=== PATIENT | male | born 2000 | race Caucasian/White ===

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

== ENCOUNTER 2022-05-09 07:33 | Emergency (ER) | payer MEDICAID, OTHER ==
[~2022-05-09] VITALS: Ht 167.6 cm; Wt 59.0 kg
[2022-05-09] MEDS ORDERED: LORazepam 2MG/ML-1ML VIAL IV ONE (07:45)
[2022-05-09 08:01] LABS: Basophils # (auto) 0.1 10 ^3/uL (0-0.2); Basophils % (auto) 0.7 % (0.0-2.0); Eosinophils # (auto) 0.1 10 ^3/uL (0-0.8); Eosinophils % (auto) 1.1 % (0.0-7.0); Hematocrit 44.4 % (41.0-53.0); Hemoglobin 15.4 g/dL (13.5-17.5); Lymphocytes # (auto) 1.6 10 ^3/uL (0.4-5.4); Lymphocytes % (auto) 14.3 % (10.0-50.0); Mean Corpuscular Hemoglobin 29.9 pg (28.0-32.0); Mean Corpuscular Hgb Conc. 34.8 g/dL (32.0-36.0); Mean Corpuscular Volume 86.1 fL (80.0-100.0); Monocytes # (auto) 0.6 10 ^3/uL (0-1.3); Monocytes % (auto) 5.3 % (0.0-12.0); Neutrophils # (auto) 8.6 10 ^3/uL (1.6-8.6); Neutrophils % (auto) 78.6 % (37.0-80.0); Nucleated Red Blood Cells % 0.2 %; Red Blood Cells 5.16 10^6/uL (4.5-5.90); Red Cell Distribution Width 13.1 % (11.8-14.3)
[2022-05-09 08:15] VITALS: BP 121/75
[2022-05-09 08:18] LABS: Albumin 4.3 g/dL (3.4-5.0); Calcium 9.5 mg/dL (8.5-10.1); Potassium 4.3 mmol/L (3.5-5.1)
[2022-05-09 08:21] LABS: BUN/Creatinine Ratio 8.3; Bilirubin, Total 0.8 mg/dL (0.2-1.0); Total Protein 7.7 g/dL (6.4-8.2)
[2022-05-09] MEDS ORDERED: KEP500T PO (08:51)
== END 2022-05-09 09:49 | disposition home or self-care (01) ==
LOC: EDBD 07:33 → ER 07:33
DX: G40.909 Epilepsy, unspecified, not intractable, without status epilepticus (principal); F17.210 Nicotine dependence, cigarettes, uncomplicated; Z79.899 Other long term (current) drug therapy
CPT/HCPCS: 36415; 70450; 80053; 85025; 96365; 96375; 99284; J1953; J2060; J7060

== ENCOUNTER 2023-08-06 13:28 | Inpatient (IN) | payer MEDICAID ==
[~2023-08-06] VITALS: Ht 175.3 cm; Wt 64.0 kg
[~2023-08-06 13:28] MED LIST: KEP500T PO
[2023-08-06 15:35] LABS: Basophils # (auto) 0.1 10 ^3/uL (0-0.2); Basophils % (auto) 0.6 % (0.0-2.0); Eosinophils # (auto) 0 10 ^3/uL (0-0.8); Eosinophils % (auto) 0.1 % (0.0-7.0); Hematocrit 45.9 % (41.0-53.0); Hemoglobin 15.6 g/dL (13.5-17.5); Lymphocytes # (auto) 0.6 10 ^3/uL (0.4-5.4); Lymphocytes % (auto) 4.7 % (10.0-50.0); Mean Corpuscular Hemoglobin 32.4 pg (28.0-32.0); Mean Corpuscular Volume 95.3 fL (80.0-100.0); Monocytes # (auto) 0.8 10 ^3/uL (0-1.3); Monocytes % (auto) 6.9 % (0.0-12.0); Neutrophils # (auto) 10.4 10 ^3/uL (1.6-8.6); Neutrophils % (auto) 87.7 % (37.0-80.0); Nucleated Red Blood Cells % 0.1 %; Red Blood Cells 4.82 10^6/uL (4.5-5.90); Red Cell Distribution Width 14.5 % (11.8-14.3); White Blood Cell 11.8 10^3/uL (4.4-10.8)
[2023-08-06 15:54] LABS: Alanine Aminotransferase 128 U/L (7-40); Albumin 4.8 g/dL (3.2-4.8); Alkaline Phosphatase 162 U/L (46-116); Anion Gap 7 (5-15); Aspartate Aminotransferase 166 U/L (13-40); BUN/Creatinine Ratio 8.2 (10.0-20.0); Blood Urea Nitrogen 8 mg/dL (9-23); Calcium 9.5 mg/dL (8.7-10.4); Carbon Dioxide 27 mmol/L (20-30); Chloride 101 mmol/L (98-107); Glucose 263 mg/dL (74-106); Lipase 63 U/L (12-53); Potassium 3.8 mmol/L (3.5-5.1); Sodium 135 mmol/L (136-145)
[2023-08-06 15:55] LABS: Bilirubin, Total 1.3 mg/dL (0.2-1.0); Total Protein 7.6 g/dL (5.7-8.2)
[2023-08-06 17:11] LABS: COVID19 ANTIGEN SOFIA FIA NEGATIVE (NEGATIVE); Rapid Influenza A Negative (Negative); Rapid Influenza B Negative (Negative)
[2023-08-06] MEDS ORDERED: LORazepam 2MG/ML-1ML VIAL IV ONE (17:15)
[2023-08-06] MEDS ORDERED: FOLIC ACID 1 MG, MAGNESIUM SULF SDV 50% 8 MEQ, MULTIPLE VITAMIN 10 ML, THIAMINE INJ 100... INJ SCH ×5 (18:00)
[2023-08-06] MEDS ORDERED: HYDROcodone-ACET 5/325MG TAB PO PRN (18:45)
[2023-08-06] MEDS ORDERED: HYDROmorphone HCL 2 MG/ML VL/or syr IV PRN (18:45)
[2023-08-06] MEDS ORDERED: ACETAMINOPHEN 325 MG TAB PO PRN (18:45)
[2023-08-06] MEDS ORDERED: ONDANSETRON HCL 4 MG/2 ML VIAL IV PRN (18:45)
[2023-08-06] MEDS ORDERED: DOCUSATE SOD 100 MG CAP PO PRN (18:45)
[2023-08-06] MEDS ORDERED: LORazepam 2MG/ML-1ML VIAL IV PRN (19:00)
[2023-08-06] MEDS ORDERED: LORazepam 0.5 MG TAB PO PRN (19:00)
[2023-08-06] MEDS: SODIUM CHLOR 0.9% PF (SALINE LOCK) 10ML VIAL/SYR IV SCH (22:05)
[2023-08-06 23:30] VITALS: BP 146/93; PULSE 78; RESP 18; TEMP 98.2; O2SAT 96
[2023-08-07 01:15] VITALS: BP 146/93; PULSE 78; RESP 17; RESP 18; O2SAT 96
[2023-08-07 05:00] VITALS: BP 126/64; PULSE 79; RESP 17; TEMP 98.1; O2SAT 97
[2023-08-07] MEDS: SODIUM CHLOR 0.9% PF (SALINE LOCK) 10ML VIAL/SYR IV SCH (06:04)
[2023-08-07 08:44] LABS: Hepatitis B Surface Antigen Negative (Negative)
[2023-08-07 08:50] VITALS: BP 120/66; PULSE 63; RESP 18; TEMP 98.1; O2SAT 98
[2023-08-07 09:04] LABS: Hepatitis A Ab IgM Negative
[2023-08-07 09:05] LABS: Hepatitis B Core IgM Negative
[2023-08-07 09:06] LABS: Hepatitis C Antibody Negative (Negative)
[2023-08-07] MEDS ORDERED: THIAMINE HCL 100 MG TAB PO SCH (10:00)
[2023-08-07] MEDS ORDERED: ENOXAPARIN SOD 40 MG/0.4 ML SYRINGE SC SCH (10:00)
[2023-08-07] MEDS ORDERED: MULTIPLE VITAMIN TAB PO SCH (10:00)
[2023-08-07] MEDS ORDERED: FOLIC ACID 1 MG TAB PO SCH (10:00)
[2023-08-07 11:21] LABS: Alanine Aminotransferase 98 U/L (7-40); Alkaline Phosphatase 142 U/L (46-116); Anion Gap 7 (5-15); BUN/Creatinine Ratio 5.9 (10.0-20.0); Blood Urea Nitrogen 5 mg/dL (9-23); Calcium 9.5 mg/dL (8.5-10.1); Carbon Dioxide 26 mmol/L (20-30); Chloride 107 mmol/L (98-107); Glucose 101 mg/dL (74-106); Potassium 3.9 mmol/L (3.5-5.1); Sodium 140 mmol/L (136-145)
[2023-08-07 11:22] LABS: Albumin 4.3 g/dL (3.2-4.8); Aspartate Aminotransferase 109 U/L (13-40); Bilirubin, Total 1.9 mg/dL (0.2-1.0); Total Protein 6.8 g/dL (5.7-8.2)
[2023-08-07 12:00] VITALS: BP 144/85; PULSE 66; RESP 18; TEMP 97.9; O2SAT 98
[2023-08-07 16:45] VITALS: BP 135/95; PULSE 66; RESP 20; TEMP 97.9; O2SAT 97
[2023-08-07 17:18] LABS: Amphetamine Screen, Urine Neg (NEGATIVE); Barbiturate Scree,Urine Neg (NEGATIVE); Benzodiazephine Screen, Urine Neg (NEGATIVE); Cannabinoid Screen, Urine Pos (NEGATIVE); Cocaine Screen, Urine Neg (NEGATIVE); Opiate Scree,Urine Neg (NEGATIVE); Phencyclidine Screen, Urine Neg (NEGATIVE)
[2023-08-07 17:55] LABS: Urine Bacteria NONE SEEN /hpf (None Seen); Urine Blood Negative /uL (Negative); Urine Clarity Clear (Clear); Urine Color Yellow (Yellow); Urine Protein, UAD 1+ (Negative); Urine WBC 1 /hpf (0 - 3)
== END 2023-08-07 18:08 | disposition home or self-care (01) | DRG 775 ==
LOC: ER 13:28 → OVERFLOW 18:37 → WEST WING 23:20
PROVIDERS: ADMIT Internal Medicine; ATTEND Nurse Practitioner Acute Care
DX: F10.139 Alcohol abuse with withdrawal, unspecified (principal); K74.60 Unspecified cirrhosis of liver; E11.65 Type 2 diabetes mellitus with hyperglycemia; R74.01 Elevation of levels of liver transaminase levels; F17.210 Nicotine dependence, cigarettes, uncomplicated; Z20.822 Contact with and (suspected) exposure to COVID-19; Y90.9 Presence of alcohol in blood, level not specified
CPT/HCPCS: 36415; 70450; 71045; 80053; 80074; 80307; 81001; 82962; 83690; 83735; 85025; 87426; 87804; G0378

== ENCOUNTER → 2023-08-12 | Outpatient (CLI) | payer MEDICAID ==
[2023-08-12 15:48] LABS: Basophils # (auto) 0.1 10 ^3/uL (0-0.2); Basophils % (auto) 1.1 % (0.0-2.0); Eosinophils # (auto) 0.1 10 ^3/uL (0-0.8); Eosinophils % (auto) 1.1 % (0.0-7.0); Hematocrit 47.6 % (41.0-53.0); Hemoglobin 16.1 g/dL (13.5-17.5); Lymphocytes # (auto) 1.1 10 ^3/uL (0.4-5.4); Lymphocytes % (auto) 18.6 % (10.0-50.0); Mean Corpuscular Hemoglobin 32.6 pg (28.0-32.0); Mean Corpuscular Hgb Conc. 33.8 g/dL (32.0-36.0); Mean Corpuscular Volume 96.4 fL (80.0-100.0); Monocytes # (auto) 0.8 10 ^3/uL (0-1.3); Monocytes % (auto) 13.1 % (0.0-12.0); Neutrophils # (auto) 3.9 10 ^3/uL (1.6-8.6); Neutrophils % (auto) 66.1 % (37.0-80.0); Nucleated Red Blood Cells % 0.2 %; Red Blood Cells 4.94 10^6/uL (4.5-5.90); Red Cell Distribution Width 14.5 % (11.8-14.3); White Blood Cell 5.8 10^3/uL (4.4-10.8)
[2023-08-12 16:53] LABS: Alanine Aminotransferase 195 U/L (7-40); Alkaline Phosphatase 170 U/L (46-116); Anion Gap 5 (5-15); BUN/Creatinine Ratio 5.9 (10.0-20.0); Blood Urea Nitrogen 6 mg/dL (9-23); Calcium 9.7 mg/dL (8.5-10.1); Carbon Dioxide 29 mmol/L (20-30); Chloride 105 mmol/L (98-107); Glucose 87 mg/dL (74-106); Potassium 4.3 mmol/L (3.5-5.1); Sodium 139 mmol/L (136-145)
[2023-08-12 16:54] LABS: Albumin 4.7 g/dL (3.2-4.8); Aspartate Aminotransferase 234 U/L (13-40); Bilirubin, Total 0.5 mg/dL (0.2-1.0); Total Protein 7.4 g/dL (5.7-8.2)
== END | disposition home or self-care (01) ==
LOC: LAB 15:33
PROVIDERS: ATTEND Nurse Practitioner Acute Care
DX: K74.60 Unspecified cirrhosis of liver (principal)
CPT/HCPCS: 36415; 80053; 85025

== ENCOUNTER 2024-03-15 14:05 | Emergency (ER) | payer MEDICAID ==
[~2024-03-15] VITALS: Ht 180.3 cm; Wt 81.8 kg
[2024-03-15 14:43] VITALS: BP 119/69; PULSE 93; RESP 17; O2SAT 97
[2024-03-15 16:36] LABS: Alanine Aminotransferase 116 U/L (7-40); Albumin 4.2 g/dL (3.2-4.8); Alkaline Phosphatase 130 U/L (46-116); Anion Gap 9 (5-15); Aspartate Aminotransferase 251 U/L (13-40); BUN/Creatinine Ratio 12.9 (10.0-20.0); Blood Urea Nitrogen 11 mg/dL (9-23); Calcium 8.8 mg/dL (8.7-10.4); Carbon Dioxide 24 mmol/L (20-30); Chloride 106 mmol/L (98-107); Glucose 126 mg/dL (74-106); Potassium 3.4 mmol/L (3.5-5.1); Sodium 139 mmol/L (136-145)
[2024-03-15 16:37] LABS: Bilirubin, Total 1.1 mg/dL (0.2-1.0); Total Protein 6.3 g/dL (5.7-8.2)
[2024-03-15 16:40] LABS: Basophils # (auto) 0 10 ^3/uL (0-0.2); Basophils % (auto) 0.6 % (0.0-2.0); Eosinophils # (auto) 0 10 ^3/uL (0-0.8); Eosinophils % (auto) 0.2 % (0.0-7.0); Hematocrit 42.1 % (41.0-53.0); Hemoglobin 14.8 g/dL (13.5-17.5); Lymphocytes # (auto) 0.8 10 ^3/uL (0.4-5.4); Lymphocytes % (auto) 10.9 % (10.0-50.0); Mean Corpuscular Hemoglobin 33.2 pg (28.0-32.0); Mean Corpuscular Hgb Conc. 35.2 g/dL (32.0-36.0); Mean Corpuscular Volume 94.3 fL (80.0-100.0); Monocytes # (auto) 0.4 10 ^3/uL (0-1.3); Monocytes % (auto) 5.1 % (0.0-12.0); Neutrophils # (auto) 6.2 10 ^3/uL (1.6-8.6); Neutrophils % (auto) 83.2 % (37.0-80.0); Platelet Count (auto) 142 10^3/uL (140-450); Red Blood Cells 4.46 10^6/uL (4.5-5.90); Red Cell Distribution Width 13.4 % (11.8-14.3); White Blood Cell 7.4 10^3/uL (4.4-10.8)
[2024-03-15] MEDS: POTASSIUM EFFERVESENT TAB 25 MEQ PO ONE (17:09)
[2024-03-15] MEDS: SODIUM CHLORIDE 0.9% 1,000 ML IV ONE (18:13)
== END 2024-03-15 18:13 | disposition home or self-care (01) ==
LOC: ER 14:05 → EDBD 14:05 → ER 18:13
DX: R74.01 Elevation of levels of liver transaminase levels (principal); F10.10 Alcohol abuse, uncomplicated; R53.1 Weakness; F17.210 Nicotine dependence, cigarettes, uncomplicated; F12.10 Cannabis abuse, uncomplicated
CPT/HCPCS: 36415; 71045; 80053; 84484; 85025; 93005

== ENCOUNTER 2024-04-20 23:19 | Emergency (ER) | payer MEDICAID ==
[~2024-04-20] VITALS: Ht 172.7 cm; Wt 58.6 kg
[2024-04-20 23:30] VITALS: BP 118/84; PULSE 91; RESP 20; O2SAT 98
[2024-04-21] MEDS: cefTRIAXone 1GM/50ML D5W 50 ML IV ONE (00:10)
[2024-04-21] MEDS: TETANUS-DIPTH-ACEL PERTUSSIS 0.5ML SYR Tdap IM ONE (00:10)
[2024-04-21] MEDS: CLINDAMYCIN 900MG IV 50 ML IV ONE (00:25)
== END 2024-04-21 01:47 | disposition left against medical advice (07) ==
LOC: ER 23:19
DX: S61.452A Open bite of left hand, initial encounter (principal); L04.2 Acute lymphadenitis of upper limb; F17.210 Nicotine dependence, cigarettes, uncomplicated; F12.90 Cannabis use, unspecified, uncomplicated; W55.01XA Bitten by cat, initial encounter; Y93.89 Activity, other specified; Y92.89 Other specified places as the place of occurrence of the external cause; Y99.8 Other external cause status
CPT/HCPCS: 90471; 90715; 96365; 96368; 99284; J0696; J3490

== ENCOUNTER 2024-05-16 20:57 | Inpatient (IN) | payer MEDICAID ==
[~2024-05-16] VITALS: Ht 172.7 cm; Wt 59.3 kg
[2024-05-16] MEDS: LORazepam 2MG/ML-1ML VIAL IV ONE ×2 (21:00→23:01)
[2024-05-16] MEDS ORDERED: LORazepam 2MG/ML-1ML VIAL ONE (21:02)
--- NOTE | 2024-05-16 21:16 | ED.PDOC ---
HPI (NEURO) HPI Comments 23y M who presents to the ED via EMS for chief complaint of seizure like activity. Per EMS, pt has history of seizure and pt had seizure 25 Mins prior and EMS was called to the scene. EMS arrived on scene and pt was post-ictal but was moving and swaying from side to side and pt was placed on 15 L via non- rebreather. EMS states pt was given versed and brought to the ED with pt have 2 seizures en route to the ED. EMS states pt has not taken his seizure meds for the past 2 days as pt family had taken away his Keppra for unknown reasons. Pt in the ED, noted to be in post-ictal and posturing in the ED. Pt unable to answer any questions at this time. Chief Complaint: Seizure Time Seen by MD: 21:12 Primary Care Provider: NONE Reviewed Notes: Geoscientist Notes, Allergies Information Source: Emergency Med Personnel Mode of Arrival: EMS Brought in by: EMS Severity: Moderate Dizziness/Weakness Severity: Unable to do activities Headache Severity: Moderate Timing: Minutes, Hours Duration: Since onset Prehospital treatment: Oxygen (15 L via NRB), Treatment (versed) Onset: At rest Circumstances: Spontaneous Symptoms: Weakness Before: Normal During: LOC After: Confusion History of: Seizure Disorder Modifying factors: Change in position Associated Signs and Symptoms: Weakness Past Medical History PAST MEDICAL HISTORY: Seizures Surgical History: Denies all surgeries Family History Family History: Unknown Social History Smoker: Cigarettes, Less Than 1 Pack/Day Alcohol: Occasionally Drugs: Marijuana Lives In: Home Constitutional: denies: chills, diaphoresis, fatigue, fever, malaise, sweats, weakness, others EENTM: denies: blurred vision, double vision, ear bleeding, ear discharge, ear drainage, ear pain, ear ringing, eye pain, eye redness, hearing loss, mouth pain, mouth swelling, nasal discharge, nose bleeding, nose congestion, nose pain, photophobia, tearing, throat pain, throat swelling, voice changes, others Respiratory: denies: cough, hemoptysis, orthopnea, SOB at rest, shortness of breath, SOB with excertion, stridor, wheezing, others Cardiovascular: denies: chest pain, dizzy spells, diaphoresis, Dyspnea on exertion, edema, irregular heart beat, left arm pain, lightheadedness, palpitations, PND, syncope, others Gastrointestinal: denies: abdomen distended, abdominal pain, blood streaked bowels, constipated, diarrhea, dysphagia, difficulty swallowing, hematemesis, melena, nausea, poor appetite, poor fluid intake, rectal bleeding, rectal pain, vomiting, others Genitourinary: denies: burning, dysuria, flank pain, frequency, hematuria, incontinence, penile discharge, penile sore, pain, testicle pain, testicle swelling, urgency, others Neurological: reports: seizure; denies: dizziness, fainting, headache, left sided numbness, left sided weakness, numbness, paresthesia, pre-existing deficit, right sided numbness, right sided weakness, speech problems, tingling, tremors, weakness, others Musculoskeletal: denies: back pain, gout, joint pain, joint swelling, muscle pain, muscle stiffness, neck pain, others Integumetry: denies: bruises, change in color, change in hair/nails, dryness, laceration, lesions, lumps, rash, wounds, others Allergic/Immunocompromised: denies: Difficulty Healing, Frequent Infections, Hives, Itching, others Hematologic/Lymphatic: denies: anemia, blood clots, easy bleeding, easy bruising, swollen glands, others Endocrine: denies: excessive hunger, excessive sweating, excessive thirst, excessive urination, flushing, intolerance to cold, intolerance to heat, unexplained weight gain, unexplained weight loss, others Psychiatric: denies: anxiety, bipolar disorder, depression, hopeless, panic disorder, schizophrenia, sleepless, suicidal, others All Other Systems: Reviewed and Negative Physical Exam General Appearance: Severe Distress HEENT: Pale Conjuntivae (L), Pale Conjuntivae (R), Pharynx Normal, TMs Normal Neck: Full Range of Motion, Non-Tender, Normal, Normal Inspection Respiratory: Chest Non-Tender, Lungs Clear, No Accessory Muscle Use, No Respiratory Distress, Normal Breath Sounds Cardiovascular: No Edema, No JVD, No Murmur, No Gallop, Normal Peripheral Pulses, Regular Rate/Rhythm Breast Exam: Deferred Gastrointestinal: No Organomegaly, Non Tender, No Pulsatile Mass, Normal Bowel Sounds, Soft Genitalia: Deferred Pelvic: Deferred Rectal: Deferred Extremities: No calf tenderness, Normal capillary refill, No pedal edema Musculoskeletal : Apperance: Normal Neurologic: assembler brazer II-XII nml as Tested, Motor Weakness, No Sensory Deficits, Other (The patient has an active seizure) Cerebellar Function: Normal Reflexes: Normal Skin: Dry, Normal Color, Warm Lymphatic: No Adenopathy EKG EKG : Pulse Rate (adult): 142 Wilmer: Normal Cardiac Rhythm: ST Hypertrophy: None ST: Normal Was a procedure done? Was a procedure done?: Yes Sedation Sedation?: Yes Informed consent obtained: No Sedation start time: 21:30 Sedation end time: 21:31 Sedation total time: 1 min Central Line Recorder of insertion practice: Lead Software Architect Occupation of principal technologist: Attending Physician Indication: CVP monitoring Room prepared for procedure: Yes Lead Software Architect performed hand hygien: Yes Maximal sterile barrier precau: Mask/Eye shield, Sterile gown, Sterlie gloves, Large sterlie drape Skin preparation completely dr: Yes Insertion site: Right, Infraclavicular Central line catheter type: Tunneled- not dialysis Antiseptic ointment applied to: Yes Post Assessment: Chest X-Ray Intubation Indication: Airway Protection Prep: No Preoxygenation Pretreated with: Sedation (etomidate 20 mg) Medicated with: Succinylcholine (80 mg) Intubation Approach: Orotracheal Differential Diagnosis (SZ) Seizure: Anticonvulsant Withdrawl, Closed Head Injury, CVA/TIA, Drug Ingestion, Hypocalcemia, Hypoglycemia, Hyponatremia, Hypoxemia, Idiopathic, Encephalopathy, Epilepsy-Break Through, Epilepsy-Status X-Ray, Labs, Meds, VS Vital Signs Date Time Temp Pulse Resp B/P (MAP) Pulse Ox O2 Delivery O2 Flow Rate FiO2 05/17/24 02:00 105/58 05/17/24 02:00 100.6 91 19 105/58 (74) 100 100.6 05/17/24 01:45 100.6 98 21 107/61 (76) 100 100.6 05/17/24 01:30 112/67 05/17/24 01:30 123/79 05/17/24 01:30 100.6 92 17 112/67 (82) 100 100.6 05/17/24 01:15 100.6 96 18 115/69 (84) 100 100.6 05/17/24 01:15 115/69 05/17/24 01:00 121/71 05/17/24 01:00 100.6 99 18 121/71 (88) 100 100.6 05/17/24 00:45 100.6 103 23 119/77 (91) 100 100.6 05/17/24 00:30 100.6 104 22 123/79 (94) 100 100.6 05/17/24 00:30 123/79 05/17/24 00:30 123/79 05/17/24 00:15 100.6 102 18 125/79 (94) 100 100.6 05/17/24 00:00 100.6 101 17 131/80 (97) 100 100.6 05/17/24 00:00 131/80 05/17/24 00:00 101 05/16/24 23:45 100.6 110 18 130/79 (96) 100 100.6 05/16/24 23:34 121 18 125/78 (94) 100 100 05/16/24 23:30 123 18 124/78 (93) 100 05/16/24 23:30 124/78 05/16/24 23:30 124/78 05/16/24 23:00 162/109 05/16/24 23:00 162/109 05/16/24 23:00 158 22 162/109 (126) 94 05/16/24 22:45 111 27 124/71 (88) 99 05/16/24 22:45 124/71 05/16/24 22:30 128 23 142/84 (103) 96 05/16/24 22:30 140/84 05/16/24 22:30 142/84 05/16/24 22:19 146 41 150/41 100 100 05/16/24 22:15 141/86 05/16/24 22:15 121 22 141/86 (104) 98 05/16/24 22:00 134 20 133/83 (100) 96 05/16/24 22:00 133/83 05/16/24 22:00 133/83 05/16/24 21:57 139 15 176/88 (117) 96 05/16/24 21:52 146 41 150/41 (77) 100 100 05/16/24 21:35 147 30 93 Nasal Cannula* 2 28 05/16/24 21:34 147 30 150/97 (114) 93 05/16/24 21:30 150/97 05/16/24 21:25 98.4 140 22 152/79 (103) 99 11/10/24 21:21 176/88 05/16/24 21:16 142 05/16/24 21:06 142 Lab Test 05/17/24 01:37 05/16/24 23:40 05/16/24 21:15 Range/Units Blood Gas Specimen Type Arterial Blood Gas Sample Site Left brachial Blood Gas Patient Temperature 37.0 Arterial Blood Date Drawn [id number] Arterial Blood pH 7.541 H 7.350-7.450 Arterial Blood Partial Pressure CO2 30.5 L 35.0-48.0 mmHg Arterial Blood Partial Pressure O2 256.0 H 83.0-108.0 mmHg Arterial Blood HCO3 25.6 21.0-28.0 mmol/L Arterial Blood Oxygen Saturation 99.5 H 94.0-98.0 % Arterial Blood Base Excess 3.7 H -2.0-3.0 mmol/L Arterial Blood Oxyhemoglobin 98.4 H 94.0-98.0 % Arterial Blood Carboxyhemoglobin 0.3 L 0.5-1.5 % Arterial Blood Methemoglobin 0.8 0.0-1.5 % [place] Test N/a Blood Gas Total Hemoglobin 13.80 13.5-17.5 g/dL Blood Gas Set Respiration Rate 18.0 Blood Gas Modality Vent - ac FiO2 % 100.0 Blood Gas Tidal Volume 500.0 Blood Gas PEEP or CPAP 5.0 Urine Color Light-orange Yellow Urine Clarity Turbid H Clear Urine pH 6.0 5.0-9.0 Urine Specific [place] 1.019 1.001-1.035 Urine Protein 2+ H Negative Urine Ketones Trace Negative Urine Blood 3+ H Negative /uL Urine Nitrite Negative Negative Urine Bilirubin Negative Negative Urine Urobilinogen Normal Negative mg/dL Urine Leukocyte Esterase Negative Negative /uL Urine RBC 94 0 - 3 /hpf Urine WBC 5 0 - 3 /hpf Urine Squamous Epithelial Cells Few <5 /hpf Urine Calcium Oxalate Crystals Mod None Seen Urine Amorphous Crystals Few None Seen /hpf Urine Bacteria Few H None Seen /hpf Urine Hyaline Casts Few 0 - 2 /lpf Urine Sperm Present None Seen /hpf Urine Glucose Normal Normal mg/dL Urine Opiates Screen Neg NEGATIVE Urine Fentanyl Screen Neg NEGATIVE Urine Barbiturates Screen Neg NEGATIVE Urine Phencyclidine Screen Neg NEGATIVE Urine Amphetamines Screen Neg NEGATIVE Urine Benzodiazepines Screen Pos NEGATIVE Urine Cocaine Screen Neg NEGATIVE Urine Cannabinoids Screen Pos NEGATIVE White Blood Count 8.9 4.4-10.8 10^3/uL Red Blood Count 4.29 L 4.5-5.90 10^6/uL Hemoglobin 14.6 13.5-17.5 g/dL Hematocrit 42.8 41.0-53.0 % Mean Corpuscular Volume 99.7 80.0-100.0 fL Mean Corpuscular Hemoglobin 34.0 H 28.0-32.0 pg Mean Corpuscular Hemoglobin Concent 34.1 32.0-36.0 g/dL Red Cell Distribution Width 13.8 11.8-14.3 % Platelet Count 146 140-450 10^3/uL Mean Platelet Volume 6.6 L 6.9-10.8 fL Neutrophils (%) (Auto) 83.3 H 37.0-80.0 % Lymphocytes (%) (Auto) 9.5 L 10.0-50.0 % Monocytes (%) (Auto) 6.2 0.0-12.0 % Eosinophils (%) (Auto) 0.2 0.0-7.0 % Basophils (%) (Auto) 0.8 0.0-2.0 % Neutrophils # (Auto) 7.4 1.6-8.6 10 ^3/uL Lymphocytes # (Auto) 0.9 0.4-5.4 10 ^3/uL Monocytes # (Auto) 0.6 0-1.3 10 ^3/uL Eosinophils # (Auto) 0 0-0.8 10 ^3/uL Basophils # (Auto) 0.1 0-0.2 10 ^3/uL Nucleated Red Blood Cells 0.1 % Sodium Level 141 136-145 mmol/L Potassium Level 4.0 3.5-5.1 mmol/L Chloride Level 103 98-107 mmol/L Carbon Dioxide Level 24 20-31 mmol/L Anion Gap 14 5-15 Blood Urea Nitrogen 7 L 9-23 mg/dL Creatinine 1.13 0.700-1.30 mg/dL Glomerular Filtration Rate Calc 93 >90 mL/min BUN/Creatinine Ratio 6.2 L 10.0-20.0 Serum Glucose 153 H 74-106 mg/dL Calcium Level 9.8 8.7-10.4 mg/dL Plasma/Serum Blood Alcohol < 3.0 <10 mg/dL Current Medications Medications (Trade) Dose Ordered Sig/Travon Route Start Time Stop Time Status Last Admin Levetiracetam 100 ml @ 400 mls/hr ONCE ONCE IV 05/16/24 21:15 05/16/24 21:29 DC 05/16/24 21:41 Etomidate 20 mg ONCE ONCE IV 05/16/24 21:30 05/16/24 21:31 DC 05/16/24 21:33 Succinylcholine Chloride (Quelicin) 80 mg ONCE ONCE IV 05/16/24 21:30 05/16/24 21:31 DC 05/16/24 21:33 Midazolam HCl 50 ml @ 1 mls/hr Q24H IV 05/16/24 21:45 05/17/24 10:00 Lorazepam (Ativan Inj) 2 mg ONCE ONCE IV 05/16/24 21:00 05/16/24 22:13 DC 05/16/24 21:00 Succinylcholine Chloride (Quelicin) 100 mg ONCE ONCE IV 05/16/24 22:15 05/16/24 22:16 DC 05/16/24 22:15 Propofol 100 ml @ 2.316 mls/ hr Q24H IV 05/16/24 22:15 05/16/24 21:21 Fentanyl Citrate 250 ml @ 2.5 mls/hr Q24H IV 05/16/24 22:30 05/17/24 08:36 Lorazepam (Ativan Inj) 4 mg ONCE ONCE IV 05/16/24 23:00 05/16/24 23:01 DC 05/16/24 23:01 Acetaminophen (Tylenol Solution Oral) 650 mg ONCE ONCE GT 05/17/24 02:00 05/17/24 02:01 DC 05/17/24 02:12 Dextrose/Sodium Chloride 1,000 ml @ 100 mls/hr Q10H IV 05/17/24 02:00 05/17/24 02:12 IV Hep-Lock was established. The patient continued to have a seizure upon arrival. The patient was given Ativan IV push The patient was then started on Keppra 1000 mg IV piggyback The patient continued to have a seizure so we decided to intubate at that point. The intubation had no complications. The patient was then started on midazolam as well as propofol for sedation. The patient did require one additional succinylcholine for the procedure of a central line A Reeves catheter was placed An NG-tube was also placed We continue to monitor the patient on the ventilator as well as an ABG to monitor the patient's vent settings. The patient's CBC is within normal limits The chemistry panel is within normal limits The urine tox was done and shows positive for marijuana as well as a benzodiazepines The patient will be admitted to the ICU. Images Reviewed?: Images reviewed and evaluated by me Time of 1ST Reevaluation: 21:45 Reevaluation 1ST: Unchanged Patient Education/Counseling: Other (pt in post-ictal state) Family Education/Counseling: No Family Present Departure 1 Departure Time of Disposition: 11:26 Impression: Primary Impression: Status epilepticus Additional Impression: Acute respiratory failure Qualified Codes: J96.00 - Acute respiratory failure, unspecified whether with hypoxia or hypercapnia Disposition: ADMITTED INPATIENT Admit to: ICU Condition: Critical Critical Care Note Critical Care Time?: Yes (1 hr-critical care time only) Stability Stability form required: Yes Unstable for transfer: ICU, CCU, PCU, ASTON (Intensive VS monitoring), May require CPR (possible rapid decline), ED Physician Assesment (Clinical assesment) Heart Score Heart Score: Heart Score Response (Comments) Value History N/A 0 EKG N/A 0 Age N/A 0 Risk Factors N/A 0 Troponin N/A 0 Total 0 I personally scribed for DELIA GARCIA MD (LUIS ENRIQUE) on 05/16/24 at 21:16. Electronically submitted by Jane Pruitt (HEATHER). I personally scribed for DELIA GARCIA MD (LUIS ENRIQUE) on 05/16/24 at 21:28. Electronically submitted by Jane Pruitt (F?rsat Bu F?rsatTRAM). I personally scribed for DELIA GARCIA MD (CONORSRINA) on 05/16/24 at 21:38. Electronically submitted by Jane Pruitt (F?rsat Bu F?rsatTRAM). I personally scribed for DELIA GARCIA MD (CONORSRINA) on 05/16/24 at 21:41. Electronically submitted by Jane WHITE). I personally scribed for DELIA GARCIA MD (CONORSRINA) on 05/16/24 at 22:32. Electronically submitted by Jane Pruitt (HEATHER). DELIA GARCIA MD May 16, 2024 21:16
[2024-05-16] MEDS: PROPOFOL 100 ML IV SCH (21:21)
[2024-05-16] MEDS: ETOMIDATE (2MG/ML) 20ML VIAL IV ONE ×2 (21:33→22:10)
[2024-05-16] MEDS: SUCCINYLCHOLINE CHLORIDE 20 MG/ML 10ML VIAL IV ONE ×3 (21:33→22:15)
[2024-05-16 21:35] VITALS: PULSE 147; RESP 30; O2SAT 93
[2024-05-16 21:36] LABS: Basophils # (auto) 0.1 10 ^3/uL (0-0.2); Basophils % (auto) 0.8 % (0.0-2.0); Eosinophils # (auto) 0 10 ^3/uL (0-0.8); Eosinophils % (auto) 0.2 % (0.0-7.0); Hematocrit 42.8 % (41.0-53.0); Hemoglobin 14.6 g/dL (13.5-17.5); Lymphocytes # (auto) 0.9 10 ^3/uL (0.4-5.4); Lymphocytes % (auto) 9.5 % (10.0-50.0); Mean Corpuscular Hgb Conc. 34.1 g/dL (32.0-36.0); Mean Corpuscular Volume 99.7 fL (80.0-100.0); Monocytes # (auto) 0.6 10 ^3/uL (0-1.3); Monocytes % (auto) 6.2 % (0.0-12.0); Neutrophils # (auto) 7.4 10 ^3/uL (1.6-8.6); Neutrophils % (auto) 83.3 % (37.0-80.0); Nucleated Red Blood Cells % 0.1 %; Platelet Count (auto) 146 10^3/uL (140-450); Red Blood Cells 4.29 10^6/uL (4.5-5.90); Red Cell Distribution Width 13.8 % (11.8-14.3); White Blood Cell 8.9 10^3/uL (4.4-10.8)
[2024-05-16] MEDS: levETIRAcetam 1000 mg/100ml 100 ML IV ONE (21:41)
[2024-05-16 21:46] LABS: Chloride 103 mmol/L (98-107); Sodium 141 mmol/L (136-145)
[2024-05-16 21:47] LABS: Anion Gap 14 (5-15); Carbon Dioxide 24 mmol/L (20-31)
[2024-05-16 21:48] LABS: Calcium 9.8 mg/dL (8.7-10.4)
[2024-05-16 21:52] VITALS: BP 150/41; PULSE 146; RESP 41; O2SAT 100
[2024-05-16 21:52] LABS: Glucose 153 mg/dL (74-106)
[2024-05-16 21:53] LABS: BUN/Creatinine Ratio 6.2 (10.0-20.0); Blood Urea Nitrogen 7 mg/dL (9-23)
[2024-05-16] MEDS: MIDAZOLAM DRIP 50 mg/50mL 50 ML IV SCH (22:00)
[2024-05-16] MEDS: MIDAZOLAM DRIP 50 mg/50mL 50 ML IV ONE ×2 (22:09)
[2024-05-16] MEDS: PROPOFOL 100 ML IV ONE (22:11)
[2024-05-16 22:19] VITALS: BP 150/41; PULSE 146; RESP 41; O2SAT 100
[2024-05-16] MEDS: fentaNYL Drip 2500mCg/250mlNS 250 ML IV ONE (22:26)
[2024-05-16] MEDS: fentaNYL Drip 2500mCg/250mlNS 250 ML IV SCH (22:30)
[2024-05-16 23:34] VITALS: BP 125/78; PULSE 121; RESP 18; O2SAT 100
[2024-05-17] VITALS (75 sets, daily range): BP systolic 81–123; BP diastolic 34–82; PULSE 56–94; RESP 15–18; TEMP 98.6–100.8; O2SAT 97–100
[2024-05-17 00:14] LABS: Amphetamine Screen, Urine Neg (NEGATIVE); Barbiturate Scree,Urine Neg (NEGATIVE); Benzodiazephine Screen, Urine Pos (NEGATIVE); Cocaine Screen, Urine Neg (NEGATIVE); Opiate Scree,Urine Neg (NEGATIVE)
[2024-05-17 00:15] LABS: Cannabinoid Screen, Urine Pos (NEGATIVE); Phencyclidine Screen, Urine Neg (NEGATIVE)
--- NOTE | 2024-05-17 00:42 | DVH ---
CT BRAIN WITHOUT CONTRAST HISTORY: seizure TECHNIQUE: Axial scans were obtained from the skull base through the vertex without contrast. Sagitta l and coronal reformats were generated. One or more of the following radiation dose reduction techniq ues were used for this examination: automated exposure control, adjustment of the mA and/or kV accord ing to patient size, use of iterative reconstruction technique. COMPARISON: CT HEAD WITHOUT CONTRAST on DOS: 10/03/23 FINDINGS: Streak artifact somewhat limits evaluation of the skull base and posterior fossa. No acute intracrani al hemorrhage or evidence of large vessel territorial infarction identified at this time. No midline shift. The basilar cisterns are patent. Sunshine-white differentiation appears relatively preserved. Right maxillary sinus mucosal polyp versus retention cyst. Patchy ethmoidal sinus and left sphenoidal sinus mucosal thickening. The mastoid air cells are clear. No grossly displaced calvarial fracture is identified. IMPRESSION: No acute intracranial findings as visualized If there is persistent clinical concern, follow-up MRI may be obtained to further evaluate.
--- NOTE | 2024-05-17 01:23 | DVH ---
EXAMINATION: AP portable chest radiograph CLINICAL HISTORY: NG-TUBE PLACEMENT COMPARISON: XY CHEST PORTABLE on DOS: 03/15/24 FINDINGS: Endotracheal tube terminates approximately 1.5 cm above the maría. Enteric tube courses below the level of the diaphragm, the side port is partially visualized projecti ng over the expected location of the upper stomach. The distal tip is beyond the lower edge of the fi lm. Right subclavian central line terminates in the right atrium. No dominant consolidation. No definite pleural effusions or pneumothorax. The cardiomediastinal silho uette appears within normal limits given technique. IMPRESSION: Tubes and lines as above.
[2024-05-17 01:42] LABS: Base Excess 3.7 mmol/L (-2.0-3.0)
[2024-05-17] MEDS ORDERED: NITROGLYCERIN 0.4 MG SL TAB SL PRN (02:00)
[2024-05-17] MEDS: ACETAMINOPHEN 650 mg PER 20.3 mL UD GT ONE (02:12)
[2024-05-17] MEDS: D5W/SOD CHL 0.45% 1,000 ML IV SCH (02:12)
[2024-05-17] MEDS ORDERED: DEXTROSE (50%) 50ML SYRG IV PRN (02:15)
--- NOTE | 2024-05-17 02:20 | DVHHP2 ---
JULIA HONG VETERINARY NURSE 05/17/24 0219: History of Present Illness Reason for Visit: Seizures History of Present Illness Information in this HPI is limited due to the patient be sedated and intubated On mechanical ventilation. 23 year-old male with history of seizures Presents after having A seizure prior to calling EMS and additional witnessed seizures in route to the hospital. Patient reported to be post ictal and hypoxic requiring 15 L nonrebreather in route. The ER provider reported that family had taken the patient's Keppra away And he had not taken his medication for two days. Reason for taking patient's medication away is unclear. Patient will be admitted for further evaluation and treatment. CHIEF SCIENTIFIC OFFICER: Seizure Review of Systems Review of Systems Unable to complete due to patient condition Allergies: Coded Allergies: No Known Drug Allergy (Verified Allergy, Unknown, 10/02/17) Medications Current Medications Medications Dose Ordered Sig/Travon Route Start Time Stop Time Status Last Admin Dose Admin Midazolam HCl 50 ml @ 1 mls/hr Q24H IV 05/16/24 21:45 05/16/24 22:00 1 MLS/HR Propofol 100 ml @ 2.316 mls/ hr Q24H IV 05/16/24 22:15 05/16/24 21:21 2.316 MLS/HR Fentanyl Citrate 250 ml @ 2.5 mls/hr Q24H IV 05/16/24 22:30 05/16/24 22:30 2.5 MLS/HR Acetaminophen 650 mg Q6HP PRN PO 05/17/24 02:00 Dextrose/Sodium Chloride 1,000 ml @ 100 mls/hr Q10H IV 05/17/24 02:00 Ondansetron HCl 4 mg Q4HP PRN IV 05/17/24 02:00 Enoxaparin Sodium 40 mg DAILY SC 05/17/24 10:00 Nitroglycerin 0.4 mg Q5MINP PRN SL 05/17/24 02:00 Morphine Sulfate 2 mg Q30M PRN IV 05/17/24 02:00 Levetiracetam 100 ml @ 400 mls/hr BID IV 05/17/24 10:00 Diagnostic Test (Pha) 1 strip Q6HR 05/17/24 06:00 Insulin Human Regular Q6HR SC 05/17/24 06:00 Dextrose 50 ml UD PRN IV 11/11/24 02:15 Exam Vital Signs Vital Signs Date Time Temp Pulse Resp B/P (MAP) Pulse Ox O2 Delivery O2 Flow Rate FiO2 05/17/24 00:00 101 05/16/24 23:34 18 125/78 (94) 100 100 05/16/24 21:25 98.4 General Appearance: Other (Sedated/intubated) HEENT: Atraumatic, PERRLA, EOMI Respiratory: Clear to auscultation, Normal air movement Cardiovascular: Normal S1, Normal S2, Other (Tachycardia) Abdominal: Soft Extremities: No clubbing, No edema Neuro: Other (Sedated, intubated on mechanical ventilator) Psych/Mental Status: Other (Unable to assess at this time) Labs/Xrays Labs Test 05/17/24 01:37 05/16/24 23:40 05/16/24 21:15 Range/Units Blood Gas Specimen Type Arterial Blood Gas Sample Site Left brachial Blood Gas Patient Temperature 37.0 Arterial Blood Date Drawn [id number] Arterial Blood pH 7.541 H 7.350-7.450 Arterial Blood Partial Pressure CO2 30.5 L 35.0-48.0 mmHg Arterial Blood Partial Pressure O2 256.0 H 83.0-108.0 mmHg Arterial Blood HCO3 25.6 21.0-28.0 mmol/L Arterial Blood Oxygen Saturation 99.5 H 94.0-98.0 % Arterial Blood Base Excess 3.7 H -2.0-3.0 mmol/L Arterial Blood Oxyhemoglobin 98.4 H 94.0-98.0 % Arterial Blood Carboxyhemoglobin 0.3 L 0.5-1.5 % Arterial Blood Methemoglobin 0.8 0.0-1.5 % [place] Test N/a Blood Gas Total Hemoglobin 13.80 13.5-17.5 g/dL Blood Gas Set Respiration Rate 18.0 Blood Gas Modality Vent - ac FiO2 % 100.0 Blood Gas Tidal Volume 500.0 Blood Gas PEEP or CPAP 5.0 Urine Opiates Screen Neg NEGATIVE Urine Fentanyl Screen Neg NEGATIVE Urine Barbiturates Screen Neg NEGATIVE Urine Phencyclidine Screen Neg NEGATIVE Urine Amphetamines Screen Neg NEGATIVE Urine Benzodiazepines Screen Pos NEGATIVE Urine Cocaine Screen Neg NEGATIVE Urine Cannabinoids Screen Pos NEGATIVE White Blood Count 8.9 4.4-10.8 10^3/uL Red Blood Count 4.29 L 4.5-5.90 10^6/uL Hemoglobin 14.6 13.5-17.5 g/dL Hematocrit 42.8 41.0-53.0 % Mean Corpuscular Volume 99.7 80.0-100.0 fL Mean Corpuscular Hemoglobin 34.0 H 28.0-32.0 pg Mean Corpuscular Hemoglobin Concent 34.1 32.0-36.0 g/dL Red Cell Distribution Width 13.8 11.8-14.3 % Platelet Count 146 140-450 10^3/uL Mean Platelet Volume 6.6 L 6.9-10.8 fL Neutrophils (%) (Auto) 83.3 H 37.0-80.0 % Lymphocytes (%) (Auto) 9.5 L 10.0-50.0 % Monocytes (%) (Auto) 6.2 0.0-12.0 % Eosinophils (%) (Auto) 0.2 0.0-7.0 % Basophils (%) (Auto) 0.8 0.0-2.0 % Neutrophils # (Auto) 7.4 1.6-8.6 10 ^3/uL Lymphocytes # (Auto) 0.9 0.4-5.4 10 ^3/uL Monocytes # (Auto) 0.6 0-1.3 10 ^3/uL Eosinophils # (Auto) 0 0-0.8 10 ^3/uL Basophils # (Auto) 0.1 0-0.2 10 ^3/uL Nucleated Red Blood Cells 0.1 % Sodium Level 141 136-145 mmol/L Potassium Level 4.0 3.5-5.1 mmol/L Chloride Level 103 98-107 mmol/L Carbon Dioxide Level 24 20-31 mmol/L Anion Gap 14 5-15 Blood Urea Nitrogen 7 L 9-23 mg/dL Creatinine 1.13 0.700-1.30 mg/dL Glomerular Filtration Rate Calc 93 >90 mL/min BUN/Creatinine Ratio 6.2 L 10.0-20.0 Serum Glucose 153 H 74-106 mg/dL Calcium Level 9.8 8.7-10.4 mg/dL Plasma/Serum Blood Alcohol < 3.0 <10 mg/dL Assessment/Plan Assessment/Plan Status epilepticus Acute respiratory failure S/p intubation on mechanical ventilator Hx Seizure disorders Plan Admit ICU Neurology consult. MRI brain. Versed drip. Seizure precautions. IV Keppra BID. Pulmonology consult. Bronchodilators. As Needed supplemental O2 to maintain oxygen saturation greater than 93%. Ventilator / sedation management per pulmonology. IVF. Blood glucose checks every six hours to prevent hypoglycemia. GI ppx pepcid / DVT ppx lovenox Condition critical. Prognosis guarded Plan discussed with: Other (promotional marketing agent) My Orders Orders - JULIA HONG NP Procedure Category Date Status Time Admit ADMIT 05/17/24 Transmitted 01:50 Code Status CODE 05/17/24 Transmitted 01:50 Vital Signs [facility] 05/17/24 In Process 01:50 Review Orders With [facility] 05/17/24 In Process Adm. 01:50 Encourage Activity As [facility] 05/17/24 In Process Tolerate 01:50 Npo (Nothing By DIET 05/17/24 Transmitted Mouth) Diet Breakfast Oxygen By Face Mask RT 05/17/24 Transmitted 01:50 Acetaminophen Tablet [facility] 05/17/24 In Process (Tylenol Tablet) 02:00 Notify Of Changes [facility] 05/17/24 In Process From Base 01:50 Advance Directive [facility] 05/17/24 In Process 01:50 Basic Metabolic Panel LAB 05/17/24 Logged 05:00 Basic Metabolic Panel LAB 05/18/24 Verified 05:00 Basic Metabolic Panel LAB 05/19/24 Verified 05:00 Basic Metabolic Panel LAB 05/20/24 Verified 05:00 Basic Metabolic Panel LAB 05/21/24 Verified 05:00 Complete Blood Count LAB 05/17/24 Logged 05:00 Complete Blood Count LAB 05/18/24 Verified 05:00 Complete Blood Count LAB 05/19/24 Verified 05:00 Complete Blood Count LAB 05/20/24 Verified 05:00 Complete Blood Count LAB 05/21/24 Verified 05:00 D5w/Sod Chl 0.45% PHA 05/17/24 In Process (D5w 1/2ns) 02:00 Patient Condition ORDERS 05/17/24 Transmitted 01:50 Allergies [facility] 05/17/24 In Process 01:50 Ondansetron Hcl PHA 05/17/24 In Process (Zofran) 02:00 Enoxaparin Sodium PHA 05/17/24 In Process (Lovenox) 10:00 Sequential [facility] 05/17/24 In Process Compression Device Nitroglycerin PHA 05/17/24 In Process Sublingual (Ntrostat 02:00 Morphine Sulfate PHA 05/17/24 In Process Injection 02:00 Stat Ekg For Chest [facility] 05/17/24 In Process Pain 01:50 Notify Md Of Changes [facility] 05/17/24 In Process From Base 01:50 Gluing Crew Leader For [facility] 05/17/24 In Process 24 Hours 01:50 Emergency Dysrhythmia [facility] 05/17/24 In Process Protocol 01:50 Rhythm Strips Once [facility] 05/17/24 In Process Every Shift 01:50 Oxygen By Nasal RT 05/17/24 Transmitted Cannula 01:50 * Neurology Consult CONS 05/17/24 Transmitted 01:50 Seizure Precautions ED NURSING 05/17/24 Transmitted Levetiracetam 500 PHA 05/17/24 In Process Mg/100ml (Levetiraceta 10:00 *Consult CONS 05/17/24 Transmitted / 01:50 Communication Order ORDERS 05/17/24 Transmitted 01:50 Glucose Blood PHA 05/17/24 In Process (Accu-Chek Comfort 06:00 Insulin R (Human) PHA 05/17/24 In Process (Insulin R) 06:00 Dextrose 50% Syringe PHA 05/17/24 In Process 02:15 Date of Service: May 17, 2024 Billing Provider: MIRIAN ROBBINS MD Common Visit Codes: NOT BILLABLE MIRIAN ROBBINS MD 05/18/24 1906: Review of Systems Allergies: Coded Allergies: No Known Drug Allergy (Verified Allergy, Unknown, 10/02/17) Additional Comments Additional Comments Additional Comments Patient was seen and evaluated by me I agree with the assessment and plan as outlined by my nurse practitioner. JULIA HONG NP May 17, 2024 02:19 MIRIAN ROBBINS MD May 18, 2024 19:06
[2024-05-17 02:42] LABS: Urine Amorphous Crystal FEW /hpf (None Seen); Urine Bacteria FEW /hpf (None Seen); Urine Blood 3+ /uL (Negative); Urine Clarity Turbid (Clear); Urine Color Light-Orange (Yellow); Urine Hyaline Cast FEW /lpf (0 - 2); Urine Protein, UAD 2+ (Negative); Urine Specific Gravity 1.019 (1.001-1.035); Urine Sperm PRESENT /hpf (None Seen); Urine Urobilinogen Normal (Negative); Urine WBC 5 /hpf (0 - 3)
[2024-05-17 04:56] LABS: Chloride 107 mmol/L (98-107); Sodium 141 mmol/L (136-145)
[2024-05-17 04:57] LABS: Anion Gap 5 (5-15); Calcium 9.6 mg/dL (8.7-10.4); Carbon Dioxide 29 mmol/L (20-31)
[2024-05-17 05:02] LABS: BUN/Creatinine Ratio 7.8 (10.0-20.0); Blood Urea Nitrogen 7 mg/dL (9-23); Glucose 79 mg/dL (74-106)
[2024-05-17] MEDS: InsuLIN REG 1unit/0.01ml Soln (100units/ml) SC SCH (06:00)
[2024-05-17] MEDS: ACCU-CHEK COMFORT CURVE STRIP VI SCH (06:19)
[2024-05-17 06:33] LABS: Basophils # (auto) 0 10 ^3/uL (0-0.2); Eosinophils # (auto) 0 10 ^3/uL (0-0.8); Eosinophils % (auto) 0.2 % (0.0-7.0); Lymphocytes # (auto) 1.5 10 ^3/uL (0.4-5.4); Monocytes # (auto) 0.6 10 ^3/uL (0-1.3); Red Cell Distribution Width 13.3 % (11.8-14.3)
[2024-05-17 06:37] LABS: Basophils % (auto) 0.4 % (0.0-2.0); Hematocrit 36.7 % (41.0-53.0); Hemoglobin 12.7 g/dL (13.5-17.5); Lymphocytes % (auto) 18.6 % (10.0-50.0); Mean Corpuscular Hgb Conc. 34.7 g/dL (32.0-36.0); Monocytes % (auto) 7.6 % (0.0-12.0); Neutrophils # (auto) 5.8 10 ^3/uL (1.6-8.6); Neutrophils % (auto) 73.2 % (37.0-80.0); Nucleated Red Blood Cells % 0.2 %; Platelet Count (auto) 72 10^3/uL (140-450); Red Blood Cells 3.74 10^6/uL (4.5-5.90); White Blood Cell 7.9 10^3/uL (4.4-10.8)
[2024-05-17 07:52] LABS: Large Platelets D
[2024-05-17 07:53] LABS: Platelet Estimate Adequate
--- NOTE | 2024-05-17 08:16 | ECG ---
[facility] Test Date: 2024-05-16 Test Time: 21:06:44 Pat Name: MIRLANDE TAN Department: ED Room: 0240T Gender: M [employer]er: : 2000 Requested By: DELIA GARCIA Order Number: [id number] Reading MD: Cristopher Mathew Measurements Intervals [place] Rate: 142 P: 79 TN: 117 QRS: 89 QRSD: 86 T: -9 QT: 297 QTc: 457 Interpretive Statements Sinus tachycardia RSR' in V1 or V2, probably normal variant Borderline T wave abnormalities Artifact in lead(s) I,III,aVL,V2 Electronically Signed On 05-27-2024 12:45:45 PST by Cristopher Mathew Please click the below link to view image of tracing.
[2024-05-17] MEDS: POTASSIUM CHL 20MEQ/100ML 100 ML IV SCH (09:09)
[2024-05-17] MEDS: levETIRAcetam 500 mg/100ml 100 ML IV SCH (09:38)
[2024-05-17] MEDS: ENOXAPARIN SOD 40 MG/0.4 ML SYRINGE SC SCH (10:00)
--- NOTE | 2024-05-17 15:31 | DVH ---
PROCEDURE: MRI BRAIN HEAD WO CONTRAST INDICATION: 23 years old, Male; status epilepticus. EXAM DATE: 05/17/2024 02:50 PM COMPARISON: CT HEAD WITHOUT CONTRAST on DOS: 05/16/24, MRI BRAIN HEAD WO CONTRAST on DOS: 10/04/23, CT HEAD WITHOUT CONTRAST on DOS: 10/03/23 TECHNIQUE: MRI of the brain without intravenous contrast. FINDINGS: Diffusion weighted images of the brain demonstrate no evidence of acute infarction. There is no evidence of acute intracranial hemorrhage, extra-axial collection, mass effect, midline s hift, herniation or hydrocephalus. The ventricles, sulci and cisterns appear age appropriate. The signal intensities of the brain parenchyma are within normal limits. There are no signal abnormalities on the susceptibility weighted sequences. The major vascular flow voids are present. Right maxillary sinus mucous retention cyst. Mild opacification of the bilateral mastoid air cells. The surrounding soft tissues and osseous structures are unremarkable. IMPRESSION: 1. No evidence of acute infarction, intracranial hemorrhage, mass effect or hydrocephalus. HS:Y
[2024-05-17] MEDS: NOREPINEPHRINE 8 MG/250ML KIT 250 ML IV SCH (16:43)
--- NOTE | 2024-05-17 18:51 | DVHINCON2 ---
Date of service: May 17, [address] Lerma Reason for Consultation Acute hypoxic respiratory failure, mechanical ventilator management History of Present Illness 23-year-old man history of status epilepticus, presented with seizure-like activity. Patient has a history of seizures. He had a seizure 25 minutes prior to EMS arrival on scene. On EMS arrival patient was postictal but was moving and swing from [id number]. He required a 15 liters/minute non-rebreather. He received Versed. Patient had two seizures on route to the emergency department. Patient was nonadherence with seizure medications for the last two days. Family had taken away his Keppra for unknown reasons. In the emergency department patient was noted to be postictal and posturing. He was emergently intubated and placed on mechanical ventilator. Pulmonary consultation is called due to acute respiratory failure on mechanical ventilator management. Review of systems: Unable to be obtained due to patient's critical condition. Past medical history: Seizure disorder Past surgical history: None mentioned in prior surgeries. Medications: Reviewed Allergies: No known drug allergies. Family history: No family history of premature CAD. No family history of lung disease. Social history: Smoker. Less than one pack per day. Social alcohol use. Marijuana use. Lives at home. Family History: Hypertension G8 FATHER Allergies: Coded Allergies: No Known Drug Allergy (Verified Allergy, Unknown, 10/02/17) Home Meds Active Scripts Levetiracetam (KEPPRA TABLET) 500 Mg Tb, 1000 MG PO BID for 30 Days, #120 TAB 6 Refills Prov:FIONA EDWARDS DO 10/06/23 Current Medications Current Medications Medications (Trade) Dose Ordered Sig/Travon Route PRN Reason Start Time Stop Time Status Last Admin Midazolam HCl 50 ml @ 1 mls/hr Q24H IV 05/16/24 21:45 05/17/24 14:22 Propofol 100 ml @ 2.316 mls/ hr Q24H IV 05/16/24 22:15 05/16/24 21:21 Fentanyl Citrate 250 ml @ 2.5 mls/hr Q24H IV 05/16/24 22:30 05/17/24 18:23 Acetaminophen (Tylenol Tablet) 650 mg Q6HP PRN PO PAIN SCALE 1-3 OR TEMP>100.4 05/17/24 02:00 Dextrose/Sodium Chloride 1,000 ml @ 100 mls/hr Q10H IV 05/17/24 02:00 05/17/24 11:33 Ondansetron HCl (Zofran) 4 mg Q4HP PRN IV NAUSEA / VOMITING 05/17/24 02:00 Enoxaparin Sodium (Lovenox) 40 mg DAILY SC 05/17/24 10:00 Hold Nitroglycerin (Ntrostat Sublingual) 0.4 mg Q5MINP PRN SL FOR CHEST PAIN 05/17/24 02:00 Morphine Sulfate 2 mg Q30M PRN IV FOR CHEST PAIN 05/17/24 02:00 Levetiracetam 100 ml @ 400 mls/hr BID IV 05/17/24 10:00 05/17/24 09:38 Diagnostic Test (Pha) (Accu-Chek Comfort Curve T) 1 strip Q6HR 05/17/24 06:00 05/17/24 18:25 Insulin Human Regular (InsuLIN R) Q6HR SC 05/17/24 06:00 Dextrose 50 ml UD PRN IV Blood Sugar LESS THAN 60 05/17/24 02:15 Potassium Chloride 100 ml @ 50 mls/hr Q2H IV 05/17/24 08:00 05/17/24 14:21 DC 05/17/24 16:11 Norepinephrine Bitartrate 250 ml @ 3.75 mls/hr Q24H IV 05/17/24 16:15 05/17/24 16:43 Vital Signs Vital Signs Date Time Temp Pulse Resp B/P (MAP) Pulse Ox O2 Delivery O2 Flow Rate FiO2 05/17/24 18:23 90/45 05/17/24 18:00 60 05/17/24 18:00 30 05/17/24 18:00 18 100 Mechanical Ventilator+ 05/17/24 14:30 99.0 99.0 05/16/24 21:35 2 Physical Exam Gen.: Patient lying in bed in medical ICU. Sedated, intubated on mechanical ventilator. Head: Normocephalic, atraumatic. Eyes: PERRLA. Ears: Normal external anatomy. Throat: Endotracheal tube and orogastric tube in place. Neck: Supple, trachea midline. Chest: Transmitted breath sounds bilaterally. Decreased air entry bilaterally. No wheezing. Bibasilar crackles. Cardio vascular: Positive S1, positive S2. Regular rate and rhythm. Abdomen: Positive bowel sounds in all 4 quadrants. Soft, nontender, nondistended. : Reeves in place. Normal external genitalia. Rectal: Deferred Skin: Warm, dry. Intact. Extremities: 2+ radial pulses bilaterally. No lower extremity edema. Neuro: Sedated. Labs/Diagnostic Data Labs Test 05/17/24 18:28 05/17/24 06:00 05/17/24 04:25 05/17/24 01:37 Range/Units POC Glucose 91 70-106 mg/dl White Blood Count 7.9 4.4-10.8 10^3/uL Red Blood Count 3.74 L 4.5-5.90 10^6/uL Hemoglobin 12.7 L 13.5-17.5 g/dL Hematocrit 36.7 #L 41.0-53.0 % Mean Corpuscular Volume 98.0 80.0-100.0 fL Mean Corpuscular Hemoglobin 34.0 H 28.0-32.0 pg Mean Corpuscular Hemoglobin Concent 34.7 32.0-36.0 g/dL Red Cell Distribution Width 13.3 11.8-14.3 % Platelet Count 72 #L 140-450 10^3/uL Mean Platelet Volume 6.8 L 6.9-10.8 fL Neutrophils (%) (Auto) 73.2 37.0-80.0 % Lymphocytes (%) (Auto) 18.6 10.0-50.0 % Monocytes (%) (Auto) 7.6 0.0-12.0 % Eosinophils (%) (Auto) 0.2 0.0-7.0 % Basophils (%) (Auto) 0.4 0.0-2.0 % Neutrophils # (Auto) 5.8 1.6-8.6 10 ^3/uL Lymphocytes # (Auto) 1.5 0.4-5.4 10 ^3/uL Monocytes # (Auto) 0.6 0-1.3 10 ^3/uL Eosinophils # (Auto) 0 0-0.8 10 ^3/uL Basophils # (Auto) 0 0-0.2 10 ^3/uL Nucleated Red Blood Cells 0.2 % Platelet Estimate Adequate Large Platelets D Sodium Level 141 136-145 mmol/L Potassium Level 3.0 L 3.5-5.1 mmol/L Chloride Level 107 98-107 mmol/L Carbon Dioxide Level 29 20-31 mmol/L Anion Gap 5 5-15 Blood Urea Nitrogen 7 L 9-23 mg/dL Creatinine 0.90 0.700-1.30 mg/dL Glomerular Filtration Rate Calc 122 >90 mL/min BUN/Creatinine Ratio 7.8 L 10.0-20.0 Serum Glucose 79 74-106 mg/dL Calcium Level 9.6 8.7-10.4 mg/dL Blood Gas Specimen Type Arterial Blood Gas Sample Site Left brachial Blood Gas Patient Temperature 37.0 Arterial Blood Date Drawn [id number] Arterial Blood pH 7.541 H 7.350-7.450 Arterial Blood Partial Pressure CO2 30.5 L 35.0-48.0 mmHg Arterial Blood Partial Pressure O2 256.0 H 83.0-108.0 mmHg Arterial Blood HCO3 25.6 21.0-28.0 mmol/L Arterial Blood Oxygen Saturation 99.5 H 94.0-98.0 % Arterial Blood Base Excess 3.7 H -2.0-3.0 mmol/L Arterial Blood Oxyhemoglobin 98.4 H 94.0-98.0 % Arterial Blood Carboxyhemoglobin 0.3 L 0.5-1.5 % Arterial Blood Methemoglobin 0.8 0.0-1.5 % [place] Test N/a Blood Gas Total Hemoglobin 13.80 13.5-17.5 g/dL Blood Gas Set Respiration Rate 18.0 Blood Gas Modality Vent - ac FiO2 % 100.0 Blood Gas Tidal Volume 500.0 Blood Gas PEEP or CPAP 5.0 Test 05/16/24 23:40 05/16/24 21:15 Range/Units Urine Color Light-orange Yellow Urine Clarity Turbid H Clear Urine pH 6.0 5.0-9.0 Urine Specific [place] 1.019 1.001-1.035 Urine Protein 2+ H Negative Urine Ketones Trace Negative Urine Blood 3+ H Negative /uL Urine Nitrite Negative Negative Urine Bilirubin Negative Negative Urine Urobilinogen Normal Negative mg/dL Urine Leukocyte Esterase Negative Negative /uL Urine RBC 94 0 - 3 /hpf Urine WBC 5 0 - 3 /hpf Urine Squamous Epithelial Cells Few <5 /hpf Urine Calcium Oxalate Crystals Mod None Seen Urine Amorphous Crystals Few None Seen /hpf Urine Bacteria Few H None Seen /hpf Urine Hyaline Casts Few 0 - 2 /lpf Urine Sperm Present None Seen /hpf Urine Glucose Normal Normal mg/dL Urine Opiates Screen Neg NEGATIVE Urine Fentanyl Screen Neg NEGATIVE Urine Barbiturates Screen Neg NEGATIVE Urine Phencyclidine Screen Neg NEGATIVE Urine Amphetamines Screen Neg NEGATIVE Urine Benzodiazepines Screen Pos NEGATIVE Urine Cocaine Screen Neg NEGATIVE Urine Cannabinoids Screen Pos NEGATIVE Plasma/Serum Blood Alcohol < 3.0 <10 mg/dL Assessment Impression: Acute respiratory failure On mechanical ventilator Status epilepticus Marijuana use Nicotine dependence Hypokalemia Plan: s/p intubation on mechanical ventilator CXR image and report reviewed. Devices in place. Right subclavian central line in the right atrium. ABG reviewed. Alkalemia due to respiratory alkalosis Brain MRI demonstrates no acute infarction, intracranial hemorrhage. On assist control with respiratory rate of 18, tidal volume 500, peep of five, FiO2 at 30%. Titrate FIO2 to keep O2 saturation above 92%. VAP bundle Daily ABG and CXR while intubated. Sedate for ventilatory synchrony Start pressors if necessary for hemodynamic support. Titrate to keep MAP above 65 mmHg/SBP above 90 mmHg. Continue antibiotics. F/u cultures. Monitor renal function due to Acute kidney injury. Monitor electrolytes. Supplement as necessary. Nutritional support. Accucheks, ISS. Follow up Neurology recommendations. GI/DVT prophylaxis. Condition: Critical Prognosis: Poor given multiple comorbidities. Rest of plan per hospitalist and other consultants. A total of 36 minutes of critical care time was spent reviewing the patient record, examining the patient, making a diagnostic and therapeutic plan, discussing this plan with the medical personnel, following up on diagnostic studies and following the patient for clinical stability excluding any and all procedures. At least 50% of this time was spent in direct, [id number] contact. Thank you Dr. Lerma for allowing me to participate in this patient's care. Further recommendations will depend on patient's clinical course. Please do not hesitate to contact me if you have any questions or concerns. This medical document was created using an electronic medical record system with Muzy dictation system. Although this document has been carefully reviewed, there may still be some phonetic and typographical errors. These areas are purely typographical due to imperfections of the software programs, and do not reflect any compromise in the patient's medical care. Plan discussed with: Other (NAYANA La, RT, ) NENITA MURPHY MD May 17, 2024 18:51
[2024-05-17 20:08] LABS: Base Excess -1.5 mmol/L (-2.0-3.0)
[2024-05-18] VITALS (105 sets, daily range): BP systolic 97–137; BP diastolic 48–92; PULSE 61–97; RESP 11–18; TEMP 98.1–99.9; O2SAT 97–100
--- NOTE | 2024-05-18 03:56 | DVH ---
CHEST RADIOGRAPH Indication:intubated Technique: Single frontal view of the chest was obtained Comparison: XY CHEST XRAY 1 VIEW on DOS: 05/16/24, XY CHEST PORTABLE on DOS: 03/15/24, XY CHEST PORTABL E on DOS: 10/03/23, XY CHEST XRAY 1 VIEW on DOS: 08/06/23, XY CHEST XRAY 1 VIEW on DOS: 05/16/24 FINDINGS: Endotracheal tube terminates approximately 1.5 cm above the maría. Enteric tube courses below the level of the diaphragm, the side port is partially visualized projecti ng over the expected location of the upper stomach. The distal tip is beyond the lower edge of the fi lm. Right subclavian central line terminates in the right atrium. IMPRESSION: Tubes and lines as above.
[2024-05-18 03:58] LABS: Basophils # (auto) 0 10 ^3/uL (0-0.2); Basophils % (auto) 0.5 % (0.0-2.0); Eosinophils # (auto) 0.2 10 ^3/uL (0-0.8); Eosinophils % (auto) 1.7 % (0.0-7.0); Hematocrit 38.2 % (41.0-53.0); Hemoglobin 13.1 g/dL (13.5-17.5); Lymphocytes # (auto) 1.9 10 ^3/uL (0.4-5.4); Lymphocytes % (auto) 20.7 % (10.0-50.0); Mean Corpuscular Hemoglobin 34.3 pg (28.0-32.0); Mean Corpuscular Hgb Conc. 34.2 g/dL (32.0-36.0); Mean Corpuscular Volume 100.3 fL (80.0-100.0); Monocytes # (auto) 0.7 10 ^3/uL (0-1.3); Monocytes % (auto) 7.3 % (0.0-12.0); Neutrophils # (auto) 6.4 10 ^3/uL (1.6-8.6); Neutrophils % (auto) 69.8 % (37.0-80.0); Platelet Count (auto) 98 10^3/uL (140-450); Red Blood Cells 3.81 10^6/uL (4.5-5.90); Red Cell Distribution Width 13.8 % (11.8-14.3); White Blood Cell 9.1 10^3/uL (4.4-10.8)
[2024-05-18 04:13] LABS: Anion Gap 5 (5-15); Calcium 9.1 mg/dL (8.7-10.4); Carbon Dioxide 26 mmol/L (20-31); Chloride 113 mmol/L (98-107); Potassium 3.3 mmol/L (3.5-5.1); Sodium 144 mmol/L (136-145)
[2024-05-18 04:19] LABS: Glucose 132 mg/dL (74-106)
[2024-05-18 04:28] LABS: BUN/Creatinine Ratio 6.7 (10.0-20.0); Blood Urea Nitrogen < 5 mg/dL (9-23)
[2024-05-18 07:50] LABS: Base Excess -4.2 mmol/L (-2.0-3.0)
[2024-05-18] MEDS: POTASSIUM CHL 20MEQ/100ML 100 ML IV SCH (08:16)
[2024-05-18] MEDS: MAGNESIUM SULFATE 1GM/100ML 100 ML IV SCH (12:00)
[2024-05-18] MEDS: MAGNESIUM SULFATE 1GM/100ML 200 ML IV ONE (16:43)
[2024-05-18] MEDS: MAGNESIUM SULFATE 1GM/100ML 100 ML IV ONE (17:58)
--- NOTE | 2024-05-18 19:08 | DVHPN2 ---
Subjective She has been is intubated and sedated currently on Versed drip propofol drip. Patient was family was updated at bedside. Reviewed: Care Plan Changes from previous H/P or p: No Changes Objective Vitals Vital Signs Date Time Temp Pulse Resp B/P (MAP) Pulse Ox O2 Delivery O2 Flow Rate FiO2 05/18/24 18:30 99.0 69 16 103/60 (74) 100 210.2 05/18/24 18:10 30 05/18/24 18:10 Mechanical Ventilator 05/16/24 21:35 2 Intake/Output Intake and Output 05/18/24 07:00 Intake Total 3617.614 ml Output Total 2300 ml Balance 1317.614 ml Intake Oral 30 ml IV Total 3587.614 ml Output Urine Total 2300 ml Exam HEENT pupils are reactive Neck is supple CV is S1-S2 regular rate and rhythm Respiratory diminished breath sound bases GI posterior portion Extremity no pedal 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 Medications Current Medications Medications Dose Ordered Sig/Travon Route Start Time Stop Time Status Last Admin Dose Admin Midazolam HCl 50 ml @ 1 mls/hr Q24H IV 05/16/24 21:45 05/18/24 11:57 5 MLS/HR Propofol 100 ml @ 2.316 mls/ hr Q24H IV 05/16/24 22:15 05/18/24 11:08 9.264 MLS/HR Fentanyl Citrate 250 ml @ 2.5 mls/hr Q24H IV 05/16/24 22:30 05/18/24 06:23 20 MLS/HR Acetaminophen 650 mg Q6HP PRN PO 05/17/24 02:00 Dextrose/Sodium Chloride 1,000 ml @ 100 mls/hr Q10H IV 05/17/24 02:00 05/18/24 18:03 100 MLS/HR Ondansetron HCl 4 mg Q4HP PRN IV 05/17/24 02:00 Enoxaparin Sodium 40 mg DAILY SC 05/17/24 10:00 Hold Nitroglycerin 0.4 mg Q5MINP PRN SL 05/17/24 02:00 Morphine Sulfate 2 mg Q30M PRN IV 05/17/24 02:00 Levetiracetam 100 ml @ 400 mls/hr BID IV 05/17/24 10:00 05/18/24 11:52 400 MLS/HR Diagnostic Test (Pha) 1 strip Q6HR 05/17/24 06:00 05/18/24 18:03 1 STRIP Insulin Human Regular Q6HR SC 05/17/24 06:00 Dextrose 50 ml UD PRN IV 05/17/24 02:15 Norepinephrine Bitartrate 250 ml @ 3.75 mls/hr Q24H IV 05/17/24 16:15 05/18/24 16:50 3.75 MLS/HR Laboratory Results Laboratory Tests 05/18/24 03:39 Chemistry Test 05/18/24 03:39 05/18/24 08:10 Calcium Level 9.1 mg/dL (8.7-10.4) Magnesium Level 1.3 mg/dL (1.6-2.6) L Phosphorus Level 3.4 mg/dL (2.4-5.1) Urinalysis Test 05/16/24 23:40 Urine Color Light-orange (Yellow) Urine Clarity Turbid (Clear) H Urine pH 6.0 (5.0-9.0) Urine Specific [place] 1.019 (1.001-1.035) Urine Protein 2+ (Negative) H Urine Ketones Trace (Negative) Urine Blood 3+ /uL (Negative) H Urine Nitrite Negative (Negative) Urine Bilirubin Negative (Negative) Urine Urobilinogen Normal mg/dL (Negative) Urine Leukocyte Esterase Negative /uL (Negative) Urine RBC 94 /hpf (0 - 3) Urine WBC 5 /hpf (0 - 3) Urine Squamous Epithelial Cells Few /hpf (<5) Urine Calcium Oxalate Crystals Mod (None Seen) Urine Amorphous Crystals Few /hpf (None Seen) Urine Bacteria Few /hpf (None Seen) H Urine Hyaline Casts Few /lpf (0 - 2) Urine Sperm Present /hpf (None Seen) Urine Glucose Normal mg/dL (Normal) Blood Gas Results Test 05/17/24 20:02 05/18/24 07:01 Arterial Blood pH 7.418 (7.350-7.450) 7.327 (7.350-7.450) FiO2 % 30.0 30.0 Microbiology Microbiology Date/Time Source Procedure Growth Status 05/18/24 03:15 Nose MRSA Screen - Final Complete 05/17/24 02:55 Blood Blood Culture - Preliminary NO GROWTH AFTER 24 HOURS OF INCUBATION. Resulted 05/16/24 21:50 Sputum Expectorated Sputum Gram Stain - Final Resulted 05/16/24 21:50 Sputum Expectorated Sputum Respiratory Culture - Preliminary Resulted Assessment/Plan Assessment/Plan 23-year-old young male with a known history of chronic marijuana use, chronic tobacco use disorder, seizure disorder currently on Keppra 1000 mg p.o. twice a day initially planned to the hospital with seizures found to have 1. Status epilepticus 2. Acute hypoxic respiratory failure requiring intubation because of status epilepticus 3. Seizure disorder 4. Chronic tobacco use disorder 5. Chronic marijuana use -continue Versed drip continue vent support daily ABG chest x-ray, talked to the family member at bedside -neurology consultation has been as Pulmonary recommendations Plan discussed with: Other My Orders Orders - MIRIAN ROBBINS MD Procedure Category Date Status Time * Neurology Consult CONS 05/18/24 Transmitted 10:06 Date of Service: May 18, 2024 Billing Provider: MIRIAN ROBBINS MD Common Visit Codes: NOT BILLABLE MIRIAN ROBBINS MD May 18, 2024 19:08
--- NOTE | 2024-05-18 19:20 | DVHPN2 ---
Progress Note - Dictate Date Seen: May 18, 2024 Medical Necessity Reason Pt with a Central, PICC or Fol: Yes The following are medically ne: Healy Catheter Reason for healy catheter: Strict I&O Subjective Patient seen and examined at bedside. Sedated, intubated on mechanical ventilator. Overnight events reviewed. vital signs Vital Sign Date Time Temp Pulse Resp B/P (MAP) Pulse Ox O2 Delivery O2 Flow Rate FiO2 05/18/24 18:30 99.0 69 16 103/60 (74) 100 210.2 05/18/24 18:10 30 05/18/24 18:10 Mechanical Ventilator 05/16/24 21:35 2 Total Intake and Output 05/17/24 05/17/24 05/18/24 15:00 23:00 07:00 Intake Total 1366.6 ml 1237.902 ml 1013.112 ml Output Total 750 ml 600 ml 950 ml Balance 616.6 ml 637.902 ml 63.112 ml medications Current Medications Medications Dose Ordered Sig/Travon Route Start Time Stop Time Status Last Admin Dose Admin Midazolam HCl 50 ml @ 1 mls/hr Q24H IV 05/16/24 21:45 05/18/24 11:57 5 MLS/HR Propofol 100 ml @ 2.316 mls/ hr Q24H IV 05/16/24 22:15 05/18/24 11:08 9.264 MLS/HR Fentanyl Citrate 250 ml @ 2.5 mls/hr Q24H IV 05/16/24 22:30 05/18/24 06:23 20 MLS/HR Acetaminophen 650 mg Q6HP PRN PO 05/17/24 02:00 Dextrose/Sodium Chloride 1,000 ml @ 100 mls/hr Q10H IV 05/17/24 02:00 05/18/24 18:03 100 MLS/HR Ondansetron HCl 4 mg Q4HP PRN IV 05/17/24 02:00 Enoxaparin Sodium 40 mg DAILY SC 05/17/24 10:00 Hold Nitroglycerin 0.4 mg Q5MINP PRN SL 05/17/24 02:00 Morphine Sulfate 2 mg Q30M PRN IV 05/17/24 02:00 Levetiracetam 100 ml @ 400 mls/hr BID IV 05/17/24 10:00 05/18/24 11:52 400 MLS/HR Diagnostic Test (Pha) 1 strip Q6HR 05/17/24 06:00 05/18/24 18:03 1 STRIP Insulin Human Regular Q6HR SC 05/17/24 06:00 Dextrose 50 ml UD PRN IV 05/17/24 02:15 Norepinephrine Bitartrate 250 ml @ 3.75 mls/hr Q24H IV 05/17/24 16:15 05/18/24 16:50 3.75 MLS/HR objective Gen.: Patient lying in bed in medical ICU. Sedated, intubated on mechanical ventilator. Head: Normocephalic, atraumatic. Eyes: PERRLA. Ears: Normal external anatomy. Throat: Endotracheal tube and orogastric tube in place. Neck: Supple, trachea midline. Chest: Transmitted breath sounds bilaterally. Decreased air entry bilaterally. No wheezing. Bibasilar crackles. Cardiovascular: Positive S1, positive S2. Regular rate and rhythm. Abdomen: Positive bowel sounds in all 4 quadrants. Soft, nontender, nondistended. : Healy in place. Normal external genitalia. Rectal: Deferred. Skin: Warm, dry. Intact. Extremities: 2+ radial pulses bilaterally. No lower extremity edema. Neuro: Sedated. laboratory and microbiology Laboratory Tests 05/18/24 03:39 Test 05/18/24 03:39 Range/Units Serum Glucose 132 H 74-106 mg/dL Assessment/Plan Impression: Acute respiratory failure On mechanical ventilator Status epilepticus Marijuana use Nicotine dependence Hypokalemia Events: Remains on vent support On assist control with respiratory rate of 16, tidal volume 450, PEEP of 5, FiO2 at 30%. Sedated on Versed, Propofol and Fentanyl. On pressors for hemodynamic support Levophed 2 mcg/min Titrate to keep mean arterial pressure greater than 65 mmHg Monitor renal function Monitor electrolytes. Supplement as necessary. Supplement potassium, magnesium Check phos Monitor for withdrawals. Labs and imaging reviewed. Rest of plan as noted below. Plan: s/p intubation on mechanical ventilator CXR image and report reviewed. Devices in place. Right subclavian central line in the right atrium. ABG reviewed. Alkalemia due to respiratory alkalosis Brain MRI demonstrates no acute infarction, intracranial hemorrhage. On assist control with respiratory rate of 16, tidal volume 450, PEEP of 5, FiO2 at 30%. Titrate FIO2 to keep O2 saturation above 92%. VAP bundle Daily ABG and CXR while intubated. Sedate for ventilatory synchrony Start pressors if necessary for hemodynamic support. Titrate to keep MAP above 65 mmHg/SBP above 90 mmHg. Continue antibiotics. F/u cultures. Monitor renal function due to Acute kidney injury. Monitor electrolytes. Supplement as necessary. Nutritional support. Accu-Cheks, ISS. Follow up neurology recommendations. GI/DVT prophylaxis. Condition: Critical Prognosis: Poor given multiple comorbidities. Rest of plan per hospitalist and other consultants. A total of 35 minutes of critical care time was spent reviewing the patient record, examining the patient, making a diagnostic and therapeutic plan, discussing this plan with the medical personnel, following up on diagnostic studies and following the patient for clinical stability excluding any and all procedures. At least 50% of this time was spent in direct, calf-is-serr contact. Thank you Dr. Lerma for allowing me to participate in this patient's care. Further recommendations will depend on patient's clinical course. Please do not hesitate to contact me if you have any questions or concerns. This medical document was created using an electronic medical record system with [employer] dictation system. Although this document has been carefully reviewed, there may still be some phonetic and typographical errors. These areas are purely typographical due to imperfections of the software programs, and do not reflect any compromise in the patient's medical care. Plan discussed with: Other (NAYANA La) Critical Care Time(min): 35 NENITA MURPHY MD May 18, 2024 19:20
--- NOTE | 2024-05-18 20:36 | DVHINCON2 ---
Date of service: May 18, [address] Lerma Reason for Consultation Status epileptics History of Present Illness Mr. Baltazar is a 23 years old right-handed gentleman with a history of alcohol abuse, he came to the hospital on 05/16/24 with a chief complaint of seizure activity. At this time, he is sedated, intubated, the history is obtained from his girlfriend, I have also reviewed chart and talked to his nurse I saw him on 10/04/2023 for seizure On 05/16/2024, the patient had two seizure at home, for in the hospital, according to his girlfriend, all were generalized tonic-clonic seizures, she only witnessed one of them, in that the patient was shaking all over body, age rolling back, the patient was woke up right away after the shaking was over, was able to talk however very confused. The last seizure before this time was in 10/2023 The patient was has had seizure disorder for 2.5 years, his girlfriend mentioned the seizures were alcohol related. She has been with him for more than one year, and during this period of time, he drinks one pint of vodka every day, and he drinks 3-4 days weekly. He had drunk more previously He was on Keppra 1000 mg b.i.d., prescribed by his family doctor. He did not feel good on 05/14/24, and he stopped taking his Keppra since 05/15/2024 According to his girlfriend, the patient has significant mood swing He has gone through many tests, including MRI/CT brain, and EEG, nothing wrong was found. [phone] UDS, 05/16/2024: Benzo, cannabinoids Plasma alcohol, 05/09/2024: Three Urinalysis, 05/16/2024: WBC: 5, urine leukocyte esterase: Negative WBC/HB/PLT/MCV, 05/18/2024: 9.1/13.1/98/100.3 K, 05/18/2024: 3.3 TBI/AST/ALT/P, 10/03/2023: 1.1/42/23/154, 10/04/2023: 1.7/39/19/136 MRI head, 10/04/2023: No acute intracranial pathology. No change from prior CT exam MR head, 05/17/2024: No evidence of acute infarction, intracranial hemorrhage, mass effect or hydrocephalus Past Medical History Anxiety Past Surgical History No surgeries Family History: Hypertension G8 FATHER Family History Hypertension. No anxiety, no alcohol or drug problem Social History He smokes tobacco and marijuana, he drinks alcohol heavily, no drug abuse Allergies: Coded Allergies: No Known Drug Allergy (Verified Allergy, Unknown, 10/02/17) Home Meds Active Scripts Levetiracetam (KEPPRA TABLET) 500 Mg Tb, 1000 MG PO BID for 30 Days, #120 TAB 6 Refills Prov:FIONA EDWARDS DO 10/06/23 Current Medications Current Medications Medications (Trade) Dose Ordered Sig/Travon Route PRN Reason Start Time Stop Time Status Last Admin Potassium Chloride 100 ml @ 50 mls/hr Q2H IV 05/18/24 08:00 05/18/24 11:59 DC 05/18/24 13:43 Magnesium Sulfate/ Dextrose 100 ml @ 100 mls/hr Q1HR IV 05/18/24 11:00 05/18/24 12:59 DC Review of Systems As above, the other systems are negative Vital Signs Vital Signs Date Time Temp Pulse Resp B/P (MAP) Pulse Ox O2 Delivery O2 Flow Rate FiO2 05/18/24 20:15 67 16 115/70 (85) 100 30 05/18/24 18:30 99.0 210.2 05/18/24 18:10 Mechanical Ventilator 05/16/24 21:35 2 Physical Exam The patient is well-nourished and well-developed with no distress. The patient is intubated HEENT: Normocephalic, neck supple, no carotid bruits Lungs: Clear to auscultation Cardiovascular: Regular rate and region, S1, S2, no murmurs Abdomen: Soft, nontender, normal bowel sounds MENTAL STATUS: Reactive to touch stimuli CRANIAL NERVES: Pupils are equal, round and reactive.There are corneal reflexes and doll's eyes phenomenon. No signs of facial weakness. There are gagging or coughing reflexes SENSATION: responses to pain and touch stimuli. MOTOR: Normal tone in the upper and lower extremity. Normal muscle bulk. No fasciculations. No spontaneous movement. REFLEXES: Deep tendon reflexes are symmetrical. No pathological reflexes. CEREBELLAR/COORDINATION: Deferred GAIT/STATION: deferred. Labs/Diagnostic Data Labs Test 05/18/24 17:45 05/18/24 08:10 05/18/24 07:01 05/18/24 03:39 Range/Units POC Glucose 92 70-106 mg/dl Phosphorus Level 3.4 2.4-5.1 mg/dL Magnesium Level 1.3 L 1.6-2.6 mg/dL Blood Gas Specimen Type Arterial Blood Gas Sample Site Left radial Blood Gas Patient Temperature 37.0 Arterial Blood Date Drawn Arterial Blood pH 7.327 L 7.350-7.450 Arterial Blood Partial Pressure CO2 42.3 35.0-48.0 mmHg Arterial Blood Partial Pressure O2 92.7 83.0-108.0 mmHg Arterial Blood HCO3 21.7 21.0-28.0 mmol/L Arterial Blood Oxygen Saturation 96.6 94.0-98.0 % Arterial Blood Base Excess -4.2 L -2.0-3.0 mmol/L Arterial Blood Oxyhemoglobin 95.5 94.0-98.0 % Arterial Blood Carboxyhemoglobin 0.8 0.5-1.5 % Arterial Blood Methemoglobin 0.3 0.0-1.5 % [place] Test Modified Blood Gas Total Hemoglobin 13.60 13.5-17.5 g/dL Blood Gas Set Respiration Rate 16.0 Blood Gas Modality Vent - ac FiO2 % 30.0 Blood Gas Tidal Volume 450.0 Blood Gas PEEP or CPAP 5.0 White Blood Count 9.1 4.4-10.8 10^3/uL Red Blood Count 3.81 L 4.5-5.90 10^6/uL Hemoglobin 13.1 L 13.5-17.5 g/dL Hematocrit 38.2 L 41.0-53.0 % Mean Corpuscular Volume 100.3 H 80.0-100.0 fL Mean Corpuscular Hemoglobin 34.3 H 28.0-32.0 pg Mean Corpuscular Hemoglobin Concent 34.2 32.0-36.0 g/dL Red Cell Distribution Width 13.8 11.8-14.3 % Platelet Count 98 L 140-450 10^3/uL Mean Platelet Volume 7.4 6.9-10.8 fL Neutrophils (%) (Auto) 69.8 37.0-80.0 % Lymphocytes (%) (Auto) 20.7 10.0-50.0 % Monocytes (%) (Auto) 7.3 0.0-12.0 % Eosinophils (%) (Auto) 1.7 0.0-7.0 % Basophils (%) (Auto) 0.5 0.0-2.0 % Neutrophils # (Auto) 6.4 1.6-8.6 10 ^3/uL Lymphocytes # (Auto) 1.9 0.4-5.4 10 ^3/uL Monocytes # (Auto) 0.7 0-1.3 10 ^3/uL Eosinophils # (Auto) 0.2 0-0.8 10 ^3/uL Basophils # (Auto) 0 0-0.2 10 ^3/uL Nucleated Red Blood Cells 0.0 % Sodium Level 144 136-145 mmol/L Potassium Level 3.3 L 3.5-5.1 mmol/L Chloride Level 113 H 98-107 mmol/L Carbon Dioxide Level 26 20-31 mmol/L Anion Gap 5 5-15 Blood Urea Nitrogen < 5 L 9-23 mg/dL Creatinine 0.75 0.700-1.30 mg/dL Glomerular Filtration Rate Calc 129 >90 mL/min BUN/Creatinine Ratio 6.7 L 10.0-20.0 Serum Glucose 132 H 74-106 mg/dL Calcium Level 9.1 8.7-10.4 mg/dL Test 05/17/24 06:00 05/16/24 23:40 05/16/24 21:15 Range/Units Platelet Estimate Adequate Large Platelets D Urine Color Light-orange Yellow Urine Clarity Turbid H Clear Urine pH 6.0 5.0-9.0 Urine Specific [place] 1.019 1.001-1.035 Urine Protein 2+ H Negative Urine Ketones Trace Negative Urine Blood 3+ H Negative /uL Urine Nitrite Negative Negative Urine Bilirubin Negative Negative Urine Urobilinogen Normal Negative mg/dL Urine Leukocyte Esterase Negative Negative /uL Urine RBC 94 0 - 3 /hpf Urine WBC 5 0 - 3 /hpf Urine Squamous Epithelial Cells Few <5 /hpf Urine Calcium Oxalate Crystals Mod None Seen Urine Amorphous Crystals Few None Seen /hpf Urine Bacteria Few H None Seen /hpf Urine Hyaline Casts Few 0 - 2 /lpf Urine Sperm Present None Seen /hpf Urine Glucose Normal Normal mg/dL Urine Opiates Screen Neg NEGATIVE Urine Fentanyl Screen Neg NEGATIVE Urine Barbiturates Screen Neg NEGATIVE Urine Phencyclidine Screen Neg NEGATIVE Urine Amphetamines Screen Neg NEGATIVE Urine Benzodiazepines Screen Pos NEGATIVE Urine Cocaine Screen Neg NEGATIVE Urine Cannabinoids Screen Pos NEGATIVE Plasma/Serum Blood Alcohol < 3.0 <10 mg/dL Microbiology Date/Time Source Procedure Growth Status 05/18/24 03:15 Nose MRSA Screen - Final Complete 05/17/24 02:55 Blood Blood Culture - Preliminary NO GROWTH AFTER 24 HOURS OF INCUBATION. Resulted 05/16/24 21:50 Sputum Expectorated Sputum Gram Stain - Final Resulted 05/16/24 21:50 Sputum Expectorated Sputum Respiratory Culture - Preliminary Resulted Assessment Grand mal seizure Likely alcohol withdrawal ? 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 dictation system. Although this document has been carefully reviewed, there may still be some phonetic and typographical errors. These areas are purely typographical due to imperfections of the software programs, and do not reflect any compromise in the patient's medical care. Plan discussed with: Spouse, Other KVNG MCKEON MD May 18, 2024 20:36
[2024-05-18] MEDS: levETIRAcetam 500 MG/5ML ORAL SOLN UD GT SCH (22:00)
[2024-05-18] MEDS: FOLIC ACID 1 MG in D5W 5% 50 ML INJ SCH (22:00)
[2024-05-18] MEDS: THIAMINE 100mg/ml INJ (200mg/2ml VIAL) IV ONE (22:49)
[2024-05-19] VITALS (109 sets, daily range): BP systolic 102–136; BP diastolic 51–87; PULSE 61–104; RESP 12–25; TEMP 96.1–100.8; O2SAT 95–100
[2024-05-19] MEDS: ACETAMINOPHEN 325 MG TAB PO PRN (01:49)
[2024-05-19 03:44] LABS: Basophils # (auto) 0 10 ^3/uL (0-0.2); Eosinophils # (auto) 0.1 10 ^3/uL (0-0.8); Lymphocytes # (auto) 0.7 10 ^3/uL (0.4-5.4); Monocytes # (auto) 0.5 10 ^3/uL (0-1.3)
[2024-05-19 03:47] LABS: Basophils % (auto) 0.6 % (0.0-2.0); Eosinophils % (auto) 1.6 % (0.0-7.0); Hematocrit 37.7 % (41.0-53.0); Lymphocytes % (auto) 13.1 % (10.0-50.0); Mean Corpuscular Hemoglobin 34.7 pg (28.0-32.0); Mean Corpuscular Hgb Conc. 34.6 g/dL (32.0-36.0); Mean Corpuscular Volume 100.3 fL (80.0-100.0); Neutrophils # (auto) 3.7 10 ^3/uL (1.6-8.6); Neutrophils % (auto) 73.7 % (37.0-80.0); Nucleated Red Blood Cells % 0.1 %; Platelet Count (auto) 71 10^3/uL (140-450); Red Blood Cells 3.76 10^6/uL (4.5-5.90); Red Cell Distribution Width 13.4 % (11.8-14.3)
[2024-05-19 03:50] LABS: Anion Gap 7 (5-15); Carbon Dioxide 22 mmol/L (20-31); Chloride 109 mmol/L (98-107); Potassium 4.1 mmol/L (3.5-5.1); Sodium 138 mmol/L (136-145)
[2024-05-19 03:51] LABS: Calcium 8.9 mg/dL (8.7-10.4)
[2024-05-19 03:56] LABS: Glucose 87 mg/dL (74-106); Magnesium 1.8 mg/dL (1.6-2.6)
[2024-05-19 04:04] LABS: BUN/Creatinine Ratio 8.2 (10.0-20.0); Blood Urea Nitrogen < 5 mg/dL (9-23)
--- NOTE | 2024-05-19 04:45 | DVH ---
EXAM: XY CHEST PORTABLE Indication:VENTILATED Technique: Single frontal view of the chest was obtained Comparison: XY CHEST PORTABLE on DOS: 05/18/24, XY CHEST XRAY 1 VIEW on DOS: 05/16/24, XY CHEST JADIEL BLE on DOS: 03/15/24, XY CHEST PORTABLE on DOS: 10/03/23, XY CHEST XRAY 1 VIEW on DOS: 08/06/23, XY CHEST PORTABLE on DOS: 05/18/24 FINDINGS: Endotracheal tube terminates approximately 4 cm above the maría. Enteric tube tip projects over the expected region of the stomach. Right subclavian central line terminates in the right atrium. No focal consolidation or pleural effusion. No pneumothorax. Otherwise no significant change. IMPRESSION: No significant change compared prior exam. Stable lines and tubes.
[2024-05-19 07:02] LABS: Base Excess -2.5 mmol/L (-2.0-3.0)
--- NOTE | 2024-05-19 10:17 | DVHPN2 ---
Progress Note - Dictate Date Seen: May 19, 2024 Medical Necessity Reason Pt with a Central, PICC or Fol: Yes The following are medically ne: Healy Catheter Reason for healy catheter: Strict I&O Subjective Mr. Baltazar is a 23 years old right-handed gentleman with a history of alcohol abuse, he came to the hospital on 05/16/24 with a chief complaint of seizure activity. I saw him on 10/04/2023 for seizure I have seen and examined the patient, I have talked to his nurse, girlfriend in the room with him, the patient was intubated, sedated, unresponsive to stroke painful stimuli No seizure I have discussed with his girlfriend again about the likely alcohol withdrawal seizure and the reason to hold off preventive seizure treatment UDS, 05/16/2024: Benzo, cannabinoids Plasma alcohol, 05/09/2024: Three Urinalysis, 05/16/2024: WBC: 5, urine leukocyte esterase: Negative WBC/HB/PLT/MCV, 05/18/2024: 9.1/13.1/98/100.3 K, 05/18/2024: 3.3 TBI/AST/ALT/P, 10/03/2023: 1.1/42/23/154, 10/04/2023: 1.7/39/19/136 MRI head, 10/04/2023: No acute intracranial pathology. No change from prior CT exam MR head, 05/17/2024: No evidence of acute infarction, intracranial hemorrhage, mass effect or hydrocephalus vital signs Vital Sign Date Time Temp Pulse Resp B/P (MAP) Pulse Ox O2 Delivery O2 Flow Rate FiO2 05/19/24 09:45 109/65 05/19/24 08:41 66 16 100 30 05/19/24 08:00 Mechanical Ventilator+ 05/19/24 06:45 98.1 208.6 Total Intake and Output 05/18/24 05/18/24 05/19/24 15:00 23:00 07:00 Intake Total 1033.214 ml 1354.656 ml 1039.272 ml Output Total 900 ml 1400 ml Balance 1033.214 ml 454.656 ml -360.728 ml medications Current Medications Medications Dose Ordered Sig/Travon Route Start Time Stop Time Status Last Admin Dose Admin Midazolam HCl 50 ml @ 1 mls/hr Q24H IV 05/16/24 21:45 05/19/24 09:45 7 MLS/HR Propofol 100 ml @ 2.316 mls/ hr Q24H IV 05/16/24 22:15 05/19/24 07:51 13.868 MLS/HR Fentanyl Citrate 250 ml @ 2.5 mls/hr Q24H IV 05/16/24 22:30 05/19/24 07:49 20 MLS/HR Acetaminophen 650 mg Q6HP PRN PO 05/17/24 02:00 05/19/24 01:49 650 MG Dextrose/Sodium Chloride 1,000 ml @ 100 mls/hr Q10H IV 05/17/24 02:00 05/19/24 03:27 100 MLS/HR Ondansetron HCl 4 mg Q4HP PRN IV 05/17/24 02:00 Enoxaparin Sodium 40 mg DAILY SC 05/17/24 10:00 Hold Nitroglycerin 0.4 mg Q5MINP PRN SL 05/17/24 02:00 Morphine Sulfate 2 mg Q30M PRN IV 05/17/24 02:00 Diagnostic Test (Pha) 1 strip Q6HR 05/17/24 06:00 05/19/24 05:47 1 STRIP Insulin Human Regular Q6HR SC 05/17/24 06:00 Dextrose 50 ml UD PRN IV 05/17/24 02:15 Norepinephrine Bitartrate 250 ml @ 3.75 mls/hr Q24H IV 05/17/24 16:15 05/18/24 16:50 3.75 MLS/HR Lorazepam 1 mg Q5MINP PRN IV 05/18/24 21:30 Levetiracetam 250 mg BID GT 05/18/24 22:00 05/19/24 10:09 250 MG Folic Acid 1 mg/ Dextrose 50.2 ml @ 200.8 mls/ hr DAILY INJ 05/18/24 22:00 05/19/24 10:10 200.8 MLS/HR objective The patient is well-nourished and well-developed with no distress. The patient is intubated MENTAL STATUS: Subjective CRANIAL NERVES: Pupils are equal, round and reactive.There are corneal reflexes and doll's eyes phenomenon. No signs of facial weakness. There are gagging or coughing reflexes SENSATION: responses to pain stimuli. MOTOR: Normal tone in the upper and lower extremity. Normal muscle bulk. No fasciculations. No spontaneous movement. REFLEXES: Deep tendon reflexes are symmetrical. No pathological reflexes. CEREBELLAR/COORDINATION: Deferred GAIT/STATION: deferred. laboratory and microbiology Laboratory Tests 05/19/24 03:15 Test 05/19/24 03:15 Range/Units Serum Glucose 87 74-106 mg/dL Problem List Grand mal seizure Likely alcohol withdrawal ? 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 Although this document has been carefully reviewed, there may still be some phonetic and typographical errors. These areas are purely typographical due to imperfections of the software programs, and do not reflect any compr Prognosis Guarded Plan discussed with: Spouse, Other Critical Care Time(min): 35 KVNG MCKEON MD May 19, 2024 10:17
--- NOTE | 2024-05-19 13:34 | DVHPN2 ---
Subjective Patient was remains intubated and sedated currently on Versed drip propofol as well as pattern drip. Dhiraj at bedside was updated regarding current plan of care. Reviewed: Care Plan Changes from previous H/P or p: No Changes Objective Vitals Vital Signs Date Time Temp Pulse Resp B/P (MAP) Pulse Ox O2 Delivery O2 Flow Rate FiO2 05/19/24 13:09 77 16 119/72 (88) 100 30 05/19/24 12:00 Mechanical Ventilator+ 05/19/24 06:45 98.1 208.6 Intake/Output Intake and Output 05/19/24 07:00 Intake Total 3568.038 ml Output Total 2300 ml Balance 1268.038 ml Intake Oral 30 ml IV Total 3538.038 ml Output Urine Total 2300 ml Exam HEENT pupils are reactive Neck is supple CV is S1-S2 regular rate and rhythm Respiratory diminished breath sound bases GI posterior portion Extremity no pedal edema [employer] intubated and sedated Medications Current Medications Medications Dose Ordered Sig/Travon Route Start Time Stop Time Status Last Admin Dose Admin Midazolam HCl 50 ml @ 1 mls/hr Q24H IV 05/16/24 21:45 05/19/24 09:45 7 MLS/HR Propofol 100 ml @ 2.316 mls/ hr Q24H IV 05/16/24 22:15 05/19/24 07:51 13.868 MLS/HR Fentanyl Citrate 250 ml @ 2.5 mls/hr Q24H IV 05/16/24 22:30 05/19/24 07:49 20 MLS/HR Acetaminophen 650 mg Q6HP PRN PO 05/17/24 02:00 05/19/24 01:49 650 MG Dextrose/Sodium Chloride 1,000 ml @ 100 mls/hr Q10H IV 05/17/24 02:00 05/19/24 03:27 100 MLS/HR Ondansetron HCl 4 mg Q4HP PRN IV 05/17/24 02:00 Enoxaparin Sodium 40 mg DAILY SC 05/17/24 10:00 Hold Nitroglycerin 0.4 mg Q5MINP PRN SL 05/17/24 02:00 Morphine Sulfate 2 mg Q30M PRN IV 05/17/24 02:00 Diagnostic Test (Pha) 1 strip Q6HR 05/17/24 06:00 05/19/24 05:47 1 STRIP Insulin Human Regular Q6HR SC 05/17/24 06:00 Dextrose 50 ml UD PRN IV 05/17/24 02:15 Norepinephrine Bitartrate 250 ml @ 3.75 mls/hr Q24H IV 05/17/24 16:15 05/18/24 16:50 3.75 MLS/HR Lorazepam 1 mg Q5MINP PRN IV 05/18/24 21:30 Levetiracetam 250 mg BID GT 05/18/24 22:00 05/19/24 10:09 250 MG Folic Acid 1 mg/ Dextrose 50.2 ml @ 200.8 mls/ hr DAILY INJ 05/18/24 22:00 05/19/24 10:10 200.8 MLS/HR Laboratory Results Laboratory Tests 05/19/24 03:15 Chemistry Test 05/19/24 03:15 Calcium Level 8.9 mg/dL (8.7-10.4) Magnesium Level 1.8 mg/dL (1.6-2.6) Urinalysis Test 05/16/24 23:40 Urine Color Light-orange (Yellow) Urine Clarity Turbid (Clear) H Urine pH 6.0 (5.0-9.0) Urine Specific [place] 1.019 (1.001-1.035) Urine Protein 2+ (Negative) H Urine Ketones Trace (Negative) Urine Blood 3+ /uL (Negative) H Urine Nitrite Negative (Negative) Urine Bilirubin Negative (Negative) Urine Urobilinogen Normal mg/dL (Negative) Urine Leukocyte Esterase Negative /uL (Negative) Urine RBC 94 /hpf (0 - 3) Urine WBC 5 /hpf (0 - 3) Urine Squamous Epithelial Cells Few /hpf (<5) Urine Calcium Oxalate Crystals Mod (None Seen) Urine Amorphous Crystals Few /hpf (None Seen) Urine Bacteria Few /hpf (None Seen) H Urine Hyaline Casts Few /lpf (0 - 2) Urine Sperm Present /hpf (None Seen) Urine Glucose Normal mg/dL (Normal) Blood Gas Results Test 05/19/24 06:50 Arterial Blood pH 7.377 (7.350-7.450) FiO2 % 30.0 Microbiology Microbiology Date/Time Source Procedure Growth Status 05/18/24 03:15 Nose MRSA Screen - Final Complete 05/17/24 02:55 Blood Blood Culture - Preliminary NO GROWTH AFTER 48 HOURS OF INCUBATION. Resulted 05/16/24 21:50 Sputum Expectorated Sputum Gram Stain - Final Resulted 05/16/24 21:50 Sputum Expectorated Sputum Respiratory Culture - Preliminary Resulted Assessment/Plan Assessment/Plan 23-year-old young male with a known history of chronic marijuana use, chronic tobacco use disorder, seizure disorder currently on Keppra 1000 mg p.o. twice a day initially planned to the hospital with seizures found to have 1. Status epilepticus 2. Acute hypoxic respiratory failure requiring intubation because of status epilepticus , currently on ventilator support with mechanical ventilation 3. Seizure disorder 4. Chronic tobacco use disorder 5. Chronic marijuana use 6. Previous history of cocaine use 7. Suicidal attempt with overdose of Keppra with a seven tablets -continue Versed drip continue vent support daily ABG chest x-ray, talked to patient's Vangie chinchilla at bedside -neurology consultation appreciated, Pulmonary recommendations. Plan discussed with: Other (Patient was patency Vangie) My Orders Orders - MIRIAN ROBBINS MD Procedure Category Date Status Time *Tele Psych Consult CONS 05/19/24 Transmitted 12:57 Date of Service: May 19, 2024 Billing Provider: MIRIAN ROBBNIS MD Common Visit Codes: NOT BILLABLE MIRIAN ROBBINS MD May 19, 2024 13:34
--- NOTE | 2024-05-19 19:55 | DVHPN2 ---
Progress Note - Dictate Date Seen: May 19, 2024 Medical Necessity Reason Pt with a Central, PICC or Fol: Yes The following are medically ne: Healy Catheter Reason for healy catheter: Strict I&O Subjective Patient seen and examined at bedside. Sedated, intubated on mechanical ventilator. Overnight events reviewed. vital signs Vital Sign Date Time Temp Pulse Resp B/P (MAP) Pulse Ox O2 Delivery O2 Flow Rate FiO2 05/19/24 18:45 97.9 74 16 105/53 (70) 100 208.2 05/19/24 18:36 30 05/19/24 18:00 Mechanical Ventilator+ Total Intake and Output 05/18/24 05/18/24 05/19/24 15:00 23:00 07:00 Intake Total 1033.214 ml 1354.656 ml 1180.168 ml Output Total 900 ml 1400 ml Balance 1033.214 ml 454.656 ml -219.832 ml medications Current Medications Medications Dose Ordered Sig/Travon Route Start Time Stop Time Status Last Admin Dose Admin Midazolam HCl 50 ml @ 1 mls/hr Q24H IV 05/16/24 21:45 05/19/24 14:23 7 MLS/HR Propofol 100 ml @ 2.316 mls/ hr Q24H IV 05/16/24 22:15 05/19/24 14:52 13.896 MLS/HR Fentanyl Citrate 250 ml @ 2.5 mls/hr Q24H IV 05/16/24 22:30 05/19/24 17:55 22.5 MLS/HR Acetaminophen 650 mg Q6HP PRN PO 05/17/24 02:00 05/19/24 01:49 650 MG Dextrose/Sodium Chloride 1,000 ml @ 100 mls/hr Q10H IV 05/17/24 02:00 05/19/24 13:39 100 MLS/HR Ondansetron HCl 4 mg Q4HP PRN IV 05/17/24 02:00 Enoxaparin Sodium 40 mg DAILY SC 05/17/24 10:00 Hold Nitroglycerin 0.4 mg Q5MINP PRN SL 05/17/24 02:00 Morphine Sulfate 2 mg Q30M PRN IV 05/17/24 02:00 Diagnostic Test (Pha) 1 strip Q6HR 05/17/24 06:00 05/19/24 17:51 1 STRIP Insulin Human Regular Q6HR SC 05/17/24 06:00 Dextrose 50 ml UD PRN IV 05/17/24 02:15 Norepinephrine Bitartrate 250 ml @ 3.75 mls/hr Q24H IV 05/17/24 16:15 05/18/24 16:50 3.75 MLS/HR Lorazepam 1 mg Q5MINP PRN IV 05/18/24 21:30 Levetiracetam 250 mg BID GT 05/18/24 22:00 05/19/24 10:09 250 MG Folic Acid 1 mg/ Dextrose 50.2 ml @ 200.8 mls/ hr DAILY INJ 05/18/24 22:00 05/19/24 10:10 200.8 MLS/HR objective Gen.: Patient lying in bed in medical ICU. Sedated, intubated on mechanical ventilator. Head: Normocephalic, atraumatic. Eyes: PERRLA. Ears: Normal external anatomy. Throat: Endotracheal tube and orogastric tube in place. Neck: Supple, trachea midline. Chest: Transmitted breath sounds bilaterally. Decreased air entry bilaterally. No wheezing. Bibasilar crackles. Cardiovascular: Positive S1, positive S2. Regular rate and rhythm. Abdomen: Positive bowel sounds in all 4 quadrants. Soft, nontender, nondistended. : Healy in place. Normal external genitalia. Rectal: Deferred. Skin: Warm, dry. Intact. Extremities: 2+ radial pulses bilaterally. No lower extremity edema. Neuro: Sedated. laboratory and microbiology Laboratory Tests 05/19/24 03:15 Test 05/19/24 03:15 Range/Units Serum Glucose 87 74-106 mg/dL Assessment/Plan Impression: Acute respiratory failure On mechanical ventilator Status epilepticus Marijuana use Nicotine dependence Hypokalemia Events: Remains on vent support On assist control with respiratory rate of 16, tidal volume 450, PEEP of 5, FiO2 at 30%. Patient having EEG this AM. Neurology recommendations appreciated. Sedated on Versed, Propofol and Fentanyl. Off pressors, hemodynamically stable. D5-half NS at 100 ml/hr. Monitor renal function Monitor electrolytes. Supplement as necessary. Monitor for withdrawals. Labs and imaging reviewed. Rest of plan as noted below. Plan: s/p intubation on mechanical ventilator CXR image and report reviewed. Devices in place. Right subclavian central line in the right atrium. ABG reviewed. Alkalemia due to respiratory alkalosis Brain MRI demonstrates no acute infarction, intracranial hemorrhage. On assist control with respiratory rate of 16, tidal volume 450, PEEP of 5, FiO2 at 30%. Titrate FIO2 to keep O2 saturation above 92%. VAP bundle Daily ABG and CXR while intubated. Sedate for ventilatory synchrony Start pressors if necessary for hemodynamic support. Titrate to keep MAP above 65 mmHg/SBP above 90 mmHg. Continue antibiotics. F/u cultures. Monitor renal function due to Acute kidney injury. Monitor electrolytes. Supplement as necessary. Nutritional support. Accu-Cheks, ISS. Follow up neurology recommendations. GI/DVT prophylaxis. Condition: Critical Prognosis: Poor given multiple comorbidities. Rest of plan per hospitalist and other consultants. A total of 35 minutes of critical care time was spent reviewing the patient record, examining the patient, making a diagnostic and therapeutic plan, discussing this plan with the medical personnel, following up on diagnostic studies and following the patient for clinical stability excluding any and all procedures. At least 50% of this time was spent in direct, [id number] contact. Thank you Dr. Lerma for allowing me to participate in this patient's care. Further recommendations will depend on patient's clinical course. Please do not hesitate to contact me if you have any questions or concerns. This medical document was created using an electronic medical record system with [employer] dictation system. Although this document has been carefully reviewed, there may still be some phonetic and typographical errors. These areas are purely typographical due to imperfections of the software programs, and do not reflect any compromise in the patient's medical care. Plan discussed with: Other (NAYANA De Luna) Critical Care Time(min): 35 NENITA MURPHY MD May 19, 2024 19:55
--- NOTE | 2024-05-19 23:49 | DVHEEG2 ---
Neurology EEG Procedural Note Procedural Note EXAM DATE: 05/19/2024 REFERRING DOCTOR: Dr. Mckeon TECHNIQUE: Eighteen channels of EEG, 2 channels of EOG, and 1 channel of EKG were recorded using the International 10/20 system. CLINICAL DATA: The patient was referred for an EEG evaluation for the evidence of seizure disorder. MEDICATIONS: See the chart BACKGROUND ACTIVITY: There was significant amount of electrode artifacts. This EEG showed diffuse low amplitude rhythmic alpha activity, that was reactive to external stimuli ACTIVATION: Hyperventilation: Not done Photic Stimulation: Not done Sleep: Nonresponsiveness IMPRESSION: This is a remarkably abnormal EEG, this EEG seen in severe cerebral dysfunction due to metabolic/hypoxic encephalopathy or medication effects The EKG channel showed a regular heart rate of 66 per minute[place] [address] KVNG MCKEON MD May 19, 2024 23:49
[2024-05-20] VITALS (95 sets, daily range): BP systolic 86–153; BP diastolic 42–91; PULSE 72–151; RESP 9–28; TEMP 96.8–102.2; O2SAT 83–100
[2024-05-20 03:53] LABS: Chloride 107 mmol/L (98-107); Potassium 3.3 mmol/L (3.5-5.1); Sodium 140 mmol/L (136-145)
[2024-05-20 03:54] LABS: Anion Gap 10 (5-15); Calcium 8.7 mg/dL (8.7-10.4); Carbon Dioxide 23 mmol/L (20-31)
[2024-05-20 03:59] LABS: Glucose 104 mg/dL (74-106)
[2024-05-20 04:12] LABS: Basophils # (auto) 0 10 ^3/uL (0-0.2); Basophils % (auto) 0.5 % (0.0-2.0); Eosinophils # (auto) 0.1 10 ^3/uL (0-0.8); Lymphocytes # (auto) 0.2 10 ^3/uL (0.4-5.4); Lymphocytes % (auto) 4.7 % (10.0-50.0); Mean Corpuscular Hgb Conc. 34.2 g/dL (32.0-36.0); Mean Corpuscular Volume 99.7 fL (80.0-100.0); Monocytes # (auto) 0.5 10 ^3/uL (0-1.3); Monocytes % (auto) 9.7 % (0.0-12.0); Neutrophils # (auto) 4.5 10 ^3/uL (1.6-8.6); Neutrophils % (auto) 84.1 % (37.0-80.0); Platelet Count (auto) 88 10^3/uL (140-450); Red Blood Cells 3.82 10^6/uL (4.5-5.90); Red Cell Distribution Width 13.4 % (11.8-14.3); White Blood Cell 5.4 10^3/uL (4.4-10.8)
[2024-05-20 04:21] LABS: BUN/Creatinine Ratio 6.5 (10.0-20.0); Blood Urea Nitrogen < 5 mg/dL (9-23)
--- NOTE | 2024-05-20 05:43 | DVH ---
CHEST RADIOGRAPH Indication:intubated Technique: Single frontal view of the chest was obtained COMPARISON: XY CHEST PORTABLE on DOS: 05/19/24, XY CHEST PORTABLE on DOS: 05/18/24, XY CHEST XRAY 1 V IEW on DOS: 05/16/24 FINDINGS: Lines and Tubes: Endotracheal tube, enteric catheter and right PICC in satisfactory position. Lungs: Clear Pleura: No effusion. No pneumothorax. Cardiomediastinal contours: Unremarkable Bones: Unremarkable IMPRESSION: Lines and tubes in satisfactory position. No significant interval change.
[2024-05-20 07:25] LABS: Base Excess -1.2 mmol/L (-2.0-3.0)
--- NOTE | 2024-05-20 10:57 | DVHPN2 ---
Progress Note - Dictate Date Seen: May 20, 2024 Medical Necessity Reason Pt with a Central, PICC or Fol: Yes The following are medically ne: Healy Catheter Reason for healy catheter: Strict I&O Subjective Mr. Baltazar is a 23 years old right-handed gentleman with a history of alcohol abuse, he came to the hospital on 05/16/24 with a chief complaint of seizure activity. I saw him on 10/04/2023 for seizure I have seen and examined the patient, I have talked to his nurse, girlfriend in the room with him, the patient was intubated, sedated, but responsive to light painful stimuli No seizure Fentanyl 125 mcg/hour, Versed 3 milligram/hour, propofol 20 mcg per minute UDS, 05/16/2024: Benzo, cannabinoids Plasma alcohol, 05/09/2024: Three Urinalysis, 05/16/2024: WBC: 5, urine leukocyte esterase: Negative WBC/HB/PLT/MCV, 05/18/2024: 9.1/13.1/98/100.3 K, 05/18/2024: 3.3 TBI/AST/ALT/P, 10/03/2023: 1.1/42/23/154, 10/04/2023: 1.7/39/19/136 EEG, 05/19/2024: Remarkably abnormal MRI head, 10/04/2023: No acute intracranial pathology. No change from prior CT exam MR head, 05/17/2024: No evidence of acute infarction, intracranial hemorrhage, mass effect or hydrocephalus vital signs Vital Sign Date Time Temp Pulse Resp B/P (MAP) Pulse Ox O2 Delivery O2 Flow Rate FiO2 05/20/24 10:00 106/58 05/20/24 09:58 16 98 Mechanical Ventilator+ 30 30 05/20/24 09:58 92 05/20/24 09:15 97.2 207.0 Total Intake and Output 05/19/24 05/19/24 05/20/24 15:00 23:00 07:00 Intake Total 1232.368 ml 1185.168 ml 1127.272 ml Output Total 2200 ml 1200 ml Balance 1232.368 ml -1014.832 ml -72.728 ml medications Current Medications Medications Dose Ordered Sig/Travon Route Start Time Stop Time Status Last Admin Dose Admin Midazolam HCl 50 ml @ 1 mls/hr Q24H IV 05/16/24 21:45 05/20/24 08:29 3 MLS/HR Propofol 100 ml @ 2.316 mls/ hr Q24H IV 05/16/24 22:15 05/20/24 03:19 18.528 MLS/HR Fentanyl Citrate 250 ml @ 2.5 mls/hr Q24H IV 05/16/24 22:30 05/20/24 03:20 25 MLS/HR Acetaminophen 650 mg Q6HP PRN PO 05/17/24 02:00 05/20/24 01:46 650 MG Dextrose/Sodium Chloride 1,000 ml @ 100 mls/hr Q10H IV 05/17/24 02:00 05/20/24 08:17 100 MLS/HR Ondansetron HCl 4 mg Q4HP PRN IV 05/17/24 02:00 Enoxaparin Sodium 40 mg DAILY SC 05/17/24 10:00 Hold Nitroglycerin 0.4 mg Q5MINP PRN SL 05/17/24 02:00 Morphine Sulfate 2 mg Q30M PRN IV 05/17/24 02:00 Diagnostic Test (Pha) 1 strip Q6HR 05/17/24 06:00 05/19/24 23:48 1 STRIP Insulin Human Regular Q6HR SC 05/17/24 06:00 Dextrose 50 ml UD PRN IV 05/17/24 02:15 Norepinephrine Bitartrate 250 ml @ 3.75 mls/hr Q24H IV 05/17/24 16:15 05/18/24 16:50 3.75 MLS/HR Lorazepam 1 mg Q5MINP PRN IV 05/18/24 21:30 Levetiracetam 250 mg BID GT 05/18/24 22:00 05/20/24 09:34 250 MG Folic Acid 1 mg/ Dextrose 50.2 ml @ 200.8 mls/ hr DAILY INJ 05/18/24 22:00 05/20/24 09:34 200.8 MLS/HR objective The patient is well-nourished and well-developed with no distress. The patient is intubated MENTAL STATUS: Subjective CRANIAL NERVES: Pupils are equal, round and reactive.There are corneal reflexes and doll's eyes phenomenon. No signs of facial weakness. There are gagging or coughing reflexes SENSATION: responses to pain stimuli. MOTOR: Normal tone in the upper and lower extremity. Normal muscle bulk. No fasciculations. No spontaneous movement. REFLEXES: Deep tendon reflexes are symmetrical. No pathological reflexes. CEREBELLAR/COORDINATION: Deferred GAIT/STATION: deferred. laboratory and microbiology Laboratory Tests 05/20/24 03:18 Test 05/20/24 03:18 Range/Units Serum Glucose 104 74-106 mg/dL Problem List Grand mal seizure Likely alcohol withdrawal ? 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 Although this document has been carefully reviewed, there may still be some phonetic and typographical errors. These areas are purely typographical due to imperfections of the software programs, and do not reflect any compr Prognosis guarded Plan discussed with: Spouse, Other Critical Care Time(min): 30 KVNG MCKEON MD May 20, 2024 10:57
[2024-05-20 11:38] LABS: Base Excess 0.1 mmol/L (-2.0-3.0)
[2024-05-20] MEDS: BUDESONIDE (INHALATION) 0.5 MG/2 ML NEB ONE (12:00)
[2024-05-20] MEDS: BUDESONIDE (INHALATION) 0.5 MG/2 ML NEB NEB SCH (12:38)
[2024-05-20] MEDS: ALBUTEROL SULF 2.5 MG/0.5ML(0.5%) NEB SOLN NEB SCH (12:41)
[2024-05-20] MEDS: THIAMINE 100mg/ml INJ (200mg/2ml VIAL) IV SCH (13:18)
[2024-05-20] MEDS: ONDANSETRON HCL 4 MG/2 ML VIAL IV PRN (13:36)
--- NOTE | 2024-05-20 14:32 | DVHPN2 ---
Subjective Patient is extubated currently had an episodes of vomiting. Reviewed: Care Plan Changes from previous H/P or p: No Changes Objective Vitals Vital Signs Date Time Temp Pulse Resp B/P (MAP) Pulse Ox O2 Delivery O2 Flow Rate FiO2 05/20/24 14:00 20 95 Nasal Cannula* 3 32 05/20/24 14:00 109 05/20/24 11:08 124/64 (84) 05/20/24 09:15 97.2 207.0 Intake/Output Intake and Output 05/20/24 07:00 Intake Total 3544.808 ml Output Total 3400 ml Balance 144.808 ml Intake Oral 60 ml IV Total 3484.808 ml Output Urine Total 3400 ml Exam HEENT pupils are reactive Neck is supple CV is S1-S2 regular rate and rhythm Respiratory diminished breath sound bases GI posterior portion Extremity no pedal edema INTELLECTUAL PROPERTY PARALEGAL following commands minimally Medications Current Medications Medications Dose Ordered Sig/Travon Route Start Time Stop Time Status Last Admin Dose Admin Midazolam HCl 50 ml @ 1 mls/hr Q24H IV 05/16/24 21:45 05/20/24 08:29 3 MLS/HR Propofol 100 ml @ 2.316 mls/ hr Q24H IV 05/16/24 22:15 05/20/24 03:19 18.528 MLS/HR Fentanyl Citrate 250 ml @ 2.5 mls/hr Q24H IV 05/16/24 22:30 05/20/24 03:20 25 MLS/HR Acetaminophen 650 mg Q6HP PRN PO 05/17/24 02:00 05/20/24 01:46 650 MG Dextrose/Sodium Chloride 1,000 ml @ 100 mls/hr Q10H IV 05/17/24 02:00 05/20/24 08:17 100 MLS/HR Ondansetron HCl 4 mg Q4HP PRN IV 05/17/24 02:00 05/20/24 13:36 4 MG Enoxaparin Sodium 40 mg DAILY SC 05/17/24 10:00 Hold Nitroglycerin 0.4 mg Q5MINP PRN SL 05/17/24 02:00 Morphine Sulfate 2 mg Q30M PRN IV 05/17/24 02:00 Diagnostic Test (Pha) 1 strip Q6HR 05/17/24 06:00 05/20/24 13:23 1 STRIP Insulin Human Regular Q6HR SC 05/17/24 06:00 Dextrose 50 ml UD PRN IV 05/17/24 02:15 Norepinephrine Bitartrate 250 ml @ 3.75 mls/hr Q24H IV 05/17/24 16:15 05/18/24 16:50 3.75 MLS/HR Lorazepam 1 mg Q5MINP PRN IV 05/18/24 21:30 Levetiracetam 250 mg BID GT 05/18/24 22:00 05/21/24 10:54 05/20/24 09:34 250 MG Folic Acid 1 mg/ Dextrose 50.2 ml @ 200.8 mls/ hr DAILY INJ 05/18/24 22:00 05/20/24 09:34 200.8 MLS/HR Dexmedetomidine HCl 400 mcg/ Dextrose 100 ml @ 2.6 mls/hr Q24H IV 05/20/24 11:00 05/20/24 11:04 2.6 MLS/HR Thiamine HCl 100 mg DAILY IV 05/20/24 11:00 05/20/24 13:18 100 MG Albuterol 2.5 mg Q4HR NEB 05/20/24 14:00 05/20/24 12:41 2.5 MG Budesonide 0.5 mg BID NEB 05/20/24 12:38 Laboratory Results Laboratory Tests 05/20/24 03:18 Chemistry Test 05/20/24 03:18 Calcium Level 8.7 mg/dL (8.7-10.4) Urinalysis Test 05/16/24 23:40 Urine Color Light-orange (Yellow) Urine Clarity Turbid (Clear) H Urine pH 6.0 (5.0-9.0) Urine Specific [place] 1.019 (1.001-1.035) Urine Protein 2+ (Negative) H Urine Ketones Trace (Negative) Urine Blood 3+ /uL (Negative) H Urine Nitrite Negative (Negative) Urine Bilirubin Negative (Negative) Urine Urobilinogen Normal mg/dL (Negative) Urine Leukocyte Esterase Negative /uL (Negative) Urine RBC 94 /hpf (0 - 3) Urine WBC 5 /hpf (0 - 3) Urine Squamous Epithelial Cells Few /hpf (<5) Urine Calcium Oxalate Crystals Mod (None Seen) Urine Amorphous Crystals Few /hpf (None Seen) Urine Bacteria Few /hpf (None Seen) H Urine Hyaline Casts Few /lpf (0 - 2) Urine Sperm Present /hpf (None Seen) Urine Glucose Normal mg/dL (Normal) Blood Gas Results Test 05/20/24 06:55 05/20/24 11:30 Arterial Blood pH 7.356 (7.350-7.450) 7.349 (7.350-7.450) FiO2 % 30.0 30.0 Microbiology Microbiology Date/Time Source Procedure Growth Status 05/18/24 03:15 Nose MRSA Screen - Final Complete 05/17/24 02:55 Blood Blood Culture - Preliminary NO GROWTH AFTER 72 HOURS OF INCUBATION. Resulted 05/16/24 21:50 Sputum Expectorated Sputum Gram Stain - Final Resulted 05/16/24 21:50 Sputum Expectorated Sputum Respiratory Culture - Preliminary Resulted Assessment/Plan Assessment/Plan 23-year-old young male with a known history of chronic marijuana use, chronic tobacco use disorder, seizure disorder currently on Keppra 1000 mg p.o. twice a day initially planned to the hospital with seizures found to have 1. Status epilepticus 2. Acute hypoxic respiratory failure requiring intubation because of status epilepticus , currently extubated on nasal cannula at 4 L 3. Seizure disorder 4. Chronic tobacco use disorder 5. Chronic marijuana use 6. Previous history of cocaine use 7. Suicidal attempt with overdose of Keppra with a seven tablets -continue Keppra, incentive spirometry talked to patient's Vangie chinchilla at bedside -neurology consultation appreciated, we will obtain psychiatry consultation as patient had a suicide attempt with overdose of seven doses of Keppra as per renée. Plan discussed with: Patient, Other My Orders Orders - MIRIAN ROBBINS MD Procedure Category Date Status Time Chest Xray 1 View XY 05/20/24 Resulted 04:15 Date of Service: May 20, 2024 Billing Provider: MIRIAN ROBBINS MD Common Visit Codes: NOT BILLABLE MIRIAN ROBBINS MD May 20, 2024 14:32
[2024-05-20] MEDS: POTASSIUM CHL 20MEQ/100ML 100 ML IV SCH (16:34)
[2024-05-20] MEDS: ACETAMINOPHEN 650 MG RECT SUPP PR PRN (17:00)
--- NOTE | 2024-05-20 18:47 | DVHPN2 ---
Progress Note - Dictate Date Seen: May 20, 2024 Medical Necessity Reason Pt with a Central, PICC or Fol: Yes The following are medically ne: Healy Catheter Reason for healy catheter: Strict I&O Subjective Patient seen and examined at bedside. S/p extubation, on supplemental oxygen. Overnight events reviewed. vital signs Vital Sign Date Time Temp Pulse Resp B/P (MAP) Pulse Ox O2 Delivery O2 Flow Rate FiO2 05/20/24 17:41 111 05/20/24 17:39 13 95 Nasal Cannula* 3 32 05/20/24 17:00 98.2 142/85 (104) 98.2 Total Intake and Output 05/19/24 05/19/24 05/20/24 14:59 22:59 06:59 Intake Total 1228.868 ml 1185.168 ml 1141.088 ml Output Total 2200 ml 1200 ml Balance 1228.868 ml -1014.832 ml -58.912 ml medications Current Medications Medications Dose Ordered Sig/Travon Route Start Time Stop Time Status Last Admin Dose Admin Midazolam HCl 50 ml @ 1 mls/hr Q24H IV 05/16/24 21:45 05/20/24 08:29 3 MLS/HR Propofol 100 ml @ 2.316 mls/ hr Q24H IV 05/16/24 22:15 05/20/24 03:19 18.528 MLS/HR Fentanyl Citrate 250 ml @ 2.5 mls/hr Q24H IV 05/16/24 22:30 05/20/24 03:20 25 MLS/HR Acetaminophen 650 mg Q6HP PRN PO 05/17/24 02:00 05/20/24 01:46 650 MG Dextrose/Sodium Chloride 1,000 ml @ 100 mls/hr Q10H IV 05/17/24 02:00 05/20/24 17:37 100 MLS/HR Ondansetron HCl 4 mg Q4HP PRN IV 05/17/24 02:00 05/20/24 17:07 4 MG Enoxaparin Sodium 40 mg DAILY SC 05/17/24 10:00 Hold Nitroglycerin 0.4 mg Q5MINP PRN SL 05/17/24 02:00 Morphine Sulfate 2 mg Q30M PRN IV 05/17/24 02:00 Diagnostic Test (Pha) 1 strip Q6HR 05/17/24 06:00 05/20/24 18:01 1 STRIP Insulin Human Regular Q6HR SC 05/17/24 06:00 Dextrose 50 ml UD PRN IV 05/17/24 02:15 Norepinephrine Bitartrate 250 ml @ 3.75 mls/hr Q24H IV 05/17/24 16:15 05/18/24 16:50 3.75 MLS/HR Lorazepam 1 mg Q5MINP PRN IV 05/18/24 21:30 Levetiracetam 250 mg BID GT 05/18/24 22:00 05/21/24 10:54 05/20/24 09:34 250 MG Folic Acid 1 mg/ Dextrose 50.2 ml @ 200.8 mls/ hr DAILY INJ 05/18/24 22:00 05/20/24 09:34 200.8 MLS/HR Dexmedetomidine HCl 400 mcg/ Dextrose 100 ml @ 2.6 mls/hr Q24H IV 05/20/24 11:00 05/20/24 11:04 2.6 MLS/HR Thiamine HCl 100 mg DAILY IV 05/20/24 11:00 05/20/24 13:18 100 MG Albuterol 2.5 mg Q4HR NEB 05/20/24 14:00 05/20/24 12:41 2.5 MG Budesonide 0.5 mg BID NEB 05/20/24 12:38 Acetaminophen 650 mg Q6HP PRN MS 05/20/24 16:15 05/20/24 17:00 650 MG Potassium Chloride 100 ml @ 50 mls/hr Q2H IV 05/20/24 16:15 05/20/24 20:14 05/20/24 18:34 50 MLS/HR objective Gen.: Patient lying in bed in no apparent distress. On supplemental oxygen. Head: Normocephalic, atraumatic. Eyes: EOMI/PERRLA. Ears: Normal hearing. Normal anatomy. Neck/trachea: Trachea midline, supple. Nose: Normal external anatomy. Mouth: Moist mucous membranes. Chest: Decreased air entry bilaterally. No wheezing or rhonchi. Cardiovascular: Positive S1, positive S2. Regular rate and rhythm. Abdomen: Positive bowel sounds in all 4 quadrants. Soft, non-tender, non- distended. : Deferred. Rectal: Deferred. Skin: Warm, dry. Intact. Extremities: 2+ radial pulses bilaterally. No lower extremity edema. Neuro: Awake, alert, oriented x3. No gross motor or sensory deficits. Cranial nerves II through XII intact. Gait not assessed laboratory and microbiology Laboratory Tests 05/20/24 03:18 Test 05/20/24 03:18 Range/Units Serum Glucose 104 74-106 mg/dL Assessment/Plan Impression: Acute respiratory failure On mechanical ventilator Status epilepticus Marijuana use Nicotine dependence Hypokalemia Events: Patient tolerated CPAP ABG and weaning parameters reviewed. Acceptable parameters. Patient was extubated uneventfully and placed on cool aerosol. Continue antiepileptics Monitor for alcohol withdrawal. Neurology recommendations appreciated. Off sedation Off pressors, hemodynamically stable. D5-half NS at 100 ml/hr. Monitor renal function Monitor electrolytes. Supplement as necessary. Labs and imaging reviewed. Rest of plan as noted below. Plan: s/p extubation, on supplemental oxygen. Titrate to keep sats above 90% CXR image and report reviewed. Devices in place. Right subclavian central line in the right atrium. ABG reviewed. Alkalemia due to respiratory alkalosis Brain MRI demonstrates no acute infarction, intracranial hemorrhage. Off sedation Start pressors if necessary for hemodynamic support - currently off Titrate to keep MAP above 65 mmHg/SBP above 90 mmHg. Continue antibiotics. F/u cultures. Monitor renal function due to Acute kidney injury. Monitor electrolytes. Supplement as necessary. Nutritional support. Accu-Cheks, ISS. Follow up neurology recommendations. GI/DVT prophylaxis. Condition: Critical Prognosis: Poor given multiple comorbidities. Rest of plan per hospitalist and other consultants. A total of 35 minutes of critical care time was spent reviewing the patient record, examining the patient, making a diagnostic and therapeutic plan, discussing this plan with the medical personnel, following up on diagnostic studies and following the patient for clinical stability excluding any and all procedures. At least 50% of this time was spent in direct, [id number] contact. Thank you Dr. Lerma for allowing me to participate in this patient's care. Further recommendations will depend on patient's clinical course. Please do not hesitate to contact me if you have any questions or concerns. This medical document was created using an electronic medical record system with [employer] system. Although this document has been carefully reviewed, there may still be some phonetic and typographical errors. These areas are purely typographical due to imperfections of the software programs, and do not reflect any compromise in the patient's medical care. Plan discussed with: Other (NAYANA Hua) Critical Care Time(min): 35 NENITA MURPHY MD May 20, 2024 18:46
[2024-05-20] MEDS ORDERED: HALOPERIDOL LACTATE 5 MG/ML INJ VIAL IM PRN (21:30)
[2024-05-20] MEDS ORDERED: levETIRAcetam 500 mg/100ml 100 ML IV SCH (21:30)
[2024-05-20] MEDS: levETIRAcetam 500 mg/100ml 100 ML IV ONE (22:58)
[2024-05-21] VITALS (33 sets, daily range): BP systolic 121–148; BP diastolic 66–103; PULSE 16–133; RESP 11–26; TEMP 98.2–98.7; O2SAT 91–100
[2024-05-21 03:41] LABS: Basophils # (auto) 0 10 ^3/uL (0-0.2); White Blood Cell 7.6 10^3/uL (4.4-10.8)
[2024-05-21 03:43] LABS: Basophils % (auto) 0.3 % (0.0-2.0); Eosinophils # (auto) 0 10 ^3/uL (0-0.8); Eosinophils % (auto) 0.1 % (0.0-7.0); Hematocrit 35.2 % (41.0-53.0); Hemoglobin 12.6 g/dL (13.5-17.5); Lymphocytes # (auto) 0.6 10 ^3/uL (0.4-5.4); Lymphocytes % (auto) 7.6 % (10.0-50.0); Mean Corpuscular Hemoglobin 34.5 pg (28.0-32.0); Mean Corpuscular Hgb Conc. 35.7 g/dL (32.0-36.0); Mean Corpuscular Volume 96.8 fL (80.0-100.0); Monocytes # (auto) 1.1 10 ^3/uL (0-1.3); Monocytes % (auto) 14.8 % (0.0-12.0); Neutrophils # (auto) 5.9 10 ^3/uL (1.6-8.6); Neutrophils % (auto) 77.2 % (37.0-80.0); Nucleated Red Blood Cells % 0.1 %; Platelet Count (auto) 120 10^3/uL (140-450); Red Blood Cells 3.64 10^6/uL (4.5-5.90); Red Cell Distribution Width 12.9 % (11.8-14.3)
[2024-05-21 03:46] LABS: Chloride 106 mmol/L (98-107); Potassium 2.8 mmol/L (3.5-5.1); Sodium 140 mmol/L (136-145)
[2024-05-21 03:47] LABS: Anion Gap 10 (5-15); Calcium 9.3 mg/dL (8.7-10.4); Carbon Dioxide 24 mmol/L (20-31)
[2024-05-21 03:52] LABS: Glucose 125 mg/dL (74-106)
[2024-05-21 03:59] LABS: BUN/Creatinine Ratio 7.2 (10.0-20.0); Blood Urea Nitrogen < 5 mg/dL (9-23)
[2024-05-21] MEDS: POTASSIUM CHL 20MEQ/100ML 100 ML IV SCH (05:11)
[2024-05-21] MEDS: MORPHINE SULFATE INJ 2 MG/ml SYRG IV PRN (05:12)
--- NOTE | 2024-05-21 13:13 | DVHPN2 ---
Progress Note - Dictate Date Seen: May 21, 2024 Medical Necessity Reason Pt with a Central, PICC or Fol: Yes The following are medically ne: Healy Catheter Reason for healy catheter: Strict I&O Subjective Patient's chart is reviewed and took over his care from today. Patient is seen and evaluated in the ICU discussed with the nurse as well as family/patient at bedside. No further seizures since overnight. Denies any suicidal or homicidal ideation. Feels generally weak. Having loose stools. vital signs Vital Sign Date Time Temp Pulse Resp B/P (MAP) Pulse Ox O2 Delivery O2 Flow Rate FiO2 05/21/24 12:00 98.5 110 24 131/87 (102) 98 98.5 05/21/24 12:00 Room Air* 0 21 Total Intake and Output 05/20/24 05/20/24 05/21/24 15:00 23:00 07:00 Intake Total 909.460 ml 850 ml 860 ml Output Total 1250 ml 900 ml Balance 909.460 ml -400 ml -40 ml medications Current Medications Medications Dose Ordered Sig/Travon Route Start Time Stop Time Status Last Admin Dose Admin Acetaminophen 650 mg Q6HP PRN PO 05/17/24 02:00 05/20/24 01:46 650 MG Dextrose/Sodium Chloride 1,000 ml @ 100 mls/hr Q10H IV 05/17/24 02:00 05/21/24 03:59 100 MLS/HR Ondansetron HCl 4 mg Q4HP PRN IV 05/17/24 02:00 05/21/24 12:49 4 MG Enoxaparin Sodium 40 mg DAILY SC 05/17/24 10:00 Hold Nitroglycerin 0.4 mg Q5MINP PRN SL 05/17/24 02:00 Morphine Sulfate 2 mg Q30M PRN IV 05/17/24 02:00 05/21/24 09:04 2 MG Diagnostic Test (Pha) 1 strip Q6HR 05/17/24 06:00 05/21/24 12:52 1 STRIP Insulin Human Regular Q6HR SC 05/17/24 06:00 05/20/24 22:58 2 UNITS Dextrose 50 ml UD PRN IV 05/17/24 02:15 Lorazepam 1 mg Q5MINP PRN IV 05/18/24 21:30 Thiamine HCl 100 mg DAILY IV 05/20/24:00 05/21/24 10:07 100 MG Budesonide 0.5 mg BID NEB 05/20/24 12:38 05/21/24 06:43 0.5 MG Acetaminophen 650 mg Q6HP PRN AK 05/20/24 16:15 05/21/24 01:16 650 MG Haloperidol Lactate 2.5 mg Q6HP PRN IM 05/20/24 21:30 Morphine Sulfate 2 mg Q4HPRN PRN IV 05/21/24 05:00 Chlordiazepoxide HCl 5 mg QID PO 05/21/24 18:00 objective Alert awake oriented to place and person. Heart regular rate and rhythm S1 plus S2. Lungs fair air movement poor inspiratory effort no wheezing. Abdomen soft nontender positive bowel sounds. Extremities no edema positive pulses laboratory and microbiology Laboratory Tests 05/21/24 03:16 Test 05/21/24 03:16 Range/Units Serum Glucose 125 H 74-106 mg/dL Assessment/Plan He is extubated. Clinically stable. Given his alcohol abuse/withdrawal I will start him on scheduled low-dose Librium. Patient apparently gets nightmares with the Keppra therefore this will be discontinued per Neurology recommendations. However patient did receive one dose this morning. Meantime he is pending tele psychiatric evaluation. He is encouraged out of bed to chair and ambulate as tolerated. We will get physical therapy evaluation. Consider removing Healy catheter in the morning once he ambulates. Otherwise patient can be safely downgraded to telemetry floor with a safety at an at bedside or after he is evaluated by tele psychiatry. Discussed with the patient's nurse and family regarding care plan. Problems(with codes): (1) Alcohol abuse (2) Weakness (3) Alcohol withdrawal (4) Seizure disorder (5) Acute respiratory failure Plan discussed with: Other JASON JACOBO MD May 21, 2024 13:13
--- NOTE | 2024-05-21 14:22 | DVHPN2 ---
Progress Note - Dictate Date Seen: May 21, 2024 Medical Necessity Reason Pt with a Central, PICC or Fol: Yes The following are medically ne: Healy Catheter Reason for healy catheter: Strict I&O Subjective Mr. Baltazar is a 23 years old right-handed gentleman with a history of alcohol abuse, he came to the hospital on 05/16/24 with a chief complaint of seizure activity. I saw him on 10/04/2023 for seizure I have seen and examined the patient, I have talked to his nurse, girlfriend in the room with him, he was extubated, he talks, oriented x3, he confirmed that t he last Friday would be his last alcohol. UDS, 05/16/2024: Benzo, cannabinoids Plasma alcohol, 05/09/2024: Three Urinalysis, 05/16/2024: WBC: 5, urine leukocyte esterase: Negative WBC/HB/PLT/MCV, 05/18/2024: 9.1/13.1/98/100.3 K, 05/18/2024: 3.3 TBI/AST/ALT/P, 10/03/2023: 1.1/42/23/154, 10/04/2023: 1.7/39/19/136 EEG, 05/19/2024: Remarkably abnormal MRI head, 10/04/2023: No acute intracranial pathology. No change from prior CT exam MR head, 05/17/2024: No evidence of acute infarction, intracranial hemorrhage, mass effect or hydrocephalus vital signs Vital Sign Date Time Temp Pulse Resp B/P (MAP) Pulse Ox O2 Delivery O2 Flow Rate FiO2 05/21/24 14:00 26 96 Room Air* 0 21 05/21/24 14:00 100 138/93 (108) 05/21/24 12:00 98.5 98.5 Total Intake and Output 05/20/24 05/20/24 05/21/24 15:00 23:00 07:00 Intake Total 909.460 ml 850 ml 960 ml Output Total 1250 ml 900 ml Balance 909.460 ml -400 ml 60 ml medications Current Medications Medications Dose Ordered Sig/Travon Route Start Time Stop Time Status Last Admin Dose Admin Acetaminophen 650 mg Q6HP PRN PO 05/17/24 02:00 05/20/24 01:46 650 MG Dextrose/Sodium Chloride 1,000 ml @ 100 mls/hr Q10H IV 05/17/24 02:00 05/21/24 03:59 100 MLS/HR Ondansetron HCl 4 mg Q4HP PRN IV 05/17/24 02:00 05/21/24 12:49 4 MG Enoxaparin Sodium 40 mg DAILY SC 05/17/24 10:00 Hold Nitroglycerin 0.4 mg Q5MINP PRN SL 05/17/24 02:00 Morphine Sulfate 2 mg Q30M PRN IV 05/17/24 02:00 05/21/24 13:53 2 MG Diagnostic Test (Pha) 1 strip Q6HR 05/17/24 06:00 05/21/24 12:52 1 STRIP Insulin Human Regular Q6HR SC 05/17/24 06:00 05/20/24 22:58 2 UNITS Dextrose 50 ml UD PRN IV 05/17/24 02:15 Lorazepam 1 mg Q5MINP PRN IV 05/18/24 21:30 Thiamine HCl 100 mg DAILY IV 05/20/24 11:00 05/21/24 10:07 100 MG Budesonide 0.5 mg BID NEB 05/20/24 12:38 05/21/24 06:43 0.5 MG Acetaminophen 650 mg Q6HP PRN MS 05/20/24 16:15 05/21/24 01:16 650 MG Haloperidol Lactate 2.5 mg Q6HP PRN IM 05/20/24 21:30 Morphine Sulfate 2 mg Q4HPRN PRN IV 05/21/24 05:00 Chlordiazepoxide HCl 5 mg QID PO 05/21/24 18:00 objective The patient is well-nourished and well-developed with no distress. The patient is intubated MENTAL STATUS: Subjective CRANIAL NERVES: Pupils are equal round and reactive to light briskly, normal external eye movement, normal sensation and motor examination in the lateral trigeminal nerve distribution, no facial weakness. SENSATION: Normal to Pinprick and light touch MOTOR: Normal tone in the upper and lower extremity. Normal muscle bulk. No fasciculations. Muscle power is close to 5/5, no tremor REFLEXES: Deep tendon reflexes are symmetrical. No pathological reflexes. CEREBELLAR/COORDINATION: Deferred GAIT/STATION: deferred. laboratory and microbiology Laboratory Tests 05/21/24 03:16 Test 05/21/24 03:16 Range/Units Serum Glucose 125 H 74-106 mg/dL Problem List Grand mal seizure Likely alcohol withdrawal ? 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 Although this document has been carefully reviewed, there may still be some phonetic and typographical errors. These areas are purely typographical due to imperfections of the software programs, and do not reflect any compr Prognosis poor Plan discussed with: Patient, Spouse, Other Critical Care Time(min): 35 KVNG MCKEON MD May 21, 2024 14:22
[2024-05-21] MEDS: VANCOMYCIN HCL 250 MG CAP PO SCH (17:02)
[2024-05-21] MEDS: chlordiazePOXIDE HCL 5 MG CAP PO SCH (17:02)
--- NOTE | 2024-05-21 18:49 | DVHPN2 ---
Progress Note - Dictate Date Seen: May 21, 2024 Medical Necessity Reason Pt with a Central, PICC or Fol: Yes The following are medically ne: Healy Catheter Reason for healy catheter: Strict I&O Subjective Patient seen and examined at bedside. Currently breathing on room air. Overnight events reviewed. vital signs Vital Sign Date Time Temp Pulse Resp B/P (MAP) Pulse Ox O2 Delivery O2 Flow Rate FiO2 05/21/24 16:37 98.7 86 18 142/82 (102) 94 98.7 05/21/24 14:00 Room Air* 0 21 Total Intake and Output 05/20/24 05/20/24 05/21/24 15:00 23:00 07:00 Intake Total 909.460 ml 850 ml 960 ml Output Total 1250 ml 900 ml Balance 909.460 ml -400 ml 60 ml medications Current Medications Medications Dose Ordered Sig/Travon Route Start Time Stop Time Status Last Admin Dose Admin Acetaminophen 650 mg Q6HP PRN PO 05/17/24 02:00 05/21/24 17:02 650 MG Dextrose/Sodium Chloride 1,000 ml @ 100 mls/hr Q10H IV 05/17/24 02:00 05/21/24 03:59 100 MLS/HR Ondansetron HCl 4 mg Q4HP PRN IV 05/17/24 02:00 05/21/24 17:03 4 MG Enoxaparin Sodium 40 mg DAILY SC 05/17/24 10:00 Hold Nitroglycerin 0.4 mg Q5MINP PRN SL 05/17/24 02:00 Morphine Sulfate 2 mg Q30M PRN IV 05/17/24 02:00 05/21/24 13:53 2 MG Diagnostic Test (Pha) 1 strip Q6HR 05/17/24 06:00 05/21/24 17:27 1 STRIP Insulin Human Regular Q6HR SC 05/17/24 06:00 05/20/24 22:58 2 UNITS Dextrose 50 ml UD PRN IV 05/17/24 02:15 Lorazepam 1 mg Q5MINP PRN IV 05/18/24 21:30 Thiamine HCl 100 mg DAILY IV 05/20/24 11:00 05/21/24 10:07 100 MG Acetaminophen 650 mg Q6HP PRN GA 05/20/24 16:15 05/21/24 01:16 650 MG Haloperidol Lactate 2.5 mg Q6HP PRN IM 05/20/24 21:30 Morphine Sulfate 2 mg Q4HPRN PRN IV 05/21/24 05:00 Chlordiazepoxide HCl 5 mg QID PO 05/21/24 18:00 05/21/24 17:02 5 MG Vancomycin HCl 250 mg QID PO 05/21/24 18:00 05/21/24 17:02 250 MG objective Gen.: Patient lying in bed in no apparent distress. Breathing on room air. Head: Normocephalic, atraumatic. Eyes: EOMI/PERRLA. Ears: Normal hearing. Normal anatomy. Neck/trachea: Trachea midline, supple. Nose: Normal external anatomy. Mouth: Moist mucous membranes. Chest: Decreased air entry bilaterally. No wheezing or rhonchi. Cardiovascular: Positive S1, positive S2. Regular rate and rhythm. Abdomen: Positive bowel sounds in all 4 quadrants. Soft, non-tender, non- distended. : Deferred. Rectal: Deferred. Skin: Warm, dry. Intact. Extremities: 2+ radial pulses bilaterally. No lower extremity edema. Neuro: Awake, alert, oriented x3. No gross motor or sensory deficits. Cranial nerves II through XII intact. Gait not assessed laboratory and microbiology Laboratory Tests 05/21/24 03:16 Test 05/21/24 03:16 Range/Units Serum Glucose 125 H 74-106 mg/dL Assessment/Plan Impression: Acute respiratory failure Status epilepticus Marijuana use Nicotine dependence Hypokalemia Events: Breathing on room air No respiratory distress. Improved O2 requirements. Off sedation Off pressors, hemodynamically stable. Continue antiepileptics Monitor for alcohol withdrawal. Follow up Neurology recommendations. Continue antibiotics - vancomycin Continue bronchodilators/Pulmicort IV fluid hydration; D5-half NS at 100 ml/hr. Monitor renal function Monitor electrolytes. Supplement as necessary. Potassium supplementation Diarrhea - C. diff sample sent. Patient is stable for downgrade from the pulmonary standpoint. Labs and imaging reviewed. Rest of plan as noted below. Plan: s/p extubation on 05/20 On room air. CXR image and report reviewed. Devices in place. Right subclavian central line in the right atrium. ABG reviewed. Alkalemia due to respiratory alkalosis Brain MRI demonstrates no acute infarction, intracranial hemorrhage. Off sedation Start pressors if necessary for hemodynamic support - currently off Titrate to keep MAP above 65 mmHg/SBP above 90 mmHg. Continue antibiotics. F/u cultures. Monitor renal function due to Acute kidney injury. Monitor electrolytes. Supplement as necessary. Nutritional support. Accu-Cheks, ISS. Follow up neurology recommendations. GI/DVT prophylaxis. Condition: Critical Prognosis: Poor given multiple comorbidities. Rest of plan per hospitalist and other consultants. A total of 35 minutes of critical care time was spent reviewing the patient record, examining the patient, making a diagnostic and therapeutic plan, discussing this plan with the medical personnel, following up on diagnostic studies and following the patient for clinical stability excluding any and all procedures. At least 50% of this time was spent in direct, [id number] contact. Thank you Dr. Lerma for allowing me to participate in this patient's care. Further recommendations will depend on patient's clinical course. Please do not hesitate to contact me if you have any questions or concerns. This medical document was created using an electronic medical record system with [employer] dictation system. Although this document has been carefully reviewed, there may still be some phonetic and typographical errors. These areas are purely typographical due to imperfections of the software programs, and do not reflect any compromise in the patient's medical care. Plan discussed with: Patient, Other (NAYANA Osborne) Critical Care Time(min): 35 NENITA MURPHY MD May 21, 2024 18:49
--- NOTE | 2024-05-21 20:49 | DVH ---
CHEST RADIOGRAPH Indication:Central line placement verification Technique: Single frontal view of the chest was obtained Comparison: XY CHEST XRAY 1 VIEW on DOS: 05/20/24, XY CHEST PORTABLE on DOS: 05/19/24, XY CHEST JADIEL BLE on DOS: 05/18/24 FINDINGS: Lines and Tubes: Right subclavian approach CVC with catheter terminating in the right atrium. Lungs: Opacification in the bilateral lower lung zones, right side greater than left. Pleura: No effusion. No pneumothorax. Cardiomediastinal contours: Unremarkable Bones: No acute osseous abnormality. IMPRESSION: Subtle opacification in the bilateral lower lobes, right side greater than left, which may be due to atelectasis with superimposed infection not excluded.
[2024-05-21] MEDS: LORazepam 2MG/ML-1ML VIAL IV PRN (21:27)
[2024-05-22] VITALS (8 sets, daily range): BP systolic 113–133; BP diastolic 74–92; PULSE 81–105; RESP 18–20; TEMP 98.3–100.2; O2SAT 93–97
[2024-05-22] MEDS: MORPHINE SULFATE INJ 2 MG/ml SYRG IV PRN (04:03)
[2024-05-22 06:25] LABS: Alanine Aminotransferase 101 U/L (7-40); Albumin 3.6 g/dL (3.2-4.8); Alkaline Phosphatase 144 U/L (46-116); Anion Gap 9 (5-15); Aspartate Aminotransferase 91 U/L (13-40); Bilirubin, Total 1.4 mg/dL (0.2-1.0); Calcium 9.4 mg/dL (8.7-10.4); Carbon Dioxide 25 mmol/L (20-31); Chloride 107 mmol/L (98-107); Glucose 97 mg/dL (74-106); Potassium 3.8 mmol/L (3.5-5.1); Sodium 141 mmol/L (136-145)
[2024-05-22 06:33] LABS: BUN/Creatinine Ratio 6.1 (10.0-20.0); Blood Urea Nitrogen < 5 mg/dL (9-23)
[2024-05-22] MEDS: THROAT LOZENGES(CEPASTAT) MT PRN (11:58)
--- NOTE | 2024-05-22 16:42 | DVHPN2 ---
Progress Note - Dictate Date Seen: May 22, 2024 Medical Necessity Reason Pt with a Central, PICC or Fol: No The following are medically ne: Healy Catheter Reason for healy catheter: Strict I&O Subjective Feeling better. Out of bed ambulating in the room. Diarrhea has improved. Waiting for tele psych evaluation. vital signs Vital Sign Date Time Temp Pulse Resp B/P (MAP) Pulse Ox O2 Delivery O2 Flow Rate FiO2 05/22/24 12:37 100.2 83 18 121/92 (102) 96 100.2 05/21/24 20:00 Nasal Cannula* 2 28 Total Intake and Output 05/21/24 05/21/24 05/22/24 15:00 23:00 07:00 Intake Total 700 ml 500 ml 200 ml Output Total 350 ml Balance 700 ml 150 ml 200 ml medications Current Medications Medications Dose Ordered Sig/Travon Route Start Time Stop Time Status Last Admin Dose Admin Acetaminophen 650 mg Q6HP PRN PO 05/17/24 02:00 05/21/24 17:02 650 MG Ondansetron HCl 4 mg Q4HP PRN IV 05/17/24 02:00 05/22/24 11:32 4 MG Nitroglycerin 0.4 mg Q5MINP PRN SL 05/17/24 02:00 Morphine Sulfate 2 mg Q30M PRN IV 05/17/24 02:00 05/21/24 13:53 2 MG Diagnostic Test (Pha) 1 strip Q6HR 05/17/24 06:00 05/22/24 11:25 1 STRIP Dextrose 50 ml UD PRN IV 05/17/24 02:15 Lorazepam 1 mg Q5MINP PRN IV 05/18/24 21:30 05/21/24 21:27 1 MG Acetaminophen 650 mg Q6HP PRN [place] 05/20/24 16:15 05/21/24 01:16 650 MG Haloperidol Lactate 2.5 mg Q6HP PRN IM 05/20/24 21:30 Morphine Sulfate 2 mg Q4HPRN PRN IV 05/21/24 05:00 05/22/24 04:03 2 MG Chlordiazepoxide HCl 5 mg QID PO 05/21/24 18:00 05/22/24 11:24 5 MG Vancomycin HCl 250 mg QID PO 05/21/24 18:00 11/16/24 11:24 250 MG Throat Lozenges 2 jerson Q4HP PRN MT 05/22/24 11:45 05/22/24 11:58 2 JERSON Dextrose/Sodium Chloride 1,000 ml @ 70 mls/hr [id number] IV 05/22/24 14:00 Enoxaparin Sodium 40 mg DAILY SC 05/23/24 10:00 Famotidine 20 mg Q12HR PO 05/22/24 22:00 objective Alert awake oriented to place and person. Follow his at bedside. Heart sinus rhythm S1 plus S2. Abdomen soft nontender positive bowel sounds. Extremities no edema. laboratory and microbiology Laboratory Tests 05/22/24 05:13 05/21/24 03:16 Test 05/22/24 05:13 Range/Units Serum Glucose 97 74-106 mg/dL Assessment/Plan Continue activity and oral vancomycin for C diff as he is on. Discharge plan pending tele psych evaluation. Further clinical management per clinical course. Advance diet as he tolerates. Problems(with codes): (1) Alcohol abuse (2) Seizure disorder (3) Weakness (4) Alcohol withdrawal Plan discussed with: Other JASON JACOBO MD May 22, 2024 16:42
--- NOTE | 2024-05-22 17:21 | DVHINCON2 ---
Date of service: May 22, [address] Issa Garcia Reason for Consultation Medication management and disposition. History of Present Illness Chief complaint: "I took a bunch of pills". History of present illness: This is a 23 year male who was seen for evaluation via telepsychiatry. Patient reported that he was hospitalized after he overdosed on his seizure medication in an attempt to end his life. Patient reported that he has been feeling more depressed for last few months. Patient reported having trouble sleeping, loss of interest, has low energy level, appetite decreased and he feels hopeless. He denied any current suicidal or homicidal ideation. He reported having visual hallucinations stating I have been seeing stuff". He denied any auditory hallucination. He denied any paranoia. Past psychiatric history: Patient denied any previous inpatient psychiatric hospitalization. Patient has never been treated for depression or any other psychiatric illness. Patient denied any suicide attempts in the past. Past Medical History As per history and physical. Past Surgical History As per history and physical. Family History: Hypertension G8 FATHER Family History He denied any family history of any psychiatric illness. Social History Patient is single and has two children. Patient currently unemployed. Reported that he is living with his dad. Substance use: Patient reported using alcohol. Allergies: Coded Allergies: No Known Drug Allergy (Verified Allergy, Unknown, 10/02/17) Home Meds Active Scripts Levetiracetam (KEPPRA TABLET) 500 Mg Tb, 1000 MG PO BID for 30 Days, #120 TAB 6 Refills Prov:FIONA EDWARDS DO 10/06/23 Current Medications Current Medications Medications (Trade) Dose Ordered Sig/Travon Route PRN Reason Start Time Stop Time Status Last Admin Chlordiazepoxide HCl (Librium Capsule) 5 mg QID PO 05/21/24 18:00 05/22/24 11:24 Vancomycin HCl (Vancomycin Hydrochloride) 250 mg QID PO 05/21/24 18:00 05/22/24 11:24 Throat Lozenges (Cepastat Lozenges) 2 pieter Q4HP PRN MT FOR SORE THROAT 05/22/24 11:45 05/22/24 11:58 Dextrose/Sodium Chloride 1,000 ml @ 70 mls/hr [id number] IV 05/22/24 14:00 Enoxaparin Sodium (Lovenox) 40 mg DAILY SC 05/23/24 10:00 Famotidine (Pepcid Tablet) 20 mg Q12HR PO 05/22/24 22:00 Review of Systems Review of systems is negative except HPI. Vital Signs Vital Signs Date Time Temp Pulse Resp B/P (MAP) Pulse Ox O2 Delivery O2 Flow Rate FiO2 05/22/24 16:54 99.1 82 18 113/74 (87) 95 99.1 05/21/24 20:00 Nasal Cannula* 2 28 Physical Exam Mental status examination: This is a 23-year-old male who appears to be of his stated age. His grooming is marginal. His eye contact is limited. His speech is soft and attempts hard to understand. He describes mood as "a lot better" and his affect is restricted. He denied any current suicidal or homicidal ideation. He denied any auditory hallucination. He reported having visual hallucination. His thought process is slightly disorganized and thought blocking. He is oriented to place, person, year and month. His attention and concentration impaired. His memory and language Zaida impaired. His judgment and insight is limited. His impulse control is limited. His fund of knowledge is intact. Labs/Diagnostic Data Labs Test 05/22/24 11:35 05/22/24 05:13 05/21/24 03:16 05/20/24 11:30 Range/Units POC Glucose 122 H 70-106 mg/dl Sodium Level 141 136-145 mmol/L Potassium Level 3.8 3.5-5.1 mmol/L Chloride Level 107 98-107 mmol/L Carbon Dioxide Level 25 20-31 mmol/L Anion Gap 9 5-15 Blood Urea Nitrogen < 5 L 9-23 mg/dL Creatinine 0.82 0.700-1.30 mg/dL Glomerular Filtration Rate Calc 126 >90 mL/min BUN/Creatinine Ratio 6.1 L 10.0-20.0 Serum Glucose 97 74-106 mg/dL Calcium Level 9.4 8.7-10.4 mg/dL Total Bilirubin 1.4 H 0.2-1.0 mg/dL Aspartate Amino Transferase (AST) 91 H 13-40 U/L Alanine Aminotransferase (ALT) 101 H 7-40 U/L Alkaline Phosphatase 144 H 46-116 U/L Ammonia 15 11-32 umol/L Total Protein 6.0 5.7-8.2 g/dL Albumin 3.6 3.2-4.8 g/dL White Blood Count 7.6 # 4.4-10.8 10^3/uL Red Blood Count 3.64 L 4.5-5.90 10^6/uL Hemoglobin 12.6 L 13.5-17.5 g/dL Hematocrit 35.2 L 41.0-53.0 % Mean Corpuscular Volume 96.8 80.0-100.0 fL Mean Corpuscular Hemoglobin 34.5 H 28.0-32.0 pg Mean Corpuscular Hemoglobin Concent 35.7 32.0-36.0 g/dL Red Cell Distribution Width 12.9 11.8-14.3 % Platelet Count 120 L 140-450 10^3/uL Mean Platelet Volume 7.5 6.9-10.8 fL Neutrophils (%) (Auto) 77.2 37.0-80.0 % Lymphocytes (%) (Auto) 7.6 L 10.0-50.0 % Monocytes (%) (Auto) 14.8 H 0.0-12.0 % Eosinophils (%) (Auto) 0.1 0.0-7.0 % Basophils (%) (Auto) 0.3 0.0-2.0 % Neutrophils # (Auto) 5.9 1.6-8.6 10 ^3/uL Lymphocytes # (Auto) 0.6 0.4-5.4 10 ^3/uL Monocytes # (Auto) 1.1 0-1.3 10 ^3/uL Eosinophils # (Auto) 0 0-0.8 10 ^3/uL Basophils # (Auto) 0 0-0.2 10 ^3/uL Nucleated Red Blood Cells 0.1 % Blood Gas Specimen Type Arterial Blood Gas Sample Site Right brachial Blood Gas Patient Temperature 37.0 Arterial Blood Date Drawn [id number] Arterial Blood pH 7.349 L 7.350-7.450 Arterial Blood Partial Pressure CO2 48.8 H 35.0-48.0 mmHg Arterial Blood Partial Pressure O2 68.0 L 83.0-108.0 mmHg Arterial Blood HCO3 26.3 21.0-28.0 mmol/L Arterial Blood Oxygen Saturation 93.2 L 94.0-98.0 % Arterial Blood Base Excess 0.1 -2.0-3.0 mmol/L Arterial Blood Oxyhemoglobin 92.6 L 94.0-98.0 % Arterial Blood Carboxyhemoglobin 0.5 0.5-1.5 % Arterial Blood Methemoglobin 0.1 0.0-1.5 % [place] Test N/a Blood Gas Total Hemoglobin 13.80 13.5-17.5 g/dL Blood Gas Modality Vent - cpap Blood Gas Spontaneous Rate 24 FiO2 % 30.0 Blood Gas Spontaneous Tidal Volume 654 Blood Gas Inspiratory Pressure 15.0 Blood Gas Pressure Support 8 Blood Gas PEEP or CPAP 5.0 Bl Gas Inspiratory/Expiratory Ratio 1:2.2 Specimen Drawn By peg rt Test 05/20/24 06:55 05/19/24 03:15 05/18/24 08:10 05/17/24 06:00 Range/Units Blood Gas Set Respiration Rate 16.0 Blood Gas Tidal Volume 450.0 Magnesium Level 1.8 1.6-2.6 mg/dL Phosphorus Level 3.4 2.4-5.1 mg/dL Platelet Estimate Adequate Large Platelets D Test 05/16/24 23:40 05/16/24 21:15 Range/Units Urine Color Light-orange Yellow Urine Clarity Turbid H Clear Urine pH 6.0 5.0-9.0 Urine Specific [place] 1.019 1.001-1.035 Urine Protein 2+ H Negative Urine Ketones Trace Negative Urine Blood 3+ H Negative /uL Urine Nitrite Negative Negative Urine Bilirubin Negative Negative Urine Urobilinogen Normal Negative mg/dL Urine Leukocyte Esterase Negative Negative /uL Urine RBC 94 0 - 3 /hpf Urine WBC 5 0 - 3 /hpf Urine Squamous Epithelial Cells Few <5 /hpf Urine Calcium Oxalate Crystals Mod None Seen Urine Amorphous Crystals Few None Seen /hpf Urine Bacteria Few H None Seen /hpf Urine Hyaline Casts Few 0 - 2 /lpf Urine Sperm Present None Seen /hpf Urine Glucose Normal Normal mg/dL Urine Opiates Screen Neg NEGATIVE Urine Fentanyl Screen Neg NEGATIVE Urine Barbiturates Screen Neg NEGATIVE Urine Phencyclidine Screen Neg NEGATIVE Urine Amphetamines Screen Neg NEGATIVE Urine Benzodiazepines Screen Pos NEGATIVE Urine Cocaine Screen Neg NEGATIVE Urine Cannabinoids Screen Pos NEGATIVE Plasma/Serum Blood Alcohol < 3.0 <10 mg/dL Microbiology Date/Time Source Procedure Growth Status 05/21/24 08:34 Stool Clostridium difficile Toxin Assay - Final Complete 05/18/24 03:15 Nose MRSA Screen - Final Complete 05/17/24 02:55 Blood Blood Culture - Final NO GROWTH AFTER 5 DAYS OF INCUBATION. Complete 05/16/24 21:50 Sputum Expectorated Sputum Gram Stain - Final Complete 05/16/24 21:50 Respiratory Culture - Final Pseudo fluorescence/putida Complete Assessment Patient with a diagnosis of Major depressive disorder single episode and psychotic disorder not otherwise specified. Patient reported that he intentionally overdosed on his seizure medication in an attempt to end his life. Plan/Recommendation I will recommend 5150 hold for danger to self and transferred to inpatient psychiatric level of care. I will start him on Zoloft 25 mg p.o. daily and Seroquel 50 mg p.o. q.h.s.. Care was coordinated with the patient and his RN. Plan discussed with: Patient SCARLETT CHACON MD May 22, 2024 17:21
[2024-05-22] MEDS: D5W/SOD CHL 0.45% 1,000 ML IV SCH (18:04)
[2024-05-22] MEDS: QUEtiapine FUMARATE 25 MG TAB PO SCH (21:06)
[2024-05-22] MEDS: FAMOTIDINE 20 MG TAB PO SCH (21:07)
--- NOTE | 2024-05-22 21:57 | DVHPN2 ---
Progress Note - Dictate Date Seen: May 22, 2024 Medical Necessity Reason Pt with a Central, PICC or Fol: Yes The following are medically ne: Healy Catheter Reason for healy catheter: Strict I&O Subjective Patient seen and examined at bedside. Breathing on room air. Overnight events reviewed. vital signs Vital Sign Date Time Temp Pulse Resp B/P (MAP) Pulse Ox O2 Delivery O2 Flow Rate FiO2 05/22/24 20:00 Room Air* 0 21 05/22/24 16:54 99.1 82 18 113/74 (87) 95 99.1 Total Intake and Output 05/21/24 05/21/24 05/22/24 15:00 23:00 07:00 Intake Total 700 ml 500 ml 200 ml Output Total 350 ml Balance 700 ml 150 ml 200 ml medications Current Medications Medications Dose Ordered Sig/Travon Route Start Time Stop Time Status Last Admin Dose Admin Acetaminophen 650 mg Q6HP PRN PO 05/17/24 02:00 05/21/24 17:02 650 MG Ondansetron HCl 4 mg Q4HP PRN IV 05/17/24 02:00 05/22/24 11:32 4 MG Nitroglycerin 0.4 mg Q5MINP PRN SL 05/17/24 02:00 Morphine Sulfate 2 mg Q30M PRN IV 05/17/24 02:00 05/21/24 13:53 2 MG Diagnostic Test (Pha) 1 strip Q6HR 05/17/24 06:00 05/22/24 18:09 1 STRIP Dextrose 50 ml UD PRN IV 05/17/24 02:15 Lorazepam 1 mg Q5MINP PRN IV 05/18/24 21:30 05/21/24 21:27 1 MG Acetaminophen 650 mg Q6HP PRN VA 05/20/24 16:15 05/21/24 01:16 650 MG Haloperidol Lactate 2.5 mg Q6HP PRN IM 05/20/24 21:30 Morphine Sulfate 2 mg Q4HPRN PRN IV 05/21/24 05:00 05/22/24 04:03 2 MG Chlordiazepoxide HCl 5 mg QID PO 05/21/24 18:00 05/22/24 21:05 5 MG Vancomycin HCl 250 mg QID PO 05/21/24 18:00 05/22/24 21:05 250 MG Throat Lozenges 2 jerson Q4HP PRN MT 05/22/24 11:45 05/22/24 21:14 2 JERSON Dextrose/Sodium Chloride 1,000 ml @ 70 mls/hr [id number] IV 05/22/24 14:00 05/22/24 18:04 70 MLS/HR Enoxaparin Sodium 40 mg DAILY SC 05/23/24 10:00 Famotidine 20 mg Q12HR PO 05/22/24 22:00 05/22/24 21:07 20 MG Sertraline HCl 25 mg DAILY PO 05/23/24 10:00 Quetiapine Fumarate 50 mg HS PO 05/22/24 22:00 05/22/24 21:06 50 MG objective Gen.: Patient lying in bed in no apparent distress. Breathing on room air. Head: Normocephalic, atraumatic. Eyes: EOMI/PERRLA. Ears: Normal hearing. Normal anatomy. Neck/trachea: Trachea midline, supple. Nose: Normal external anatomy. Mouth: Moist mucous membranes. Chest: Decreased air entry bilaterally. No wheezing or rhonchi. Cardiovascular: Positive S1, positive S2. Regular rate and rhythm. Abdomen: Positive bowel sounds in all 4 quadrants. Soft, non-tender, non- distended. : Deferred. Rectal: Deferred. Skin: Warm, dry. Intact. Extremities: 2+ radial pulses bilaterally. No lower extremity edema. Neuro: Awake, alert, oriented x3. No gross motor or sensory deficits. Cranial nerves II through XII intact. Gait not assessed laboratory and microbiology Laboratory Tests 05/22/24 05:13 05/21/24 03:16 Test 05/22/24 05:13 Range/Units Serum Glucose 97 74-106 mg/dL Assessment/Plan Impression: Acute respiratory failure Status epilepticus Marijuana use Nicotine dependence Hypokalemia Events: Breathing on room air No respiratory distress. Off sedation Off pressors, hemodynamically stable. Continue antiepileptics Monitor for alcohol withdrawal. Neurology recommendations appreciated. Continue antibiotics - vancomycin Stool for C. diff positive. IS. IV fluid hydration; D5-half NS at 100 ml/hr. Monitor renal function Monitor electrolytes. Supplement as necessary. Labs and imaging reviewed. Rest of plan as noted below. Plan: s/p extubation on 05/20 On room air. CXR image and report reviewed. Devices in place. Right subclavian central line in the right atrium. ABG reviewed. Alkalemia due to respiratory alkalosis Brain MRI demonstrates no acute infarction, intracranial hemorrhage. Off sedation Start pressors if necessary for hemodynamic support - currently off Titrate to keep MAP above 65 mmHg/SBP above 90 mmHg. Continue antibiotics. F/u cultures. Monitor renal function due to Acute kidney injury. Monitor electrolytes. Supplement as necessary. Nutritional support. Accu-Cheks, ISS. Follow up neurology recommendations. GI/DVT prophylaxis. Prognosis: Poor given multiple comorbidities. Rest of plan per hospitalist and other consultants. Thank you Dr. Lerma for allowing me to participate in this patient's care. Further recommendations will depend on patient's clinical course. Please do not hesitate to contact me if you have any questions or concerns. This medical document was created using an electronic medical record system with EXPO dictation system. Although this document has been carefully reviewed, there may still be some phonetic and typographical errors. These areas are purely typographical due to imperfections of the software programs, and do not reflect any compromise in the patient's medical care. Plan discussed with: Patient, Other (NAYANA Ramírez) NENITA MURPHY MD May 22, 2024 21:57
[2024-05-23] VITALS (7 sets, daily range): BP systolic 125–139; BP diastolic 85–93; PULSE 79–107; RESP 17–20; TEMP 98.3–99.7; O2SAT 95–98
[2024-05-23] MEDS: SERTRALINE HCL 50 MG TAB PO SCH (09:37)
[2024-05-23] MEDS: ENOXAPARIN SOD 40 MG/0.4 ML SYRINGE SC SCH (09:37)
--- NOTE | 2024-05-23 12:46 | DVHPN2 ---
Progress Note - Dictate Date Seen: May 23, 2024 Medical Necessity Reason Pt with a Central, PICC or Fol: No The following are medically ne: Healy Catheter Reason for healy catheter: Strict I&O Subjective Feeling better. Took shower. Evaluated by psychiatrist recommending 5150 hold given patient had suicidal ideation on admission. vital signs Vital Sign Date Time Temp Pulse Resp B/P (MAP) Pulse Ox O2 Delivery O2 Flow Rate FiO2 05/23/24 09:00 99.6 79 19 139/93 (108) 96 99.6 05/23/24 08:05 Room Air* 0 21 Total Intake and Output 05/22/24 05/22/24 05/23/24 15:00 23:00 07:00 Intake Total 750 ml 1920 ml 100 ml Balance 750 ml 1920 ml 100 ml medications Current Medications Medications Dose Ordered Sig/Travon Route Start Time Stop Time Status Last Admin Dose Admin Acetaminophen 650 mg Q6HP PRN PO 05/17/24 02:00 05/21/24 17:02 650 MG Ondansetron HCl 4 mg Q4HP PRN IV 05/17/24 02:00 05/22/24 11:32 4 MG Nitroglycerin 0.4 mg Q5MINP PRN SL 05/17/24 02:00 Morphine Sulfate 2 mg Q30M PRN IV 05/17/24 02:00 05/21/24 13:53 2 MG Diagnostic Test (Pha) 1 strip Q6HR 05/17/24 06:00 05/23/24 12:02 1 STRIP Dextrose 50 ml UD PRN IV 05/17/24 02:15 Lorazepam 1 mg Q5MINP PRN IV 05/18/24 21:30 05/21/24 21:27 1 MG Acetaminophen 650 mg Q6HP PRN AK 05/20/24 16:15 05/21/24 01:16 650 MG Haloperidol Lactate 2.5 mg Q6HP PRN IM 05/20/24 21:30 Morphine Sulfate 2 mg Q4HPRN PRN IV 05/21/24 05:00 05/22/24 04:03 2 MG Vancomycin HCl 250 mg QID PO 05/21/24 18:00 05/23/24 11:59 250 MG Throat Lozenges 2 jerson Q4HP PRN MT 05/22/24 11:45 05/23/24 09:38 2 JERSON Enoxaparin Sodium 40 mg DAILY SC 05/23/24 10:00 05/23/24 09:37 40 MG Famotidine 20 mg Q12HR PO 05/22/24 22:00 05/23/24 09:36 20 MG Sertraline HCl 25 mg DAILY PO 05/23/24 10:00 05/23/24 09:37 25 MG Quetiapine Fumarate 50 mg HS PO 05/22/24 22:00 05/22/24 21:06 50 MG objective Alert awake oriented to place and person. Follow his at bedside. Heart sinus rhythm S1 plus S2. Abdomen soft nontender positive bowel sounds. Extremities no edema. laboratory and microbiology Laboratory Tests 05/22/24 05:13 05/21/24 03:16 Test 05/22/24 05:13 Range/Units Serum Glucose 97 74-106 mg/dL Assessment/Plan Suicidal ideation no evaluated by psychiatrist 5150 hold. Continue psych medications as recommended. Continue activity and oral vancomycin for C diff as he is on. We will have social work msw look into psychiatric facility given patient is clinically stable. Plan discussed with: Other (Nurse) JASON JACOBO MD May 23, 2024 12:46
[2024-05-23] MEDS ORDERED: SORE THROAT SPRAY 6OZ BOTTLE MT PRN (21:00)
--- NOTE | 2024-05-23 21:20 | DVHPN2 ---
Progress Note - Dictate Date Seen: May 23, 2024 Medical Necessity Reason Pt with a Central, PICC or Fol: No The following are medically ne: Healy Catheter Reason for healy catheter: Strict I&O Subjective Patient seen and examined at bedside. Breathing on room air. Overnight events reviewed. vital signs Vital Sign Date Time Temp Pulse Resp B/P (MAP) Pulse Ox O2 Delivery O2 Flow Rate FiO2 05/23/24 20:52 99.2 102 18 137/93 (108) 98 99.2 05/23/24 08:05 Room Air* 0 21 Total Intake and Output 05/22/24 05/22/24 05/23/24 15:00 23:00 07:00 Intake Total 750 ml 1920 ml 100 ml Balance 750 ml 1920 ml 100 ml medications Current Medications Medications Dose Ordered Sig/Travon Route Start Time Stop Time Status Last Admin Dose Admin Acetaminophen 650 mg Q6HP PRN PO 05/17/24 02:00 05/21/24 17:02 650 MG Ondansetron HCl 4 mg Q4HP PRN IV 05/17/24 02:00 05/22/24 11:32 4 MG Nitroglycerin 0.4 mg Q5MINP PRN SL 05/17/24 02:00 Morphine Sulfate 2 mg Q30M PRN IV 05/17/24 02:00 05/21/24 13:53 2 MG Diagnostic Test (Pha) 1 strip Q6HR 05/17/24 06:00 05/23/24 18:39 1 STRIP Dextrose 50 ml UD PRN IV 05/17/24 02:15 Lorazepam 1 mg Q5MINP PRN IV 05/18/24 21:30 05/21/24 21:27 1 MG Acetaminophen 650 mg Q6HP PRN MD 05/20/24 16:15 05/21/24 01:16 650 MG Haloperidol Lactate 2.5 mg Q6HP PRN IM 05/20/24 21:30 Morphine Sulfate 2 mg Q4HPRN PRN IV 05/21/24 05:00 05/22/24 04:03 2 MG Vancomycin HCl 250 mg QID PO 05/21/24 18:00 05/23/24 18:38 250 MG Throat Lozenges 2 jerson Q4HP PRN MT 05/22/24 11:45 05/23/24 09:38 2 JERSON Enoxaparin Sodium 40 mg DAILY SC 05/23/24 10:00 05/23/24 09:37 40 MG Famotidine 20 mg Q12HR PO 05/22/24 22:00 05/23/24 09:36 20 MG Sertraline HCl 25 mg DAILY PO 05/23/24 10:00 05/23/24 09:37 25 MG Quetiapine Fumarate 50 mg HS PO 05/22/24 22:00 05/22/24 21:06 50 MG Phenol/Menthol 1 spr Q2HP PRN MT 05/23/24 21:00 objective Gen.: Patient lying in bed in no apparent distress. Breathing on room air. Head: Normocephalic, atraumatic. Eyes: EOMI/PERRLA. Ears: Normal hearing. Normal anatomy. Neck/trachea: Trachea midline, supple. Nose: Normal external anatomy. Mouth: Moist mucous membranes. Chest: Decreased air entry bilaterally. No wheezing or rhonchi. Cardiovascular: Positive S1, positive S2. Regular rate and rhythm. Abdomen: Positive bowel sounds in all 4 quadrants. Soft, non-tender, non- distended. : Deferred. Rectal: Deferred. Skin: Warm, dry. Intact. Extremities: 2+ radial pulses bilaterally. No lower extremity edema. Neuro: Awake, alert, oriented x3. No gross motor or sensory deficits. Cranial nerves II through XII intact. Gait not assessed laboratory and microbiology Laboratory Tests 05/22/24 05:13 05/21/24 03:16 Test 05/22/24 05:13 Range/Units Serum Glucose 97 74-106 mg/dL Assessment/Plan Impression: Acute respiratory failure Status epilepticus Marijuana use Nicotine dependence Hypokalemia Events: Breathing on room air No respiratory distress. Off sedation Off pressors, hemodynamically stable. Continue antiepileptics Monitor for alcohol withdrawal. Neurology recommendations appreciated. Chloraseptic for throat pain - Cepacol not improving discomfort. Continue antibiotics - vancomycin Stool for C. diff positive. IS. IV fluid hydration; D5-half NS at 100 ml/hr. Monitor renal function Monitor electrolytes. Supplement as necessary. Labs and imaging reviewed. Rest of plan as noted below. Plan: s/p extubation on 05/20 On room air. CXR image and report reviewed. Devices in place. Right subclavian central line in the right atrium. ABG reviewed. Alkalemia due to respiratory alkalosis Brain MRI demonstrates no acute infarction, intracranial hemorrhage. Off sedation Start pressors if necessary for hemodynamic support - currently off Titrate to keep MAP above 65 mmHg/SBP above 90 mmHg. Continue antibiotics. F/u cultures. Monitor renal function due to Acute kidney injury. Monitor electrolytes. Supplement as necessary. Nutritional support. Accu-Cheks, ISS. Follow up neurology recommendations. GI/DVT prophylaxis. Prognosis: Poor given multiple comorbidities. Rest of plan per hospitalist and other consultants. Thank you Dr. Lerma for allowing me to participate in this patient's care. Further recommendations will depend on patient's clinical course. Please do not hesitate to contact me if you have any questions or concerns. This medical document was created using an electronic medical record system with [employer] dictation system. Although this document has been carefully reviewed, there may still be some phonetic and typographical errors. These areas are purely typographical due to imperfections of the software programs, and do not reflect any compromise in the patient's medical care. Plan discussed with: Patient, Other (NYAANA Ramírez) NENITA MURPHY MD May 23, 2024 21:20
[2024-05-24] VITALS (7 sets, daily range): BP systolic 116–136; BP diastolic 74–93; PULSE 83–113; RESP 18–20; TEMP 98.4–99.5; O2SAT 90–97
--- NOTE | 2024-05-24 18:36 | DVHPN2 ---
Progress Note - Dictate Date Seen: May 24, 2024 Medical Necessity Reason Pt with a Central, PICC or Fol: No The following are medically ne: Healy Catheter Reason for healy catheter: Strict I&O Subjective Feeling better. Diarrhea has improved. One bowel movement today. vital signs Vital Sign Date Time Temp Pulse Resp B/P (MAP) Pulse Ox O2 Delivery O2 Flow Rate FiO2 05/24/24 17:00 98.4 113 18 135/83 (100) 93 98.4 05/24/24 08:05 Room Air* 0 21 Total Intake and Output 05/23/24 05/23/24 05/24/24 15:00 23:00 07:00 Intake Total 1000 ml 500 ml 700 ml Balance 1000 ml 500 ml 700 ml medications Current Medications Medications Dose Ordered Sig/Travon Route Start Time Stop Time Status Last Admin Dose Admin Acetaminophen 650 mg Q6HP PRN PO 05/17/24 02:00 05/21/24 17:02 650 MG Haloperidol Lactate 2.5 mg Q6HP PRN IM 05/20/24 21:30 Vancomycin HCl 250 mg QID PO 05/21/24 18:00 05/24/24 11:59 250 MG Throat Lozenges 2 jerson Q4HP PRN MT 05/22/24 11:45 05/23/24 09:38 2 JERSON Famotidine 20 mg Q12HR PO 05/22/24 22:00 05/24/24 10:01 20 MG Sertraline HCl 25 mg DAILY PO 05/23/24 10:00 05/24/24 10:01 25 MG Quetiapine Fumarate 50 mg HS PO 05/22/24 22:00 05/23/24 21:20 50 MG objective Alert awake oriented to place and person. Follow his at bedside. Heart sinus rhythm S1 plus S2. Abdomen soft nontender positive bowel sounds. Extremities no edema. laboratory and microbiology Laboratory Tests 05/22/24 05:13 05/21/24 03:16 Test 05/22/24 05:13 Range/Units Serum Glucose 97 74-106 mg/dL Assessment/Plan Suicidal ideation no evaluated by psychiatrist 5150 hold. Continue psych medications as recommended. Continue activity and oral vancomycin for C diff as he is on. We will have public health social worker look into psychiatric facility given patient is clinically stable. Apparently sunburn in a psychiatric facility we where he had a bed available does not have isolation room. Therefore they are unable to accommodate him. Meantime continue present management and consider repeat tarry safety eval tomorrow to see if still needs to be 5150 hold. Proceed with the patient and nurse as well as his girlfriend at bedside Dietary Evaluation Review Comments: Continue curren tplan of care Expected Outcomes/Goals: F/U in 3-5 days Plan discussed with: Other JASON JACOBO MD May 24, 2024 18:36
--- NOTE | 2024-05-24 23:19 | DVHPN2 ---
Progress Note - Dictate Date Seen: May 24, 2024 Medical Necessity Reason Pt with a Central, PICC or Fol: No The following are medically ne: Healy Catheter Reason for healy catheter: Strict I&O Subjective Patient seen and examined at bedside. Breathing on room air. Overnight events reviewed. vital signs Vital Sign Date Time Temp Pulse Resp B/P (MAP) Pulse Ox O2 Delivery O2 Flow Rate FiO2 05/24/24 21:00 99.5 94 20 136/93 (107) 90 99.5 05/24/24 08:05 Room Air* 0 21 Total Intake and Output 05/23/24 05/23/24 05/24/24 15:00 23:00 07:00 Intake Total 1000 ml 500 ml 700 ml Balance 1000 ml 500 ml 700 ml medications Current Medications Medications Dose Ordered Sig/Travon Route Start Time Stop Time Status Last Admin Dose Admin Acetaminophen 650 mg Q6HP PRN PO 05/17/24 02:00 05/21/24 17:02 650 MG Haloperidol Lactate 2.5 mg Q6HP PRN IM 05/20/24 21:30 Vancomycin HCl 250 mg QID PO 05/21/24 18:00 05/24/24 21:55 250 MG Throat Lozenges 2 jerson Q4HP PRN MT 05/22/24 11:45 05/23/24 09:38 2 JERSON Famotidine 20 mg Q12HR PO 05/22/24 22:00 05/24/24 21:55 20 MG Sertraline HCl 25 mg DAILY PO 05/23/24 10:00 05/24/24 10:01 25 MG Quetiapine Fumarate 50 mg HS PO 05/22/24 22:00 05/24/24 21:55 50 MG objective Gen.: Patient lying in bed in no apparent distress. Breathing on room air. Head: Normocephalic, atraumatic. Eyes: EOMI/PERRLA. Ears: Normal hearing. Normal anatomy. Neck/trachea: Trachea midline, supple. Nose: Normal external anatomy. Mouth: Moist mucous membranes. Chest: Decreased air entry bilaterally. No wheezing or rhonchi. Cardiovascular: Positive S1, positive S2. Regular rate and rhythm. Abdomen: Positive bowel sounds in all 4 quadrants. Soft, non-tender, non- distended. : Deferred. Rectal: Deferred. Skin: Warm, dry. Intact. Extremities: 2+ radial pulses bilaterally. No lower extremity edema. Neuro: Awake, alert, oriented x3. No gross motor or sensory deficits. Cranial nerves II through XII intact. Gait not assessed laboratory and microbiology Laboratory Tests 05/22/24 05:13 05/21/24 03:16 Test 05/22/24 05:13 Range/Units Serum Glucose 97 74-106 mg/dL Assessment/Plan Impression: Acute respiratory failure Status epilepticus Marijuana use Nicotine dependence Hypokalemia Events: Breathing on room air No respiratory distress. Off sedation Off pressors, hemodynamically stable. Continue antiepileptics Monitor for alcohol withdrawal. Neurology recommendations appreciated. Chloraseptic for throat pain - Cepacol not improving discomfort. Continue antibiotics - vancomycin Stool for C. diff positive. IS. IV fluid hydration; D5-half NS at 100 ml/hr. Monitor renal function Monitor electrolytes. Supplement as necessary. Labs and imaging reviewed. Rest of plan as noted below. Plan: s/p extubation on 05/20 On room air. CXR image and report reviewed. Devices in place. Right subclavian central line in the right atrium. ABG reviewed. Alkalemia due to respiratory alkalosis Brain MRI demonstrates no acute infarction, intracranial hemorrhage. Off sedation Start pressors if necessary for hemodynamic support - currently off Titrate to keep MAP above 65 mmHg/SBP above 90 mmHg. Continue antibiotics. F/u cultures. Monitor renal function due to Acute kidney injury. Monitor electrolytes. Supplement as necessary. Nutritional support. Accu-Cheks, ISS. Follow up neurology recommendations. GI/DVT prophylaxis. Prognosis: Poor given multiple comorbidities. Rest of plan per hospitalist and other consultants. Thank you Dr. Lerma for allowing me to participate in this patient's care. Further recommendations will depend on patient's clinical course. Please do not hesitate to contact me if you have any questions or concerns. This medical document was created using an electronic medical record system with [facility] dictation system. Although this document has been carefully reviewed, there may still be some phonetic and typographical errors. These areas are purely typographical due to imperfections of the software programs, and do not reflect any compromise in the patient's medical care. Dietary Evaluation Review Comments: Continue curren tplan of care Expected Outcomes/Goals: F/U in 3-5 days Plan discussed with: Patient, Other (RN) NENITA MURPHY MD May 24, 2024 23:19
[2024-05-25 05:00] VITALS: BP_SYST 114; BP_SYST 155; BP_DIAS 64; BP_DIAS 77; PULSE 61; PULSE 75; RESP 19; RESP 20; TEMP 97.7; TEMP 98.9; O2SAT 85; O2SAT 98
[2024-05-25 08:00] VITALS: PULSE 84; RESP 18; O2SAT 97
[2024-05-25 09:00] VITALS: BP 129/90; PULSE 68; RESP 18; TEMP 98.5; O2SAT 97
[2024-05-25 13:00] VITALS: BP 128/91; PULSE 66; RESP 18; TEMP 99.8; O2SAT 93
--- NOTE | 2024-05-25 15:55 | TELE.CONS ---
05/25/24 1540 The patient was seen and evaluated at [facility] via telepsychiatry platform. 23 yr old male was admitted on 05/16 after an overdose on his medication. He was intubated for about four days and then seen by psychiatrist Dr Steel on 05/22 and recommended for inpatient hospitalization. He was also started on zoloft 25mg and seroquel 50mg qhs. He reported he has been taking those without adverse effects. He noted that he feels much better now and denied having suicidal ideation, plan or intent. He reported that he is optimistic that the zoloft will help his mood and he stated he will reach out to friends in the future or come to the ED if he has return of any suicidal thoughts. He denied having HI/AVH. MSE: Alert, oriented male sitting in bed cooperative and forthcoming speech-regular rate, rhythm, slightly raspy due to recent intubation. Mood-"good, upbeat" Affect-,euthymic congruent Tht process-linear and goal directed Tht Content- Denied having suicidal or homicidal ideation, plan or intent. denied AVH Insight-fair Judgment-good Impulse control-intact Diagnosis: Major depressive disorder, moderate Assessment: This 23 yr old male appears to suffer from depression and is no longer suicidal. He would benefit from continuing on zoloft and seroquel and following up with outpatient mental health. He does not warrant further psychiatric hospitalization. Plan: 1. The patient is psychologically cleared for discharge. 2. Legal-discontinue 5150 hold. discontinue 1:1 sitter. 3. Medications- recommend discharge with a thirty day supply and two refills of the following medications: Zoloft 50mg qhs (increased from 25mg) Seroquel 50mg qhs 4. Case discussed with NAYANA Milian. 5. Please contact psychiatry if further follow up or reevaluation is desired. Yes CLARIBEL ROMAN MD May 25, 2024 15:47
--- NOTE | 2024-05-25 16:46 | DVHDS2 ---
Discharge Summary Date of Admission May 17, 2024 at 02:00 Date of Discharge: May 25, 2024 Labs/Diagnostic Data: Laboratory Results Test 05/24/24 05:41 05/22/24 05:13 05/21/24 03:16 05/20/24 11:30 POC Glucose 89 mg/dl (70-106) Sodium Level 141 mmol/L (136-145) Potassium Level 3.8 mmol/L (3.5-5.1) Chloride Level 107 mmol/L (98-107) Carbon Dioxide Level 25 mmol/L (20-31) Anion Gap 9 (5-15) Blood Urea Nitrogen < 5 mg/dL (9-23) Creatinine 0.82 mg/dL (0.700-1.30) Glomerular Filtration Rate Calc 126 mL/min (>90) BUN/Creatinine Ratio 6.1 (10.0-20.0) Serum Glucose 97 mg/dL (74-106) Calcium Level 9.4 mg/dL (8.7-10.4) Total Bilirubin 1.4 mg/dL (0.2-1.0) Aspartate Amino Transferase (AST) 91 U/L (13-40) Alanine Aminotransferase (ALT) 101 U/L (7-40) Alkaline Phosphatase 144 U/L (46-116) Ammonia 15 umol/L (11-32) Total Protein 6.0 g/dL (5.7-8.2) Albumin 3.6 g/dL (3.2-4.8) White Blood Count 7.6 10^3/uL (4.4-10.8) Red Blood Count 3.64 10^6/uL (4.5-5.90) Hemoglobin 12.6 g/dL (13.5-17.5) Hematocrit 35.2 % (41.0-53.0) Mean Corpuscular Volume 96.8 fL (80.0-100.0) Mean Corpuscular Hemoglobin 34.5 pg (28.0-32.0) Mean Corpuscular Hemoglobin Concent 35.7 g/dL (32.0-36.0) Red Cell Distribution Width 12.9 % (11.8-14.3) Platelet Count 120 10^3/uL (140-450) Mean Platelet Volume 7.5 fL (6.9-10.8) Neutrophils (%) (Auto) 77.2 % (37.0-80.0) Lymphocytes (%) (Auto) 7.6 % (10.0-50.0) Monocytes (%) (Auto) 14.8 % (0.0-12.0) Eosinophils (%) (Auto) 0.1 % (0.0-7.0) Basophils (%) (Auto) 0.3 % (0.0-2.0) Neutrophils # (Auto) 5.9 10 ^3/uL (1.6-8.6) Lymphocytes # (Auto) 0.6 10 ^3/uL (0.4-5.4) Monocytes # (Auto) 1.1 10 ^3/uL (0-1.3) Eosinophils # (Auto) 0 10 ^3/uL (0-0.8) Basophils # (Auto) 0 10 ^3/uL (0-0.2) Nucleated Red Blood Cells 0.1 % Blood Gas Specimen Type Arterial Blood Gas Sample Site Right brachial Blood Gas Patient Temperature 37.0 Arterial Blood Date Drawn [id number] Arterial Blood pH 7.349 (7.350-7.450) Arterial Blood Partial Pressure CO2 48.8 mmHg (35.0-48.0) Arterial Blood Partial Pressure O2 68.0 mmHg (83.0-108.0) Arterial Blood HCO3 26.3 mmol/L (21.0-28.0) Arterial Blood Oxygen Saturation 93.2 % (94.0-98.0) Arterial Blood Base Excess 0.1 mmol/L (-2.0-3.0) Arterial Blood Oxyhemoglobin 92.6 % (94.0-98.0) Arterial Blood Carboxyhemoglobin 0.5 % (0.5-1.5) Arterial Blood Methemoglobin 0.1 % (0.0-1.5) [place] Test N/a Blood Gas Total Hemoglobin 13.80 g/dL (13.5-17.5) Blood Gas Modality Vent - cpap Blood Gas Spontaneous Rate 24 FiO2 % 30.0 Blood Gas Spontaneous Tidal Volume 654 Blood Gas Inspiratory Pressure 15.0 Blood Gas Pressure Support 8 Blood Gas PEEP or CPAP 5.0 Bl Gas Inspiratory/Expiratory Ratio 1:2.2 Specimen Drawn By peg rt Test 05/20/24 06:55 05/19/24 03:15 05/18/24 08:10 05/17/24 06:00 Blood Gas Set Respiration Rate 16.0 Blood Gas Tidal Volume 450.0 Magnesium Level 1.8 mg/dL (1.6-2.6) Phosphorus Level 3.4 mg/dL (2.4-5.1) Platelet Estimate Adequate Large Platelets D Test 05/16/24 23:40 05/16/24 21:15 Urine Color Light-orange (Yellow) Urine Clarity Turbid (Clear) Urine pH 6.0 (5.0-9.0) Urine Specific [place] 1.019 (1.001-1.035) Urine Protein 2+ (Negative) Urine Ketones Trace (Negative) Urine Blood 3+ /uL (Negative) Urine Nitrite Negative (Negative) Urine Bilirubin Negative (Negative) Urine Urobilinogen Normal mg/dL (Negative) Urine Leukocyte Esterase Negative /uL (Negative) Urine RBC 94 /hpf (0 - 3) Urine WBC 5 /hpf (0 - 3) Urine Squamous Epithelial Cells Few /hpf (<5) Urine Calcium Oxalate Crystals Mod (None Seen) Urine Amorphous Crystals Few /hpf (None Seen) Urine Bacteria Few /hpf (None Seen) Urine Hyaline Casts Few /lpf (0 - 2) Urine Sperm Present /hpf (None Seen) Urine Glucose Normal mg/dL (Normal) Urine Opiates Screen Neg (NEGATIVE) Urine Fentanyl Screen Neg (NEGATIVE) Urine Barbiturates Screen Neg (NEGATIVE) Urine Phencyclidine Screen Neg (NEGATIVE) Urine Amphetamines Screen Neg (NEGATIVE) Urine Benzodiazepines Screen Pos (NEGATIVE) Urine Cocaine Screen Neg (NEGATIVE) Urine Cannabinoids Screen Pos (NEGATIVE) Plasma/Serum Blood Alcohol < 3.0 mg/dL (<10) Other Laboratory Tests 05/22/24 05:13 05/21/24 03:16 Brief Hx & Hospital Course: Information in this HPI is limited due to the patient be sedated and intubated On mechanical ventilation. 23 year-old male with history of seizures Presents after having A seizure prior to calling EMS and additional witnessed seizures in route to the hospital. Patient reported to be post ictal and hypoxic requiring 15 L nonrebreather in route. The ER provider reported that family had taken the patient's Keppra away And he had not taken his medication for two days. Reason for taking patient's medication away is unclear. Patient will be admitted for further evaluation and treatment. Due to seizures with a postictal state he is intubated in the ER for airway protection. Subsequently he is admitted to the ICU and evaluated by toe lining closer. Patient is also evaluated by neurologist and psychiatrist. Patient received loading dose of Keppra and continued on IV Keppra. Patient subsequently successfully extubated. He has moved to the floor where he underwent psychiatric evaluation and started him on anti psychiatric medications. Patient continued on his Keppra. Patient continued on antidepressant medications. He is no longer suicidal. He is re-evaluated by tele psych felt he could be safely discharged home. While in the hospital patient also had diarrhea and his C diff came back positive therefore he is started on oral vancomycin. Diarrhea is resolved and repeat C diff is negative. I have talked with the patient and his dad/fiance on multiple occasions during this hospitalization regarding his hospital diagnosis, treatment he received, discharge medications, discharge instructions and strictly advised patient to have outpatient follow up with neurologist and psychiatrist. They have verbalized understanding of this and agree with the his discharge care plan. Consults/Reason for consult 05/25/24 4884 The patient was seen and evaluated at [facility] via telepsychiatry platform. 23 yr old male was admitted on 05/16 after an overdose on his medication. He was intubated for about four days and then seen by psychiatrist Dr Steel on 05/22 and recommended for inpatient hospitalization. He was also started on zoloft 25mg and seroquel 50mg qhs. He reported he has been taking those without adverse effects. He noted that he feels much better now and denied having suicidal ideation, plan or intent. He reported that he is optimistic that the zoloft will help his mood and he stated he will reach out to friends in the future or come to the ED if he has return of any suicidal thoughts. He denied having HI/AVH. MSE: Alert, oriented male sitting in bed cooperative and forthcoming speech-regular rate, rhythm, slightly raspy due to recent intubation. Mood-"good, upbeat" Affect-,euthymic congruent Tht process-linear and goal directed Tht Content- Denied having suicidal or homicidal ideation, plan or intent. denied AVH Insight-fair Judgment-good Impulse control-intact Diagnosis: Major depressive disorder, moderate Assessment: This 23 yr old male appears to suffer from depression and is no longer suicidal. He would benefit from continuing on zoloft and seroquel and following up with outpatient mental health. He does not warrant further psychiatric hospitalization. Plan: 1. The patient is psychologically cleared for discharge. 2. Legal-discontinue 5150 hold. discontinue 1:1 sitter. 3. Medications- recommend discharge with a thirty day supply and two refills of the following medications: Zoloft 50mg qhs (increased from 25mg) Seroquel 50mg qhs 4. Case discussed with NAYANA Milian. 5. Please contact psychiatry if further follow up or reevaluation is desired. Yes CLARIBEL ROMAN MD May 25, 2024 15:47 Condition at Discharge: Stable Final Diagnosis/Problems List Seizure disorder, Major depression, suicidal ideation Secondary Diagnosis: C difficile colitis Discharge Disposition: Home Discharge Instruct/Medications Diet: Regular Activity: No Restrictions, As Tolerated Continued Medications: Levetiracetam (Keppra Tablet) 500 Mg Tb 1000 MG PO BID for 30 Days, #120 TAB 6 Refills Discharge Statement: "Patient was advised to return to the ER or call 911 if any headaches, dizziness, shortness of breath, chest pain, abdominal pain, bleeding, fevers, or worsening of medical condition. Patient was counseled about treatment plan, medications, possible side effects, patientverbalized understanding. All questions were answered to the best of my ability. This discharge took greater then 30 minutes in planning, reviewing documentation, counseling the patient, and discussing with other team members." ASSESSMENT ASSESSMENT Assessment Major depression, suicidal ideation JASON JACOBO MD May 25, 2024 16:46
--- NOTE | 2024-05-25 20:49 | DVHPN2 ---
Progress Note - Dictate Date Seen: May 25, 2024 Medical Necessity Reason Pt with a Central, PICC or Fol: No The following are medically ne: Healy Catheter Reason for healy catheter: Strict I&O Subjective Patient seen and examined at bedside. Breathing on room air. Overnight events reviewed. vital signs Vital Sign Date Time Temp Pulse Resp B/P (MAP) Pulse Ox O2 Delivery O2 Flow Rate FiO2 05/25/24 13:00 99.8 66 18 128/91 (103) 93 99.8 05/25/24 08:00 Room Air* 0 21 Total Intake and Output 05/24/24 05/24/24 05/25/24 15:00 23:00 07:00 Intake Total 850 ml 460 ml Output Total 3 ml Balance 847 ml 460 ml objective Gen.: Patient lying in bed in no apparent distress. Breathing on room air. Head: Normocephalic, atraumatic. Eyes: EOMI/PERRLA. Ears: Normal hearing. Normal anatomy. Neck/trachea: Trachea midline, supple. Nose: Normal external anatomy. Mouth: Moist mucous membranes. Chest: Decreased air entry bilaterally. No wheezing or rhonchi. Cardiovascular: Positive S1, positive S2. Regular rate and rhythm. Abdomen: Positive bowel sounds in all 4 quadrants. Soft, non-tender, non- distended. : Deferred. Rectal: Deferred. Skin: Warm, dry. Intact. Extremities: 2+ radial pulses bilaterally. No lower extremity edema. Neuro: Awake, alert, oriented x3. No gross motor or sensory deficits. Cranial nerves II through XII intact. Gait not assessed laboratory and microbiology Laboratory Tests 05/22/24 05:13 05/21/24 03:16 Test 05/22/24 05:13 Range/Units Serum Glucose 97 74-106 mg/dL Assessment/Plan Impression: Acute respiratory failure Status epilepticus Marijuana use Nicotine dependence Hypokalemia Events: Breathing on room air No respiratory distress. Continue antiepileptics Awaiting Psych eval. Continue antibiotics - vancomycin C. diff negative. Incentive spirometry Labs and imaging reviewed. Rest of plan as noted below. Plan: s/p extubation on 05/20 On room air. CXR image and report reviewed. Devices in place. Right subclavian central line in the right atrium. ABG reviewed. Alkalemia due to respiratory alkalosis Brain MRI demonstrates no acute infarction, intracranial hemorrhage. Off sedation Start pressors if necessary for hemodynamic support - currently off Titrate to keep MAP above 65 mmHg/SBP above 90 mmHg. Continue antibiotics. F/u cultures. Monitor renal function due to Acute kidney injury. Monitor electrolytes. Supplement as necessary. Nutritional support. Accu-Cheks, ISS. Follow up neurology recommendations. GI/DVT prophylaxis. Prognosis: Poor given multiple comorbidities. Rest of plan per hospitalist and other consultants. Thank you Dr. Lerma for allowing me to participate in this patient's care. Further recommendations will depend on patient's clinical course. Please do not hesitate to contact me if you have any questions or concerns. This medical document was created using an electronic medical record system with [employer] dictation system. Although this document has been carefully reviewed, there may still be some phonetic and typographical errors. These areas are purely typographical due to imperfections of the software programs, and do not reflect any compromise in the patient's medical care. Dietary Evaluation Review Comments: Continue curren tplan of care Expected Outcomes/Goals: F/U in 3-5 days Plan discussed with: Patient, Other (RN Sera) NENITA MURPHY MD May 25, 2024 20:49
== END 2024-05-25 18:00 | DRG 53 ==
LOC: EDBD 20:57 → ER 20:57 → TELE 05-17 02:00 → ICU WEST 05-17 19:50 → TELE-EAST 05-21 15:10
PROVIDERS: ADMIT Nurse Practitioner Family; ATTEND Hospitalist
PROC: 5A1945Z Respiratory Ventilation, 24-96 Consecutive Hours (ICD-10-PCS; principal; 2024-05-17)
PROC: 0BH17EZ Insertion of Endotracheal Airway into Trachea, Via Natural or Artificial Opening (ICD-10-PCS; 2024-05-17)
PROC: 05HY33Z Insertion of Infusion Device into Upper Vein, Percutaneous Approach (ICD-10-PCS; 2024-05-17)
DX: G40.401 Other generalized epilepsy and epileptic syndromes, not intractable, with status epilepticus (principal); J96.00 Acute respiratory failure, unspecified whether with hypoxia or hypercapnia; A04.72 Enterocolitis due to Clostridium difficile, not specified as recurrent; F29 Unspecified psychosis not due to a substance or known physiological condition; E87.6 Hypokalemia; F17.210 Nicotine dependence, cigarettes, uncomplicated; F12.90 Cannabis use, unspecified, uncomplicated; F41.9 Anxiety disorder, unspecified; F14.90 Cocaine use, unspecified, uncomplicated; F32.1 Major depressive disorder, single episode, moderate; Z56.0 Unemployment, unspecified; Z82.49 Family history of ischemic heart disease and other diseases of the circulatory system; Z68.1 Body mass index [BMI] 19.9 or less, adult
CPT/HCPCS: 31500; 36415; 36556; 36600; 70450; 70551; 71045; 80048; 80053; 80307; 80320; 81001; 82140; 82805; 82962; 83735; 84100; 85025; 87040; 87070; 87077; 87081; 87186; 87205; 87493; 93005; 94002; 94003; 94640; 94762; 95819; 96365; 96375; 97163; 99291; G0378; J0330; J2405; J2704; J3480; J7060

== ENCOUNTER 2024-07-24 23:44 | Emergency (ER) | payer MEDICAID ==
[~2024-07-24] VITALS: Ht 172.7 cm; Wt 65.3 kg
[2024-07-25] MEDS: DexAMETHasone SOD PHOS 10MG/1ML VIAL INJ IM ONE (00:42)
[2024-07-25 00:54] VITALS: BP 126/86; PULSE 88; RESP 17; TEMP 98.5; O2SAT 97
[2024-07-25] MEDS ORDERED: METH4PAK PO (01:02)
[2024-07-25] MEDS ORDERED: AZIT500T66 PO (01:02)
--- NOTE | 2024-07-25 01:02 | ED.PDOC ---
Eye-HPI HPI Comments PRESENTS TO ED FOR SORE THROAT SINCE HE GOT INTUBATED 2 MONTHS AGO. PATIENT REPORTS NO ATTEMPTS MADE TO SOOTHE THE SORE THROAT. Chief Complaint: Sore Throat Time Seen by MD: 23:52 Primary Care Provider: NONE Reviewed Notes: Nurses Notes, Medications, Allergies Allergies: Coded Allergies: No Known Drug Allergy (Verified Allergy, Unknown, 10/02/17) Home Meds Active Scripts Levetiracetam (KEPPRA TABLET) 500 Mg Tb, 1000 MG PO BID for 30 Days, #120 TAB 6 Refills Prov:FIONA EDWARDS DO 10/06/23 Information Source: Patient Mode of Arrival: Ambulatory Past Medical History PAST MEDICAL HISTORY: Seizures Surgical History: Denies all surgeries Family History Family History: Unknown Social History Smoker: Cigarettes, Less Than 1 Pack/Day Alcohol: Occasionally Drugs: Marijuana Lives In: Home EENTM: reports: throat pain, throat swelling; denies: blurred vision, double vision, ear bleeding, ear discharge, ear drainage, ear pain, ear ringing, eye pain, eye redness, hearing loss, mouth pain, mouth swelling, nasal discharge, nose bleeding, nose congestion, nose pain, photophobia, tearing, voice changes, others Respiratory: denies: cough, hemoptysis, orthopnea, SOB at rest, shortness of breath, SOB with excertion, stridor, wheezing, others Cardiovascular: denies: chest pain, dizzy spells, diaphoresis, Dyspnea on exertion, edema, irregular heart beat, left arm pain, lightheadedness, palpitations, PND, syncope, others Gastrointestinal: denies: abdomen distended, abdominal pain, blood streaked bowels, constipated, diarrhea, dysphagia, difficulty swallowing, hematemesis, melena, nausea, poor appetite, poor fluid intake, rectal bleeding, rectal pain, vomiting, others Genitourinary: denies: burning, dysuria, flank pain, frequency, hematuria, incontinence, penile discharge, penile sore, pain, testicle pain, testicle swelling, urgency, others Neurological: denies: dizziness, fainting, headache, left sided numbness, left sided weakness, numbness, paresthesia, pre-existing deficit, right sided numbness, right sided weakness, seizure, speech problems, tingling, tremors, weakness, others Musculoskeletal: denies: back pain, gout, joint pain, joint swelling, muscle pain, muscle stiffness, neck pain, others Integumetry: denies: bruises, change in color, change in hair/nails, dryness, laceration, lesions, lumps, rash, wounds, others Allergic/Immunocompromised: denies: Difficulty Healing, Frequent Infections, Hives, Itching, others Hematologic/Lymphatic: denies: anemia, blood clots, easy bleeding, easy bruising, swollen glands, others Endocrine: denies: excessive hunger, excessive sweating, excessive thirst, excessive urination, flushing, intolerance to cold, intolerance to heat, unexplained weight gain, unexplained weight loss, others Psychiatric: denies: anxiety, bipolar disorder, depression, hopeless, panic disorder, schizophrenia, sleepless, suicidal, others Physical Exam General Appearance: No Apparent Distress, Normal HEENT: Pharyngeal Erythema, TMs Normal Neck: Full Range of Motion, Non-Tender, Normal, Normal Inspection Respiratory: Lungs Clear, No Respiratory Distress, Normal Breath Sounds Cardiovascular: No Edema, No JVD, No Murmur, No Gallop, Normal Peripheral Pulses, Regular Rate/Rhythm Breast Exam: Deferred Gastrointestinal: No Organomegaly, Non Tender, No Pulsatile Mass, Normal Bowel Sounds, Soft Genitalia: Deferred Pelvic: Deferred Rectal: Deferred Extremities: No calf tenderness, Normal capillary refill, Normal inspection, Normal range of motion, Non-tender, No pedal edema Musculoskeletal : Apperance: Normal Neurologic: Alert, peanut farmer II-XII nml as Tested, No Motor Deficits, Normal Affect, Normal Mood, No Sensory Deficits Cerebellar Function: Normal Reflexes: Normal Skin: Dry, Normal Color, Warm Lymphatic: No Adenopathy Was a procedure done? Was a procedure done?: No EENT DIFF Eye: N/A Sore Throat: Epiglottitis, Peritonsillar Abscess, Peritonsillar Cellulitis, Pharyngitis, Streptococcal, Viral Pharyngitis, URI X-Ray, Labs, Meds, VS Vital Signs Date Time Temp Pulse Resp B/P (MAP) Pulse Ox O2 Delivery O2 Flow Rate FiO2 07/25/24 00:54 98.5 88 17 126/86 (99) 97 98.5 07/25/24 00:54 88 17 97 Room Air 07/24/24 23:56 98.5 101 16 134/88 (103) 96 Current Medications Medications (Trade) Dose Ordered Sig/Travon Route Start Time Stop Time Status Last Admin Dexamethasone Sodium Phosphate (Decadron Injection) 10 mg ONCE ONCE IM 07/25/24 00:30 07/25/24 00:31 DC 07/25/24 00:42 X-Ray, Labs, Meds, VS Comment PATIENT GIVEN DECADRON 10 MG IM REPORTS IMPROVEMENT IN SYMPTOMS. SECONDARY TO BEING INTUBATED 2 MONTHS AGO, HOWEVER WE WILL TRIAL ANTIBIOTICS CONSIDER POSSIBLE BACTERIAL INFECTION. REST INCREASE P.O. FLUIDS WITH ELECTROLYTES FOLLOW UP WITH THE PCP IF NO IMPROVEMENT ER RETURN PRECAUTIONS GIVEN PATIENT AGREES WITH DISCHARGE PLAN OF CARE. Time of 1ST Reevaluation: 01:00 Reevaluation 1ST: Improved Patient Education/Counseling: Diagnosis, Treatment, Prognosis, Need For Follow Up Family Education/Counseling: No Family Present Departure 1 Departure Time of Disposition: 01:00 Impression: Primary Impression: Pharyngitis Qualified Codes: J02.9 - Acute pharyngitis, unspecified Disposition: 01 HOME / SELF CARE / HOMELESS Condition: Stable e-Prescriptions Methylprednisolone (Medrol Dosepak) 4 Mg Mau 4 MG PO UD for 6 Days, #21 TAB UAD Prov: ADELITA GABRIEL 07/25/24 Azithromycin (Azithromycin) 500 Mg Tab 1 TAB PO DAILY for 5 Days, #5 TAB Prov: ADELITA GABRIEL 07/25/24 Discharged With: Self Critical Care Note Critical Care Time?: No Stability Stability form required: ADELITA Buck Jul 25, 2024 01:02
== END 2024-07-25 01:16 | disposition home or self-care (01) ==
LOC: ER 23:44
DX: J02.9 Acute pharyngitis, unspecified (principal); F17.210 Nicotine dependence, cigarettes, uncomplicated; F15.90 Other stimulant use, unspecified, uncomplicated; Z79.899 Other long term (current) drug therapy
CPT/HCPCS: 96372; 99283; J1100

== ENCOUNTER 2024-08-03 03:37 | Emergency (ER) | payer MEDICAID ==
[~2024-08-03] VITALS: Ht 172.7 cm; Wt 59.1 kg
--- NOTE | 2024-08-03 04:40 | ED.PDOC ---
History of Present Illness HPI Comments 24 y/o M is BIBA for c/o seizure, today. Patient is a poor historian and endorses on having a sudden "seizure" episode, while resting at home, after consuming some alcohol, earlier. He admits to history of seizures with Keppra use in the past along with polysubstance abuse, which includes alcohol, marijuana, and tobacco cigarettes. Patient also complains on being nauseated, currently, and denies having any vision or speech changes, weakness, trauma, incontinence, vomiting, abdominal pain, or other associated symptoms. Per triage note, patient is reported to endorse, instead of right-sided abdominal pain that radiates to his right-flank after having a bowel movement, this morning, in a ddition to noticing on having black stools then. 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 Chief Complaint: Flank Pain Time Seen by MD: 04:00 Primary Care Provider: NONE Reviewed Notes: Nurses Notes, Cook Soup Notes, Medications, Allergies Allergies: Coded Allergies: No Known Drug Allergy (Verified Allergy, Unknown, 10/02/17) Home Meds Active Scripts Levetiracetam (KEPPRA TABLET) 500 Mg Tb, 1000 MG PO BID for 30 Days, #120 TAB 6 Refills Prov:FIONA EDWARDS DO 10/06/23 Discontinued Scripts Methylprednisolone (Medrol Dosepak) 4 Mg Mau, 4 MG PO UD for 6 Days, #21 TAB UAD Prov:ADELITA GABRIEL [facility] 07/25/24 Azithromycin (Azithromycin) 500 Mg Tab, 1 TAB PO DAILY for 5 Days, #5 TAB Prov:ADELITA GABRIEL [facility] 07/25/24 Information Source: Patient, Emergency Med Personnel Mode of Arrival: EMS Severity: Moderate Timing: Hours Duration: Since onset Prehospital treatment: 12 Lead EKG, Manager Web Past Medical History PAST MEDICAL HISTORY: Depression, Seizures Past Medical History (Other): suicidal ideations, C. difficule colitis Surgical History (Other): intubation and extubation Family History Family History: Unknown Social History Smoker: Cigarettes, Less Than 1 Pack/Day Alcohol: Heavy Drugs: Marijuana Lives In: Home Gastrointestinal: reports: nausea Neurological: reports: seizure All Other Systems: Reviewed and Negative (negative unless otherwise stated above or in HPI) Physical Exam General Appearance: No Apparent Distress, Thin HEENT: Normal ENT Inspection, Pharynx Normal, TMs Normal Neck: Full Range of Motion, Non-Tender, Normal, Normal Inspection Respiratory: Chest Non-Tender, Lungs Clear, No Accessory Muscle Use, No Respiratory Distress, Normal Breath Sounds Cardiovascular: No Edema, No JVD, No Murmur, No Gallop, Normal Peripheral Pulses, Regular Rate/Rhythm Breast Exam: Deferred Gastrointestinal: No Organomegaly, Non Tender, No Pulsatile Mass, Normal Bowel Sounds, Soft Genitalia: Deferred Pelvic: Deferred Rectal: Deferred Extremities: No calf tenderness, Normal capillary refill, Normal inspection, Normal range of motion, Non-tender, No pedal edema Musculoskeletal : Apperance: Normal Neurologic: Alert, supervisor records change II-XII nml as Tested, No Motor Deficits, Normal Affect, Normal Mood, No Sensory Deficits Cerebellar Function: Normal Reflexes: Normal Skin: Dry, Normal Color, Warm Lymphatic: No Adenopathy Was a procedure done? Was a procedure done?: No Differential Dx Considerations may include: seizure, pseudoseizures, gastritis, gastroenteritis, cholecystitis, cholelithiasis, nephrolithiasis, pyelonephritis, diverticulitis, appendicitis, viral syndrome, spoiled food, substance abuse X-Ray, Labs, Meds, VS Vital Signs Date Time Temp Pulse Resp B/P (MAP) Pulse Ox O2 Delivery O2 Flow Rate FiO2 08/03/24 03:45 98.7 74 22 150/100 (117) 100 Lab Test 08/03/24 04:51 08/03/24 03:57 Range/Units White Blood Count 11.8 H 4.4-10.8 10^3/uL Red Blood Count 4.77 4.5-5.90 10^6/uL Hemoglobin 15.0 13.5-17.5 g/dL Hematocrit 44.2 41.0-53.0 % Mean Corpuscular Volume 92.8 80.0-100.0 fL Mean Corpuscular Hemoglobin 31.6 28.0-32.0 pg Mean Corpuscular Hemoglobin Concent 34.0 32.0-36.0 g/dL Red Cell Distribution Width 13.5 11.8-14.3 % Platelet Count 366 140-450 10^3/uL Mean Platelet Volume 6.4 L 6.9-10.8 fL Neutrophils (%) (Auto) 71.3 37.0-80.0 % Lymphocytes (%) (Auto) 19.9 10.0-50.0 % Monocytes (%) (Auto) 7.5 0.0-12.0 % Eosinophils (%) (Auto) 0.5 0.0-7.0 % Basophils (%) (Auto) 0.8 0.0-2.0 % Neutrophils # (Auto) 8.4 1.6-8.6 10 ^3/uL Lymphocytes # (Auto) 2.3 0.4-5.4 10 ^3/uL Monocytes # (Auto) 0.9 0-1.3 10 ^3/uL Eosinophils # (Auto) 0.1 0-0.8 10 ^3/uL Basophils # (Auto) 0.1 0-0.2 10 ^3/uL Nucleated Red Blood Cells 0.1 % Sodium Level 137 136-145 mmol/L Potassium Level 3.8 3.5-5.1 mmol/L Chloride Level 100 98-107 mmol/L Carbon Dioxide Level 27 20-31 mmol/L Anion Gap 10 5-15 Blood Urea Nitrogen 12 9-23 mg/dL Creatinine 0.86 0.700-1.30 mg/dL Glomerular Filtration Rate Calc 123 >90 mL/min BUN/Creatinine Ratio 14.0 10.0-20.0 Serum Glucose 98 74-106 mg/dL Calcium Level 10.7 H 8.7-10.4 mg/dL Urine Color Colorless Yellow Urine Clarity Clear Clear Urine pH 8.0 5.0-9.0 Urine Specific [place] 1.009 1.001-1.035 Urine Protein Negative Negative Urine Ketones Negative Negative Urine Blood Negative Negative /uL Urine Nitrite Negative Negative Urine Bilirubin Negative Negative Urine Urobilinogen Normal Negative mg/dL Urine Leukocyte Esterase Negative Negative /uL Urine RBC <1 0 - 3 /hpf Urine Microscopic WBC < 1 0-3 /HPF Urine Squamous Epithelial Cells None seen <5 /hpf Urine Bacteria None seen None Seen /hpf Urine Glucose Normal Normal mg/dL Time of 1ST Reevaluation: 04:30 Reevaluation 1ST: Unchanged Patient Education/Counseling: Diagnosis, Treatment Family Education/Counseling: No Family Present Additional Information I reviewed the following notes from patient's past medical encounters: ED physician notes on 07/24/24 and 05/17/24; Hospital admission discharge summary report on 05/25/24 The following tests were ordered, and results were reviewed by me: UA, CBC, BMP Additional Information was gathered from interviewing the following independent historians: EMT I discussed treatment and results with medical personnel Departure 1 Departure Time of Disposition: 05:30 (Patient's workup is benign. We will discharge patient home with outpatient follow up) Impression: Primary Impression: Seizure disorder Additional Impression: Flank pain Disposition: HOME / SELF CARE / HOMELESS Condition: Stable Additional Instructions: Your workup today was benign. You can take Tylenol or Motrin as needed for pain. You should follow up with your regular doctor within 1 week. You should stay well rested and well hydrated. If your symptoms worsen or you have any other concerns please return to the emergency room. Discharged With: Self Critical Care Note Critical Care Time?: No Stability Stability form required: No Heart Score Heart Score: Heart Score Response (Comments) Value History N/A 0 EKG N/A 0 Age N/A 0 Risk Factors N/A 0 Troponin N/A 0 Total 0 I personally scribed for KRISTINA PINEDA MD ([email or web address]) on 08/03/24 at 04:40. Electronically submitted by Chava Garcia ([email or web address]). KRISTINA PINEDA MD Aug 03, 2024 04:40
[2024-08-03 05:07] LABS: Urine Bacteria None Seen /hpf (None Seen)
[2024-08-03 05:10] LABS: Urine Blood Negative /uL (Negative); Urine Clarity Clear (Clear); Urine Color Colorless (Yellow); Urine Protein, UAD Negative (Negative); Urine Specific Gravity 1.009 (1.001-1.035); Urine Squamous Epithelial Cell None Seen /hpf (<5); Urine Urobilinogen Normal (Negative)
[2024-08-03 05:10] LABS: Basophils # (auto) 0.1 10 ^3/uL (0-0.2); Basophils % (auto) 0.8 % (0.0-2.0); Eosinophils # (auto) 0.1 10 ^3/uL (0-0.8); Eosinophils % (auto) 0.5 % (0.0-7.0); Hematocrit 44.2 % (41.0-53.0); Lymphocytes # (auto) 2.3 10 ^3/uL (0.4-5.4); Lymphocytes % (auto) 19.9 % (10.0-50.0); Mean Corpuscular Hemoglobin 31.6 pg (28.0-32.0); Mean Corpuscular Volume 92.8 fL (80.0-100.0); Monocytes # (auto) 0.9 10 ^3/uL (0-1.3); Monocytes % (auto) 7.5 % (0.0-12.0); Neutrophils # (auto) 8.4 10 ^3/uL (1.6-8.6); Neutrophils % (auto) 71.3 % (37.0-80.0); Nucleated Red Blood Cells % 0.1 %; Platelet Count (auto) 366 10^3/uL (140-450); Red Blood Cells 4.77 10^6/uL (4.5-5.90); Red Cell Distribution Width 13.5 % (11.8-14.3); White Blood Cell 11.8 10^3/uL (4.4-10.8)
[2024-08-03 05:11] LABS: Urine WBC < 1 /HPF (0-3)
[2024-08-03 05:19] LABS: Chloride 100 mmol/L (98-107); Potassium 3.8 mmol/L (3.5-5.1); Sodium 137 mmol/L (136-145)
[2024-08-03 05:21] LABS: Anion Gap 10 (5-15); Carbon Dioxide 27 mmol/L (20-31)
[2024-08-03 05:26] LABS: Blood Urea Nitrogen 12 mg/dL (9-23); Glucose 98 mg/dL (74-106)
[2024-08-03 05:29] LABS: Calcium 10.7 mg/dL (8.7-10.4)
[2024-08-03] MEDS: levETIRAcetam 500 MG TAB PO ONE (05:51)
[2024-08-03 05:52] VITALS: BP 140/72; PULSE 76; RESP 18; TEMP 98.4; O2SAT 97
== END 2024-08-03 06:00 | disposition home or self-care (01) ==
LOC: ER 03:37 → EDBD 03:37 → ER 06:00
DX: G40.909 Epilepsy, unspecified, not intractable, without status epilepticus (principal); R10.9 Unspecified abdominal pain; F32.9 Major depressive disorder, single episode, unspecified; F17.210 Nicotine dependence, cigarettes, uncomplicated
CPT/HCPCS: 36415; 80048; 81001; 85025

== ENCOUNTER 2024-08-12 12:46 | Inpatient (IN) | payer MEDICAID ==
[~2024-08-12] VITALS: Ht 167.6 cm; Wt 68.2 kg
--- NOTE | 2024-08-12 12:56 | ED.PDOC ---
HPI (NEURO) HPI Comments 24 y/o M, JOY with PMHX of seizures presents to the ED for CC of s/p seizure. Per EMS, patient is coming from home where he had a witnessed 1min long seizure by girlfriend. Patient endorses on, drinking alcohol x2days ago and believes to not have had a seizure today or in correlation to consuming ETOH. Patient takes Keppra daily for which he is complainant with. Patient denies dizziness, lightheadedness, headache, fatigue, or weakness. No other symptoms or modifying factors at this time. Time Seen by MD: 12:50 Primary Care Provider: NONE Reviewed Notes: Nurses Notes, Drywall Boardhanger Notes, Medications, Allergies Information Source: Patient, Emergency Med Personnel Mode of Arrival: EMS Severity: Mild Headache Severity: None Timing: Minutes Duration: Since onset Prehospital treatment: None Onset: At rest Circumstances: Spontaneous Symptoms: Syncope During: Awake History of: Seizure Disorder Modifying factors: Nothing Associated Signs and Symptoms: None Past Medical History PAST MEDICAL HISTORY: Depression, Seizures Family History Family History: Unknown Social History Smoker: Cigarettes, Less Than 1 Pack/Day Alcohol: Heavy Drugs: Marijuana Lives In: Home Constitutional: denies: chills, diaphoresis, fatigue, fever, malaise, sweats, weakness, others EENTM: denies: blurred vision, double vision, ear bleeding, ear discharge, ear drainage, ear pain, ear ringing, eye pain, eye redness, hearing loss, mouth pain, mouth swelling, nasal discharge, nose bleeding, nose congestion, nose pain, photophobia, tearing, throat pain, throat swelling, voice changes, others Respiratory: denies: cough, hemoptysis, orthopnea, SOB at rest, shortness of breath, SOB with excertion, stridor, wheezing, others Cardiovascular: denies: chest pain, dizzy spells, diaphoresis, Dyspnea on exertion, edema, irregular heart beat, left arm pain, lightheadedness, palpitations, PND, syncope, others Gastrointestinal: denies: abdomen distended, abdominal pain, blood streaked bowels, constipated, diarrhea, dysphagia, difficulty swallowing, hematemesis, melena, nausea, poor appetite, poor fluid intake, rectal bleeding, rectal pain, vomiting, others Genitourinary: denies: burning, dysuria, flank pain, frequency, hematuria, incontinence, penile discharge, penile sore, pain, testicle pain, testicle swelling, urgency, others Neurological: denies: dizziness, fainting, headache, left sided numbness, left sided weakness, numbness, paresthesia, pre-existing deficit, right sided nu mbness, right sided weakness, seizure, speech problems, tingling, tremors, weakness, others Musculoskeletal: denies: back pain, gout, joint pain, joint swelling, muscle pain, muscle stiffness, neck pain, others Integumetry: denies: bruises, change in color, change in hair/nails, dryness, laceration, lesions, lumps, rash, wounds, others Allergic/Immunocompromised: denies: Difficulty Healing, Frequent Infections, Hives, Itching, others Hematologic/Lymphatic: denies: anemia, blood clots, easy bleeding, easy bruising, swollen glands, others Endocrine: denies: excessive hunger, excessive sweating, excessive thirst, excessive urination, flushing, intolerance to cold, intolerance to heat, unexplained weight gain, unexplained weight loss, others Psychiatric: denies: anxiety, bipolar disorder, depression, hopeless, panic disorder, schizophrenia, sleepless, suicidal, others All Other Systems: Reviewed and Negative Physical Exam General Appearance: Moderate Distress HEENT: Normal ENT Inspection, Pharynx Normal, TMs Normal Neck: Full Range of Motion, Non-Tender, Normal, Normal Inspection Respiratory: Chest Non-Tender, Lungs Clear, No Accessory Muscle Use, No Respiratory Distress, Normal Breath Sounds Cardiovascular: No Edema, No JVD, No Murmur, No Gallop, Normal Peripheral Pulses, Regular Rate/Rhythm Breast Exam: Deferred Gastrointestinal: No Organomegaly, Non Tender, No Pulsatile Mass, Normal Bowel Sounds, Soft Genitalia: Deferred Pelvic: Deferred Rectal: Deferred Extremities: No calf tenderness, Normal capillary refill, Normal inspection, Normal range of motion, Non-tender, No pedal edema Musculoskeletal : Apperance: Normal Neurologic: Disoriented Cerebellar Function: NOT DONE Reflexes: NOT DONE Skin: Dry, Normal Color, Warm Peripheral Pulses: 3+ Radial (R), 3+ Radial (L) Lymphatic: No Adenopathy Was a procedure done? Was a procedure done?: No Differential Diagnosis (SZ) Seizure: Psychogenic Seizure, Alcohol Withdrawl, Syncope X-Ray, Labs, Meds, VS Lab Test 08/12/24 13:05 Range/Units White Blood Count Pending Red Blood Count Pending Hemoglobin Pending Hematocrit Pending Mean Corpuscular Volume Pending Mean Corpuscular Hemoglobin Pending Mean Corpuscular Hemoglobin Concent Pending Red Cell Distribution Width Pending Platelet Count Pending Mean Platelet Volume Pending Neutrophils (%) (Auto) Pending Lymphocytes (%) (Auto) Pending Monocytes (%) (Auto) Pending Basophils (%) (Auto) Pending Neutrophils # (Auto) Pending Lymphocytes # (Auto) Pending Monocytes # (Auto) Pending Sodium Level Pending Potassium Level Pending Chloride Level Pending Carbon Dioxide Level Pending Anion Gap Pending Blood Urea Nitrogen Pending Creatinine Pending Glomerular Filtration Rate Calc Pending BUN/Creatinine Ratio Pending Serum Glucose Pending Calcium Level Pending Plasma/Serum Blood Alcohol Pending [place] [id number] Ph: [phone] DIAGNOSTIC IMAGING Diagnostic Imaging Report : [id number] Signed PATIENT: MIRLANDE TAN ACCT: [id number] UNIT: [id number] : 2000 LOC: ER ROOM / BED: / AGE / SEX: 24 / M ADM STATUS: REG ER SERVICE 1248 ORDERING PHYSICIAN: TREVOR MCCONNELL MD PROCEDURE(s): HWOCT - HEAD WITHOUT CONTRAST REASON: altered ORDER NUMBER(s): [id number], ACCESSION NUMBER(s): [id number] EXAM: CT HEAD WITHOUT CONTRAST HISTORY: altered COMPARISON: CT HEAD WITHOUT CONTRAST on DOS: 05/16/24, CT HEAD WITHOUT CONTRAST on DOS: 10/03/23 TECHNIQUE: Axial images of the head were obtained and reformatted in coronal and sagittal planes. All CT scans at this medical facility are performed using dose modulation techniques as appropriate to a performed exam including the following: Automated exposure control was utilized; adjustment of the MA and/or KV according to patient size; and use of iterative reconstruction technique. CT Dose: CTDI volume is 54.26 mGy. Dose-length product is 960.84 mGy*cm FINDINGS: There is no evidence of acute intracranial hemorrhage, mass, mass effect midline shift. There is no hydrocephalus or extra-axial fluid collection. Sunshine-white matter differentiation is maintained. There is a small retention cyst in the right maxillary sinus. The remaining visualized paranasal sinuses and mastoid air cells are clear. The calvarium is intact. IMPRESSION: 1. No acute intracranial process. HS:Y ATED BY: ABILIO BELL MD DICTATED DATE/TIME: 08/12/24 1305 SIGNED BY: ABILIO BELL MD SIGNED DATE/TIME: 08/12/24 1305 CC: Patient slightly disoriented. Not sure why he is here. Vitals stable. Moving all extremities. No sign of any injury. History of alcohol abuse. Establish intravenous access. Was given fluids. Was given thiamine. CT of the head. Counseled patient on effects of drinking for 15 minutes. Explained to the patient. Continue cardiac monitoring. Time of 1ST Reevaluation: 13:10 Reevaluation 1ST: Unchanged Patient Education/Counseling: Diagnosis, Treatment Family Education/Counseling: No Family Present Additional Information I reviewed the following notes from patient's past medical encounters: 08/03/24 DX: SEIZURE DISORDER The following tests were ordered, and results were reviewed by me: CBC, BMP, BLOOD ALCOHOL, HEAD CT I reviewed and agreed with the following test results read by other providers: HEAD CT Additional Information was gathered from interviewing the following independent historians: EMS I discussed treatment and results with medical personnel and: PATIENT Departure 1 Departure Time of Disposition: 12:59 Impression: Primary Impression: Metabolic encephalopathy Additional Impressions: Seizure disorder Alcohol abuse Disposition: ADMITTED INPATIENT Admit to: Med Surg Condition: Guarded Critical Care Note Critical Care Time?: No Stability Stability form required: No Heart Score Heart Score: Heart Score Response (Comments) Value History N/A 0 EKG N/A 0 Age N/A 0 Risk Factors N/A 0 Troponin N/A 0 Total 0 I personally scribed for TREVOR MCCONNELL MD ([email or web address]) on 08/12/24 at 12:56. Electronically submitted by Shanti West ([email or web address]). I personally scribed for TREVOR MCCONNELL MD ([email or web address]) on 08/12/24 at 13:29. Electronically submitted by Shanti West ([email or web address]). I personally scribed for TREVOR MCCONNELL MD ([email or web address]) on 08/12/24 at 13:30. Electronically submitted by Shanti West ([email or web address]). TREVOR MCCONNELL MD Aug 12, 2024 12:56
[2024-08-12] MEDS: SODIUM CHLORIDE 0.9% 1,000 ML IV ONE (13:00)
--- NOTE | 2024-08-12 13:08 | DVH ---
EXAM: CT HEAD WITHOUT CONTRAST HISTORY: altered COMPARISON: CT HEAD WITHOUT CONTRAST on DOS: 05/16/24, CT HEAD WITHOUT CONTRAST on DOS: 10/03/23 TECHNIQUE: Axial images of the head were obtained and reformatted in coronal and sagittal planes. All CT scans at this medical facility are performed using dose modulation techniques as appropriate t o a performed exam including the following: Automated exposure control was utilized; adjustment of th e MA and/or KV according to patient size; and use of iterative reconstruction technique. CT Dose: CTDI volume is 54.26 mGy. Dose-length product is 960.84 mGy*cm FINDINGS: There is no evidence of acute intracranial hemorrhage, mass, mass effect midline shift. There is no h ydrocephalus or extra-axial fluid collection. Sunshine-white matter differentiation is maintained. There is a small retention cyst in the right maxillary sinus. The remaining visualized paranasal sinu ses and mastoid air cells are clear. The calvarium is intact. IMPRESSION: 1. No acute intracranial process. HS:Y
[2024-08-12 13:30] LABS: Basophils # (auto) 0 10 ^3/uL (0-0.2); Basophils % (auto) 0.6 % (0.0-2.0); Eosinophils # (auto) 0.1 10 ^3/uL (0-0.8); Eosinophils % (auto) 1.2 % (0.0-7.0); Hematocrit 40.9 % (41.0-53.0); Hemoglobin 13.8 g/dL (13.5-17.5); Lymphocytes # (auto) 1.5 10 ^3/uL (0.4-5.4); Lymphocytes % (auto) 23.6 % (10.0-50.0); Mean Corpuscular Hemoglobin 30.7 pg (28.0-32.0); Mean Corpuscular Hgb Conc. 33.6 g/dL (32.0-36.0); Mean Corpuscular Volume 91.4 fL (80.0-100.0); Monocytes # (auto) 0.4 10 ^3/uL (0-1.3); Monocytes % (auto) 5.6 % (0.0-12.0); Neutrophils # (auto) 4.5 10 ^3/uL (1.6-8.6); Nucleated Red Blood Cells % 0.1 %; Platelet Count (auto) 175 10^3/uL (140-450); Red Blood Cells 4.48 10^6/uL (4.5-5.90); Red Cell Distribution Width 13.4 % (11.8-14.3); White Blood Cell 6.6 10^3/uL (4.4-10.8)
[2024-08-12 13:41] LABS: Chloride 102 mmol/L (98-107); Potassium 3.8 mmol/L (3.5-5.1); Sodium 139 mmol/L (136-145)
[2024-08-12 13:42] LABS: Anion Gap 14 (5-15); Calcium 9.7 mg/dL (8.7-10.4); Carbon Dioxide 23 mmol/L (20-31)
[2024-08-12 13:47] LABS: BUN/Creatinine Ratio 7.3 (10.0-20.0)
[2024-08-12 14:00] LABS: Blood Alcohol < 3.0 mg/dL (<10); Blood Urea Nitrogen 8 mg/dL (9-23); Glucose 111 mg/dL (74-106)
[2024-08-12] MEDS: THIAMINE 100mg/ml INJ (200mg/2ml VIAL) IV ONE (17:37)
--- NOTE | 2024-08-12 19:06 | ECG ---
[facility] Test Date: 2024-08-12 Test Time: 13:10:47 Pat Name: MIRLANDE TAN Department: ED Room: [address] [place] [address] Gender: M Log Preparer: LINDA : 2000 Requested By: TREVOR MCCONNELL Order Number: [id number] Reading MD: Cristopher Mathew Measurements Intervals [place] Rate: 89 P: 80 FL: 140 QRS: 80 QRSD: 85 T: 59 QT: 392 QTc: 477 Interpretive Statements Sinus arrhythmia Borderline prolonged QT interval Electronically Signed On 08-13-2024 12:10:28 PST by Cristopher Mathew Please click the below link to view image of tracing.
[2024-08-12] MEDS: levETIRAcetam 1000 mg/100ml 100 ML IV ONE (22:07)
[2024-08-12] MEDS ORDERED: NITROGLYCERIN 0.4 MG SL TAB SL PRN (23:00)
[2024-08-12] MEDS ORDERED: ONDANSETRON HCL 4 MG/2 ML VIAL IV PRN (23:00)
[2024-08-12] MEDS ORDERED: ACETAMINOPHEN 325 MG TAB PO PRN (23:00)
[2024-08-12] MEDS ORDERED: LORazepam 2MG/ML-1ML VIAL IV PRN (23:00)
[2024-08-12] MEDS ORDERED: DOCUSATE SOD 100 MG CAP PO PRN (23:00)
[2024-08-12] MEDS ORDERED: MORPHINE SULFATE INJ 2 MG/ml SYRG IV PRN (23:00)
--- NOTE | 2024-08-13 02:36 | DVHHP2 ---
JULIA HONG MANAGER ASSURANCE 08/13/24 0236: History of Present Illness Reason for Visit: Breakthrough seizures History of Present Illness 24-year-old male with past medical history of seizures presents With complaints of a breakthrough seizure prior to arrival. Information in this HPI is limited due to the patient being post ictal. It was reported to the emergency department provider that patient is compliant with medication's. It was also reported patient had recently been consuming EtOH. While the patient was sitting in the emergency department lobby he did have a tonic clonic seizure Witnessed by medical staff. At this time patient is admitted for further evaluation and treatment. AQUATICS INSTRUCTOR: Seizure ALCOHOL: occassional Lives: with Family Past Social History Unable to obtain additional information regarding social history Review of Systems Review of Systems unable to complete due to patient condition Allergies: Coded Allergies: No Known Drug Allergy (Verified Allergy, Unknown, 10/02/17) Medications Current Medications Medications Dose Ordered Sig/Travon Route Start Time Stop Time Status Last Admin Dose Admin Sodium Chloride 1,000 ml @ 100 mls/hr Q10H IV 08/12/24 23:00 Docusate Sodium 100 mg BIDPRN PRN PO 08/12/24 23:00 Acetaminophen 650 mg Q6HP PRN PO 08/12/24 23:00 Ondansetron HCl 4 mg Q4HP PRN IV 08/12/24 23:00 Enoxaparin Sodium 40 mg DAILY SC 08/13/24 10:00 Nitroglycerin 0.4 mg Q5MINP PRN SL 08/12/24 23:00 Morphine Sulfate 2 mg Q30M PRN IV 08/12/24 23:00 Levetiracetam 100 ml @ 400 mls/hr BID IV 08/13/24 10:00 Lorazepam 0.5 mg Q2HPRN PRN IV 08/12/24 23:00 Exam Vital Signs Vital Signs Date Time Temp Pulse Resp B/P (MAP) Pulse Ox O2 Delivery O2 Flow Rate FiO2 08/12/24 15:22 98.6 74 16 131/80 (97) 98 98.6 General Appearance: Alert (Self), Cooperative, Other (post ictal. ) HEENT: PERRLA, EOMI Respiratory: Clear to auscultation, Normal air movement Cardiovascular: Regular rate, Normal S1, Normal S2 Abdominal: Normal bowel sounds, Soft, No tenderness Extremities: No cyanosis, No edema Skin: No rashes, No breakdown Neuro: Other (post ictal) Labs/Xrays Labs Test 08/12/24 13:05 Range/Units White Blood Count 6.6 4.4-10.8 10^3/uL Red Blood Count 4.48 L 4.5-5.90 10^6/uL Hemoglobin 13.8 13.5-17.5 g/dL Hematocrit 40.9 L 41.0-53.0 % Mean Corpuscular Volume 91.4 80.0-100.0 fL Mean Corpuscular Hemoglobin 30.7 28.0-32.0 pg Mean Corpuscular Hemoglobin Concent 33.6 32.0-36.0 g/dL Red Cell Distribution Width 13.4 11.8-14.3 % Platelet Count 175 140-450 10^3/uL Mean Platelet Volume 6.7 L 6.9-10.8 fL Neutrophils (%) (Auto) 69.0 37.0-80.0 % Lymphocytes (%) (Auto) 23.6 10.0-50.0 % Monocytes (%) (Auto) 5.6 0.0-12.0 % Eosinophils (%) (Auto) 1.2 0.0-7.0 % Basophils (%) (Auto) 0.6 0.0-2.0 % Neutrophils # (Auto) 4.5 1.6-8.6 10 ^3/uL Lymphocytes # (Auto) 1.5 0.4-5.4 10 ^3/uL Monocytes # (Auto) 0.4 0-1.3 10 ^3/uL Eosinophils # (Auto) 0.1 0-0.8 10 ^3/uL Basophils # (Auto) 0 0-0.2 10 ^3/uL Nucleated Red Blood Cells 0.1 % Sodium Level 139 136-145 mmol/L Potassium Level 3.8 3.5-5.1 mmol/L Chloride Level 102 98-107 mmol/L Carbon Dioxide Level 23 20-31 mmol/L Anion Gap 14 5-15 Blood Urea Nitrogen 8 L 9-23 mg/dL Creatinine 1.10 0.700-1.30 mg/dL Glomerular Filtration Rate Calc 96 >90 mL/min BUN/Creatinine Ratio 7.3 L 10.0-20.0 Serum Glucose 111 H 74-106 mg/dL Calcium Level 9.7 8.7-10.4 mg/dL Plasma/Serum Blood Alcohol < 3.0 <10 mg/dL Assessment/Plan Assessment/Plan Breakthrough seizure Acute encephalopathy Plan Admit telemetry neurology consult. IV keppra, seizure precautions. As needed IV Ativan for seizures. IVF NPO diet, until patient awake and alert. GI PPX Pepcid / DVT ppx SCD Plan discussed with: Patient My Orders Orders - JULIA HONG NP Procedure Category Date Status Time Admit ADMIT 08/12/24 Transmitted 22:56 Code Status CODE 08/12/24 Transmitted 22:56 Vital Signs KRYSTINA 08/12/24 In Process 22:56 Review Orders With KRYSTINA 08/12/24 In Process Adm. 22:56 Encourage Activity As KRYSTINA 08/12/24 In Process Tolerate 22:56 Npo (Nothing By DIET 08/13/24 Transmitted Mouth) Diet Breakfast Sodium Chloride 0.9% PHA 08/12/24 In Process 23:00 Oxygen By Face Mask RT 08/12/24 Transmitted 22:56 Docusate Sodium PHA 08/12/24 In Process Capsule (Colace 23:00 Acetaminophen Tablet PHA 08/12/24 In Process (Tylenol Tablet) 23:00 Notify Md Of Changes KRYSTINA 08/12/24 In Process From Base 22:56 Advance Directive KRYSTINA 08/12/24 In Process 22:56 Basic Metabolic Panel LAB 08/13/24 Logged 05:00 Basic Metabolic Panel LAB 08/14/24 Verified 05:00 Basic Metabolic Panel LAB 08/15/24 Verified 05:00 Basic Metabolic Panel LAB 08/16/24 Verified 05:00 Complete Blood Count LAB 08/13/24 Logged 05:00 Complete Blood Count LAB 08/14/24 Verified 05:00 Complete Blood Count LAB 08/15/24 Verified 05:00 Complete Blood Count LAB 08/16/24 Verified 05:00 Complete Blood Count LAB 08/17/24 Verified 05:00 Patient Condition ORDERS 08/12/24 Transmitted 22:56 Allergies KRYSTINA 08/12/24 In Process 22:56 Ondansetron Hcl PHA 08/12/24 In Process (Zofran) 23:00 Drug Screen LAB 08/12/24 Logged 22:56 Enoxaparin Sodium PHA 08/13/24 In Process (Lovenox) 10:00 Sequential KRYSTINA 08/12/24 In Process Compression Device Nitroglycerin PHA 08/12/24 In Process Sublingual (Ntrostat 23:00 Morphine Sulfate PHA 08/12/24 In Process Injection 23:00 Stat Ekg For Chest KRYSTINA 08/12/24 In Process Pain 22:56 Notify Of Changes KRYSTINA 08/12/24 In Process From Base 22:56 Mud Jack Operator For KRYSTINA 08/12/24 In Process 24 Hours 22:56 Emergency Dysrhythmia KRYSTINA 08/12/24 In Process Protocol 22:56 Rhythm Strips Once KRYSTINA 08/12/24 In Process Every Shift 22:56 Oxygen By Nasal RT 08/12/24 Transmitted Cannula 22:56 Levetiracetam 500 PHA 08/13/24 In Process Mg/100ml (Levetiraceta 10:00 Lorazepam 2mg/Ml Inj PHA 08/12/24 In Process (Ativan Inj) 23:00 * Neurology Consult CONS 08/12/24 Transmitted 22:56 Seizure Precautions ED NURSING 08/12/24 Transmitted Date of Service: Aug 13, 2024 Billing Provider: JASON JACOBO MD Common Visit Codes: NOT BILLABLE JASON JACOBO MD 08/13/24 1052: Review of Systems Allergies: Coded Allergies: No Known Drug Allergy (Verified Allergy, Unknown, 10/02/17) Assessment/Plan Assessment/Plan Patient seen evaluated and admitted by nurse practitioner. Patient's chart is reviewed. I agree with his evaluation, documentation, assessment and care plan as outlined. Plan discussed with: Patient HONG,JULIA ADDISON Aug 13, 2024 02:36 JASON JACOBO MD Aug 13, 2024 10:52
[2024-08-13 03:30] VITALS: PULSE 98; RESP 15; O2SAT 95
[2024-08-13] MEDS: SODIUM CHLORIDE 0.9% 1,000 ML IV SCH (04:53)
[2024-08-13 07:15] LABS: Basophils # (auto) 0 10 ^3/uL (0-0.2); Basophils % (auto) 0.2 % (0.0-2.0); Eosinophils # (auto) 0 10 ^3/uL (0-0.8); Hematocrit 37.6 % (41.0-53.0); Hemoglobin 13.2 g/dL (13.5-17.5); Lymphocytes # (auto) 1.5 10 ^3/uL (0.4-5.4); Lymphocytes % (auto) 10.8 % (10.0-50.0); Mean Corpuscular Hemoglobin 31.5 pg (28.0-32.0); Mean Corpuscular Volume 90.1 fL (80.0-100.0); Monocytes # (auto) 1.1 10 ^3/uL (0-1.3); Monocytes % (auto) 8.2 % (0.0-12.0); Neutrophils % (auto) 80.8 % (37.0-80.0); Nucleated Red Blood Cells % 0.1 %; Platelet Count (auto) 158 10^3/uL (140-450); Red Blood Cells 4.18 10^6/uL (4.5-5.90); Red Cell Distribution Width 13.1 % (11.8-14.3); White Blood Cell 13.6 10^3/uL (4.4-10.8)
[2024-08-13 07:17] LABS: Anion Gap 12 (5-15); Calcium 9.7 mg/dL (8.7-10.4); Carbon Dioxide 24 mmol/L (20-31); Chloride 101 mmol/L (98-107); Sodium 137 mmol/L (136-145)
[2024-08-13 07:21] LABS: Potassium 3.4 mmol/L (3.5-5.1)
[2024-08-13 07:23] LABS: BUN/Creatinine Ratio 5.3 (10.0-20.0); Blood Urea Nitrogen < 5 mg/dL (9-23); Glucose 88 mg/dL (74-106)
[2024-08-13 08:00] VITALS: PULSE 101; RESP 17; TEMP 98.3; O2SAT 96
[2024-08-13] MEDS: levETIRAcetam 500 mg/100ml 100 ML IV SCH (09:53)
[2024-08-13] MEDS: FAMOTIDINE (10MG/ML) 2ML VL IV SCH (09:58)
[2024-08-13] MEDS ORDERED: ENOXAPARIN SOD 40 MG/0.4 ML SYRINGE SC SCH (10:00)
[2024-08-13 11:31] LABS: Amphetamine Screen, Urine Neg (NEGATIVE); Barbiturate Scree,Urine Neg (NEGATIVE); Benzodiazephine Screen, Urine Neg (NEGATIVE); Cannabinoid Screen, Urine Pos (NEGATIVE); Cocaine Screen, Urine Neg (NEGATIVE); Opiate Scree,Urine Neg (NEGATIVE); Phencyclidine Screen, Urine Neg (NEGATIVE)
--- NOTE | 2024-08-13 13:56 | DVHDS2 ---
Discharge Summary Date of Admission Aug 12, 2024 at 22:56 Date of Discharge: Aug 13, 2024 Labs/Diagnostic Data: Laboratory Results Test 08/13/24 11:00 08/13/24 06:30 08/12/24 13:05 Urine Opiates Screen Neg (NEGATIVE) Urine Fentanyl Screen Neg (NEGATIVE) Urine Barbiturates Screen Neg (NEGATIVE) Urine Phencyclidine Screen Neg (NEGATIVE) Urine Amphetamines Screen Neg (NEGATIVE) Urine Benzodiazepines Screen Neg (NEGATIVE) Urine Cocaine Screen Neg (NEGATIVE) Urine Cannabinoids Screen Pos (NEGATIVE) White Blood Count 13.6 10^3/uL (4.4-10.8) Red Blood Count 4.18 10^6/uL (4.5-5.90) Hemoglobin 13.2 g/dL (13.5-17.5) Hematocrit 37.6 % (41.0-53.0) Mean Corpuscular Volume 90.1 fL (80.0-100.0) Mean Corpuscular Hemoglobin 31.5 pg (28.0-32.0) Mean Corpuscular Hemoglobin Concent 35.0 g/dL (32.0-36.0) Red Cell Distribution Width 13.1 % (11.8-14.3) Platelet Count 158 10^3/uL (140-450) Mean Platelet Volume 7.3 fL (6.9-10.8) Neutrophils (%) (Auto) 80.8 % (37.0-80.0) Lymphocytes (%) (Auto) 10.8 % (10.0-50.0) Monocytes (%) (Auto) 8.2 % (0.0-12.0) Eosinophils (%) (Auto) 0.0 % (0.0-7.0) Basophils (%) (Auto) 0.2 % (0.0-2.0) Neutrophils # (Auto) 11.0 10 ^3/uL (1.6-8.6) Lymphocytes # (Auto) 1.5 10 ^3/uL (0.4-5.4) Monocytes # (Auto) 1.1 10 ^3/uL (0-1.3) Eosinophils # (Auto) 0 10 ^3/uL (0-0.8) Basophils # (Auto) 0 10 ^3/uL (0-0.2) Nucleated Red Blood Cells 0.1 % Sodium Level 137 mmol/L (136-145) Potassium Level 3.4 mmol/L (3.5-5.1) Chloride Level 101 mmol/L (98-107) Carbon Dioxide Level 24 mmol/L (20-31) Anion Gap 12 (5-15) Blood Urea Nitrogen < 5 mg/dL (9-23) Creatinine 0.94 mg/dL (0.700-1.30) Glomerular Filtration Rate Calc 115 mL/min (>90) BUN/Creatinine Ratio 5.3 (10.0-20.0) Serum Glucose 88 mg/dL (74-106) Calcium Level 9.7 mg/dL (8.7-10.4) Plasma/Serum Blood Alcohol < 3.0 mg/dL (<10) Other Laboratory Tests 08/13/24 06:30 Brief Hx & Hospital Course: 24-year-old male with past medical history of seizures presents With complaints of a breakthrough seizure prior to arrival. Information in this HPI is limited due to the patient being post ictal. It was reported to the emergency department provider that patient is compliant with medication's. It was also reported patient had recently been consuming EtOH. While the patient was sitting in the emergency department lobby he did have a tonic clonic seizure Witnessed by medical staff. At this time patient is admitted for further evaluation and treatment. He is admitted and received IV Keppra. Patient counseled regarding alcohol cessation and risk of further seizures due to lowering of seizure threshold with alcohol use. Patient verbalized understanding of this and agree to avoid alcohol as much as possible. While in the hospital patient clinically remained stable without any further seizures. Therefore it is felt he could be safely discharged home. He is advised to continue Keppra 2000 mg twice a day as he is taking at home. He is advised to follow up with the neurologist in two weeks. I have talked with the patient and his significant other at bedside regarding his hospital diagnosis, treatment he received, discharge medications, discharge instructions. They have verbalized understanding of these and agree with the discharge care plan as mentioned. Consults/Reason for consult EXAM: CT HEAD WITHOUT CONTRAST HISTORY: altered COMPARISON: CT HEAD WITHOUT CONTRAST on DOS: 05/16/24, CT HEAD WITHOUT CONTRAST on DOS: 10/03/23 TECHNIQUE: Axial images of the head were obtained and reformatted in coronal and sagittal planes. All CT scans at this medical facility are performed using dose modulation techniques as appropriate to a performed exam including the following: Automated exposure control was utilized; adjustment of the MA and/or KV according to patient size; and use of iterative reconstruction technique. CT Dose: CTDI volume is 54.26 mGy. Dose-length product is 960.84 mGy*cm FINDINGS: There is no evidence of acute intracranial hemorrhage, mass, mass effect midline shift. There is no hydrocephalus or extra-axial fluid collection. Sunshine-white matter differentiation is maintained. There is a small retention cyst in the right maxillary sinus. The remaining visualized paranasal sinuses and mastoid air cells are clear. The calvarium is intact. IMPRESSION: 1. No acute intracranial process. HS:Y Condition at Discharge: Stable Final Diagnosis/Problems List Breakthrough seizures, seizure disorder Discharge Disposition: Home Discharge Instruct/Medications Diet: Consistent carbohydrate, Cardiac 2g Na,low cholest Activity: See Comment Activity comment: No driving Follow Up/Referral: Neurologist Dr. Kimberly Harrison after two weeks for seizure management Medications: To continue your Keppra as you were taking at home. Continued Medications: Levetiracetam (Keppra Tablet) 500 Mg Tb 1000 MG PO BID for 30 Days, #120 TAB 6 Refills Discharge Statement: "Patient was advised to return to the ER or call 911 if any headaches, dizziness, shortness of breath, chest pain, abdominal pain, bleeding, fevers, or worsening of medical condition. Patient was counseled about treatment plan, medications, possible side effects, patientverbalized understanding. All questions were answered to the best of my ability. This discharge took greater then 30 minutes in planning, reviewing documentation, counseling the patient, and discussing with other team members." ASSESSMENT ASSESSMENT Assessment Breakthrough seizures, seizure disorder JASON JACOBO MD Aug 13, 2024 13:56
[2024-08-13 17:00] VITALS: BP 123/74; PULSE 79; RESP 16; O2SAT 96
[2024-08-13] MEDS: levETIRAcetam 1000 mg/100ml 100 ML IV ONE (17:08)
[2024-08-13] MEDS ORDERED: ROCURONIUM 10MG/ML 10ML VIAL IV ONE (18:53)
[2024-08-13] MEDS ORDERED: LIDOCAINE 1% INJ PF 5ML AMP ONE (18:53)
[2024-08-13] MEDS ORDERED: PROPOFOL 10 MG/ML 20 ML IV ONE (18:53)
[2024-08-13] MEDS ORDERED: HYDROmorphone HCL 2 MG/ML VL/or syr ONE (18:59)
== END 2024-08-13 18:15 | disposition home or self-care (01) | DRG 53 ==
LOC: ER 12:46 → EDBD 12:46 → EDUNIT# 12:46 → TELE 22:56
PROVIDERS: ADMIT Nurse Practitioner Family; ATTEND Nurse Practitioner Family
DX: G40.802 Other epilepsy, not intractable, without status epilepticus (principal); F10.10 Alcohol abuse, uncomplicated; F32.A Depression, unspecified; F17.210 Nicotine dependence, cigarettes, uncomplicated
CPT/HCPCS: 36415; 70450; 80048; 80307; 80320; 85025; 93005; 96361; 96374; G0378; J2704; J3490

== ENCOUNTER 2024-11-10 15:27 | Emergency (ER) | payer MEDICAID ==
[~2024-11-10] VITALS: Ht 175.3 cm; Wt 63.5 kg
[2024-11-10] MEDS ORDERED: methylPREDNISolone SOD SUCC 125 MG/2 ML VL IM ONE (15:45)
[2024-11-10] MEDS: IPRATROPIUM BROM 0.5 MG/2.5ML INH SOL NEB ONE (15:52)
--- NOTE | 2024-11-10 15:54 | ED.PDOC ---
SOB-HPI HPI Comments 24 year old male JOY presents to the ED with chief complaint of flu-like illness. Patient reports that he has been experiencing a cough with associated chest pain, nausea, and vomiting for the past 4 days along with wheezing since today. EMS relays that the patient was given a DuoNeb breathing treatment and 4mg of Zofran on route to the ED with relief in symptoms notes. Patient denies any fever, chills, nasal congestion, ear pain, sore throat, dizziness, or headache. Chief Complaint: Flu like Time Seen by MD: 15:44 Primary Care Provider: UNKNOWN Reviewed notes: Nurses Notes, Pool Servicer Notes, Medications, Allergies Information Source: Patient, Emergency Med Personnel Mode of Arrival: EMS Severity: Moderate Timing: Days Duration: Since onset Context: At Rest PE Risk Factors: None History of: None Prehospital treatment: Breathing Tx, Other (ofran) Associated Signs and Symptoms: Cough, Chest Pain Quality: Pressure Radiation: No Radiation Location: Substernal If cough with SOB: Non-Productive Past Medical History PAST MEDICAL HISTORY: Depression, Seizures Surgical History: Denies all surgeries Family History Family History: Reviewed,noncontributory to illness, Unknown Social History Smoker: Cigarettes, Less Than 1 Pack/Day Alcohol: Heavy Drugs: Marijuana Lives In: Home Constitutional: denies: chills, diaphoresis, fatigue, fever, malaise, sweats, weakness, others EENTM: denies: blurred vision, double vision, ear bleeding, ear discharge, ear drainage, ear pain, ear ringing, eye pain, eye redness, hearing loss, mouth pain, mouth swelling, nasal discharge, nose bleeding, nose congestion, nose pain, photophobia, tearing, throat pain, throat swelling, voice changes, others Respiratory: reports: cough, wheezing; denies: hemoptysis, orthopnea, SOB at rest, shortness of breath, SOB with excertion, stridor, others Cardiovascular: reports: chest pain; denies: dizzy spells, diaphoresis, Dyspnea on exertion, edema, irregular heart beat, left arm pain, lightheadedness, palpitations, PND, syncope, others Gastrointestinal: reports: nausea, vomiting; denies: abdomen distended, abdominal pain, blood streaked bowels, constipated, diarrhea, dysphagia, difficulty swallowing, hematemesis, melena, poor appetite, poor fluid intake, rectal bleeding, rectal pain, others Genitourinary: denies: burning, dysuria, flank pain, frequency, hematuria, incontinence, penile discharge, penile sore, pain, testicle pain, testicle swelling, urgency, others Neurological: denies: dizziness, fainting, headache, left sided numbness, left sided weakness, numbness, paresthesia, pre-existing deficit, right sided numbness, right sided weakness, seizure, speech problems, tingling, tremors, weakness, others Musculoskeletal: denies: back pain, gout, joint pain, joint swelling, muscle pain, muscle stiffness, neck pain, others Integumetry: denies: bruises, change in color, change in hair/nails, dryness, laceration, lesions, lumps, rash, wounds, others Allergic/Immunocompromised: denies: Difficulty Healing, Frequent Infections, Hives, Itching, others Hematologic/Lymphatic: denies: anemia, blood clots, easy bleeding, easy bruising, swollen glands, others Endocrine: denies: excessive hunger, excessive sweating, excessive thirst, excessive urination, flushing, intolerance to cold, intolerance to heat, unexplained weight gain, unexplained weight loss, others Psychiatric: denies: anxiety, bipolar disorder, depression, hopeless, panic disorder, schizophrenia, sleepless, suicidal, others All Other Systems: Reviewed and Negative Physical Exam General Appearance: No Apparent Distress, Normal HEENT: Normal ENT Inspection, PERRL/EOMI Neck: Full Range of Motion, Non-Tender, Normal, Normal Inspection Respiratory: Chest Non-Tender, Lungs Clear, No Accessory Muscle Use, No Respiratory Distress, Normal Breath Sounds, Wheezing (Noted on right side), Other (Tachypneic) Cardiovascular: No Edema, No JVD, No Murmur, No Gallop, Normal Peripheral Pu lses, Regular Rate/Rhythm Breast Exam: Deferred Gastrointestinal: No Organomegaly, Non Tender, No Pulsatile Mass, Normal Bowel Sounds, Soft Genitalia: Deferred Pelvic: Deferred Rectal: Deferred Extremities: No calf tenderness, Normal capillary refill, Normal inspection, Normal range of motion, Non-tender, No pedal edema Musculoskeletal : Apperance: Normal Neurologic: Alert, heel cover softener II-XII nml as Tested, No Motor Deficits, Normal Affect, Normal Mood, No Sensory Deficits Cerebellar Function: Normal Reflexes: Normal Skin: Dry, Normal Color, Warm Lymphatic: No Adenopathy Was a procedure done? Was a procedure done?: No Differential Dx Differential Diagnosis: Sinusitis, Allergic Rhinitis, Otitis Media, Pharyngitis Comments URI, influenza, COVID, strep throat, pharyngitis, pneumonia X-Ray, Labs, Meds, VS Vital Signs Date Time Temp Pulse Resp B/P (MAP) Pulse Ox O2 Delivery O2 Flow Rate FiO2 11/10/24 17:19 72 10 143/89 11/10/24 16:30 70 10 96 Room Air* 0 21 11/10/24 16:30 98.4 72 10 150/104 (119) 96 98.4 11/10/24 16:21 70 10 150/104 11/10/24 15:53 20 98 Room Air* 0 21 11/10/24 15:31 97.7 94 24 145/107 (120) 99 97.7 Lab Test 11/10/24 16:33 11/10/24 15:41 Range/Units White Blood Count 5.4 4.4-10.8 10^3/uL Red Blood Count 4.41 L 4.5-5.90 10^6/uL Hemoglobin 14.4 13.5-17.5 g/dL Hematocrit 40.8 L 41.0-53.0 % Mean Corpuscular Volume 92.6 80.0-100.0 fL Mean Corpuscular Hemoglobin 32.6 H 28.0-32.0 pg Mean Corpuscular Hemoglobin Concent 35.2 32.0-36.0 g/dL Red Cell Distribution Width 12.9 11.8-14.3 % Platelet Count 114 L 140-450 10^3/uL Mean Platelet Volume 7.4 6.9-10.8 fL Neutrophils (%) (Auto) 73.3 37.0-80.0 % Lymphocytes (%) (Auto) 17.8 10.0-50.0 % Monocytes (%) (Auto) 7.5 0.0-12.0 % Eosinophils (%) (Auto) 0.9 0.0-7.0 % Basophils (%) (Auto) 0.5 0.0-2.0 % Neutrophils # (Auto) 3.9 1.6-8.6 10 ^3/uL Lymphocytes # (Auto) 1.0 0.4-5.4 10 ^3/uL Monocytes # (Auto) 0.4 0-1.3 10 ^3/uL Eosinophils # (Auto) 0 0-0.8 10 ^3/uL Basophils # (Auto) 0 0-0.2 10 ^3/uL Nucleated Red Blood Cells 0.8 % Platelet Estimate Decreased Red Blood Cell Morphology Normal Sodium Level 141 136-145 mmol/L Potassium Level 3.4 L 3.5-5.1 mmol/L Chloride Level 104 98-107 mmol/L Carbon Dioxide Level 23 20-31 mmol/L Anion Gap 14 5-15 Blood Urea Nitrogen 5 L 9-23 mg/dL Creatinine 0.74 0.700-1.30 mg/dL Glomerular Filtration Rate Calc 129 >90 mL/min BUN/Creatinine Ratio 6.8 L 10.0-20.0 Serum Glucose 93 74-106 mg/dL Calcium Level 9.0 8.7-10.4 mg/dL Total Bilirubin 0.9 0.2-1.0 mg/dL Aspartate Amino Transferase (AST) 225 H 13-40 U/L Alanine Aminotransferase (ALT) 134 H 7-40 U/L Alkaline Phosphatase 116 46-116 U/L Total Protein 6.8 5.7-8.2 g/dL Albumin 4.4 3.2-4.8 g/dL Lipase 46 12-53 U/L Influenza Type A Antigen Negative Negative Influenza Type B Antigen Negative Negative SARS-CoV-2 Antigen (Rapid) Negative NEGATIVE Current Medications Medications (Trade) Dose Ordered Sig/Travon Route Start Time Stop Time Status Last Admin Ipratropium [place] (Atrovent Medneb) 0.5 mg ONCE ONCE NEB 11/10/24 15:45 11/10/24 15:46 DC 11/10/24 15:52 Morphine Sulfate 4 mg ONCE ONCE IV 11/10/24 15:45 11/10/24 15:46 DC 11/10/24 16:21 Ondansetron HCl (Zofran) 4 mg ONCE ONCE IV 11/10/24 15:45 11/10/24 15:46 DC 11/10/24 16:21 Methylprednisolone Sodium Succinate (Solu Medrol) 125 mg ONCE ONCE IV 11/10/24 16:00 11/10/24 16:01 DC 11/10/24 16:20 Sodium Chloride 1,000 ml @ 1,000 mls/hr Q1H ONCE IV 11/10/24 17:45 11/10/24 18:44 DC 11/10/24 18:09 X-Ray, Labs, Meds, VS Comment Imaging: X-rays and CT scans were reviewed and interpreted by this provider, imaging shows no fractures and no pathological disease. Pending radiology review. Laboratory: Labs reviewed and interpreted by this provider. Patient was elevated liver enzymes bone talking with the patient does have a history of alcohol abuse. Does report a history of liver cirrhosis. Patient has prior medical visits reviewed. Med reconciliation performed Vital signs reviewed Time of 1ST Reevaluation: 16:44 Reevaluation 1ST: Unchanged Patient Education/Counseling: Diagnosis, Treatment, Need For Follow Up (Follow up with the PCP in the next 2-4 days. Return to the emergency department if symptoms worsen over the next 48 hours.) Family Education/Counseling: No Family Present Departure 1 Departure Time of Disposition: 18:52 Impression: Primary Impression: Upper respiratory infection Qualified Codes: J06.9 - Acute upper respiratory infection, unspecified Disposition: HOME / SELF CARE / HOMELESS Condition: Fair e-Prescriptions Promethazine-Dm (Promethazine Dm 6.25-15 mg/5Ml) 1 Catrachita Catrachita 5 ML PO TID PRN, #200 ML Prov: CODIE LLOYD 11/10/24 Prednisone (Prednisone) 20 Mg Tab 20 MG PO DAILY for 5 Days, #5 MG Prov: CODIE LLOYDP 11/10/24 Albuterol Sulfate (Albuterol Sulfate Hfa) 108 Mcg/Act Aer 108 MCG IN TID PRN, #1 AER Prov: CODIE LLOYD 11/10/24 Discharged With: Self Critical Care Note Critical Care Time?: No Stability Stability form required: No Heart Score Heart Score: Heart Score Response (Comments) Value History N/A 0 EKG N/A 0 Age N/A 0 Risk Factors N/A 0 Troponin N/A 0 Total 0 I personally scribed for CODIE LLOYD ([email or web address]) on 11/10/24 at 15:54. Electronically submitted by Pedro Hobson ([email or web address]). CODIE LLOYD November 10, 2024 15:54
[2024-11-10] MEDS: methylPREDNISolone SOD SUCC 125 MG/2 ML VL IV ONE (16:20)
[2024-11-10] MEDS: ONDANSETRON HCL 4 MG/2 ML VIAL IV ONE (16:21)
[2024-11-10] MEDS: MORPHINE SULFATE 4 MG/ML SYR/VIAL IV ONE (16:21)
[2024-11-10 16:25] LABS: COVID19 ANTIGEN SOFIA FIA NEGATIVE (NEGATIVE); Rapid Influenza A Negative (Negative); Rapid Influenza B Negative (Negative)
[2024-11-10 16:30] VITALS: PULSE 70; RESP 10; O2SAT 96
--- NOTE | 2024-11-10 16:34 | DVH ---
CHEST RADIOGRAPH Indication: SOB Technique: Single frontal view of the chest was obtained Comparison: XY CHEST XRAY 1 VIEW on DOS: 05/21/24, XY CHEST XRAY 1 VIEW on DOS: 05/20/24, XY CHEST PO RTABLE on DOS: 05/19/24, XY CHEST PORTABLE on DOS: 05/18/24, XY CHEST XRAY 1 VIEW on DOS: 05/16/24 FINDINGS: Lines and Tubes: Right subclavian catheter with tip at cavoatrial junction. Lungs: No focal consolidation. Pleura: No effusion. No pneumothorax. Cardiomediastinal contours: Unremarkable Bones: No acute osseous abnormality. IMPRESSION: 1. No acute cardiopulmonary disease.
[2024-11-10 16:48] LABS: Basophils # (auto) 0 10 ^3/uL (0-0.2); Basophils % (auto) 0.5 % (0.0-2.0); Eosinophils # (auto) 0 10 ^3/uL (0-0.8); Eosinophils % (auto) 0.9 % (0.0-7.0); Hematocrit 40.8 % (41.0-53.0); Hemoglobin 14.4 g/dL (13.5-17.5); Lymphocytes % (auto) 17.8 % (10.0-50.0); Mean Corpuscular Hemoglobin 32.6 pg (28.0-32.0); Mean Corpuscular Hgb Conc. 35.2 g/dL (32.0-36.0); Mean Corpuscular Volume 92.6 fL (80.0-100.0); Monocytes # (auto) 0.4 10 ^3/uL (0-1.3); Monocytes % (auto) 7.5 % (0.0-12.0); Neutrophils # (auto) 3.9 10 ^3/uL (1.6-8.6); Neutrophils % (auto) 73.3 % (37.0-80.0); Nucleated Red Blood Cells % 0.8 %; Platelet Count (auto) 114 10^3/uL (140-450); Red Blood Cells 4.41 10^6/uL (4.5-5.90); Red Cell Distribution Width 12.9 % (11.8-14.3); White Blood Cell 5.4 10^3/uL (4.4-10.8)
[2024-11-10 17:01] LABS: Albumin 4.4 g/dL (3.2-4.8); Anion Gap 14 (5-15); BUN/Creatinine Ratio 6.8 (10.0-20.0); Bilirubin, Total 0.9 mg/dL (0.2-1.0); Carbon Dioxide 23 mmol/L (20-31); Chloride 104 mmol/L (98-107); Glucose 93 mg/dL (74-106); Lipase 46 U/L (12-53); Sodium 141 mmol/L (136-145); Total Protein 6.8 g/dL (5.7-8.2)
[2024-11-10 17:06] LABS: Alanine Aminotransferase 134 U/L (7-40); Alkaline Phosphatase 116 U/L (46-116); Aspartate Aminotransferase 225 U/L (13-40); Blood Urea Nitrogen 5 mg/dL (9-23); Potassium 3.4 mmol/L (3.5-5.1)
[2024-11-10 17:07] LABS: Platelet Estimate Decreased; RBC Morphology Normal
[2024-11-10] MEDS: SODIUM CHLORIDE 0.9% 1,000 ML IV ONE (18:09)
--- NOTE | 2024-11-10 18:28 | DVH ---
Exam: CT CT AB PEL WO CON-NO ORAL OR IV History: abd pain Comparison Study: CT ABD PELVIS WO CONTRAST on DOS: 12/08/18 Technique: Multidetector spiral CT of the abdomen was performed from lung bases to pubic symphysis. Imaging was performed without IV contrast. Axial, coronal and sagittal multiplanar reformats were ob tained from the axial data set by the technologist. Radiation Dose : 1. Abdomen/Pelvis: CTDIvol 5.21 mGy, DLP 331.89 mGy*cm. Findings: Evaluation of solid organs is limited due to lack of intravenous contrast use. Lung Bases: No acute or significant lung base finding. Normal heart size. No pleural or pericardial effusion. Liver: The liver is normal in size. No focal lesions. Diffuse steatosis. Gallbladder and Biliary Tree: Unremarkable Spleen: Unremarkable Pancreas: The pancreas is grossly normal in appearance. Adrenal Glands: Unremarkable Kidneys: Kidneys are grossly normal without calculi or hydronephrosis. Bladder: Grossly unremarkable for degree of distention. Bowel: The stomach is grossly normal in appearance. Small bowel and colon are normal in caliber and d istribution. Normal appendix is visualized in the right lower quadrant without findings of appendici tis. Ascites: Absent Lymphadenopathy: No mesenteric, retroperitoneal or periportal lymphadenopathy. Abdominal Wall and Mesentery: Unremarkable. Vasculature: The visualized abdominal aorta is normal in size and caliber. Evaluation of abdominal a nd pelvic vessels is limited due to lack of intravenous contrast. Pelvic Organs: Unremarkable Musculoskeletal: No aggressive focal bony lesions, acute fractures or dislocation. IMPRESSION: 1. No acute abdominal or pelvic findings. Normal appendix. 2. Hepatic steatosis. Radiation optimization: All CT scans at this facility use at least one of these dose optimization sd hniques: automated exposure control mA and/or kV adjustment per patient size (includes targeted exam s where dose is matched to clinical indication) or iterative reconstruction.
[2024-11-10] MEDS ORDERED: PRED20TA2 PO (18:58)
[2024-11-10] MEDS ORDERED: PROM1SOL4 PO (18:58)
[2024-11-10] MEDS ORDERED: ALBU108A5 IN (18:58)
[2024-11-10 19:08] VITALS: BP 130/74; PULSE 74; RESP 13; TEMP 98.4; O2SAT 95
== END 2024-11-10 19:39 | disposition home or self-care (01) ==
LOC: EDBD 15:27 → ER 15:36
DX: J06.9 Acute upper respiratory infection, unspecified (principal); F32.A Depression, unspecified; F17.210 Nicotine dependence, cigarettes, uncomplicated; F12.90 Cannabis use, unspecified, uncomplicated; Z20.822 Contact with and (suspected) exposure to COVID-19
CPT/HCPCS: 36415; 71045; 74176; 80053; 83690; 85025; 87426; 87804; 94640; 96361; 96374; 96375; 99285; J2270; J2405; J2919; J7030

== ENCOUNTER 2024-11-26 14:40 | Inpatient (IN) | payer MEDICAID ==
[~2024-11-26] VITALS: Ht 172.7 cm; Wt 68.0 kg
[~2024-11-26 14:40] MED LIST changes: +ALBU108A5 IN; +PRED20TA2 PO; +PROM1SOL4 PO
--- NOTE | 2024-11-26 14:56 | ED.PDOC ---
HPI (NEURO) HPI Comments HPI: Poor Historian. 24-year-old male brought in by ambulance from home status post witnessed seizure activity lasted no more than 30 seconds while at home. Patient was seated on a couch. There was no fall or trauma or injury. Patient states compliance with his Keppra medication most recently this morning. Patient drinks alcohol heavily every two days. Most recent alcohol intake was two days ago. Patient does not know the Keppra dose he takes. Most recent seizure was in July of this year. Pre-hospital course vital signs were stable. Patient was ambulatory at the scene when EMS arrived. No reported postictal state. No incontinence. No other trauma reported. Blood sugar in the field was 105. Vital signs were otherwise unremarkable. Past Medical History: Seizure disorder on Keppra, alcohol abuse Past Surgical History: Denies any Social history smokes marijuana and tobacco REVIEW OF SYSTEMS: CONSTITUTIONAL: Denies acute: fever, diaphoresis, chills, HEAD: Denies acute: headache, photophobia Eyes: Denies acute: Double vision, vision loss, eye pain, eye discharge. EARS: Denies acute: tinnitus, hearing loss, ear discharge, ear pain, THROAT: Denies acute: sore throat, swelling, difficulty swallowing , pain with swallowing, change in voice. NECK: Denies acute: neck pain, neck swelling, stiff neck. HEART: Denies acute : chest pain, palpitations, LUNGS: Denies acute: SOB, wheezing, cough, hemoptysis ABDOMEN: Denies acute: abdominal pain, Nausea, Vomiting, diarrhea, melena , hematemesis, hematochezia SKIN: Denies acute: rash, redness, lesions, itchiness. EXTREMITIES: Denies acute: calf pain, numbness, tingling, weakness, denies pain in extremity. Denies acute: Low back pain. Neuro: Denies acute: focal neurological deficit, motor or sensory focal neurological deficit, tremors, confusion, dizziness, change in mental status, loss of bowel or bladder function, cauda equina like symptoms. : Denies acute: dysuria, hematuria, flank pain, increase in urinary frequency. PSYCH: Denies acute: hallucination, suicidal ideation, homicidal ideation. PHYSICAL EXAM: General: ---mild-----acute distress, awake and alert. Head: normocephalic, atraumatic. Neck: supple, trachea is midline, no swelling. Throat: Normal phonation. No oral trauma Eyes:, no erythema, no purulent discharge, no proptosis, no icterus. Heart: regular rate, regular rhythm, no significant murmur appreciated. Lungs: no apparent respiratory distress, Able to speak in full sentences. No wheezing, no rhonchi, no crackles. No stridors Clear to auscultation bilaterally. Abdomen: non tender to palpation, non distended, soft, no guarding, no rebound, + bowel sounds. Neuro: Awake, Alert, oriented to name, self, situation, follows commands GCS=15. Speech is normal. Skin: no petechia, no purpura, no cyanosis, non-pale, not jaundice. Lower extremities: --no - Pitting edema no deformity, no focal swelling, no calf TTP. Makes eye contact. moves all four extremities. Face: no apparent facial droop. PERRLA, EOM-I No nystagmus. No nuchal rigidity, Kernig's sign, Brudzinski's sign, no meningeal signs. ED COURSE: Chief Complaint: Seizure Time Seen by MD: 14:43 Primary Care Provider: UNKNOWN Reviewed Notes: Nurses Notes, Allergies Information Source: Patient, Emergency Med Personnel Mode of Arrival: EMS Past Medical History PAST MEDICAL HISTORY: Depression, Seizures Surgical History: Denies all surgeries Family History Family History: Reviewed,noncontributory to illness, Unknown Social History Smoker: Cigarettes, Less Than 1 Pack/Day Alcohol: Heavy Drugs: Marijuana Lives In: Home Was a procedure done? Was a procedure done?: No Differential Diagnosis (SZ) Seizure: Other (SEIZUREDDX include not limited to CVA, cerebellar ischemia/infarct, carotid stenosis, vertebral/carotid artery dissection,, vertebrobasillary insufficiency, Intracranial mass/infection/bleed, encephalopathy, elctrolyte abnormality, thyroid disease, multiple sclerosis, hypoglycemia, drug toxicity, cardiac arrhythmia, sub-theraputic anti-convulsion medications, known seizure disorder, pseudo-seizure.) X-Ray, Labs, Meds, VS Vital Signs Date Time Temp Pulse Resp B/P (MAP) Pulse Ox O2 Delivery O2 Flow Rate FiO2 11/26/24 18:00 98.0 75 17 138/72 (94) 97 98.0 11/26/24 16:00 98.0 80 17 140/74 (96) 99 98.0 11/26/24 15:22 84 11/26/24 14:50 Room Air* 0 21 11/26/24 14:50 98.0 75 10 147/76 (99) 98 98.0 11/26/24 14:47 98.3 75 20 133/80 (97) 97 98.3 Lab Test 11/26/24 17:42 11/26/24 15:54 11/26/24 14:55 11/26/24 00:00 Range/Units Troponin I High Sensitivity 3 L 3 L 3 L </=54 ng/L White Blood Count 6.9 4.4-10.8 10^3/uL Red Blood Count 4.58 4.5-5.90 10^6/uL Hemoglobin 14.5 13.5-17.5 g/dL Hematocrit 41.9 41.0-53.0 % Mean Corpuscular Volume 91.5 80.0-100.0 fL Mean Corpuscular Hemoglobin 31.7 28.0-32.0 pg Mean Corpuscular Hemoglobin Concent 34.7 32.0-36.0 g/dL Red Cell Distribution Width 13.3 11.8-14.3 % Platelet Count 181 140-450 10^3/uL Mean Platelet Volume 6.8 L 6.9-10.8 fL Neutrophils (%) (Auto) 72.8 37.0-80.0 % Lymphocytes (%) (Auto) 19.8 10.0-50.0 % Monocytes (%) (Auto) 5.7 0.0-12.0 % Eosinophils (%) (Auto) 0.8 0.0-7.0 % Basophils (%) (Auto) 0.9 0.0-2.0 % Neutrophils # (Auto) 5.0 1.6-8.6 10 ^3/uL Lymphocytes # (Auto) 1.4 0.4-5.4 10 ^3/uL Monocytes # (Auto) 0.4 0-1.3 10 ^3/uL Eosinophils # (Auto) 0.1 0-0.8 10 ^3/uL Basophils # (Auto) 0.1 0-0.2 10 ^3/uL Nucleated Red Blood Cells 0.2 % Sodium Level 139 136-145 mmol/L Potassium Level 3.9 3.5-5.1 mmol/L Chloride Level 102 98-107 mmol/L Carbon Dioxide Level 25 20-31 mmol/L Anion Gap 12 5-15 Blood Urea Nitrogen 6 L 9-23 mg/dL Creatinine 0.81 0.700-1.30 mg/dL Glomerular Filtration Rate Calc 125 >90 mL/min BUN/Creatinine Ratio 7.4 L 10.0-20.0 Serum Glucose 94 74-106 mg/dL Lactic Acid Level 1.5 0.4-2.0 mmol/L Calcium Level 9.9 8.7-10.4 mg/dL Magnesium Level 1.6 1.6-2.6 mg/dL Total Bilirubin 1.7 H 0.2-1.0 mg/dL Aspartate Amino Transferase (AST) 108 H 13-40 U/L Alanine Aminotransferase (ALT) 96 H 7-40 U/L Alkaline Phosphatase 114 46-116 U/L Total Protein 6.7 5.7-8.2 g/dL Albumin 4.5 3.2-4.8 g/dL Levetiracetam Level Pending Plasma/Serum Blood Alcohol < 3.0 <10 mg/dL Urine Color Yellow Yellow Urine Clarity Turbid H Clear Urine pH 7.0 5.0-9.0 Urine Specific [place] 1.023 1.001-1.035 Urine Protein Trace H Negative Urine Ketones 1+ H Negative Urine Blood Negative Negative /uL Urine Nitrite Negative Negative Urine Bilirubin Negative Negative Urine Urobilinogen 6 Negative mg/dL Urine Leukocyte Esterase Negative Negative /uL Urine RBC 2 0 - 3 /hpf Urine Microscopic WBC 4 H 0-3 /HPF Urine Squamous Epithelial Cells None seen <5 /hpf Urine Amorphous Crystals Few None Seen /hpf Urine Bacteria None seen None Seen /hpf Urine Glucose Normal Normal mg/dL Current Medications Medications (Trade) Dose Ordered Sig/Travon Route Start Time Stop Time Status Last Admin Sodium Chloride 1,000 ml @ 1,000 mls/hr Q1H ONCE IV 11/26/24 14:45 11/26/24 15:44 DC 11/26/24 15:03 Levetiracetam 100 ml @ 400 mls/hr ONCE ONCE IV 11/26/24 14:45 11/26/24 14:59 DC 11/26/24 15:03 Lorazepam (Ativan Inj) 1 mg ONCE ONCE IV 11/26/24 16:45 11/26/24 16:46 DC 11/26/24 16:52 Acetaminophen/ Hydrocodone Bitart ([place] 5/325MG Tab) 1 tab ONCE ONCE PO 11/26/24 17:15 11/26/24 17:28 DC 11/26/24 17:43 Thiamine HCl 100 mg ONCE ONCE PO 11/26/24 17:15 11/26/24 17:16 DC 11/26/24 17:12 [place] [id number] Ph: [phone] DIAGNOSTIC IMAGING Diagnostic Imaging Report : [id number] Signed PATIENT: MIRLANDE TAN ACCT: [id number] UNIT: [id number] : 2000 LOC: ER ROOM / BED: / AGE / SEX: 24 / M ADM STATUS: REG ER SERVICE 1443 ORDERING PHYSICIAN: NICK LACEY DO PROCEDURE(s): CXRP - CHEST PORTABLE REASON: seizure ORDER NUMBER(s): [id number], ACCESSION NUMBER(s): [id number] INDICATION: seizure TECHNIQUE: Frontal view of the chest. COMPARISON: XY CHEST XRAY 1 VIEW on DOS: 11/10/24, XY CHEST XRAY 1 VIEW on DOS: 05/21/24, XY CHEST XRAY 1 VIEW on DOS: 05/20/24, XY CHEST PORTABLE on DOS: 05/19/24, XY CHEST PORTABLE on DOS: 05/18/24 FINDINGS: Findings:. The heart and mediastinal contours are grossly unremarkable. There is no evidence of pleural disease. The lungs are clear. The bony structures of the chest are intact without fracture. IMPRESSION: 1. No evidence of acute disease. ATED BY: SLY ENCARNACION MD DICTATED DATE/TIME: 11/26/24 150 SIGNED BY: SLY ENCARNACION MD SIGNED DATE/TIME: 11/26/24 150 CC: Time of 1ST Reevaluation: 18:41 (Patient feels like he might be withdrawing from alcohol. Given the setting of seizures and medication compliance and histo ry of alcohol abuse I will admit the patient for further evaluation.) Reevaluation 1ST: Improved Patient Education/Counseling: Diagnosis, Treatment Family Education/Counseling: Other Comments Patient presented with the above HPI.---seizure--workup was initiated. patient was found with the above mentioned diagnosis. the following medications were ordered: please refer to order lists of meds and tests obtained by myself Dr. Lacey. Patient ED course and VS have been stabilized. Patient has been reassessed in the ED and remained in a stable condition. Pertinent incidental findings were discussed with the patient and/or family. Patient/family voices understanding and is agreeable with plan. Patient has been observed in the ED adequate length of time to insure improvement/stability. Escalation of care considered: Consideration of escalation to observation or admission Patient was suspected to also have alcohol withdrawal. Patient was given Ativan. Patient was ADMITTED to the medicine team for further evaluation and treatment of their presentation. All the reports of any imaging studies that were ordered by myself were reviewed by myself. Departure 1 Departure Time of Disposition: 23:56 Impression: Primary Impression: Seizure disorder Additional Impression: Alcohol withdrawal Disposition: ADMITTED INPATIENT Admit to: Tele Condition: Stable Discharged With: Self Critical Care Note Critical Care Time?: No I personally scribed for NICK LACEY DO ([email or web address]) on 11/26/24 at 15:14. Electronically submitted by Dereck Hsieh ([email or web address]). NICK LACEY DO November 26, 2024 14:56
[2024-11-26] MEDS: levETIRAcetam 1000 mg/100ml 100 ML IV ONE (15:03)
[2024-11-26] MEDS: SODIUM CHLORIDE 0.9% 1,000 ML IV ONE (15:03)
--- NOTE | 2024-11-26 15:11 | DVH ---
INDICATION: seizure TECHNIQUE: Frontal view of the chest. COMPARISON: XY CHEST XRAY 1 VIEW on DOS: 11/10/24, XY CHEST XRAY 1 VIEW on DOS: 05/21/24, XY CHEST XRAY 1 VIEW on DOS: 05/20/24, XY CHEST PORTABLE on DOS: 05/19/24, XY CHEST PORTABLE on DOS: 05/18/24 FINDINGS: Findings:. The heart and mediastinal contours are grossly unremarkable. There is no evidence of pleu ral disease. The lungs are clear. The bony structures of the chest are intact without fracture. IMPRESSION: 1. No evidence of acute disease.
[2024-11-26 15:24] LABS: Basophils # (auto) 0.1 10 ^3/uL (0-0.2); Basophils % (auto) 0.9 % (0.0-2.0); Eosinophils # (auto) 0.1 10 ^3/uL (0-0.8); Eosinophils % (auto) 0.8 % (0.0-7.0); Hematocrit 41.9 % (41.0-53.0); Hemoglobin 14.5 g/dL (13.5-17.5); Lymphocytes # (auto) 1.4 10 ^3/uL (0.4-5.4); Lymphocytes % (auto) 19.8 % (10.0-50.0); Mean Corpuscular Hemoglobin 31.7 pg (28.0-32.0); Mean Corpuscular Hgb Conc. 34.7 g/dL (32.0-36.0); Mean Corpuscular Volume 91.5 fL (80.0-100.0); Monocytes # (auto) 0.4 10 ^3/uL (0-1.3); Monocytes % (auto) 5.7 % (0.0-12.0); Neutrophils % (auto) 72.8 % (37.0-80.0); Nucleated Red Blood Cells % 0.2 %; Platelet Count (auto) 181 10^3/uL (140-450); Red Blood Cells 4.58 10^6/uL (4.5-5.90); Red Cell Distribution Width 13.3 % (11.8-14.3); White Blood Cell 6.9 10^3/uL (4.4-10.8)
[2024-11-26 15:39] LABS: Albumin 4.5 g/dL (3.2-4.8); Alkaline Phosphatase 114 U/L (46-116); Anion Gap 12 (5-15); BUN/Creatinine Ratio 7.4 (10.0-20.0); Calcium 9.9 mg/dL (8.7-10.4); Carbon Dioxide 25 mmol/L (20-31); Chloride 102 mmol/L (98-107); Glucose 94 mg/dL (74-106); Potassium 3.9 mmol/L (3.5-5.1); Sodium 139 mmol/L (136-145); Total Protein 6.7 g/dL (5.7-8.2)
[2024-11-26 15:44] LABS: Alanine Aminotransferase 96 U/L (7-40); Aspartate Aminotransferase 108 U/L (13-40); Bilirubin, Total 1.7 mg/dL (0.2-1.0); Blood Alcohol < 3.0 mg/dL (<10); Blood Urea Nitrogen 6 mg/dL (9-23); Magnesium 1.6 mg/dL (1.6-2.6)
[2024-11-26] MEDS: LORazepam 2MG/ML-1ML VIAL IV ONE ×2 (16:52→20:01)
[2024-11-26] MEDS: THIAMINE HCL 100 MG TAB PO ONE ×2 (17:12→19:52)
[2024-11-26] MEDS: HYDROcodone-ACET 5/325MG TAB PO ONE (17:43)
--- NOTE | 2024-11-26 19:04 | ECG ---
[facility] Test Date: 2024-11-26 Test Time: 15:22:41 Pat Name: MIRLANDE TAN Department: ED Room: 0275 Gender: M White Sourer: JAY : 2000 Requested By: NICK LACEY Order Number: [id number] Reading MD: Cristopher Mathew Measurements Intervals [place] Rate: 84 P: 89 NC: 141 QRS: 74 QRSD: 85 T: 57 QT: 392 QTc: 464 Interpretive Statements Unknown rhythm, irregular rate Electronically Signed On 11-29-2024 12:02:49 PDT by Cristopher Mathew Please click the below link to view image of tracing.
[2024-11-26 19:05] LABS: Urine Bacteria None Seen /hpf (None Seen)
[2024-11-26 19:14] LABS: Urine Amorphous Crystal FEW /hpf (None Seen); Urine Blood Negative /uL (Negative); Urine Clarity Turbid (Clear); Urine Color Yellow (Yellow); Urine Protein, UAD TRACE (Negative); Urine Specific Gravity 1.023 (1.001-1.035); Urine Squamous Epithelial Cell None Seen /hpf (<5); Urine Urobilinogen 6 mg/dL (Negative); Urine WBC 4 /HPF (0-3)
[2024-11-26] MEDS ORDERED: LORazepam 2MG/ML-1ML VIAL IV PRN ×2 (19:15→19:30)
[2024-11-26] MEDS ORDERED: ONDANSETRON HCL 4 MG/2 ML VIAL IV PRN (19:30)
[2024-11-26] MEDS ORDERED: ACETAMINOPHEN 325 MG TAB PO PRN (19:30)
[2024-11-26] MEDS ORDERED: DOCUSATE SOD 100 MG CAP PO PRN (19:30)
[2024-11-26] MEDS ORDERED: HYDROmorphone HCL 2 MG/ML VL/or syr IV PRN (19:30)
--- NOTE | 2024-11-26 19:32 | DVHHP2 ---
Admitting Diagnosis: Seizure History of Present Illness 24-year-old male brought in by ambulance from home status post witnessed seizure activity lasted no more than 30 seconds while at home. Patient was seated on a couch. There was no fall or trauma or injury. Patient states compliance with his Keppra medication most recently this morning. Patient drinks alcohol heavily every two days. Most recent alcohol intake was two days ago. Patient does not know the Keppra dose he takes. Most recent seizure was in July of this year. Pre-hospital course vital signs were stable. Patient was ambulatory at the scene when EMS arrived. No reported postictal state. No incontinence. No other trauma reported. Blood sugar in the field was 105. Vital signs were otherwise unremarkable. Past Medical History: Seizure disorder on Keppra, alcohol abuse Past Surgical History: Denies any Social history smokes marijuana and tobacco REVIEW OF SYSTEMS: CONSTITUTIONAL: Denies acute: fever, diaphoresis, chills, HEAD: Denies acute: headache, photophobia Eyes: Denies acute: Double vision, vision loss, eye pain, eye discharge. EARS: Denies acute: tinnitus, hearing loss, ear discharge, ear pain, THROAT: Denies acute: sore throat, swelling, difficulty swallowing , pain with swallowing, change in voice. NECK: Denies acute: neck pain, neck swelling, stiff neck. HEART: Denies acute : chest pain, palpitations, LUNGS: Denies acute: SOB, wheezing, cough, hemoptysis ABDOMEN: Denies acute: abdominal pain, Nausea, Vomiting, diarrhea, melena , hematemesis, hematochezia SKIN: Denies acute: rash, redness, lesions, itchiness. EXTREMITIES: Denies acute: calf pain, numbness, tingling, weakness, denies pain in extremity. Denies acute: Low back pain. Neuro: Denies acute: focal neurological deficit, motor or sensory focal neurological deficit, tremors, confusion, dizziness, change in mental status, loss of bowel or bladder function, cauda equina like symptoms. : Denies acute: dysuria, hematuria, flank pain, increase in urinary frequency. PSYCH: Denies acute: hallucination, suicidal ideation, homicidal ideation. PAST MEDICAL HISTORY: Depression, Seizures Surgical History: Denies all surgeries Family History Family History: Reviewed,noncontributory to illness, Unknown Social History Smoker: Cigarettes, Less Than 1 Pack/Day Alcohol: Heavy Drugs: Marijuana Lives In: Home Patient Family History: Hypertension G8 FATHER Allergies: Coded Allergies: No Known Drug Allergy (Verified Allergy, Unknown, 10/02/17) Home Meds Active Scripts Promethazine-Dm (Promethazine Dm 6.25-15 mg/5Ml) 1 Catrachita Catrachita, 5 ML PO TID PRN, #200 ML Prov:CODIE LLOYD SURVEILLANCE DUAL RATE OFFICER 11/10/24 Prednisone (Prednisone) 20 Mg Tab, 20 MG PO DAILY for 5 Days, #5 MG Prov:CODIE LLOYD E SURVEILLANCE DUAL RATE OFFICER 11/10/24 Albuterol Sulfate (Albuterol Sulfate Hfa) 108 Mcg/Act Aer, 108 MCG IN TID PRN, #1 AER Prov:CODIE LLOYD SURVEILLANCE DUAL RATE OFFICER 11/10/24 Levetiracetam (KEPPRA TABLET) 500 Mg Tb, 1000 MG PO BID for 30 Days, #120 TAB 6 Refills Prov:FIONA EDWARDS DO 10/06/23 Current Medications Current Medications Medications (Trade) Dose Ordered Sig/Travon Route PRN Reason Start Time Stop Time Status Last Admin Lorazepam (Ativan Inj) 2 mg PRN PRN IV SEIZURES 11/26/24 19:15 UNV Vital Signs Vital Signs Date Time Temp Pulse Resp B/P (MAP) Pulse Ox O2 Delivery O2 Flow Rate FiO2 11/26/24 18:00 98.0 75 17 138/72 (94) 97 98.0 11/26/24 14:50 Room Air* 0 21 Physical Exam Generally-24 years old male, well nourished well developed. No apparent distress HEENT-atraumatic normocephalic Heart-regular rate and rhythm Lungs clear to auscultate bilaterally Abdomen soft nontender nondistended Musculoskeletal-no edema cyanosis Neuro-awake and alert and oriented x3, somnolent, follow commands, answers questions, strength and sensory intact Results Labs Test 11/26/24 17:42 11/26/24 14:55 11/26/24 00:00 Range/Units Troponin I High Sensitivity 3 L </=54 ng/L White Blood Count 6.9 4.4-10.8 10^3/uL Red Blood Count 4.58 4.5-5.90 10^6/uL Hemoglobin 14.5 13.5-17.5 g/dL Hematocrit 41.9 41.0-53.0 % Mean Corpuscular Volume 91.5 80.0-100.0 fL Mean Corpuscular Hemoglobin 31.7 28.0-32.0 pg Mean Corpuscular Hemoglobin Concent 34.7 32.0-36.0 g/dL Red Cell Distribution Width 13.3 11.8-14.3 % Platelet Count 181 140-450 10^3/uL Mean Platelet Volume 6.8 L 6.9-10.8 fL Neutrophils (%) (Auto) 72.8 37.0-80.0 % Lymphocytes (%) (Auto) 19.8 10.0-50.0 % Monocytes (%) (Auto) 5.7 0.0-12.0 % Eosinophils (%) (Auto) 0.8 0.0-7.0 % Basophils (%) (Auto) 0.9 0.0-2.0 % Neutrophils # (Auto) 5.0 1.6-8.6 10 ^3/uL Lymphocytes # (Auto) 1.4 0.4-5.4 10 ^3/uL Monocytes # (Auto) 0.4 0-1.3 10 ^3/uL Eosinophils # (Auto) 0.1 0-0.8 10 ^3/uL Basophils # (Auto) 0.1 0-0.2 10 ^3/uL Nucleated Red Blood Cells 0.2 % Sodium Level 139 136-145 mmol/L Potassium Level 3.9 3.5-5.1 mmol/L Chloride Level 102 98-107 mmol/L Carbon Dioxide Level 25 20-31 mmol/L Anion Gap 12 5-15 Blood Urea Nitrogen 6 L 9-23 mg/dL Creatinine 0.81 0.700-1.30 mg/dL Glomerular Filtration Rate Calc 125 >90 mL/min BUN/Creatinine Ratio 7.4 L 10.0-20.0 Serum Glucose 94 74-106 mg/dL Lactic Acid Level 1.5 0.4-2.0 mmol/L Calcium Level 9.9 8.7-10.4 mg/dL Magnesium Level 1.6 1.6-2.6 mg/dL Total Bilirubin 1.7 H 0.2-1.0 mg/dL Aspartate Amino Transferase (AST) 108 H 13-40 U/L Alanine Aminotransferase (ALT) 96 H 7-40 U/L Alkaline Phosphatase 114 46-116 U/L Total Protein 6.7 5.7-8.2 g/dL Albumin 4.5 3.2-4.8 g/dL Plasma/Serum Blood Alcohol < 3.0 <10 mg/dL Urine Color Yellow Yellow Urine Clarity Turbid H Clear Urine pH 7.0 5.0-9.0 Urine Specific [place] 1.023 1.001-1.035 Urine Protein Trace H Negative Urine Ketones 1+ H Negative Urine Blood Negative Negative /uL Urine Nitrite Negative Negative Urine Bilirubin Negative Negative Urine Urobilinogen 6 Negative mg/dL Urine Leukocyte Esterase Negative Negative /uL Urine RBC 2 0 - 3 /hpf Urine Microscopic WBC 4 H 0-3 /HPF Urine Squamous Epithelial Cells None seen <5 /hpf Urine Amorphous Crystals Few None Seen /hpf Urine Bacteria None seen None Seen /hpf Urine Glucose Normal Normal mg/dL Primary Diagnosis Alcohol withdrawal seizure Chronic alcohol use Alcohol withdrawal Elevated lft possible cirrhosis Plan Patient does not recall what those Keppra patient was on. Order Keppra 1000 mg b.i.d. for now. Follow up with the regarding patient's home dose Alcohol withdrawal protocol Thiamine and folate for supplement Daily CIWA score Neuro check per floor protocol IV fluids US liver to assess for elevated lft Full code Regular diet Lovenox for DVT prophylaxis PPI for GI prophylaxis Plan discussed with: Patient Problems List: (1) Seizure disorder Status: Acute (2) Alcohol withdrawal Status: Acute (3) Transaminitis Status: Acute Date of Service: November 26, 2024 Billing Provider: JEREMIAH MARIE MD Common Visit Codes: [id number] INP/OBS CARE (HIGH) JEREMIAH MARIE MD November 26, 2024 19:32
[2024-11-26] MEDS: LORazepam 2MG/ML-1ML VIAL ONE (19:50)
[2024-11-26] MEDS: MULTIPLE VITAMIN TAB PO ONE (19:52)
[2024-11-26] MEDS: FOLIC ACID 1 MG TAB PO ONE (19:52)
--- NOTE | 2024-11-26 20:43 | DVH ---
INDICATION: elevated LFT TECHNIQUE: Ultrasound abdomen limited. Multiple real-time sonographic images of the abdomen were obta ined. COMPARISON: None FINDINGS: Hepatic parenchymal changes consistent with steatosis.. The liver measures 14.42 cm. No in trahepatic biliary ductal dilatation is noted. The gallbladder wall measures 0.22cm and is unremarkable. No gallstones or sludge is seen. The com mon duct measures 0.28 cm and is unremarkable. No pericholecystic fluid is noted. Negative sonograph ic Gerber's sign The right kidney measures 9.06 cm. No hydronephrosis. The pancreas is not well visualized due to obscuration from bowel gas. The visualized portions of the IVC and aorta are grossly unremarkable. IMPRESSION: 1. 14.42 cm liver with parenchymal changes suggesting steatosis. 2. No cholelithiasis dilated duct or gallbladder wall thickening. Negative sonographic Gerber's sign .
[2024-11-26 21:25] VITALS: BP 102/59; PULSE 55; RESP 18; TEMP 98.3; O2SAT 98
--- NOTE | 2024-11-26 21:33 | DVH ---
CLINICAL HISTORY: seizure r/o aih TECHNIQUE: Helical imaging carried out from skull base to vertex without intravenous contrast. This e xam was performed according to our departmental dose optimization program. Up-to-date CT equipment an d radiation dose reduction techniques are utilized as appropriate. CTDIVol: 57.4 mGy DLP: 1015.1 mGy-cm WID: COMPARISON: CT HEAD WITHOUT CONTRAST on DOS: 08/12/24 FINDINGS: The ventricles and subarachnoid spaces are normal in size and configuration. There is no midline ankit ft or mass effect. The montoya white matter interfaces are maintained. The basal cisterns are patent. Th ere is no evidence of acute intracranial hemorrhage or extra-axial fluid collection. The mastoid air cells and visualized paranasal sinuses are well-aerated aside from aerated secretions in the left max illary sinus. IMPRESSION: No acute intracranial abnormality.
[2024-11-26] MEDS: LORazepam 0.5 MG TAB PO PRN (22:23)
[2024-11-26] MEDS: levETIRAcetam 1000 mg/100ml 100 ML IV SCH (22:23)
[2024-11-26] MEDS: SODIUM CHLOR 0.9% PF (SALINE LOCK) 10ML VIAL/SYR IV SCH (22:23)
[2024-11-26 22:35] VITALS: PULSE 85; RESP 18; O2SAT 98
[2024-11-26 22:36] VITALS: BP 102/59; PULSE 55; RESP 18; TEMP 98.3; O2SAT 98
[2024-11-26] MEDS ORDERED: QUET50TA27 PO (22:54)
[2024-11-26] MEDS ORDERED: SERT-206 PO (22:54)
[2024-11-27] VITALS (8 sets, daily range): BP systolic 117–127; BP diastolic 55–81; PULSE 56–96; RESP 17–20; TEMP 97.7–98.5; O2SAT 92–98
[2024-11-27 06:10] LABS: Basophils # (auto) 0.1 10 ^3/uL (0-0.2); Basophils % (auto) 1.1 % (0.0-2.0); Eosinophils # (auto) 0.1 10 ^3/uL (0-0.8); Eosinophils % (auto) 0.9 % (0.0-7.0); Hematocrit 40.9 % (41.0-53.0); Lymphocytes # (auto) 1.4 10 ^3/uL (0.4-5.4); Lymphocytes % (auto) 21.1 % (10.0-50.0); Mean Corpuscular Hgb Conc. 34.3 g/dL (32.0-36.0); Mean Corpuscular Volume 93.2 fL (80.0-100.0); Monocytes # (auto) 0.5 10 ^3/uL (0-1.3); Monocytes % (auto) 7.3 % (0.0-12.0); Neutrophils # (auto) 4.6 10 ^3/uL (1.6-8.6); Neutrophils % (auto) 69.6 % (37.0-80.0); Nucleated Red Blood Cells % 0.1 %; Platelet Count (auto) 145 10^3/uL (140-450); Red Blood Cells 4.39 10^6/uL (4.5-5.90); Red Cell Distribution Width 13.3 % (11.8-14.3); White Blood Cell 6.6 10^3/uL (4.4-10.8)
[2024-11-27 06:21] LABS: Alkaline Phosphatase 104 U/L (46-116); Anion Gap 12 (5-15); BUN/Creatinine Ratio 10.1 (10.0-20.0); Carbon Dioxide 26 mmol/L (20-31); Chloride 102 mmol/L (98-107); Magnesium 1.7 mg/dL (1.6-2.6); Potassium 4.1 mmol/L (3.5-5.1); Sodium 140 mmol/L (136-145); Total Protein 6.4 g/dL (5.7-8.2)
[2024-11-27 06:22] LABS: Albumin 4.2 g/dL (3.2-4.8)
[2024-11-27 06:26] LABS: Alanine Aminotransferase 88 U/L (7-40); Aspartate Aminotransferase 92 U/L (13-40); Bilirubin, Total 2.8 mg/dL (0.2-1.0); Blood Urea Nitrogen 8 mg/dL (9-23); Glucose 70 mg/dL (74-106)
[2024-11-27] MEDS: MULTIPLE VITAMIN TAB PO SCH (09:47)
[2024-11-27] MEDS: THIAMINE HCL 100 MG TAB PO SCH (09:47)
[2024-11-27] MEDS: FOLIC ACID 1 MG TAB PO SCH (09:47)
[2024-11-27] MEDS: ENOXAPARIN SOD 40 MG/0.4 ML SYRINGE SC SCH (09:47)
[2024-11-27] MEDS ORDERED: LORazepam 2MG/ML-1ML VIAL IV PRN (15:30)
--- NOTE | 2024-11-27 16:23 | DVHPN2 ---
Subjective Patient came with a witnessed seizure. Patient does have known history of chronic alcoholism. Changes from previous H/P or p: No Changes Objective Vitals Vital Signs Date Time Temp Pulse Resp B/P (MAP) Pulse Ox O2 Delivery O2 Flow Rate FiO2 11/27/24 13:00 98.3 56 20 123/76 (92) 96 98.3 11/27/24 08:00 Room Air* 0 21 Intake/Output Intake and Output 11/27/24 07:00 Intake Total 1350 ml Balance 1350 ml Intake Oral 250 ml IV Total 1100 ml # Voids 3 Exam HEENT pupils are reactive Neck is supple CV is S1-S2 regular rate and rhythm Respiratory are clear GI posterior bowel sound Extremity no edema [employer]ILITY [employer]NER no motor deficits Medications Current Medications Medications Dose Ordered Sig/Travon Route Start Time Stop Time Status Last Admin Dose Admin Levetiracetam 100 ml @ 400 mls/hr BID IV 11/26/24 22:00 11/27/24 09:46 400 MLS/HR Lorazepam 2 mg Q2HPRN PRN PO 11/26/24 19:30 11/27/24 12:12 2 MG Sodium Chloride 10 ml Q8HR IV 11/26/24 22:00 11/27/24 14:09 10 ML Docusate Sodium 100 mg BIDPRN PRN PO 11/26/24 19:30 Acetaminophen 650 mg Q6HP PRN PO 11/26/24 19:30 Acetaminophen/ Hydrocodone Bitart 1 tab Q4HP PRN PO 11/26/24 19:30 Hydromorphone HCl 0.5 mg Q4HP PRN IV 11/26/24 19:30 Ondansetron HCl 4 mg Q4HP PRN IV 11/26/24 19:30 Enoxaparin Sodium 40 mg DAILY SC 11/27/24 10:00 11/27/24 09:47 40 MG Folic Acid 1 mg/ Magnesium Sulfate 8 meq/ Multivitamins 10 ml/Thiamine HCl 100 mg/Sodium Chloride 1,013.2 ml @ 126.247 mls/hr DAILY@1800 INJ 11/27/24 18:00 Lorazepam 1 mg Q5MINP PRN IV 11/27/24 15:30 Laboratory Results Laboratory Tests 11/27/24 05:31 Chemistry Test 11/27/24 05:31 Albumin 4.2 g/dL (3.2-4.8) Calcium Level 10.0 mg/dL (8.7-10.4) Magnesium Level 1.7 mg/dL (1.6-2.6) Total Protein 6.4 g/dL (5.7-8.2) LFT Test 11/27/24 05:31 Alanine Aminotransferase (ALT) 88 U/L (7-40) H Alkaline Phosphatase 104 U/L (46-116) Aspartate Amino Transferase (AST) 92 U/L (13-40) H Total Bilirubin 2.8 mg/dL (0.2-1.0) H Urinalysis Test 11/26/24 00:00 Urine Color Yellow (Yellow) Urine Clarity Turbid (Clear) H Urine pH 7.0 (5.0-9.0) Urine Specific [place] 1.023 (1.001-1.035) Urine Protein Trace (Negative) H Urine Ketones 1+ (Negative) H Urine Blood Negative /uL (Negative) Urine Nitrite Negative (Negative) Urine Bilirubin Negative (Negative) Urine Urobilinogen 6 mg/dL (Negative) Urine Leukocyte Esterase Negative /uL (Negative) Urine RBC 2 /hpf (0 - 3) Urine Microscopic WBC 4 /HPF (0-3) H Urine Squamous Epithelial Cells None seen /hpf (<5) Urine Amorphous Crystals Few /hpf (None Seen) Urine Bacteria None seen /hpf (None Seen) Urine Glucose Normal mg/dL (Normal) Assessment/Plan Assessment/Plan 24-year-old young male with a known history of chronic alcoholism currently actively use alcohol presented to the hospital with a witnessed generalized tonic-clonic seizure found to have 1. Alcohol withdrawal seizure 2. Alcoholic intoxication was per alcohol withdrawal syndrome 3. Chronic alcoholism -drug rehab as an outpatient/alcoholic anonymous staging, banana bag, repeat labs -resume home medication. Plan discussed with: Patient, Other My Orders Orders - MIRIAN ROBBINS MD Procedure Category Date Status Time Folic Acid... PHA 11/27/24 In Process 18:00 Lorazepam 2mg/Ml Inj PHA 11/27/24 In Process (Ativan Inj) 15:30 Date of Service: November 27, 2024 Billing Provider: MIRIAN ROBBINS MD Common Visit Codes: [id number] INP/OBS CARE(MOD) MIRIAN ROBBINS MD November 27, 2024 16:23
[2024-11-27] MEDS: FOLIC ACID 1 MG, MAGNESIUM SULF SDV 50% 8 MEQ, MULTIPLE VITAMIN 10 ML, THIAMINE INJ 100... INJ SCH (18:15)
[2024-11-28 01:00] VITALS: BP 131/80; PULSE 89; RESP 19; TEMP 97.8; O2SAT 98
[2024-11-28 05:00] VITALS: BP 142/77; PULSE 86; RESP 18; TEMP 98.1; O2SAT 96
[2024-11-28 07:15] LABS: Basophils # (auto) 0 10 ^3/uL (0-0.2); Basophils % (auto) 0.9 % (0.0-2.0); Eosinophils # (auto) 0 10 ^3/uL (0-0.8); Eosinophils % (auto) 0.7 % (0.0-7.0); Hematocrit 38.9 % (41.0-53.0); Hemoglobin 13.5 g/dL (13.5-17.5); Lymphocytes % (auto) 20.1 % (10.0-50.0); Mean Corpuscular Hgb Conc. 34.6 g/dL (32.0-36.0); Mean Corpuscular Volume 92.4 fL (80.0-100.0); Monocytes # (auto) 0.5 10 ^3/uL (0-1.3); Monocytes % (auto) 8.9 % (0.0-12.0); Neutrophils # (auto) 3.6 10 ^3/uL (1.6-8.6); Neutrophils % (auto) 69.4 % (37.0-80.0); Platelet Count (auto) 124 10^3/uL (140-450); Red Cell Distribution Width 13.1 % (11.8-14.3); White Blood Cell 5.2 10^3/uL (4.4-10.8)
[2024-11-28 07:27] LABS: Albumin 3.9 g/dL (3.2-4.8); Alkaline Phosphatase 92 U/L (46-116); Anion Gap 9 (5-15); Calcium 9.4 mg/dL (8.7-10.4); Carbon Dioxide 28 mmol/L (20-31); Chloride 104 mmol/L (98-107); Potassium 3.5 mmol/L (3.5-5.1); Sodium 141 mmol/L (136-145); Total Protein 5.8 g/dL (5.7-8.2)
[2024-11-28 07:33] LABS: Alanine Aminotransferase 64 U/L (7-40); BUN/Creatinine Ratio 6.8 (10.0-20.0); Blood Urea Nitrogen < 5 mg/dL (9-23); Glucose 131 mg/dL (74-106)
[2024-11-28 07:51] LABS: Aspartate Aminotransferase 48 U/L (13-40)
[2024-11-28 08:00] VITALS: PULSE 63; RESP 20; O2SAT 97
[2024-11-28 09:00] VITALS: BP 113/80; PULSE 63; RESP 20; TEMP 97.7; O2SAT 97
[2024-11-28] MEDS: MULTIPLE VITAMIN TAB PO ONE (11:54)
[2024-11-28] MEDS: MAGNESIUM OXIDE 400 MG TAB PO ONE (11:54)
[2024-11-28] MEDS: THIAMINE HCL 100 MG TAB PO ONE (11:54)
[2024-11-28] MEDS: FOLIC ACID 1 MG TAB PO ONE (11:55)
[2024-11-28] MEDS: HYDROcodone-ACET 5/325MG TAB PO PRN (11:55)
--- NOTE | 2024-11-28 13:36 | DVHDS2 ---
Discharge Summary Date of Admission November 26, 2024 at 19:25 Date of Discharge: November 28, 2024 Labs/Diagnostic Data: Laboratory Results Test 11/28/24 05:33 11/26/24 17:42 11/26/24 14:55 11/26/24 00:00 White Blood Count 5.2 10^3/uL (4.4-10.8) Red Blood Count 4.20 10^6/uL (4.5-5.90) Hemoglobin 13.5 g/dL (13.5-17.5) Hematocrit 38.9 % (41.0-53.0) Mean Corpuscular Volume 92.4 fL (80.0-100.0) Mean Corpuscular Hemoglobin 32.0 pg (28.0-32.0) Mean Corpuscular Hemoglobin Concent 34.6 g/dL (32.0-36.0) Red Cell Distribution Width 13.1 % (11.8-14.3) Platelet Count 124 10^3/uL (140-450) Mean Platelet Volume 8.1 fL (6.9-10.8) Neutrophils (%) (Auto) 69.4 % (37.0-80.0) Lymphocytes (%) (Auto) 20.1 % (10.0-50.0) Monocytes (%) (Auto) 8.9 % (0.0-12.0) Eosinophils (%) (Auto) 0.7 % (0.0-7.0) Basophils (%) (Auto) 0.9 % (0.0-2.0) Neutrophils # (Auto) 3.6 10 ^3/uL (1.6-8.6) Lymphocytes # (Auto) 1.0 10 ^3/uL (0.4-5.4) Monocytes # (Auto) 0.5 10 ^3/uL (0-1.3) Eosinophils # (Auto) 0 10 ^3/uL (0-0.8) Basophils # (Auto) 0 10 ^3/uL (0-0.2) Nucleated Red Blood Cells 0.0 % Sodium Level 141 mmol/L (136-145) Potassium Level 3.5 mmol/L (3.5-5.1) Chloride Level 104 mmol/L (98-107) Carbon Dioxide Level 28 mmol/L (20-31) Anion Gap 9 (5-15) Blood Urea Nitrogen < 5 mg/dL (9-23) Creatinine 0.74 mg/dL (0.700-1.30) Glomerular Filtration Rate Calc 129 mL/min (>90) BUN/Creatinine Ratio 6.8 (10.0-20.0) Serum Glucose 131 mg/dL (74-106) Calcium Level 9.4 mg/dL (8.7-10.4) Magnesium Level 2.0 mg/dL (1.6-2.6) Total Bilirubin 1.0 mg/dL (0.2-1.0) Aspartate Amino Transferase (AST) 48 U/L (13-40) Alanine Aminotransferase (ALT) 64 U/L (7-40) Alkaline Phosphatase 92 U/L (46-116) Total Protein 5.8 g/dL (5.7-8.2) Albumin 3.9 g/dL (3.2-4.8) Troponin I High Sensitivity 3 ng/L (</=54) Lactic Acid Level 1.5 mmol/L (0.4-2.0) Plasma/Serum Blood Alcohol < 3.0 mg/dL (<10) Urine Color Yellow (Yellow) Urine Clarity Turbid (Clear) Urine pH 7.0 (5.0-9.0) Urine Specific Carroll 1.023 (1.001-1.035) Urine Protein Trace (Negative) Urine Ketones 1+ (Negative) Urine Blood Negative /uL (Negative) Urine Nitrite Negative (Negative) Urine Bilirubin Negative (Negative) Urine Urobilinogen 6 mg/dL (Negative) Urine Leukocyte Esterase Negative /uL (Negative) Urine RBC 2 /hpf (0 - 3) Urine Microscopic WBC 4 /HPF (0-3) Urine Squamous Epithelial Cells None seen /hpf (<5) Urine Amorphous Crystals Few /hpf (None Seen) Urine Bacteria None seen /hpf (None Seen) Urine Glucose Normal mg/dL (Normal) Other Laboratory Tests 11/28/24 05:33 Brief Hx & Hospital Course: 24-year-old young male with a known history of chronic alcoholism currently actively use alcohol presented to the hospital with a witnessed generalized tonic-clonic seizure found to have alcohol withdrawal seizures. Patient does have a chronic history of chronic alcoholism. Outpatient drug rehab/alcoholic anonymous was recommended. Patient has been given banana bag currently stable to be discharged. Complete alcohol abstinence was discussed and recommended by me in the presence of bedside RN. Condition at Discharge: Stable Final Diagnosis/Problems List 24-year-old young male with a known history of chronic alcoholism currently actively use alcohol presented to the hospital with a witnessed generalized tonic-clonic seizure found to have 1. Alcohol withdrawal seizure 2. Alcoholic intoxication was per alcohol withdrawal syndrome 3. Chronic alcoholism -drug rehab as an outpa Discharge Disposition: Home SNF Discharge Will this Physician continue t: No Discharge Instruct/Medications Diet: Regular Activity: No Restrictions, As Tolerated Follow Up/Referral: Follow up with the PCP in 1-2 weeks Medications: Resume home medication Discharge Statement: "Patient was advised to return to the ER or call 911 if any headaches, dizziness, shortness of breath, chest pain, abdominal pain, bleeding, fevers, or worsening of medical condition. Patient was counseled about treatment plan, medications, possible side effects, patientverbalized understanding. All questions were answered to the best of my ability. This discharge took greater then 30 minutes in planning, reviewing documentation, counseling the patient, and discussing with other team members." ASSESSMENT ASSESSMENT Assessment 24-year-old young male with a known history of chronic alcoholism currently actively use alcohol presented to the hospital with a witnessed generalized tonic-clonic seizure found to have 1. Alcohol withdrawal seizure 2. Alcoholic intoxication was per alcohol withdrawal syndrome 3. Chronic alcoholism -drug rehab as an outpa Date of Service: November 28, 2024 Billing Provider: MIRIAN ROBBINS MD Common Visit Codes: 91313-BWJ/OBS DISCH DAY >30min MIRIAN ROBBINS MD November 28, 2024 13:36
[2024-11-28 13:44] VITALS: BP 113/80; PULSE 63; RESP 20; TEMP 98; O2SAT 97
[2024-11-29] MEDS ORDERED: MAGNESIUM OXIDE 400 MG TAB PO SCH (10:00)
[2024-11-29] MEDS ORDERED: THIAMINE HCL 100 MG TAB PO SCH (10:00)
[2024-11-29] MEDS ORDERED: MULTIPLE VITAMIN TAB PO SCH (10:00)
[2024-11-29] MEDS ORDERED: FOLIC ACID 1 MG TAB PO SCH (10:00)
== END 2024-11-28 14:00 | disposition home or self-care (01) | DRG 53 ==
LOC: EDUNIT# 14:40 → EDBD 14:40 → ER 14:40 → OVERFLOW 19:25 → WEST WING 21:23
PROVIDERS: ADMIT Internal Medicine; ATTEND Internal Medicine
DX: R56.9 Unspecified convulsions (principal); G40.409 Other generalized epilepsy and epileptic syndromes, not intractable, without status epilepticus; F10.229 Alcohol dependence with intoxication, unspecified; F10.239 Alcohol dependence with withdrawal, unspecified; F17.210 Nicotine dependence, cigarettes, uncomplicated; F32.A Depression, unspecified; Z82.49 Family history of ischemic heart disease and other diseases of the circulatory system; Z79.899 Other long term (current) drug therapy; Y90.0 Blood alcohol level of less than 20 mg/100 ml
CPT/HCPCS: 36415; 70450; 71045; 76705; 80053; 80320; 81001; 82542; 83605; 83735; 84484; 85025; 93005; 96365; 96375; G0378

== ENCOUNTER 2024-12-10 22:05 | Inpatient (IN) | payer MEDICAID ==
[~2024-12-10] VITALS: Ht 177.8 cm; Wt 63.2 kg
[~2024-12-10 22:05] MED LIST changes: -PRED20TA2 PO; +QUET50TA27 PO; +SERT-206 PO
--- NOTE | 2024-12-10 22:23 | ED.PDOC ---
HPI (NEURO) HPI Comments HPI: Poor Historian. 24-year-old male brought in by ambulance to emergency depart for evaluation of witnessed seizure that happened today while in bed. Two episodes of seizure each lasting no more than 30 seconds with 15 seconds in between. Patient was slightly postictal afterwards but he is now back to his normal self upon arrival to the ED. patient was out golfing with his dad today. Denies any use of alcohol or drugs. States compliance with Keppra medication most recent dose was this morning. He does not know the exact dose he is taking. Patient was here last week for the same thing. Past Medical History: Seizure disorder Past Surgical History: REVIEW OF SYSTEMS: CONSTITUTIONAL: Denies acute: fever, diaphoresis, chills, HEAD: Denies acute: photophobia Eyes: Denies acute: Double vision, vision loss, eye pain, eye discharge. EARS: Denies acute: tinnitus, hearing loss, ear discharge, ear pain, THROAT: Denies acute: sore throat, swelling, difficulty swallowing , pain with swallowing, change in voice. NECK: Denies acute: neck pain, neck swelling, stiff neck. HEART: Denies acute : chest pain, palpitations, LUNGS: Denies acute: SOB, wheezing, cough, hemoptysis ABDOMEN: Denies acute: abdominal pain, Nausea, Vomiting, diarrhea, melena , hematemesis, hematochezia SKIN: Denies acute: rash, redness, lesions, itchiness. EXTREMITIES: Denies acute: calf pain, numbness, tingling, weakness, denies pain in extremity. Denies acute: Low back pain. Neuro: Denies acute: focal neurological deficit, motor or sensory focal neurological deficit, dizziness, change in mental status, loss of bowel or bladder function, cauda equina like symptoms. : Denies acute: dysuria, hematuria, flank pain, increase in urinary frequency. PSYCH: Denies acute: hallucination, suicidal ideation, homicidal ideation. PHYSICAL EXAM: General: -----mild to moderate---acute distress, awake and alert. Head: normocephalic, atraumatic. Neck: supple, trachea is midline, no swelling. Throat: Normal phonation. No oral trauma, no erythema, no obstruction, no swelling Eyes:, no erythema, no purulent discharge, no proptosis, no icterus. Heart: regular tachycardia, no significant murmur appreciated. Lungs: no apparent respiratory distress, Able to speak in full sentences. No wheezing, no rhonchi, no crackles. No stridors Clear to auscultation bilaterally. Abdomen: non tender to palpation, non distended, soft, no guarding, no rebound, + bowel sounds. Neuro: Awake, Alert, oriented to name, self, situation, follows commands GCS=15. Speech is normal. Skin: no petechia, no purpura, no cyanosis, non-pale, not jaundice. Lower extremities: --no - Pitting edema no deformity, no focal swelling, no calf TTP. Makes eye contact. moves all four extremities. Face: no apparent facial droop. PERRLA, EOM-I CN 2-12 are grossly intact, No nystagmus. No nuchal rigidity, Kernig's sign, Brudzinski's sign, no meningeal signs. ED COURSE: Chief Complaint: Seizure Time Seen by MD: 22:10 Primary Care Provider: UNKNOWN Information Source: Patient, Emergency Med Personnel Past Medical History PAST MEDICAL HISTORY: Depression, Seizures Surgical History: Denies all surgeries Family History Family History: Reviewed,noncontributory to illness, Unknown Social History Smoker: Cigarettes, Less Than 1 Pack/Day Alcohol: Heavy Drugs: Marijuana Lives In: Home Was a procedure done? Was a procedure done?: No Differential Diagnosis (SZ) Seizure: Other (SEIZUREDDX include not limited to CVA, cerebellar ischemia/infarct, carotid stenosis, vertebral/carotid artery dissection,, ve rtebrobasillary insufficiency, Intracranial mass/infection/bleed, encephalopathy, elctrolyte abnormality, thyroid disease, multiple sclerosis, hypoglycemia, drug toxicity, cardiac arrhythmia, sub-theraputic anti-convulsion medications, known seizure disorder, pseudo-seizure.) X-Ray, Labs, Meds, VS Vital Signs Date Time Temp Pulse Resp B/P (MAP) Pulse Ox O2 Delivery O2 Flow Rate FiO2 12/10/24 22:52 78 20 96 Room Air* 0 21 12/10/24 22:51 98.2 78 20 128/78 (95) 96 98.2 12/10/24 22:14 98.3 112 16 106/79 (88) 98 98.3 Lab Test 12/11/24 00:28 12/10/24 23:25 12/10/24 22:29 Range/Units Lactic Acid Level Pending 7.2 *H 0.4-2.0 mmol/L Troponin I High Sensitivity < 3 L < 3 L </=54 ng/L White Blood Count 8.0 4.4-10.8 10^3/uL Red Blood Count 4.86 4.5-5.90 10^6/uL Hemoglobin 15.6 13.5-17.5 g/dL Hematocrit 45.0 41.0-53.0 % Mean Corpuscular Volume 92.5 80.0-100.0 fL Mean Corpuscular Hemoglobin 32.0 28.0-32.0 pg Mean Corpuscular Hemoglobin Concent 34.6 32.0-36.0 g/dL Red Cell Distribution Width 13.3 11.8-14.3 % Platelet Count 264 140-450 10^3/uL Mean Platelet Volume 6.7 L 6.9-10.8 fL Neutrophils (%) (Auto) 79.7 37.0-80.0 % Lymphocytes (%) (Auto) 11.9 10.0-50.0 % Monocytes (%) (Auto) 7.8 0.0-12.0 % Eosinophils (%) (Auto) 0.1 0.0-7.0 % Basophils (%) (Auto) 0.5 0.0-2.0 % Neutrophils # (Auto) 6.4 1.6-8.6 10 ^3/uL Lymphocytes # (Auto) 1.0 0.4-5.4 10 ^3/uL Monocytes # (Auto) 0.6 0-1.3 10 ^3/uL Eosinophils # (Auto) 0 0-0.8 10 ^3/uL Basophils # (Auto) 0 0-0.2 10 ^3/uL Nucleated Red Blood Cells 0.1 % Sodium Level 140 136-145 mmol/L Potassium Level 3.2 L 3.5-5.1 mmol/L Chloride Level 100 98-107 mmol/L Carbon Dioxide Level 26 20-31 mmol/L Anion Gap 14 5-15 Blood Urea Nitrogen 7 L 9-23 mg/dL Creatinine 1.06 0.700-1.30 mg/dL Glomerular Filtration Rate Calc 100 >90 mL/min BUN/Creatinine Ratio 6.6 L 10.0-20.0 Serum Glucose 173 H 74-106 mg/dL Calcium Level 10.9 H 8.7-10.4 mg/dL Magnesium Level 1.4 L 1.6-2.6 mg/dL Total Bilirubin 1.0 0.2-1.0 mg/dL Aspartate Amino Transferase (AST) 34 13-40 U/L Alanine Aminotransferase (ALT) 29 7-40 U/L Alkaline Phosphatase 114 46-116 U/L Creatine Kinase 209 H 46-171 U/L Total Protein 8.0 5.7-8.2 g/dL Albumin 5.3 H 3.2-4.8 g/dL Levetiracetam Level Pending Plasma/Serum Blood Alcohol < 3.0 <10 mg/dL Current Medications Medications (Trade) Dose Ordered Sig/Travon Route Start Time Stop Time Status Last Admin Sodium Chloride 1,000 ml @ 1,000 mls/hr Q1H ONCE IV 12/10/24 22:30 12/10/24 23:29 DC 12/10/24 22:44 Ondansetron HCl (Zofran) 8 mg ONCE ONCE IV 12/10/24 22:30 12/10/24 22:31 DC 12/10/24 22:44 Levetiracetam 100 ml @ 400 mls/hr ONCE ONCE IV 12/10/24 22:30 12/10/24 22:44 DC 12/10/24 22:43 Sodium Chloride 2,000 ml @ 1,000 mls/hr Q2H ONCE IV 12/10/24 23:30 12/11/24 01:29 12/10/24 23:48 Magnesium Sulfate/ Dextrose 100 ml @ 100 mls/hr ONCE ONCE IV 12/10/24 23:30 12/11/24 00:29 DC 12/10/24 23:53 Potassium Chloride (Klor-Con Tablet) 40 meq ONCE ONCE PO 12/10/24 23:30 12/10/24 23:34 DC 12/10/24 23:53 [facility] [id number] [place] [id number] Ph: [phone] DIAGNOSTIC IMAGING Diagnostic Imaging Report : [id number] Signed PATIENT: MIRLANDE TAN ACCT: [id number] UNIT: [id number] : 2000 LOC: ER ROOM / BED: / AGE / SEX: 24 / M ADM STATUS: REG ER SERVICE [id number] ORDERING PHYSICIAN: NICK LACEY DO PROCEDURE(s): HWOCT - HEAD WITHOUT CONTRAST REASON: gardner ORDER NUMBER(s): [id number], ACCESSION NUMBER(s): [id number] CT BRAIN WITHOUT CONTRAST HISTORY: Headache TECHNIQUE: Axial scans were obtained from the skull base through the vertex without contrast. Sagittal and coronal reformats were generated. One or more of the following radiation dose reduction techniques were used for this examination: automated exposure control, adjustment of the mA and/or kV according to patient size, use of iterative reconstruction technique. COMPARISON: CT HEAD WITHOUT CONTRAST on DOS: 11/26/24 FINDINGS: No acute intracranial hemorrhage or evidence of large vessel territorial infarction identified at this time. No midline shift. The basilar cisterns are patent. Sunshine-white differentiation appears relatively preserved. The visualized paranasal sinuses and mastoid air cells are clear. No grossly displaced calvarial fracture is identified. IMPRESSION: No acute intracranial findings. If symptoms persist, follow-up MRI may be considered to further evaluate. ATED BY: MAC BELL MD DICTATED DATE/TIME: 12/11/2424 SIGNED BY: MAC BELL MD SIGNED DATE/TIME: 12/11/2424 CC: [place] [id number] Ph: [phone] DIAGNOSTIC IMAGING Diagnostic Imaging Report : [id number] Signed PATIENT: MIRLANDE TAN ACCT: [id number] UNIT: [id number] : 2000 LOC: ER ROOM / BED: / AGE / SEX: 24 / M ADM STATUS: REG ER SERVICE 2216 ORDERING PHYSICIAN: NICK LACEY DO PROCEDURE(s): CXRP - CHEST PORTABLE REASON: sz ORDER NUMBER(s): [id number], ACCESSION NUMBER(s): [id number] CHEST RADIOGRAPH Indication: sz Technique: Single frontal view of the chest was obtained COMPARISON: XY CHEST PORTABLE on DOS: 11/26/24, XY CHEST XRAY 1 VIEW on DOS: 11/10/24, XY CHEST XRAY 1 VIEW on DOS: 05/21/24, XY CHEST XRAY 1 VIEW on DOS: 05/20/24, XY CHEST PORTABLE on DOS: 05/19/24 FINDINGS: Lines and Tubes: None Lungs: Clear Pleura: No effusion. No pneumothorax. Cardiomediastinal contours: Unremarkable Bones: Unremarkable IMPRESSION: 1. No acute disease. ATED BY: JASPREET LOPEZ MD DICTATED DATE/TIME: 12/10/242255 SIGNED BY: JASPREET LOPEZ MD SIGNED DATE/TIME: 12/10/242255 CC: Time of 1ST Reevaluation: 00:52 Reevaluation 1ST: Improved Patient Education/Counseling: Diagnosis, Treatment Family Education/Counseling: Other Comments Patient presented with the above HPI.---recurrent seizure---workup was initiated. patient was found with the above mentioned diagnosis. the following medications were ordered: please refer to order lists of meds and tests obtained by myself Dr. Lacey. Patient ED course and VS have been stabilized. Patient has been reassessed in the ED and remained in a stable condition. Pertinent incidental findings were discussed with the patient and/or family. Patient/family voices understanding and is agreeable with plan. Patient has been observed in the ED adequate length of time to insure improvement/stability. Escalation of care considered: Consideration of escalation to observation or admission Patient was ADMITTED to the medicine team for further evaluation and treatment of their presentation. All the reports of any imaging studies that were ordered by myself were reviewed by myself. Departure 1 Departure Time of Disposition: 23:23 Impression: Primary Impression: Breakthrough seizure Additional Impressions: Hypomagnesemia Hypokalemia Disposition: ADMITTED INPATIENT Admit to: Tele Condition: Guarded Discharged With: Self Critical Care Note Critical Care Time?: Yes (35 min-critical care time only) NICK LACEY DO Dec 10, 2024 22:23
[2024-12-10] MEDS: levETIRAcetam 1000 mg/100ml 100 ML IV ONE (22:43)
[2024-12-10] MEDS: SODIUM CHLORIDE 0.9% 1,000 ML IV ONE (22:44)
[2024-12-10] MEDS: ONDANSETRON HCL 4 MG/2 ML VIAL IV ONE (22:44)
[2024-12-10 22:45] LABS: Basophils # (auto) 0 10 ^3/uL (0-0.2); Basophils % (auto) 0.5 % (0.0-2.0); Eosinophils # (auto) 0 10 ^3/uL (0-0.8); Eosinophils % (auto) 0.1 % (0.0-7.0); Hemoglobin 15.6 g/dL (13.5-17.5); Lymphocytes % (auto) 11.9 % (10.0-50.0); Mean Corpuscular Hgb Conc. 34.6 g/dL (32.0-36.0); Mean Corpuscular Volume 92.5 fL (80.0-100.0); Monocytes # (auto) 0.6 10 ^3/uL (0-1.3); Monocytes % (auto) 7.8 % (0.0-12.0); Neutrophils # (auto) 6.4 10 ^3/uL (1.6-8.6); Neutrophils % (auto) 79.7 % (37.0-80.0); Nucleated Red Blood Cells % 0.1 %; Platelet Count (auto) 264 10^3/uL (140-450); Red Blood Cells 4.86 10^6/uL (4.5-5.90); Red Cell Distribution Width 13.3 % (11.8-14.3)
[2024-12-10 22:52] VITALS: PULSE 78; RESP 20; O2SAT 96
--- NOTE | 2024-12-10 22:58 | DVH ---
CHEST RADIOGRAPH Indication: sz Technique: Single frontal view of the chest was obtained COMPARISON: XY CHEST PORTABLE on DOS: 11/26/24, XY CHEST XRAY 1 VIEW on DOS: 11/10/24, XY CHEST XRAY 1 V IEW on DOS: 05/21/24, XY CHEST XRAY 1 VIEW on DOS: 05/20/24, XY CHEST PORTABLE on DOS: 05/19/24 FINDINGS: Lines and Tubes: None Lungs: Clear Pleura: No effusion. No pneumothorax. Cardiomediastinal contours: Unremarkable Bones: Unremarkable IMPRESSION: 1. No acute disease.
[2024-12-10 23:02] LABS: Alanine Aminotransferase 29 U/L (7-40); Alkaline Phosphatase 114 U/L (46-116); Anion Gap 14 (5-15); BUN/Creatinine Ratio 6.6 (10.0-20.0); Carbon Dioxide 26 mmol/L (20-31); Chloride 100 mmol/L (98-107); Sodium 140 mmol/L (136-145)
[2024-12-10 23:03] LABS: Aspartate Aminotransferase 34 U/L (13-40)
[2024-12-10 23:04] LABS: Albumin 5.3 g/dL (3.2-4.8); Blood Alcohol < 3.0 mg/dL (<10); Blood Urea Nitrogen 7 mg/dL (9-23); Calcium 10.9 mg/dL (8.7-10.4); Creatine Kinase IFCC 209 U/L (46-171); Glucose 173 mg/dL (74-106); Magnesium 1.4 mg/dL (1.6-2.6); Potassium 3.2 mmol/L (3.5-5.1)
[2024-12-10 23:08] LABS: Lactic Acid w/Reflex 7.2 mmol/L (0.4-2.0)
[2024-12-10] MEDS: SODIUM CHLORIDE 0.9% 2,000 ML IV ONE (23:48)
[2024-12-10] MEDS: POTASSIUM CHL 20 Meq TABLET PO ONE (23:53)
[2024-12-10] MEDS: MAGNESIUM SULFATE 1GM/100ML 100 ML IV ONE (23:53)
--- NOTE | 2024-12-11 00:27 | DVH ---
CT BRAIN WITHOUT CONTRAST HISTORY: Headache TECHNIQUE: Axial scans were obtained from the skull base through the vertex without contrast. Sagitta l and coronal reformats were generated. One or more of the following radiation dose reduction techniq ues were used for this examination: automated exposure control, adjustment of the mA and/or kV accord ing to patient size, use of iterative reconstruction technique. COMPARISON: CT HEAD WITHOUT CONTRAST on DOS: 11/26/24 FINDINGS: No acute intracranial hemorrhage or evidence of large vessel territorial infarction identified at thi s time. No midline shift. The basilar cisterns are patent. Sunshine-white differentiation appears relat ively preserved. The visualized paranasal sinuses and mastoid air cells are clear. No grossly displaced calvarial frac ture is identified. IMPRESSION: No acute intracranial findings. If symptoms persist, follow-up MRI may be considered to further evalu ate.
[2024-12-11] MEDS ORDERED: ACETAMINOPHEN 325 MG TAB PO PRN (02:15)
[2024-12-11] MEDS ORDERED: HYDROcodone-ACET 5/325MG TAB PO PRN (02:15)
[2024-12-11] MEDS ORDERED: DOCUSATE SOD 100 MG CAP PO PRN (02:15)
[2024-12-11 03:11] LABS: Urine Bacteria None Seen /hpf (None Seen)
[2024-12-11 03:23] LABS: Urine Blood Negative /uL (Negative); Urine Clarity Clear (Clear); Urine Color Light-Yellow (Yellow); Urine Protein, UAD TRACE (Negative); Urine Specific Gravity 1.014 (1.001-1.035); Urine Squamous Epithelial Cell None Seen /hpf (<5); Urine Urobilinogen Normal (Negative); Urine WBC < 1 /HPF (0-3)
[2024-12-11] MEDS: QUEtiapine FUMARATE 25 MG TAB PO SCH (03:27)
--- NOTE | 2024-12-11 03:51 | DVHHP2 ---
History of Present Illness Reason for Visit: Seizure disorder History of Present Illness The patient is a 24-year-old male with past medical history of depression and seizures who presented to [facility] ED for evaluation of witnessed seizures activity. As reported patient had witnessed seizures episode while in b ed each lasting 30 seconds with 15 seconds in between, slightly postictal afterward, but he is now back to his normal self upon arrival to the ED. patient was seen and evaluated in the ED, laboratory data shows WBC 8.0, platelets 264, sodium 140, potassium 3.2, BUN 7, creatinine 1.06, glucose 173, lactic acid 7.2 trending down to 1.3, calcium 10.9, total bilirubin 1.0, magnesium 1.4, troponin < 3, albumin 5.3, CK 209, blood pressure 128/78, heart rate 78, temperature 98.2 F, O2 saturation 96% on room air. Head CT showed no acute intracranial findings. Patient was started on IV Keppra, please see medication orders section in the computer. On my assessment, girlfriend at bedside, no seizures activities at this moment, no diaphoresis, no headache, no dizziness, no shortness of breath, no nausea, no vomiting, no fever, no chills. Patient was admitted for further evaluation and medical management. Past Medical History Depression, Seizures Past Surgical History Denies all surgeries Family History Reviewed, noncontributory to the management of this case. Past Social History The patient lives at home, smokes cigarettes less than 1 pack/day, drinks alcohol heavily, uses marijuana. Review of Systems Constitutional: Yes: Weakness; No: Fever, Chills, Sweats, Malaise, Other Eyes: No: Pain, Vision change, Conjunctivae inflammation, Eyelid inflammation, Other, Redness ENT: No: Ear pain, Ear discharge, Nose pain, Nose discharge, Nose congestion, Mouth pain, Mouth swelling, Throat pain, Throat swelling, Other Respiratory: No: Cough, Dry, Shortness of breath, SOB with excertion, Wheezing, Hemoptysis, Pleuritic Pain, Sputum, Wheezing, Other Cardiovascular: No: Chest Pain, Palpitations, Orthopnea, Paroxysmal Noc. Dyspnea, Edema, Lt Headedness, Other Gastrointestinal: No: Nausea, Vomiting, Abdominal Pain, Diarrhea, Constipation, Melena, Hematochezia, Other Genitourinary: No Dysuria, No Frequency, No Incontinence, No Hematuria, No Retention, No Other Musculoskeletal: No: other, neck pain, shoulder pain, arm pain, back pain, hand pain, leg pain, foot pain Skin: No: Rash, Lesions, Jaundice, Bruising, Other Neurological: Seizures; No: Weakness, Numbness, Incoordination, Change in speech, Confusion, Other Allergies: Coded Allergies: No Known Drug Allergy (Verified Allergy, Unknown, 10/02/17) Medications Current Medications Medications Dose Ordered Sig/Travon Route Start Time Stop Time Status Last Admin Dose Admin Levetiracetam 100 ml @ 400 mls/hr BID IV 12/11/24 10:00 Sodium Chloride 10 ml Q8HR IV 12/11/24 06:00 Acetaminophen/ Hydrocodone Bitart 1 tab Q4HP PRN PO 12/11/24 02:15 Ondansetron HCl 4 mg Q4HP PRN IV 12/11/24 02:15 Docusate Sodium 100 mg BIDPRN PRN PO 12/11/24 02:15 Acetaminophen 650 mg Q6HP PRN PO 12/11/24 02:15 Quetiapine Fumarate 50 mg HS PO 12/11/24 03:16 12/11/24 03:27 50 MG Sertraline HCl 50 mg DAILY PO 12/11/24 10:00 Exam Vital Signs Vital Signs Date Time Temp Pulse Resp B/P (MAP) Pulse Ox O2 Delivery O2 Flow Rate FiO2 12/11/24 03:40 85 19 126/82 (97) 98 12/10/24 22:52 Room Air* 0 21 12/10/24 22:51 98.2 98.2 General Appearance: Alert, Oriented X3, Cooperative, No acute distress HEENT: Atraumatic, PERRLA, EOMI, Mucous membr. moist/pink Respiratory: Clear to auscultation, Normal air movement Cardiovascular: Regular rate, Normal S1, Normal S2, No murmurs Abdominal: Normal bowel sounds, Soft, No tenderness, No hepatospenomegaly, No masses Extremities: No clubbing, No cyanosis, No edema, Normal pulses, No tenderness/swelling Skin: No rashes, No breakdown, No significant lesion Neuro: Normal speech, Normal tone, Sensation intact, Cranial nerves 3-12 NL, Reflexes 2+, Other (Generalized weakness) Psych/Mental Status: Mental status NL, Mood NL Labs/Xrays Labs Test 12/11/24 00:28 12/10/24 23:25 12/10/24 22:29 12/10/24 02:35 Range/Units Lactic Acid Level 1.3 0.4-2.0 mmol/L Troponin I High Sensitivity < 3 L </=54 ng/L White Blood Count 8.0 4.4-10.8 10^3/uL Red Blood Count 4.86 4.5-5.90 10^6/uL Hemoglobin 15.6 13.5-17.5 g/dL Hematocrit 45.0 41.0-53.0 % Mean Corpuscular Volume 92.5 80.0-100.0 fL Mean Corpuscular Hemoglobin 32.0 28.0-32.0 pg Mean Corpuscular Hemoglobin Concent 34.6 32.0-36.0 g/dL Red Cell Distribution Width 13.3 11.8-14.3 % Platelet Count 264 140-450 10^3/uL Mean Platelet Volume 6.7 L 6.9-10.8 fL Neutrophils (%) (Auto) 79.7 37.0-80.0 % Lymphocytes (%) (Auto) 11.9 10.0-50.0 % Monocytes (%) (Auto) 7.8 0.0-12.0 % Eosinophils (%) (Auto) 0.1 0.0-7.0 % Basophils (%) (Auto) 0.5 0.0-2.0 % Neutrophils # (Auto) 6.4 1.6-8.6 10 ^3/uL Lymphocytes # (Auto) 1.0 0.4-5.4 10 ^3/uL Monocytes # (Auto) 0.6 0-1.3 10 ^3/uL Eosinophils # (Auto) 0 0-0.8 10 ^3/uL Basophils # (Auto) 0 0-0.2 10 ^3/uL Nucleated Red Blood Cells 0.1 % Sodium Level 140 136-145 mmol/L Potassium Level 3.2 L 3.5-5.1 mmol/L Chloride Level 100 98-107 mmol/L Carbon Dioxide Level 26 20-31 mmol/L Anion Gap 14 5-15 Blood Urea Nitrogen 7 L 9-23 mg/dL Creatinine 1.06 0.700-1.30 mg/dL Glomerular Filtration Rate Calc 100 >90 mL/min BUN/Creatinine Ratio 6.6 L 10.0-20.0 Serum Glucose 173 H 74-106 mg/dL Hemoglobin A1c 4.7 <5.7 % A1C Calcium Level 10.9 H 8.7-10.4 mg/dL Magnesium Level 1.4 L 1.6-2.6 mg/dL Total Bilirubin 1.0 0.2-1.0 mg/dL Aspartate Amino Transferase (AST) 34 13-40 U/L Alanine Aminotransferase (ALT) 29 7-40 U/L Alkaline Phosphatase 114 46-116 U/L Creatine Kinase 209 H 46-171 U/L Total Protein 8.0 5.7-8.2 g/dL Albumin 5.3 H 3.2-4.8 g/dL Plasma/Serum Blood Alcohol < 3.0 <10 mg/dL Urine Color Light-yellow Yellow Urine Clarity Clear Clear Urine pH 7.0 5.0-9.0 Urine Specific [place] 1.014 1.001-1.035 Urine Protein Trace H Negative Urine Ketones Trace Negative Urine Blood Negative Negative /uL Urine Nitrite Negative Negative Urine Bilirubin Negative Negative Urine Urobilinogen Normal Negative mg/dL Urine Leukocyte Esterase Negative Negative /uL Urine RBC 1 0 - 3 /hpf Urine Microscopic WBC < 1 0-3 /HPF Urine Squamous Epithelial Cells None seen <5 /hpf Urine Bacteria None seen None Seen /hpf Urine Glucose Normal Normal mg/dL PATIENT: MIRLANDE TAN ACCT: [id number] UNIT: [id number] : 2000 LOC: ER ROOM / BED: / AGE / SEX: 24 / M ADM STATUS: REG ER SERVICE [id number] ORDERING PHYSICIAN: NICK LACEY DO PROCEDURE(s): HWOCT - HEAD WITHOUT CONTRAST REASON: ORDER NUMBER(s): [id number], ACCESSION NUMBER(s): [id number] CT BRAIN WITHOUT CONTRAST HISTORY: Headache TECHNIQUE: Axial scans were obtained from the skull base through the vertex without contrast. Sagittal and coronal reformats were generated. One or more of the following radiation dose reduction techniques were used for this examination: automated exposure control, adjustment of the mA and/or kV according to patient size, use of iterative reconstruction technique. COMPARISON: CT HEAD WITHOUT CONTRAST on DOS: 11/26/24 FINDINGS: No acute intracranial hemorrhage or evidence of large vessel territorial infarction identified at this time. No midline shift. The basilar cisterns are patent. Sunshine-white differentiation appears relatively preserved. The visualized paranasal sinuses and mastoid air cells are clear. No grossly displaced calvarial fracture is identified. IMPRESSION: No acute intracranial findings. If symptoms persist, follow-up MRI may be considered to further evaluate. ORDERING PHYSICIAN: NICK LACEY DO PROCEDURE(s): CXRP - CHEST PORTABLE REASON: sz ORDER NUMBER(s): [id number], ACCESSION NUMBER(s): [id number] CHEST RADIOGRAPH Indication: sz Technique: Single frontal view of the chest was obtained COMPARISON: XY CHEST PORTABLE on DOS: 11/26/24, XY CHEST XRAY 1 VIEW on DOS: 11/10/24, XY CHEST XRAY 1 VIEW on DOS: 05/21/24, XY CHEST XRAY 1 VIEW on DOS: 05/20/24, XY CHEST PORTABLE on DOS: 05/19/24 FINDINGS: Lines and Tubes: None Lungs: Clear Pleura: No effusion. No pneumothorax. Cardiomediastinal contours: Unremarkable Bones: Unremarkable IMPRESSION: 1. No acute disease. Assessment/Plan Assessment/Plan Breakthrough seizure Hypokalemia Hypomagnesemia Generalized weakness Plan 1. Admit to telemetry unit 2. Breathing treatment 3. Pain control management 4. Management of fluids and electrolytes 5. Consultation for Neurology 6. Diagnostic tests head CT 7. DVT prophylaxis on SCDs 8. Repeat labs CBC, CMP in a.m. 9. Continue with current medical management 10. Treatment plan discussed with patient and RN. Patient verbalized understanding. Plan discussed with: Patient, Other (RN) My Orders Orders - RODOLFO HIDALGO DNP Procedure Category Date Status Time Complete Blood Count LAB 12/11/24 Logged 04:00 Comprehensive LAB 12/11/24 Logged Metabolic Panel 04:00 Levetiracetam 500 PHA 12/11/24 In Process Mg/100ml (Levetiraceta 10:00 Allergies KRYSTINA 12/11/24 In Process 02:05 Code Status CODE 12/11/24 Transmitted 02:05 Sodium Chloride Lock PHA 12/11/24 In Process (Saline Lock Ns) 06:00 Oxygen Per Hour RT 12/11/24 Transmitted 02:05 Hydrocodone-Acet PHA 12/11/24 In Process 5/325mg Tab (Clover 02:15 Ondansetron Hcl PHA 12/11/24 In Process (Zofran) 02:15 Docusate Sodium PHA 12/11/24 In Process Capsule (Colace 02:15 Fall Risk Precautions KRYSTINA 12/11/[address] 02:05 Complete Blood Count LAB 12/12/24 Verified 04:00 Comprehensive LAB 12/12/24 Verified Metabolic Panel 04:00 Cardiac DIET 12/11/24 Transmitted Diet-2gna,Lofat,Lochol Breakfast Condition: Serious KRYSTINA 12/11/24 In Process 02:05 Acetaminophen Tablet PHA 12/11/24 In Process (Tylenol Tablet) 02:15 Maintain Bed Rest KRYSTINA 12/11/24 In Process 02:05 Sequential KRYSTINA 12/11/24 In Process Compression Device Quetiapine Fumarate PHA 12/11/24 In Process Tablet (Seroquel Tab 03:16 Sertraline Hcl PHA 12/11/24 In Process (Zoloft) 10:00 Problem List: (1) Breakthrough seizure (2) Hypokalemia (3) Hypomagnesemia (4) Generalized weakness Date of Service: Dec 11, 2024 Billing Provider: RODOLFO HIDALGO DNP Common Visit Codes: 88451-SUGJESY INP/OBS CARE (HIGH) RODOLFO HIDALGO DNP Dec 11, 2024 03:51
[2024-12-11] MEDS ORDERED: MORPHINE SULFATE 4 MG/ML SYR/VIAL IV PRN (04:00)
[2024-12-11] MEDS ORDERED: NITROGLYCERIN 0.4 MG SL TAB SL PRN (04:00)
[2024-12-11] MEDS: SODIUM CHLOR 0.9% PF (SALINE LOCK) 10ML VIAL/SYR IV SCH (06:00)
[2024-12-11 07:23] LABS: Basophils # (auto) 0 10 ^3/uL (0-0.2); Basophils % (auto) 0.7 % (0.0-2.0); Eosinophils # (auto) 0 10 ^3/uL (0-0.8); Eosinophils % (auto) 0.4 % (0.0-7.0); Hemoglobin 13.1 g/dL (13.5-17.5); Lymphocytes # (auto) 1.5 10 ^3/uL (0.4-5.4); Lymphocytes % (auto) 22.8 % (10.0-50.0); Mean Corpuscular Hemoglobin 32.2 pg (28.0-32.0); Mean Corpuscular Hgb Conc. 34.4 g/dL (32.0-36.0); Mean Corpuscular Volume 93.7 fL (80.0-100.0); Monocytes # (auto) 0.6 10 ^3/uL (0-1.3); Monocytes % (auto) 9.4 % (0.0-12.0); Neutrophils # (auto) 4.4 10 ^3/uL (1.6-8.6); Neutrophils % (auto) 66.7 % (37.0-80.0); Nucleated Red Blood Cells % 0.1 %; Platelet Count (auto) 191 10^3/uL (140-450); Red Blood Cells 4.06 10^6/uL (4.5-5.90); Red Cell Distribution Width 13.2 % (11.8-14.3); White Blood Cell 6.6 10^3/uL (4.4-10.8)
[2024-12-11 07:28] VITALS: PULSE 60; RESP 16; O2SAT 94
[2024-12-11 07:38] LABS: Alanine Aminotransferase 19 U/L (7-40); Albumin 3.9 g/dL (3.2-4.8); Alkaline Phosphatase 84 U/L (46-116); Anion Gap 9 (5-15); Aspartate Aminotransferase 31 U/L (13-40); Bilirubin, Total 1.1 mg/dL (0.2-1.0); Carbon Dioxide 24 mmol/L (20-31); Glucose 84 mg/dL (74-106); Potassium 3.8 mmol/L (3.5-5.1); Sodium 142 mmol/L (136-145); Total Protein 5.7 g/dL (5.7-8.2)
[2024-12-11 07:49] LABS: BUN/Creatinine Ratio 6.8 (10.0-20.0); Blood Urea Nitrogen < 5 mg/dL (9-23); Chloride 109 mmol/L (98-107)
[2024-12-11] MEDS: SERTRALINE HCL 50 MG TAB PO SCH (09:22)
[2024-12-11] MEDS: levETIRAcetam 500 mg/100ml 100 ML IV SCH (09:22)
[2024-12-11] MEDS: ONDANSETRON HCL 4 MG/2 ML VIAL IV PRN (10:19)
[2024-12-11 17:00] VITALS: BP 125/74; PULSE 64; RESP 18; TEMP 97.8; O2SAT 97
[2024-12-11] MEDS ORDERED: LEVE500T40 PO (17:18)
[2024-12-11 18:22] VITALS: BP 120/80; PULSE 72; RESP 18; TEMP 98; O2SAT 98
[2024-12-11] MEDS ORDERED: LORazepam 2MG/ML-1ML VIAL IV PRN (18:30)
[2024-12-11 20:00] VITALS: PULSE 99
[2024-12-11 21:00] VITALS: BP 139/71; PULSE 101; RESP 18; TEMP 98.1; O2SAT 98
[2024-12-12] VITALS (7 sets, daily range): BP systolic 108–139; BP diastolic 72–92; PULSE 60–89; RESP 15–18; TEMP 97.3–98.2; O2SAT 98–99
[2024-12-12 06:12] LABS: Alanine Aminotransferase 20 U/L (7-40); Albumin 4.4 g/dL (3.2-4.8); Alkaline Phosphatase 85 U/L (46-116); Anion Gap 10 (5-15); Calcium 9.3 mg/dL (8.7-10.4); Carbon Dioxide 28 mmol/L (20-31); Chloride 105 mmol/L (98-107); Glucose 86 mg/dL (74-106); Sodium 143 mmol/L (136-145); Total Protein 6.6 g/dL (5.7-8.2)
[2024-12-12 06:13] LABS: Basophils # (auto) 0 10 ^3/uL (0-0.2); Basophils % (auto) 0.8 % (0.0-2.0); Eosinophils # (auto) 0 10 ^3/uL (0-0.8); Eosinophils % (auto) 0.8 % (0.0-7.0); Hematocrit 40.6 % (41.0-53.0); Hemoglobin 14.1 g/dL (13.5-17.5); Lymphocytes # (auto) 1.6 10 ^3/uL (0.4-5.4); Mean Corpuscular Hgb Conc. 34.6 g/dL (32.0-36.0); Mean Corpuscular Volume 92.5 fL (80.0-100.0); Monocytes # (auto) 0.5 10 ^3/uL (0-1.3); Monocytes % (auto) 9.3 % (0.0-12.0); Neutrophils # (auto) 3.5 10 ^3/uL (1.6-8.6); Neutrophils % (auto) 61.1 % (37.0-80.0); Nucleated Red Blood Cells % 0.2 %; Platelet Count (auto) 183 10^3/uL (140-450); Red Blood Cells 4.39 10^6/uL (4.5-5.90); Red Cell Distribution Width 13.1 % (11.8-14.3); White Blood Cell 5.8 10^3/uL (4.4-10.8)
[2024-12-12 06:29] LABS: Blood Urea Nitrogen < 5 mg/dL (9-23); Potassium 3.4 mmol/L (3.5-5.1)
[2024-12-12 06:44] LABS: Aspartate Aminotransferase 33 U/L (13-40)
--- NOTE | 2024-12-12 15:57 | DVHDS2 ---
Discharge Summary Date of Admission Dec 11, 2024 at 03:50 Date of Discharge: Dec 12, 2024 Labs/Diagnostic Data: Laboratory Results Test 12/12/24 05:27 12/11/24 10:16 12/11/24 00:28 12/10/24 23:25 White Blood Count 5.8 10^3/uL (4.4-10.8) Red Blood Count 4.39 10^6/uL (4.5-5.90) Hemoglobin 14.1 g/dL (13.5-17.5) Hematocrit 40.6 % (41.0-53.0) Mean Corpuscular Volume 92.5 fL (80.0-100.0) Mean Corpuscular Hemoglobin 32.0 pg (28.0-32.0) Mean Corpuscular Hemoglobin Concent 34.6 g/dL (32.0-36.0) Red Cell Distribution Width 13.1 % (11.8-14.3) Platelet Count 183 10^3/uL (140-450) Mean Platelet Volume 7.1 fL (6.9-10.8) Neutrophils (%) (Auto) 61.1 % (37.0-80.0) Lymphocytes (%) (Auto) 28.0 % (10.0-50.0) Monocytes (%) (Auto) 9.3 % (0.0-12.0) Eosinophils (%) (Auto) 0.8 % (0.0-7.0) Basophils (%) (Auto) 0.8 % (0.0-2.0) Neutrophils # (Auto) 3.5 10 ^3/uL (1.6-8.6) Lymphocytes # (Auto) 1.6 10 ^3/uL (0.4-5.4) Monocytes # (Auto) 0.5 10 ^3/uL (0-1.3) Eosinophils # (Auto) 0 10 ^3/uL (0-0.8) Basophils # (Auto) 0 10 ^3/uL (0-0.2) Nucleated Red Blood Cells 0.2 % Sodium Level 143 mmol/L (136-145) Potassium Level 3.4 mmol/L (3.5-5.1) Chloride Level 105 mmol/L (98-107) Carbon Dioxide Level 28 mmol/L (20-31) Anion Gap 10 (5-15) Blood Urea Nitrogen < 5 mg/dL (9-23) Creatinine 0.84 mg/dL (0.700-1.30) Glomerular Filtration Rate Calc 124 mL/min (>90) BUN/Creatinine Ratio 6.0 (10.0-20.0) Serum Glucose 86 mg/dL (74-106) Calcium Level 9.3 mg/dL (8.7-10.4) Total Bilirubin 1.0 mg/dL (0.2-1.0) Aspartate Amino Transferase (AST) 33 U/L (13-40) Alanine Aminotransferase (ALT) 20 U/L (7-40) Alkaline Phosphatase 85 U/L (46-116) Total Protein 6.6 g/dL (5.7-8.2) Albumin 4.4 g/dL (3.2-4.8) POC Glucose 98 mg/dl (70-106) Lactic Acid Level 1.3 mmol/L (0.4-2.0) Troponin I High Sensitivity < 3 ng/L (</=54) Test 12/10/24 22:29 12/10/24 02:35 Hemoglobin A1c 4.7 % A1C (<5.7) Magnesium Level 1.4 mg/dL (1.6-2.6) Creatine Kinase 209 U/L (46-171) Plasma/Serum Blood Alcohol < 3.0 mg/dL (<10) Urine Color Light-yellow (Yellow) Urine Clarity Clear (Clear) Urine pH 7.0 (5.0-9.0) Urine Specific [place] 1.014 (1.001-1.035) Urine Protein Trace (Negative) Urine Ketones Trace (Negative) Urine Blood Negative /uL (Negative) Urine Nitrite Negative (Negative) Urine Bilirubin Negative (Negative) Urine Urobilinogen Normal mg/dL (Negative) Urine Leukocyte Esterase Negative /uL (Negative) Urine RBC 1 /hpf (0 - 3) Urine Microscopic WBC < 1 /HPF (0-3) Urine Squamous Epithelial Cells None seen /hpf (<5) Urine Bacteria None seen /hpf (None Seen) Urine Glucose Normal mg/dL (Normal) Other Laboratory Tests 12/12/24 05:27 Brief Hx & Hospital Course: 54-year-old young male with a known history of seizure disorder, chronic alcoholism presented to the hospital with seizures. Eventually patient was admitted patient was resumed on Keppra home dose. Also patient was being seen by Dr. Matthew neurology currently stable to be discharged. Patient's has no evidence of any seizures in the hospital. Patient was also recommended to complete abstinence from alcohol. Patient agrees to current plan of care. Patient's family requested some Librium which will be prescribed. Condition at Discharge: Stable Final Diagnosis/Problems List 1. Breakthrough seizures 2. seizure disorder 3. Chronic alcoholism, recently currently down as per patient's family member at bedside. Discharge Disposition: Home SNF Discharge Will this Physician continue t: No Discharge Instruct/Medications Diet: Regular Activity: See Comment Activity comment: No driving, no signing of legal documents, no bleeding on heavy machinery while on seizure medications. Follow Up/Referral: Follow up with the PCP in 1-2 weeks Follow up with the Neurology in 1-2 weeks Medications: Resume home medications Discharge Statement: "Patient was advised to return to the ER or call 911 if any headaches, dizziness, shortness of breath, chest pain, abdominal pain, bleeding, fevers, or worsening of medical condition. Patient was counseled about treatment plan, medications, possible side effects, patientverbalized understanding. All questions were answered to the best of my ability. This discharge took greater then 30 minutes in planning, reviewing documentation, counseling the patient, and discussing with other team members." ASSESSMENT ASSESSMENT Assessment 1. Breakthrough seizures 2. seizure disorder Date of Service: Dec 12, 2024 Billing Provider: MIRIAN ROBBINS MD Common Visit Codes: 53425-VLN/OBS DISCH DAY >30min MIRIAN ROBBINS MD Dec 12, 2024 15:57
--- NOTE | 2024-12-12 19:08 | DVHINCON2 ---
Date of service: Dec 12, [address] ROBBINS Reason for Consultation Seizure History of Present Illness Mr. Baltazar is a 24 years old right-handed gentleman with a history of alcohol abuse, he came to the hospital on with a chief complaint of seizure activity. At this time, he is alert, fully oriented, he provided the following history I saw him on 10/04/2023, 05/18/2024 for seizure He has a history of seizure disorder, that will be further described. About three weeks after he stopped drinking alcohol, he had seizure at home. The last time he had seizure before this one was about one month ago He has had seizure disorder since 2020, he believes his seizures were alcohol related, because the all happens 1 day - 2-3 weeks after the last alcohol consumption, he had total four seizures in 2024 He is on Keppra 500 mg b.i.d. He has gone through many tests, including MRI/CT brain, and EEG, nothing wrong was found. Urinalysis, 12/10/2024: Unremarkable Plasma alcohol, 12/10/2024: <3 CBC, 12/12/2024: Unremarkable CMP, 12/12/2024: Unremarkable EEG, 05/19/2024: Remarkably abnormal CT head, 12/10/2024: No acute intracranial findings. If symptoms persist, follow-up MRI may be considered to further evaluate MRI head, 10/04/2023: No acute intracranial pathology. No change from prior CT exam MR head, 05/17/2024: No evidence of acute infarction, intracranial hemorrhage, mass effect or hydrocephalus Past Medical History Anxiety Past Surgical History No surgeries Family History: Hypertension G8 FATHER Family History Hypertension, no answer, no alcohol or drug problems Social History He smokes tobacco and marijuana, he drinks alcohol heavily till the end of 11/2024, no drug abuse Allergies: Coded Allergies: No Known Drug Allergy (Verified Allergy, Unknown, 10/02/17) Home Meds Active Scripts Promethazine-Dm (Promethazine Dm 6.25-15 mg/5Ml) 1 Catrachita Catrachita, 5 ML PO TID PRN, #200 ML Prov:CODIE LLOYD [employer]MM[employer]ROL INSPECTOR 11/10/24 Albuterol Sulfate (Albuterol Sulfate Hfa) 108 Mcg/Act Aer, 108 MCG IN TID PRN, #1 AER Prov:CODIE LLOYD [employer] PATROL INSPECTOR 11/10/24 Levetiracetam (KEPPRA TABLET) 500 Mg Tb, 1000 MG PO BID for 30 Days, #120 TAB 6 Refills Prov:FIONA EDWARDS DO 10/06/23 Reported Medications Sertraline Hcl (Sertraline Hcl) 50 Mg Tab, 1 TAB PO 11/26/24 Quetiapine Fumerate (QUETIAPINE FUMARATE) 50 Mg Tab, 1 TAB PO 11/26/24 Discontinued Reported Medications Levetiracetam (Keppra) 500 Mg Tab, 500 MG PO BID for 30 Days, MG 12/11/24 Review of Systems As above, the other systems are negative Vital Signs Vital Signs Date Time Temp Pulse Resp B/P (MAP) Pulse Ox O2 Delivery O2 Flow Rate FiO2 12/12/24 17:16 97.3 65 16 139/92 (108) 99 97.3 12/12/24 08:00 Room Air* 0 21 Physical Exam GENERAL EXAM: General: the patient is well developed and nourished. No acute distress. HEENT: Normocephalic, neck is supple, no carotid bruits. No mass. RESPIRATORY: Normal respiratory effort with symmetrical lung expansion. Lungs clear to auscultation. CARDIOVASCULAR: Regular rate and rhythm with no murmurs. S1, S2. ABDOMEN: Soft, nontender, normal bowel sound NEUROLOGICAL: MENTAL STATUS: Awake and alert. Oriented to person, place, time and general circumstances. Able to give personal history. The patient is aware of recent events SPEECH, LANGUAGE, HIGHER CORTICAL FUNCTION: no aphasia or dysathria. CRANIAL NERVES: #2: Intact visual montgomery to confrontation. The optic discs were sharp. Retinal background was uniformly pink in appearance. There was no hemorrhages or exudates. #3,4,6: Pupils are equal, round and reactive. EOMs full and conjugate. Mild bilateral gaze evoked nystagmus. #5: Facial sensation intact in all three divisions bilaterally. Mandibular str ength intact. #7: Facial muscles symmetrical and strength intact. #8: Hearing grossly normal to voice. #9,10: Uvula and soft palate rise in the midline. Swallow and voice are normal. #11: Trapezius and sternomastoid strength intact bilaterally. #12: Tongue midline. No fasciculations or atrophy. SENSATION: Sensation to touch and pinprick is normal. MOTOR: Normal tone in the upper and lower extremity. Normal muscle bulk. No fasciculations. No abnormal movements or posturing. Muscle strength of the major groups in the upper extremities is 5/5. Muscle strength of the major groups in the lower extremities is 5/5. REFLEXES: Deep tendon reflexes normal and symmetrical. No pathological reflexes. CEREBELLAR/COORDINATION: Finger to nose and heel to tucker are normal bilaterally. GAIT/STATION: Within normal limits Labs/Diagnostic Data Labs Test 12/12/24 05:27 12/11/24 10:16 12/11/24 00:28 12/10/24 23:25 Range/Units White Blood Count 5.8 4.4-10.8 10^3/uL Red Blood Count 4.39 L 4.5-5.90 10^6/uL Hemoglobin 14.1 13.5-17.5 g/dL Hematocrit 40.6 L 41.0-53.0 % Mean Corpuscular Volume 92.5 80.0-100.0 fL Mean Corpuscular Hemoglobin 32.0 28.0-32.0 pg Mean Corpuscular Hemoglobin Concent 34.6 32.0-36.0 g/dL Red Cell Distribution Width 13.1 11.8-14.3 % Platelet Count 183 140-450 10^3/uL Mean Platelet Volume 7.1 6.9-10.8 fL Neutrophils (%) (Auto) 61.1 37.0-80.0 % Lymphocytes (%) (Auto) 28.0 10.0-50.0 % Monocytes (%) (Auto) 9.3 0.0-12.0 % Eosinophils (%) (Auto) 0.8 0.0-7.0 % Basophils (%) (Auto) 0.8 0.0-2.0 % Neutrophils # (Auto) 3.5 1.6-8.6 10 ^3/uL Lymphocytes # (Auto) 1.6 0.4-5.4 10 ^3/uL Monocytes # (Auto) 0.5 0-1.3 10 ^3/uL Eosinophils # (Auto) 0 0-0.8 10 ^3/uL Basophils # (Auto) 0 0-0.2 10 ^3/uL Nucleated Red Blood Cells 0.2 % Sodium Level 143 136-145 mmol/L Potassium Level 3.4 L 3.5-5.1 mmol/L Chloride Level 105 98-107 mmol/L Carbon Dioxide Level 28 20-31 mmol/L Anion Gap 10 5-15 Blood Urea Nitrogen < 5 L 9-23 mg/dL Creatinine 0.84 0.700-1.30 mg/dL Glomerular Filtration Rate Calc 124 >90 mL/min BUN/Creatinine Ratio 6.0 L 10.0-20.0 Serum Glucose 86 74-106 mg/dL Calcium Level 9.3 8.7-10.4 mg/dL Total Bilirubin 1.0 0.2-1.0 mg/dL Aspartate Amino Transferase (AST) 33 13-40 U/L Alanine Aminotransferase (ALT) 20 7-40 U/L Alkaline Phosphatase 85 46-116 U/L Total Protein 6.6 5.7-8.2 g/dL Albumin 4.4 3.2-4.8 g/dL POC Glucose 98 70-106 mg/dl Lactic Acid Level 1.3 0.4-2.0 mmol/L Troponin I High Sensitivity < 3 L </=54 ng/L Test 12/10/24 22:29 12/10/24 02:35 Range/Units Hemoglobin A1c 4.7 <5.7 % A1C Magnesium Level 1.4 L 1.6-2.6 mg/dL Creatine Kinase 209 H 46-171 U/L Plasma/Serum Blood Alcohol < 3.0 <10 mg/dL Urine Color Light-yellow Yellow Urine Clarity Clear Clear Urine pH 7.0 5.0-9.0 Urine Specific [place] 1.014 1.001-1.035 Urine Protein Trace H Negative Urine Ketones Trace Negative Urine Blood Negative Negative /uL Urine Nitrite Negative Negative Urine Bilirubin Negative Negative Urine Urobilinogen Normal Negative mg/dL Urine Leukocyte Esterase Negative Negative /uL Urine RBC 1 0 - 3 /hpf Urine Microscopic WBC < 1 0-3 /HPF Urine Squamous Epithelial Cells None seen <5 /hpf Urine Bacteria None seen None Seen /hpf Urine Glucose Normal Normal mg/dL Microbiology Date/Time Source Procedure Growth Status 12/12/24 03:15 Nose MRSA Screen - Final Complete Assessment Grand mal seizure Likely alcohol withdrawal ? Epileptic seizure Alcoholism, quit in the end of 11/2024 Plan/Recommendation Anxiety Monitoring Supportive treatment Telemetry [facility] for seizure breakthrough Keppra 500mg Bid VitB1 supplementation Folic acid supplementation He is motivated to stopped alcohol completely His is not licensed to drive Okay to discharge home from neurologic point of view of the giving him vitamin B1 and folic acid This medical document was created using an electronic medical record system with [employer] dictation system. Although this document has been carefully reviewed, there may still be some phonetic and typographical errors. These areas are purely typographical due to imperfections of the software programs, and do not reflect any compromise in the patient's medical care. Plan discussed with: Patient, Other KVNG MCKEON MD Dec 12, 2024 19:08
[2024-12-12] MEDS: FOLIC ACID 1 MG in D5W 5% 50 ML INJ ONE ×2 (19:30→20:26)
[2024-12-12] MEDS: THIAMINE 100mg/ml INJ (200mg/2ml VIAL) IM ONE (20:45)
[2024-12-12] MEDS: FOLIC ACID 1 MG TAB PO ONE (20:45)
[2024-12-14] MEDS ORDERED: CHL25C GT (14:48)
== END 2024-12-12 20:51 | disposition home or self-care (01) | DRG 53 ==
LOC: EDBD 22:05 → ER 22:05 → OVERFLOW 12-11 03:50 → TELE-WESTW 12-11 18:22
PROVIDERS: ADMIT Nurse Practitioner Family; ATTEND Nurse Practitioner Family
DX: G40.409 Other generalized epilepsy and epileptic syndromes, not intractable, without status epilepticus (principal); E83.42 Hypomagnesemia; E87.6 Hypokalemia; F17.210 Nicotine dependence, cigarettes, uncomplicated; F41.9 Anxiety disorder, unspecified; F32.A Depression, unspecified; Z82.49 Family history of ischemic heart disease and other diseases of the circulatory system; Z79.899 Other long term (current) drug therapy
CPT/HCPCS: 36415; 70450; 71045; 80053; 80320; 81001; 82542; 82550; 82962; 83036; 83605; 83735; 84484; 85025; 87081; 96365; 96375; 99291; G0378; J2405; J7060

== ENCOUNTER 2025-02-27 23:17 | Inpatient (IN) | payer MEDICAID ==
[~2025-02-27] VITALS: Ht 175.3 cm; Wt 68.1 kg
[~2025-02-27 23:17] MED LIST changes: +CHL25C GT
[2025-02-27] MEDS: LORazepam 2MG/ML-1ML VIAL ONE (23:45)
[2025-02-27] MEDS: LORazepam 2MG/ML-1ML VIAL IV ONE (23:50)
[2025-02-28] VITALS: RESP 20; O2SAT 98
[2025-02-28] MEDS: levETIRAcetam 1000 mg/100ml 100 ML IV ONE (00:01)
[2025-02-28 00:50] LABS: Chloride 104 mmol/L (98-107); Potassium 4.0 mmol/L (3.5-5.1); Sodium 142 mmol/L (136-145)
[2025-02-28 00:51] LABS: Anion Gap 28 (5-15)
[2025-02-28 00:52] LABS: Calcium 9.0 mg/dL (8.7-10.4)
[2025-02-28 00:56] LABS: BUN/Creatinine Ratio 5.7 (10.0-20.0)
[2025-02-28 01:01] LABS: Blood Urea Nitrogen 7 mg/dL (9-23); Glucose 179 mg/dL (74-106)
[2025-02-28 01:04] LABS: Carbon Dioxide 10 mmol/L (20-31)
--- NOTE | 2025-02-28 01:39 | ED.PDOC ---
History of Present Illness HPI Comments 24-year-old male who was brought in by ambulance for chief complaint of seizure. Significant history of seizures and medication noncompliance with his Keppra. Per EMS report, patient was at a bar when he had sudden and unprovoked seizure episode onset. No signs of trauma or incontinence noted by EMS personnel staff upon arrival on scene. No additional acute symptoms reported at this time. Chief Complaint: Seizure Time Seen by MD: 23:25 Primary Care Provider: UNKNOWN Reviewed Notes: Nurses Notes, Medications, Allergies Allergies: Coded Allergies: No Known Drug Allergy (Verified Allergy, Unknown, 10/02/17) Home Meds Active Scripts Chlordiazepoxide Hcl (Librium) 25 Mg Cp, 25 MG GT Q8HP PRN, #20 CAP Prov:MIRIAN ROBBINS MD 12/14/24 Promethazine-Dm (Promethazine Dm 6.25-15 mg/5Ml) 1 Catrachita Catrachita, 5 ML PO TID PRN, #200 ML Prov:CODIE LLOYD WATERMELON HARVESTING SUPERVISOR 11/10/24 Albuterol Sulfate (Albuterol Sulfate Hfa) 108 Mcg/Act Aer, 108 MCG IN TID PRN, #1 AER Prov:CODIE LLOYD WATERMELON [employer]STING SUPERVISOR 11/10/24 Levetiracetam (KEPPRA TABLET) 500 Mg Tb, 1000 MG PO BID for 30 Days, #120 TAB 6 Refills Prov:FIONA EDWARDS DO 10/06/23 Reported Medications Sertraline Hcl (Sertraline Hcl) 50 Mg Tab, 1 TAB PO 11/26/24 Quetiapine Fumerate (QUETIAPINE FUMARATE) 50 Mg Tab, 1 TAB PO 11/26/24 Information Source: Patient, Emergency Med Personnel Mode of Arrival: EMS Severity: Moderate Timing: Hours Duration: Since onset Prehospital treatment: None Past Medical History PAST MEDICAL HISTORY: Depression, Seizures Surgical History: Denies all surgeries Family History Family History: Reviewed,noncontributory to illness, Unknown Social History Smoker: Cigarettes, Less Than 1 Pack/Day Alcohol: Heavy Drugs: Marijuana Lives In: Home All Other Systems: Reviewed and Negative (Comprehensive systems review obtained and negative except for what is stated in the HPI.) Physical Exam General Appearance: No Apparent Distress, Normal, Other (Patient is postictal) HEENT: Normal ENT Inspection, Pharynx Normal, TMs Normal Neck: Full Range of Motion, Non-Tender, Normal, Normal Inspection Respiratory: Chest Non-Tender, Lungs Clear, No Accessory Muscle Use, No Respiratory Distress, Normal Breath Sounds Cardiovascular: No Edema, No JVD, No Murmur, No Gallop, Normal Peripheral Pulses, Regular Rate/Rhythm Breast Exam: Deferred Gastrointestinal: No Organomegaly, Non Tender, No Pulsatile Mass, Normal Bowel Sounds, Soft Genitalia: Deferred Pelvic: Deferred Rectal: Deferred Extremities: No calf tenderness, Normal capillary refill, Normal inspection, Normal range of motion, Non-tender, No pedal edema Musculoskeletal : Apperance: Normal Neurologic: Other (Patient is postictal) Cerebellar Function: Normal Reflexes: Normal Skin: Dry, Normal Color, Warm Lymphatic: No Adenopathy Was a procedure done? Was a procedure done?: No Differential Dx Considerations may include: seizure breakthrough, seizure status, CVA, electrolyte imbalance, noncompliance, status epilepticus. Encephalopathy. Protracted postictal state, hypoglycemia, hypoxia, alcohol intoxication, drug overdose. X-Ray, Labs, Meds, VS Vital Signs Date Time Temp Pulse Resp B/P (MAP) Pulse Ox O2 Delivery O2 Flow Rate FiO2 02/28/25 00:03 97.8 130 20 117/77 96 97.8 02/28/25 00:00 97.8 115 20 128/80 (96) 98 97.8 02/28/25 00:00 20 98 Room Air* 0 21 Lab Test 02/28/25 00:20 Range/Units Sodium Level 142 136-145 mmol/L Potassium Level 4.0 3.5-5.1 mmol/L Chloride Level 104 98-107 mmol/L Carbon Dioxide Level 10 L 20-31 mmol/L Anion Gap 28 H 5-15 Blood Urea Nitrogen 7 L 9-23 mg/dL Creatinine 1.23 0.700-1.30 mg/dL Glomerular Filtration Rate Calc 84 >90 mL/min BUN/Creatinine Ratio 5.7 L 10.0-20.0 Serum Glucose 179 H 74-106 mg/dL Calcium Level 9.0 8.7-10.4 mg/dL Plasma/Serum Blood Alcohol 7.3 <10 mg/dL Current Medications Medications (Trade) Dose Ordered Sig/Travon Route Start Time Stop Time Status Last Admin Levetiracetam 100 ml @ 400 mls/hr ONCE ONCE IV 02/28/25 00:00 02/28/25 00:14 DC 02/28/25 00:01 Lorazepam (Ativan Inj) 2 mg ONCE ONCE IV 02/27/25 23:50 02/27/25 23:58 DC 02/27/25 23:50 Time of 1ST Reevaluation: 23:55 Reevaluation 1ST: Unchanged Time of 2ND Reevaluation: 01:51 Reevaluation 2ND: Unchanged Patient Education/Counseling: Diagnosis, Treatment, Need For Follow Up Family Education/Counseling: No Family Present Comments Patient reportedly has not been compliant with his seizure medication and he has been drinking. When he had a seizure. Patient had another bout of seizure while he was in the emergency room which he require Ativan. Since then he has been seizure-free however remains Prozac toe. I just reassessed the patient he is arousable but seems to be somnolent he is exhibiting protracted postictal state he will be admitted for earlier evaluation the cause of the seizure is likely EKGs noncompliance as well as alcohol ingestion. Additional Information Previous visits reviewed: December 11, 2024 encounter for seizure disorder The following tests were ordered, and results were reviewed by me: Urine ethanol, BMP Additional Information was gathered from interviewing the following independent historians: I reviewed and agreed with the following test results read by other providers: I discussed treatment and results with medical personnel and: patient SEPSIS Sepsis Screen Date sepsis recognized/suspect: Feb 27, 2025 Time Sepsis recognized/suspect: 2319 Recent Procedure: No On Antibiotic Therapy: No Respiratory Rate >20: No Heart Rate >90: Yes Temp<36 C (96.8 F) or >38.3 C: No SBP <90 or MAP <65 mmHG: No New Acute Mental Status Change: No Is the patient on CPAP, BIPAP,: No Physician Orders Seizure Precautions (02/27/25 ) Vital Signs Date Time Temp Pulse Resp B/P (MAP) Pulse Ox O2 Delivery O2 Flow Rate FiO2 02/28/25 00:03 97.8 130 20 117/77 96 97.8 02/28/25 00:00 97.8 115 20 128/80 (96) 98 97.8 02/28/25 00:00 20 98 Room Air* 0 21 Medications Medications Dose Ordered Sig/Travon Route Start Time Stop Time Status Last Admin Dose Admin Levetiracetam 100 ml @ 400 mls/hr ONCE ONCE IV 02/28/25 00:00 02/28/25 00:14 DC 02/28/25 00:01 Lorazepam 2 mg ONCE ONCE IV 02/27/25 23:50 02/27/25 23:58 DC 02/27/25 23:50 Departure 1 Departure Time of Disposition: 01:52 Impression: Primary Impression: Postictal confusion Additional Impressions: Seizure disorder Noncompliance Disposition: ADMITTED INPATIENT Admit to: Tele Condition: Stable Critical Care Note Critical Care Time?: Yes (45 min-critical care time only) Critical care comment: Due to concerns for patients condition deteriorating, the care required my highest level of attention and readiness to intervene. I assessed the patient, reviewed the medical records, ordered the appropriate tests and treatments, then reassessed for results and responsiveness. I communicated with medical personnel and consultants and formulated a plan of care. Total critical care time excludes any procedures Stability Stability form required: No Heart Score Heart Score: Heart Score Response (Comments) Value History N/A 0 EKG N/A 0 Age N/A 0 Risk Factors N/A 0 Troponin N/A 0 Total 0 I personally scribed for EVELINA TOWNSEND MD ([email or web address]) on 02/28/25 at 01:39. Electronically submitted by Chava Garica ([email or web address]). EVELINA TOWNSEND MD Feb 28, 2025 01:39
[2025-02-28] MEDS ORDERED: SODIUM CHLORIDE 0.9% 1,000 ML IV ONE (05:30)
[2025-02-28] MEDS: THIAMINE 100mg/ml INJ (200mg/2ml VIAL) IV ONE (05:30)
[2025-02-28] MEDS: SODIUM CHLORIDE 0.9% 1,000 ML IVB ONE (05:30)
[2025-02-28] MEDS: LORazepam 2MG/ML-1ML VIAL IV SCH (05:30)
[2025-02-28] MEDS ORDERED: ONDANSETRON HCL 4 MG/2 ML VIAL IV PRN (05:45)
[2025-02-28] MEDS ORDERED: MORPHINE SULFATE INJ 2 MG/ml SYRG IV PRN (05:45)
[2025-02-28] MEDS ORDERED: ACETAMINOPHEN 325 MG TAB PO PRN (05:45)
[2025-02-28] MEDS ORDERED: HYDROcodone-ACET 5/325MG TAB PO PRN (05:45)
[2025-02-28] MEDS ORDERED: NITROGLYCERIN 0.4 MG SL TAB SL PRN (05:45)
[2025-02-28] MEDS ORDERED: DOCUSATE SOD 100 MG CAP PO PRN (05:45)
[2025-02-28] MEDS: FOLIC ACID 1 MG in D5W 5% 50 ML INJ ONE (05:49)
[2025-02-28 06:13] LABS: Hematocrit 42.0 % (41.0-53.0); Hemoglobin 14.7 g/dL (13.5-17.5); Mean Corpuscular Hemoglobin 32.8 pg (28.0-32.0); Mean Corpuscular Volume 93.6 fL (80.0-100.0); Nucleated Red Blood Cells % 0.0 %
[2025-02-28 06:31] LABS: Alanine Aminotransferase 25 U/L (7-40); Albumin 4.6 g/dL (3.2-4.8); Alkaline Phosphatase 94 U/L (46-116); Anion Gap 9 (5-15); BUN/Creatinine Ratio 9.3 (10.0-20.0); Calcium 9.3 mg/dL (8.7-10.4); Carbon Dioxide 26 mmol/L (20-31); Chloride 105 mmol/L (98-107); Glucose 81 mg/dL (74-106); Potassium 3.9 mmol/L (3.5-5.1); Sodium 140 mmol/L (136-145); Total Protein 7.2 g/dL (5.7-8.2)
[2025-02-28 06:32] LABS: Bilirubin, Total 1.1 mg/dL (0.2-1.0)
[2025-02-28 06:38] LABS: Blood Urea Nitrogen 8 mg/dL (9-23); Magnesium 1.6 mg/dL (1.6-2.6)
--- NOTE | 2025-02-28 06:40 | DVH ---
CHEST RADIOGRAPH Indication: rule out aspiration pneumonia Technique: Single frontal view of the chest was obtained Comparison: XY CHEST PORTABLE on DOS: 12/10/24 FINDINGS: Lines and Tubes: None Lungs: Lungs are hypoinflated prominence of the pulmonary markings. No focal consolidation. Pleura: No effusion. No pneumothorax. Cardiomediastinal contours: Unremarkable Bones: No acute osseous abnormality. IMPRESSION: 1. Hyperinflated lungs with prominence of the pulmonary vasculature. No focal airspace.
[2025-02-28 06:41] LABS: Urine Protein, UAD 1+ (Negative)
[2025-02-28 06:43] LABS: Cannabinoid Screen, Urine Pos (NEGATIVE)
[2025-02-28 06:49] LABS: Amphetamine Screen, Urine Neg (NEGATIVE); Barbiturate Scree,Urine Neg (NEGATIVE); Benzodiazephine Screen, Urine Neg (NEGATIVE); Cocaine Screen, Urine Neg (NEGATIVE); Opiate Scree,Urine Neg (NEGATIVE); Phencyclidine Screen, Urine Neg (NEGATIVE)
[2025-02-28 08:00] VITALS: TEMP 98.4
--- NOTE | 2025-02-28 08:37 | DVHHPRES ---
History of Present Illness Resident Creating Document: NIALL SOTELO RESIDENT History of Present Illness Patient is a 24 year old male with past medical history of asthma, anxiety, depression, seizure disorder who presented to the emergency department following a single episode of seizure that occurred while he was at a bar with his girlfriend. He reports a loss of consciousness during the event. According to the patient, his seizures are typically triggered by alcohol consumption. Patient stated his last drink was Friday night. He also disclosed that he has not taken his prescribed Keppra for the past week due to running out of medication.The seizure was described as tonic-clonic in nature, accompanied by eye deviation. There was no reported incontinence or tongue biting. Postictal symptoms such as confusion, somnolence, headache, or weakness were absent. He denies any associated symptoms including fever, chest pain, nausea, vomiting, diarrhea, shortness of breath, head trauma, or falls. Head CT was ordered, neuro consult was placed for further evaluation and management. Past medical history: Seizure disorder, asthma, anxiety, depression Past surgical history: Denies Family history: Noncontributory Social history: Vapes nicotine, drinks occasionally, uses marijuana Lives with: Family Review of Systems Constitutional: No: Fever, Chills, Sweats, Weakness, Malaise, Other Eyes: No: Pain, Vision change, Conjunctivae inflammation, Eyelid inflammation, Other, Redness ENT: No: Ear pain, Ear discharge, Nose pain, Nose discharge, Nose congestion, Mouth pain, Mouth swelling, Throat pain, Throat swelling, Other Respiratory: No: Cough, Dry, Shortness of breath, SOB with excertion, Wheezing, Hemoptysis, Pleuritic Pain, Sputum, Wheezing, Other Cardiovascular: No: Chest Pain, Palpitations, Orthopnea, Paroxysmal Noc. Dyspnea, Edema, Lt Headedness, Other Gastrointestinal: No: Nausea, Vomiting, Abdominal Pain, Diarrhea, Constipation, Melena, Hematochezia, Other Genitourinary: No Dysuria, No Frequency, No Incontinence, No Hematuria, No Retention, No Other Musculoskeletal: No: other, neck pain, shoulder pain, arm pain, back pain, hand pain, leg pain, foot pain Skin: No: Rash, Lesions, Jaundice, Bruising, Other Neurological: Seizures; No: Weakness, Numbness, Incoordination, Change in speech, Confusion, Other Allergies: Coded Allergies: No Known Drug Allergy (Verified Allergy, Unknown, 10/02/17) Medications Current Medications Medications Dose Ordered Sig/Travon Route Start Time Stop Time Status Last Admin Dose Admin Levetiracetam 100 ml @ 400 mls/hr BID IV 02/28/25 10:00 Folic Acid 1 mg DAILY PO 02/28/25 10:00 Thiamine HCl 100 mg DAILY PO 02/28/25 10:00 Lorazepam 1 mg Q4H IV 02/28/25 05:30 Sodium Chloride 1,000 ml @ 60 mls/hr [id number] IV 02/28/25 05:45 Acetaminophen 325 mg Q4HP PRN PO 02/28/25 05:45 Acetaminophen/ Hydrocodone Bitart 1 tab Q4HP PRN PO 02/28/25 05:45 Ondansetron HCl 4 mg Q4HP PRN IV 02/28/25 05:45 Docusate Sodium 100 mg BIDPRN PRN PO 02/28/25 05:45 Nitroglycerin 0.4 mg Q5MINP PRN SL 02/28/25 05:45 Morphine Sulfate 2 mg Q30M PRN IV 02/28/25 05:45 Exam Vital Signs Vital Signs Date Time Temp Pulse Resp B/P (MAP) Pulse Ox O2 Delivery O2 Flow Rate FiO2 02/28/25 05:00 85 18 98/54 (69) 96 02/28/25 00:03 97.8 97.8 02/28/25 00:00 Room Air* 0 21 Exam General: Patient alert and oriented in person, place and time. Patient following commands. HEENT: Normocephalic, atraumatic, moist mucous membranes Respiratory/pulmonary: Clear lungs bilaterally, vesicular murmurs present in almost all lung montgomery, no associated crackles or wheezes. Cardiovascular: Normal heart sounds S1 and S2 with no associated murmurs Abdomen: Abdomen nondistended, there is no pain to palpation in any of the abdominal quadrants, no palpable masses. Extremities: There is no peripheral edema present at the lower extremities. Peripheral Pulses: 3+ Radial (R). 3+ Radial (L). 3+ Dorsalis pedis (R). 3+ Dorsalis pedis(L) Skin: No rashes or pruritus, there is no sacral edema present at this time. Neurological: Intact cranial nerves with no focal neurologic deficits Labs/Xrays Labs Test 02/28/25 05:50 02/28/25 00:52 02/28/25 00:20 Range/Units White Blood Count 11.7 H 4.4-10.8 10^3/uL Red Blood Count 4.48 L 4.5-5.90 10^6/uL Hemoglobin 14.7 13.5-17.5 g/dL Hematocrit 42.0 41.0-53.0 % Mean Corpuscular Volume 93.6 80.0-100.0 fL Mean Corpuscular Hemoglobin 32.8 H 28.0-32.0 pg Mean Corpuscular Hemoglobin Concent 35.1 32.0-36.0 g/dL Red Cell Distribution Width 12.7 11.8-14.3 % Platelet Count 158 140-450 10^3/uL Mean Platelet Volume 6.9 6.9-10.8 fL Neutrophils (%) (Auto) 84.7 H 37.0-80.0 % Lymphocytes (%) (Auto) 6.3 L 10.0-50.0 % Monocytes (%) (Auto) 8.6 0.0-12.0 % Eosinophils (%) (Auto) 0.1 0.0-7.0 % Basophils (%) (Auto) 0.3 0.0-2.0 % Neutrophils # (Auto) 9.9 H 1.6-8.6 10 ^3/uL Lymphocytes # (Auto) 0.7 0.4-5.4 10 ^3/uL Monocytes # (Auto) 1.0 0-1.3 10 ^3/uL Eosinophils # (Auto) 0 0-0.8 10 ^3/uL Basophils # (Auto) 0 0-0.2 10 ^3/uL Nucleated Red Blood Cells 0.0 % Sodium Level 140 136-145 mmol/L Potassium Level 3.9 3.5-5.1 mmol/L Chloride Level 105 98-107 mmol/L Carbon Dioxide Level 26 # 20-31 mmol/L Anion Gap 9 5-15 Blood Urea Nitrogen 8 L 9-23 mg/dL Creatinine 0.86 0.700-1.30 mg/dL Glomerular Filtration Rate Calc 123 >90 mL/min BUN/Creatinine Ratio 9.3 L 10.0-20.0 Serum Glucose 81 74-106 mg/dL Calcium Level 9.3 8.7-10.4 mg/dL Magnesium Level 1.6 1.6-2.6 mg/dL Total Bilirubin 1.1 H 0.2-1.0 mg/dL Aspartate Amino Transferase (AST) 52 H 13-40 U/L Alanine Aminotransferase (ALT) 25 7-40 U/L Alkaline Phosphatase 94 46-116 U/L Total Protein 7.2 5.7-8.2 g/dL Albumin 4.6 3.2-4.8 g/dL Urine Color Light-yellow Yellow Urine Clarity Clear Clear Urine pH 5.0 5.0-9.0 Urine Specific Landing 1.016 1.001-1.035 Urine Protein 1+ H Negative Urine Ketones 1+ H Negative Urine Blood 1+ H Negative /uL Urine Nitrite Negative Negative Urine Bilirubin Negative Negative Urine Urobilinogen Normal Negative mg/dL Urine Leukocyte Esterase Negative Negative /uL Urine RBC 2 0 - 3 /hpf Urine Microscopic WBC 1 0-3 /HPF Urine Squamous Epithelial Cells Few <5 /hpf Urine Bacteria None seen None Seen /hpf Urine Glucose Normal Normal mg/dL Urine Opiates Screen Neg NEGATIVE Urine Fentanyl Screen Neg NEGATIVE Urine Barbiturates Screen Neg NEGATIVE Urine Phencyclidine Screen Neg NEGATIVE Urine Amphetamines Screen Neg NEGATIVE Urine Benzodiazepines Screen Neg NEGATIVE Urine Cocaine Screen Neg NEGATIVE Urine Cannabinoids Screen Pos NEGATIVE Plasma/Serum Blood Alcohol 7.3 <10 mg/dL SEPSIS Sepsis Screen Date sepsis recognized/suspect: Feb 27, 2025 Time Sepsis recognized/suspect: 2319 Recent Procedure: No On Antibiotic Therapy: No Respiratory Rate >20: No Heart Rate >90: Yes Temp<36 C (96.8 F) or >38.3 C: No SBP <90 or MAP <65 mmHG: No New Acute Mental Status Change: No Is the patient on CPAP, BIPAP,: No Physician Orders Levetiracetam 500 Mg/100ml (Levetiraceta (02/28/25 10:00) Folic Acid Tablet (02/28/25 10:00) Thiamine Tab (02/28/25 10:00) Lorazepam 2mg/Ml Inj (Ativan Inj) (02/28/25 05:30) Etoh Withdrawal Assessment (02/28/25 05:30) Etoh Withdrawal Assessment NOW (02/28/25 05:30) Admit (02/28/25 05:41) Allergies (02/28/25 05:41) Code Status (02/28/25 05:41) Sodium Chloride 0.9% (02/28/25 05:45) Acetaminophen Tablet (Tylenol Tablet) (02/28/25 05:45) Hydrocodone-Acet 5/325mg Tab ([place] 5/32 (02/28/25 05:45) Ondansetron Hcl (Zofran) (02/28/25 05:45) Docusate Sodium Capsule (Colace Capsule) (02/28/25 05:45) Fall Risk Precautions In Place QSHIFT (02/28/25 05:41) Npo (Nothing By Mouth) Diet (02/28/25 Breakfast) Condition: Serious (02/28/25 05:41) Nitroglycerin Sublingual (Ntrostat Subli (02/28/25 05:45) Morphine Sulfate Injection (02/28/25 05:45) Oxygen By Nasal Cannula (02/28/25 05:41) Stat Ekg For Chest Pain (02/28/25 05:41) Notify Md Of Changes From Base (02/28/25 05:41) Document Preparer Microfilming For 24 Hours (02/28/25 05:41) Emergency Dysrhythmia Protocol (02/28/25 05:41) Rhythm Strips Once Every Shift (02/28/25 05:41) Chest Xray 1 View (02/28/25 05:30) Lactic Acid W/ Reflex Order (02/28/25 08:07) Head Without Contrast (02/28/25 08:07) Mrsa Screen (02/28/25 08:07) Electrocardigram (02/28/25 08:07) Blood Alcohol (02/28/25 08:07) * Neurology Consult (02/28/25 08:07) Vital Signs Date Time Temp Pulse Resp B/P (MAP) Pulse Ox O2 Delivery O2 Flow Rate FiO2 02/28/25 05:00 85 18 98/54 (69) 96 02/28/25 03:05 112 21 118/73 (88) 95 02/28/25 02:56 110 22 128/81 (97) 96 Laboratory Tests Test 02/28/25 05:50 White Blood Count 11.7 10^3/uL (4.4-10.8) H Medications Medications Dose Ordered Sig/Travon Route Start Time Stop Time Status Last Admin Dose Admin Levetiracetam 100 ml @ 400 mls/hr ONCE ONCE IV 02/28/25 00:00 02/28/25 00:14 DC 02/28/25 00:01 400 MLS/HR Lorazepam 2 mg ONCE ONCE IV 02/27/25 23:50 02/27/25 23:58 DC 02/27/25 23:50 2 MG Sodium Chloride 1,000 ml @ 1,000 mls/hr Q1H ONCE IVB 02/28/25 05:30 02/28/25 06:29 DC 02/28/25 05:30 1,000 MLS/HR Thiamine HCl 100 mg NOW ONCE IV 02/28/25 05:30 02/28/25 05:42 DC 02/28/25 05:30 100 MG Assessment/Plan Assessment/Plan # seizure episode due to alcohol intoxication # SIRS due to alcohol intoxication # alcohol intoxication # alcohol use disorder # medication noncompliance - head CT ordered - neurology consult placed - CIWA score is 2 - Keppra IV b.i.d. - Morphine 2 mg - [place] - Ativan 1 mg IV q.4 # history of asthma - albuterol inhaler # history of depression/ anxiety - quetiapine 50 mg - Sertraline 50 mg # polysubstance abuse disorder - patient was counseled on cessation of alcohol, marijuana, smoking vape for more than 17 minutes - UDS positive for cannabinoids Goals of care addressed with the patient for more than 27 minutes: Full code status Case discussed with Dr. Nascimento , patient and nurse Plan discussed with: Patient My Orders Orders - NILAL SOTELO RESIDENT Procedure Category Date Status Time Admit ADMIT 02/28/25 Transmitted 05:41 Allergies KRYSTINA 02/28/25 In Process 05:41 Code Status CODE 02/28/25 Transmitted 05:41 Sodium Chloride 0.9% PHA 02/28/25 In Process 05:45 Acetaminophen Tablet PHA 02/28/25 In Process (Tylenol Tablet) 05:45 Hydrocodone-Acet PHA 02/28/25 In Process 5/325mg Tab ([place] 05:45 Ondansetron Hcl PHA 02/28/25 In Process (Zofran) 05:45 Docusate Sodium PHA 02/28/25 In Process Capsule (Colace 05:45 Fall Risk Precautions KRYSTINA 02/28/[address] 05:41 Npo (Nothing By DIET 02/28/25 Transmitted Mouth) Diet Breakfast Condition: Serious [facility] 02/28/25 In Process 05:41 Nitroglycerin PHA 02/28/25 In Process Sublingual (Ntrostat 05:45 Morphine Sulfate [facility] 02/28/25 In Process Injection 05:45 Oxygen By Nasal RT 02/28/25 Transmitted Cannula 05:41 Stat Ekg For Chest [facility] 02/28/25 In Process Pain 05:41 Notify Md Of Changes [facility] 02/28/25 In Process From Base 05:41 Document Preparer Microfilming For [facility] 02/28/25 In Process 24 Hours 05:41 Emergency Dysrhythmia [facility] 02/28/25 In Process Protocol 05:41 Rhythm Strips Once [facility] 02/28/25 In Process Every Shift 05:41 Lactic Acid W/ Reflex LAB 02/28/25 Logged Order 08:[address] 02/28/25 Logged 08:07 Mrsa Screen EVELYN 02/28/25 Uncollected 08:07 Electrocardigram EKG 02/28/25 Logged 08:07 Blood Alcohol LAB 02/28/25 Logged 08:07 * Neurology Consult CONS 02/28/25 Transmitted 08:07 Date of Service: Feb 28, 2025 Billing Provider: LIBRA NASCIMENTO MD Common Visit Codes: [id number] INP/OBS CARE (HIGH) Secondary Visit Codes: [id number] CARE PLAN 30 MINUTES NIALL SOTELO RESIDENT Feb 28, 2025 08:37
--- NOTE | 2025-02-28 09:15 | DVH ---
EXAM: CT HEAD WITHOUT CONTRAST INDICATION: nicolezure TECHNIQUE: CT of the head without intravenous contrast. Radiation Dose Information: CT Dose: CTDI volume is 54.56 mGy. Dose-length product is 966.24 mGy*cm The dose indicators for CT are the volume Computed Tomography (CT) Dose Index (CTDIvol) and the Dose Length Product (DLP), and are measured in units of mGy and mGy-cm, respectively. These indicators are not patient dose, but values generated from the CT scanner acquisition factors. The report includes radiation exposure data for exposures received during this examination. COMPARISON: CT HEAD WITHOUT CONTRAST on DOS: 12/10/24, CT HEAD WITHOUT CONTRAST on DOS: 11/26/24, CT HEA D WITHOUT CONTRAST on DOS: 08/12/24, MRI BRAIN HEAD WO CONTRAST on DOS: 05/17/24, CT HEAD WITHOUT CONTR AST on DOS: 05/16/24 FINDINGS: There is no evidence of acute intracranial hemorrhage, extra-axial collection, mass effect, midline s hift, herniation or hydrocephalus. The ventricles, sulci and cisterns are age appropriate. The montoya-white differentiation is intact. Patchy periventricular and subcortical white matter hypoattenuation is nonspecific but may be related to small vessel ischemic disease. The visualized paranasal sinuses and mastoid air cells are clear. The surrounding soft tissues and osseous structures are unremarkable. IMPRESSION: No acute intracranial abnormality.
--- NOTE | 2025-02-28 09:48 | DVHINCON2 ---
Date of service: Feb 28, [address] Forrest Reason for Consultation Seizure History of Present Illness Mr. Baltazar is a 24 years old right-handed gentleman with a history of alcohol abuse, he came to the hospital on 02/27/2025 with a chief complaint of seizure activity. At this time, he is alert, fully oriented, he provided the following history I saw him on 10/04/2023, 05/18/2024, 12/12/2024 for seizure He has a history of seizure disorder, that will be further described. On 02/27/2025, when he is drinking alcohol, he had a seizure activity with company amnesia. He relates this is a 1st seizure since the hospitalization to [facility] in 12/2023 He has had seizure disorder since 2020, he believes his seizures were alcohol related, because the all happens 1 day - 3 weeks after the last alcohol consumption, he had total 5 seizures in 2024 He only drinks alcohol once a while He is on Keppra 500 mg b.i.d. but he has run out around 02/13/2025 He has gone through many tests, including MRI/CT brain, and EEG, nothing wrong was found. UDS, 02/28/2025: Cannabinoids, Plasma alcohol, 02/28/2025: 7.3, <3 Urinalysis, 02/28/2025: WBC: One, urine leukocyte esterase: Negative Plasma alcohol, 12/10/2024: <3 CBC, 02/28/2025: 11.7 TBI/AST/ALT/AP, 02/28/2025: 1.1// EEG, 05/19/2024: Remarkably abnormal CT head, 12/10/2024: No acute intracranial findings. If symptoms persist, follow-up MRI may be considered to further evaluate CT head, 02/28/2025: No acute intracranial abnormality. MRI head, 10/04/2023: No acute intracranial pathology. No change from prior CT exam MR head, 05/17/2024: No evidence of acute infarction, intracranial hemorrhage, mass effect or hydrocephalus Past Medical History Anxiety Past Surgical History No surgeries Family History: Hypertension G8 FATHER Family History Hypertension, no anxiety, no alcohol or drug problems Social History He smokes tobacco and marijuana, he drinks alcohol heavily, no drug abuse Allergies: Coded Allergies: No Known Drug Allergy (Verified Allergy, Unknown, 10/02/17) Home Meds Active Scripts Chlordiazepoxide Hcl (Librium) 25 Mg Cp, 25 MG GT Q8HP PRN, #20 CAP Prov:MIRIAN ROBBINS MD 12/14/24 Promethazine-Dm (Promethazine Dm 6.25-15 mg/5Ml) 1 Catrachita Catrachita, 5 ML PO TID PRN, #200 ML Prov:CODIE LLOYD VETERINARIAN POULTRY 11/10/24 Albuterol Sulfate (Albuterol Sulfate Hfa) 108 Mcg/Act Aer, 108 MCG IN TID PRN, #1 AER Prov:CODIE LLOYD VETERINARIAN POULTRY 11/10/24 Levetiracetam (KEPPRA TABLET) 500 Mg Tb, 1000 MG PO BID for 30 Days, #120 TAB 6 Refills Prov:FIONA EDWARDS DO 10/06/23 Reported Medications Sertraline Hcl (Sertraline Hcl) 50 Mg Tab, 1 TAB PO 11/26/24 Quetiapine Fumerate (QUETIAPINE FUMARATE) 50 Mg Tab, 1 TAB PO 11/26/24 Current Medications Current Medications Medications (Trade) Dose Ordered Sig/Travon Route PRN Reason Start Time Stop Time Status Last Admin Levetiracetam 100 ml @ 400 mls/hr BID IV 02/28/25 10:00 Folic Acid 1 mg DAILY PO 02/28/25 10:00 Thiamine HCl 100 mg DAILY PO 02/28/25 10:00 Lorazepam (Ativan Inj) 1 mg Q4H IV 02/28/25 05:30 Sodium Chloride 1,000 ml @ 60 mls/hr [id number] IV 02/28/25 05:45 Acetaminophen (Tylenol Tablet) 325 mg Q4HP PRN PO MILD PAIN (1-3 PAIN SCALE) 02/28/25 05:45 Acetaminophen/ Hydrocodone Bitart ([place] 5/325MG Tab) 1 tab Q4HP PRN PO MODERATE PAIN (4-6 PAIN SCALE) 02/28/25 05:45 Ondansetron HCl (Zofran) 4 mg Q4HP PRN IV NAUSEA / VOMITING 02/28/25 05:45 Docusate Sodium (Colace Capsule) 100 mg BIDPRN PRN PO FOR CONSTIPATION 02/28/25 05:45 Nitroglycerin (Ntrostat Sublingual) 0.4 mg Q5MINP PRN SL FOR CHEST PAIN 02/28/25 05:45 Morphine Sulfate 2 mg Q30M PRN IV FOR CHEST PAIN 02/28/25 05:45 Review of Systems As above, the other systems are negative Vital Signs Vital Signs Date Time Temp Pulse Resp B/P (MAP) Pulse Ox O2 Delivery O2 Flow Rate FiO2 02/28/25 08:00 Room Air* 0 21 02/28/25 08:00 88 02/28/25 08:00 13 104/54 (71) 97 02/28/25 00:03 97.8 97.8 Physical Exam GENERAL EXAM: General: the patient is well developed and nourished. No acute distress. HEENT: Normocephalic, neck is supple, no carotid bruits. No mass. RESPIRATORY: Normal respiratory effort with symmetrical lung expansion. Lungs clear to auscultation. CARDIOVASCULAR: Regular rate and rhythm with no murmurs. S1, S2. ABDOMEN: Soft, nontender, normal bowel sound NEUROLOGICAL: MENTAL STATUS: Awake and alert. Oriented to person, place, time and general circumstances. Able to give personal history. The patient is aware of recent events SPEECH, LANGUAGE, HIGHER CORTICAL FUNCTION: no aphasia or dysathria. CRANIAL NERVES: #2: Intact visual montgomery to confrontation. The optic discs were sharp. Retinal background was uniformly pink in appearance. There was no hemorrhages or exudates. #3,4,6: Pupils are equal, round and reactive. EOMs full and conjugate. Mild bilateral gaze evoked nystagmus. #5: Facial sensation intact in all three divisions bilaterally. Mandibular strength intact. #7: Facial muscles symmetrical and strength intact. #8: Hearing grossly normal to voice. #9,10: Uvula and soft palate rise in the midline. Swallow and voice are normal. #11: Trapezius and sternomastoid strength intact bilaterally. #12: Tongue midline. No fasciculations or atrophy. SENSATION: Sensation to touch and pinprick is normal. MOTOR: Normal tone in the upper and lower extremity. Normal muscle bulk. No fasciculations. No abnormal movements or posturing. Muscle strength of the major groups in the upper extremities is 5/5. Muscle strength of the major groups in the lower extremities is 5/5. REFLEXES: Deep tendon reflexes normal and symmetrical. No pathological reflexes. CEREBELLAR/COORDINATION: Finger to nose and heel to tucker are normal bilaterally. GAIT/STATION: Within normal limits Labs/Diagnostic Data Labs Test 02/28/25 09:05 02/28/25 05:50 02/28/25 00:52 Range/Units White Blood Count 11.7 H 4.4-10.8 10^3/uL Red Blood Count 4.48 L 4.5-5.90 10^6/uL Hemoglobin 14.7 13.5-17.5 g/dL Hematocrit 42.0 41.0-53.0 % Mean Corpuscular Volume 93.6 80.0-100.0 fL Mean Corpuscular Hemoglobin 32.8 H 28.0-32.0 pg Mean Corpuscular Hemoglobin Concent 35.1 32.0-36.0 g/dL Red Cell Distribution Width 12.7 11.8-14.3 % Platelet Count 158 140-450 10^3/uL Mean Platelet Volume 6.9 6.9-10.8 fL Neutrophils (%) (Auto) 84.7 H 37.0-80.0 % Lymphocytes (%) (Auto) 6.3 L 10.0-50.0 % Monocytes (%) (Auto) 8.6 0.0-12.0 % Eosinophils (%) (Auto) 0.1 0.0-7.0 % Basophils (%) (Auto) 0.3 0.0-2.0 % Neutrophils # (Auto) 9.9 H 1.6-8.6 10 ^3/uL Lymphocytes # (Auto) 0.7 0.4-5.4 10 ^3/uL Monocytes # (Auto) 1.0 0-1.3 10 ^3/uL Eosinophils # (Auto) 0 0-0.8 10 ^3/uL Basophils # (Auto) 0 0-0.2 10 ^3/uL Nucleated Red Blood Cells 0.0 % Sodium Level 140 136-145 mmol/L Potassium Level 3.9 3.5-5.1 mmol/L Chloride Level 105 98-107 mmol/L Carbon Dioxide Level 26 # 20-31 mmol/L Anion Gap 9 5-15 Blood Urea Nitrogen 8 L 9-23 mg/dL Creatinine 0.86 0.700-1.30 mg/dL Glomerular Filtration Rate Calc 123 >90 mL/min BUN/Creatinine Ratio 9.3 L 10.0-20.0 Serum Glucose 81 74-106 mg/dL Calcium Level 9.3 8.7-10.4 mg/dL Magnesium Level 1.6 1.6-2.6 mg/dL Total Bilirubin 1.1 H 0.2-1.0 mg/dL Aspartate Amino Transferase (AST) 52 H 13-40 U/L Alanine Aminotransferase (ALT) 25 7-40 U/L Alkaline Phosphatase 94 46-116 U/L Total Protein 7.2 5.7-8.2 g/dL Albumin 4.6 3.2-4.8 g/dL Plasma/Serum Blood Alcohol < 3.0 <10 mg/dL Urine Color Light-yellow Yellow Urine Clarity Clear Clear Urine pH 5.0 5.0-9.0 Urine Specific [place] 1.016 1.001-1.035 Urine Protein 1+ H Negative Urine Ketones 1+ H Negative Urine Blood 1+ H Negative /uL Urine Nitrite Negative Negative Urine Bilirubin Negative Negative Urine Urobilinogen Normal Negative mg/dL Urine Leukocyte Esterase Negative Negative /uL Urine RBC 2 0 - 3 /hpf Urine Microscopic WBC 1 0-3 /HPF Urine Squamous Epithelial Cells Few <5 /hpf Urine Bacteria None seen None Seen /hpf Urine Glucose Normal Normal mg/dL Urine Opiates Screen Neg NEGATIVE Urine Fentanyl Screen Neg NEGATIVE Urine Barbiturates Screen Neg NEGATIVE Urine Phencyclidine Screen Neg NEGATIVE Urine Amphetamines Screen Neg NEGATIVE Urine Benzodiazepines Screen Neg NEGATIVE Urine Cocaine Screen Neg NEGATIVE Urine Cannabinoids Screen Pos NEGATIVE Assessment Grand mal seizure Likely alcohol withdrawal ? Epileptic seizure Alcoholism Plan/Recommendation Anxiety Monitoring Supportive treatment Telemetry Ativan for seizure breakthrough Keppra 500mg Bid VitB1 supplementation Folic acid supplementation He is motivated to stopped alcohol completely He has been advised not drive and he cleared DMV report in the chart Okay to discharge home from neurologic point of view of the giving him vitamin B1 and folic acid This medical document was created using an electronic medical record system with [employer] dictation system. Although this document has been carefully reviewed, there may still be some phonetic and typographical errors. These areas are purely typographical due to imperfections of the software programs, a nd do not reflect any compromise in the patient's medical care. Plan discussed with: Patient, Other KVNG MCKEON MD Feb 28, 2025 09:48
[2025-02-28 10:00] VITALS: BP 97/62; PULSE 95; RESP 22; O2SAT 96
[2025-02-28] MEDS: SODIUM CHLORIDE 0.9% 1,000 ML IV SCH (10:00)
[2025-02-28] MEDS: levETIRAcetam 500 mg/100ml 100 ML IV SCH (10:13)
[2025-02-28] MEDS: FOLIC ACID 1 MG TAB PO SCH (10:19)
[2025-02-28] MEDS: THIAMINE HCL 100 MG TAB PO SCH (10:19)
[2025-02-28] MEDS ORDERED: KEP500T PO (11:55)
[2025-02-28] MEDS ORDERED: CHL25C PO (11:55)
--- NOTE | 2025-02-28 14:26 | DVHDSRES ---
Discharge Summary Date of Admission Resident Creating Document: MONSERRAT DIGGS RESIDENT Feb 28, 2025 at 05:41 Date of Discharge: Feb 28, 2025 Admitting Diagnosis Alcohol withdrawal seizures. Labs/Diagnostic Data: Laboratory Results Test 02/28/25 09:05 02/28/25 05:50 02/28/25 00:52 Lactic Acid Level 1.1 mmol/L (0.4-2.0) White Blood Count 11.7 10^3/uL (4.4-10.8) Red Blood Count 4.48 10^6/uL (4.5-5.90) Hemoglobin 14.7 g/dL (13.5-17.5) Hematocrit 42.0 % (41.0-53.0) Mean Corpuscular Volume 93.6 fL (80.0-100.0) Mean Corpuscular Hemoglobin 32.8 pg (28.0-32.0) Mean Corpuscular Hemoglobin Concent 35.1 g/dL (32.0-36.0) Red Cell Distribution Width 12.7 % (11.8-14.3) Platelet Count 158 10^3/uL (140-450) Mean Platelet Volume 6.9 fL (6.9-10.8) Neutrophils (%) (Auto) 84.7 % (37.0-80.0) Lymphocytes (%) (Auto) 6.3 % (10.0-50.0) Monocytes (%) (Auto) 8.6 % (0.0-12.0) Eosinophils (%) (Auto) 0.1 % (0.0-7.0) Basophils (%) (Auto) 0.3 % (0.0-2.0) Neutrophils # (Auto) 9.9 10 ^3/uL (1.6-8.6) Lymphocytes # (Auto) 0.7 10 ^3/uL (0.4-5.4) Monocytes # (Auto) 1.0 10 ^3/uL (0-1.3) Eosinophils # (Auto) 0 10 ^3/uL (0-0.8) Basophils # (Auto) 0 10 ^3/uL (0-0.2) Nucleated Red Blood Cells 0.0 % Sodium Level 140 mmol/L (136-145) Potassium Level 3.9 mmol/L (3.5-5.1) Chloride Level 105 mmol/L (98-107) Carbon Dioxide Level 26 mmol/L (20-31) Anion Gap 9 (5-15) Blood Urea Nitrogen 8 mg/dL (9-23) Creatinine 0.86 mg/dL (0.700-1.30) Glomerular Filtration Rate Calc 123 mL/min (>90) BUN/Creatinine Ratio 9.3 (10.0-20.0) Serum Glucose 81 mg/dL (74-106) Calcium Level 9.3 mg/dL (8.7-10.4) Magnesium Level 1.6 mg/dL (1.6-2.6) Total Bilirubin 1.1 mg/dL (0.2-1.0) Aspartate Amino Transferase (AST) 52 U/L (13-40) Alanine Aminotransferase (ALT) 25 U/L (7-40) Alkaline Phosphatase 94 U/L (46-116) Total Protein 7.2 g/dL (5.7-8.2) Albumin 4.6 g/dL (3.2-4.8) Plasma/Serum Blood Alcohol < 3.0 mg/dL (<10) Urine Color Light-yellow (Yellow) Urine Clarity Clear (Clear) Urine pH 5.0 (5.0-9.0) Urine Specific [place] 1.016 (1.001-1.035) Urine Protein 1+ (Negative) Urine Ketones 1+ (Negative) Urine Blood 1+ /uL (Negative) Urine Nitrite Negative (Negative) Urine Bilirubin Negative (Negative) Urine Urobilinogen Normal mg/dL (Negative) Urine Leukocyte Esterase Negative /uL (Negative) Urine RBC 2 /hpf (0 - 3) Urine Microscopic WBC 1 /HPF (0-3) Urine Squamous Epithelial Cells Few /hpf (<5) Urine Bacteria None seen /hpf (None Seen) Urine Glucose Normal mg/dL (Normal) Urine Opiates Screen Neg (NEGATIVE) Urine Fentanyl Screen Neg (NEGATIVE) Urine Barbiturates Screen Neg (NEGATIVE) Urine Phencyclidine Screen Neg (NEGATIVE) Urine Amphetamines Screen Neg (NEGATIVE) Urine Benzodiazepines Screen Neg (NEGATIVE) Urine Cocaine Screen Neg (NEGATIVE) Urine Cannabinoids Screen Pos (NEGATIVE) Other Laboratory Tests 02/28/25 05:50 Brief Hx & Hospital Course: This is a 24-year-old male with past medical history of seizures noncompliant with his medication. Patient denies any childhood h/o seizures but last seizure episode 1 year ago need intubation since then he started Keppra. As per EMS note, patient was at [place] and had a seizure episode which lasted less than minutes. Patient denies any kind of head trauma, urinary or bowel incontinence, palpitation, any focal weakness. As per patient his seizure medication ran out and not taking his medication last 1 week. In ER, patient received IV lorazepam and and IV levetiracetam, no seizure reported since then but patient wants to leave AMA. Past medical history: Seizures which were diagnosed one year ago likely secondary to alcohol withdrawal, noncompliance, asthma, polysubstance abuse (alcohol and marijuana) Surgical history: Denies Family history: Noncontributory Social history: Lives in [place]. Ethanol and marijuana abuse abuse. Denies current tobacco and other drug abuse. Allergies: Denies Home medication: Keppra, quetiapine 50 mg p.o. daily, and sertraline 50 mg p.o. daily Brief hospital course: Grandma seizure likely alcohol withdrawal versus epileptic seizure, in patient with history of ethanol abuse, and noncompliant with Keppra treatment for the past one week, completed head CT which showed. Neurology was evaluated, indicating p.o. treatment with Keppra 500 mg p.o. b.i.d. and Ativan for seizure breakthrough, and vitamin B1 and folic acid replenishment. Recommended alcohol cessation. Patient oriented in three spheres, lucid, in condition to make his own decisions. Patient decides to leave against medical advice, have explained in detail consequences of doing so, including repeated episodes of seizures and , patient takes full responsibility for his own actions. DIAGNOSIS Breakthrough seizure SIRS probably secondary to alcohol withdrawal Grand mal seizure likely alcohol withdrawal Questionable epileptic seizure Alcohol intoxication Alcohol use disorder Medication noncompliance History of asthma History of depression/ anxiety Polysubstance abuse disorder Goals of care addressed with the patient for more than 27 minutes: Full code status Case discussed with Dr. Mckeon, patient and nurse. Cosigning senior resident: Pooja Burnett, agree with discharge summary. PHYSICAL EXAM Patient lying in bed, in no acute distress General: Lucid, afebrile, mucosae are moist Cardiovascular: Normal S1 and S2. No murmurs, gallops or rubs Respiratory: Normal ventilation mechanics. Clear lung sounds on auscultation Abdomen: Soft, nontender, no organomegaly, normal bowel sounds MSK/skin: Mobilizes 4 limbs. Skin is dry and warm Neurological: Oriented in 3 spheres. No motor no sensitive deficits. Pupils are isocoric and reactive Operations or Procedures EXAM: CT HEAD WITHOUT CONTRAST INDICATION: siezure TECHNIQUE: CT of the head without intravenous contrast. Radiation Dose Information: CT Dose: CTDI volume is 54.56 mGy. Dose-length product is 966.24 mGy*cm The dose indicators for CT are the volume Computed Tomography (CT) Dose Index (CTDIvol) and the Dose Length Product (DLP), and are measured in units of mGy and mGy-cm, respectively. These indicators are not patient dose, but values generated from the CT scanner acquisition factors. The report includes radiation exposure data for exposures received during this examination. COMPARISON: CT HEAD WITHOUT CONTRAST on DOS: 12/10/24, CT HEAD WITHOUT CONTRAST on DOS: 11/26/24, CT HEAD WITHOUT CONTRAST on DOS: 08/12/24, MRI BRAIN HEAD WO CONTRAST on DOS: 05/17/24, CT HEAD WITHOUT CONTRAST on DOS: 05/16/24 FINDINGS: There is no evidence of acute intracranial hemorrhage, extra-axial collection, mass effect, midline shift, herniation or hydrocephalus. The ventricles, sulci and cisterns are age appropriate. The montoya-white differentiation is intact. Patchy periventricular and subcortical white matter hypoattenuation is nonspecific but may be related to small vessel ischemic disease. The visualized paranasal sinuses and mastoid air cells are clear. The surrounding soft tissues and osseous structures are unremarkable. IMPRESSION: No acute intracranial abnormality. ATED BY: KLEVER NUÑEZ MD DICTATED DATE/TIME: 02/28/25 0912 CHEST RADIOGRAPH Indication: rule out aspiration pneumonia Technique: Single frontal view of the chest was obtained Comparison: XY CHEST PORTABLE on DOS: 12/10/24 FINDINGS: Lines and Tubes: None Lungs: Lungs are hypoinflated prominence of the pulmonary markings. No focal consolidation. Pleura: No effusion. No pneumothorax. Cardiomediastinal contours: Unremarkable Bones: No acute osseous abnormality. IMPRESSION: 1. Hyperinflated lungs with prominence of the pulmonary vasculature. No focal airspace. ATED BY: VIANEY LOVELL MD DICTATED DATE/TIME: 02/28/25 0637 Condition at Discharge: Fair Final Diagnosis/Problems List Breakthrough seizure SIRS probably secondary to alcohol withdrawal Grand mal seizure likely alcohol withdrawal Questionable epileptic seizure Alcohol intoxication Alcohol use disorder Medication noncompliance History of asthma History of depression/ anxiety Polysubstance abuse disorder Discharge Disposition: AMA Discharge Instruct/Medications Diet: Regular Scheduled Chlordiazepoxide Hcl (Librium), 25 MG PO UD Levetiracetam (Keppra Tablet), 1,000 MG PO BID Levetiracetam (Keppra Tablet), 1,000 MG PO BID Scheduled PRN Albuterol Sulfate (Albuterol Sulfate Hfa), 108 MCG IN TID PRN Chlordiazepoxide Hcl (Librium), 25 MG GT Q8HP PRN Promethazine-Dm (Promethazine Dm 6.25-15 mg/5Ml), 5 ML PO TID PRN Miscellaneous Medications Quetiapine Fumerate (Quetiapine Fumarate), 1 TAB PO, (Reported) Sertraline Hcl (Sertraline Hcl), 1 TAB PO, (Reported) Discharge Statement: "Patient was advised to return to the ER or call 911 if any headaches, dizziness, shortness of breath, chest pain, abdominal pain, bleeding, fevers, or worsening of medical condition. Patient was counseled about treatment plan, medications, possible side effects, patientverbalized understanding. All questions were answered to the best of my ability. This discharge took greater then 30 minutes in planning, reviewing documentation, counseling the patient, and discussing with other team members." ASSESSMENT ASSESSMENT Assessment Date of Service: Feb 28, 2025 Billing Provider: MAGDALENO MCKEON MD Common Visit Codes: 61807-ENL/OBS DISCH DAY >30min MONSERRAT DIGGS RESIDENT Feb 28, 2025 14:26 POOJA BURNETT RESIDENT Feb 28, 2025 15:18 MAGDALENO MCKEON MD Mar 03, 2025 22:28
== END 2025-02-28 12:15 | disposition left against medical advice (07) | DRG 53 ==
LOC: EDBD 23:17 → ER 23:17 → OVERFLOW 02-28 05:41
PROVIDERS: ADMIT Student in an Organized Health Care Education/Training Program; ATTEND Student in an Organized Health Care Education/Training Program
DX: G40.409 Other generalized epilepsy and epileptic syndromes, not intractable, without status epilepticus (principal); R65.10 Systemic inflammatory response syndrome (SIRS) of non-infectious origin without acute organ dysfunction; F10.239 Alcohol dependence with withdrawal, unspecified; F17.210 Nicotine dependence, cigarettes, uncomplicated; F41.9 Anxiety disorder, unspecified; F32.A Depression, unspecified; F10.229 Alcohol dependence with intoxication, unspecified; Z91.148 Patient's other noncompliance with medication regimen for other reason; Z82.49 Family history of ischemic heart disease and other diseases of the circulatory system; Y90.9 Presence of alcohol in blood, level not specified
CPT/HCPCS: 36415; 70450; 71045; 80048; 80053; 80307; 80320; 81001; 83605; 83735; 85025; 87081; 96361; 96365; 96367; 99291; G0378; J7060

== ENCOUNTER 2025-04-08 11:40 | Emergency (ER) | payer MEDICAID ==
[~2025-04-08] VITALS: Ht 172.7 cm; Wt 60.1 kg
[~2025-04-08 11:40] MED LIST changes: +CHL25C PO
[2025-04-08 12:59] VITALS: BP 121/86; PULSE 92; RESP 16; TEMP 97.7; O2SAT 99
--- NOTE | 2025-04-08 13:02 | ED.PDOC ---
Eye-HPI HPI Comments A 24 YEAR OLD MALE PRESENTS TO THE ED WITH COMPLAINT OF SORE THROAT. PATIENT STATES HE HAS BEEN EXPERIENCING A SORE THROAT THAT IS WORSE WHEN SWALLOWING FOR THE PAST 3 DAYS. PATIENT DENIES FEVER, CHILLS, SHORTNESS OF BREATH, CHEST PAIN, ABDOMINAL PAIN, NAUSEA, VOMITING, HEADACHE, OR OTHER COMPLAINTS. NO OTHER SYMPTOMS OR MODIFYING FACTORS AT THIS TIME. PATIENT IS ALERT, ORIENTED X 4, AND HAS STEADY GAIT. Chief Complaint: Sore Throat Time Seen by MD: 12:05 Primary Care Provider: UNKNOWN Reviewed Notes: Nurses Notes, Medications, Allergies Allergies: Coded Allergies: No Known Drug Allergy (Verified Allergy, Unknown, 10/02/17) Home Meds Active Scripts Lidocaine HCl (Mouth-Throat) (Lidocaine HCl Viscous) 2 % Catrachita, 5 ML MT TID, #100 ML Prov:ALAN HELM 04/08/25 Azithromycin (ZITHROMAX TABLET) 250 Mg Tb, 250 MG PO DAILY, #6 TAB Prov:ALAN HELM 04/08/25 Levetiracetam (KEPPRA TABLET) 500 Mg Tb, 1000 MG PO BID for 30 Days, #120 TAB Prov:MAGDALENO HERRERA MD 02/28/25 Chlordiazepoxide Hcl (Librium) 25 Mg Cp, 25 MG PO UD for 5 Days, #14 CAP 2 tabs three times a day for 1 day followed by 2 tabs twice a day for one day, followed by 1 tab twice a day for 1 day followed by 1 tab daily for 2 days. Prov:MAGDALENO HERRERA MD 02/28/25 Chlordiazepoxide Hcl (Librium) 25 Mg Cp, 25 MG GT Q8HP PRN, #20 CAP Prov:MIRIAN ROBBINS MD 12/14/24 Promethazine-Dm (Promethazine Dm 6.25-15 mg/5Ml) 1 Catrachita Catrachita, 5 ML PO TID PRN, #200 ML Prov:CODIE LLOYDP 11/10/24 Albuterol Sulfate (Albuterol Sulfate Hfa) 108 Mcg/Act Aer, 108 MCG IN TID PRN, #1 AER Prov:CODIE LLOYDP 11/10/24 Levetiracetam (KEPPRA TABLET) 500 Mg Tb, 1000 MG PO BID for 30 Days, #120 TAB 6 Refills Prov:EDWARDS,FIONA T DO 10/06/23 Reported Medications Sertraline Hcl (Sertraline Hcl) 50 Mg Tab, 1 TAB PO 11/26/24 Quetiapine Fumerate (QUETIAPINE FUMARATE) 50 Mg Tab, 1 TAB PO 11/26/24 Information Source: Patient Mode of Arrival: Ambulatory Timing: Days Duration: Since onset, Days Prehospital treatment: None Quality: Pain, Red Lids: Normal Conjunctiva: Normal Cornea: Normal Pupils: Normal EOM: Normal Fundus: Normal Slit lamp exam: Normal Anterior chamber: Normal Mouth Location: Pharynx Mouth: Normal ENT Ear Exam: Normal, Normal, Normal Nose: Normal Sinuses: Normal Oropharynx: Red Onset: Spontaneous Throat Exposed to: None History of: None Last Tetanus: Unknown Modifying factors: Nothing Associated signs and symptoms: Sore Throat Past Medical History PAST MEDICAL HISTORY: Depression, Seizures Surgical History: Denies all surgeries Family History Family History: Reviewed,noncontributory to illness Social History Smoker: Cigarettes, Less Than 1 Pack/Day Alcohol: Heavy Drugs: Marijuana Lives In: Home Constitutional: denies: chills, diaphoresis, fatigue, fever, malaise, sweats, weakness, others EENTM: reports: throat pain, throat swelling; denies: blurred vision, double vision, ear bleeding, ear discharge, ear drainage, ear pain, ear ringing, eye pain, eye redness, hearing loss, mouth pain, mouth swelling, nasal discharge, nose bleeding, nose congestion, nose pain, photophobia, tearing, voice changes, others Respiratory: denies: cough, hemoptysis, orthopnea, SOB at rest, shortness of breath, SOB with excertion, stridor, wheezing, others Cardiovascular: denies: chest pain, dizzy spells, diaphoresis, Dyspnea on exertion, edema, irregular heart beat, left arm pain, lightheadedness, palpitations, PND, syncope, others Gastrointestinal: denies: abdomen distended, abdominal pain, blood streaked bowels, constipated, diarrhea, dysphagia, difficulty swallowing, hematemesis, melena, nausea, poor appetite, poor fluid intake, rectal bleeding, rectal pain, vomiting, others Genitourinary: denies: burning, dysuria, flank pain, frequency, hematuria, incontinence, penile discharge, penile sore, pain, testicle pain, testicle swelling, urgency, others Neurological: denies: dizziness, fainting, headache, left sided numbness, left sided weakness, numbness, paresthesia, pre-existing deficit, right sided numbness, right sided weakness, seizure, speech problems, tingling, tremors, weakness, others Musculoskeletal: denies: back pain, gout, joint pain, joint swelling, muscle pain, muscle stiffness, neck pain, others Integumetry: denies: bruises, change in color, change in hair/nails, dryness, laceration, lesions, lumps, rash, wounds, others Allergic/Immunocompromised: denies: Difficulty Healing, Frequent Infections, Hives, Itching, others Hematologic/Lymphatic: denies: anemia, blood clots, easy bleeding, easy bruising, swollen glands, others Endocrine: denies: excessive hunger, excessive sweating, excessive thirst, excessive urination, flushing, intolerance to cold, intolerance to heat, unexplained weight gain, unexplained weight loss, others Psychiatric: denies: anxiety, bipolar disorder, depression, hopeless, panic disorder, schizophrenia, sleepless, suicidal, others All Other Systems: Reviewed and Negative Physical Exam General Appearance: No Apparent Distress, Normal HEENT: PERRL/EOMI, Pharyngeal Erythema (VESICLE PHARYNX, NO EXUDATES. ), TMs Normal Neck: Full Range of Motion, Non-Tender, Normal, Normal Inspection Respiratory: Chest Non-Tender, Lungs Clear, No Accessory Muscle Use, No Respi ratory Distress, Normal Breath Sounds Cardiovascular: No Edema, No JVD, No Murmur, No Gallop, Normal Peripheral Pulses, Regular Rate/Rhythm Breast Exam: Deferred Gastrointestinal: No Organomegaly, Non Tender, No Pulsatile Mass, Normal Bowel Sounds, Soft Genitalia: Deferred Pelvic: Deferred Rectal: Deferred Extremities: No calf tenderness, Normal capillary refill, Normal inspection, Normal range of motion, Non-tender, No pedal edema Musculoskeletal : Apperance: Normal Neurologic: Alert, chief service observer II-XII nml as Tested, No Motor Deficits, Normal Affect, Normal Mood, No Sensory Deficits Cerebellar Function: Normal Reflexes: Normal Skin: Dry, Normal Color, Warm Peripheral Pulses: 2+ carotid (R), 2+ carotid (L) Lymphatic: No Adenopathy Was a procedure done? Was a procedure done?: No EENT DIFF Eye: N/A Ear: Otitis Media, Pharyngitis, Sinusitis Nose: N/A Mouth: N/A Sore Throat: Pharyngitis, Streptococcal, Viral Pharyngitis, URI X-Ray, Labs, Meds, VS Vital Signs Date Time Temp Pulse Resp B/P (MAP) Pulse Ox O2 Delivery O2 Flow Rate FiO2 04/08/25 12:59 97.7 91 18 121/86 (98) 99 97.7 04/08/25 12:59 92 16 99 Room Air 04/08/25 11:42 97.4 103 18 168/78 94 97.4 X-Ray, Labs, Meds, VS Comment EXTERNAL MEDICAL RECORDS REVIEWED: [NONE] INDEPENDENT HISTORIANS: [NONE] SOCIAL DETERMINANTS OF HEALTH: [NONE] LABS ORDERED: NONE REVIEWED AND INTERPRETED RESULTS: NONE IMAGING ORDERED: NONE TREATMENTS ORDERED: NONE PROCEDURES PERFORMED: NONE CRITICAL CARE TIME: NONE I HAVE DISCUSSED THE PATIENT WITH THE ATTENDING PHYSICIAN DR. PINEDA AND HE AGREES WITH THE PATIENT'S PLAN OF CARE AND DISPOSITION. BASED ON HISTORY OF PRESENT ILLNESS, AND PHYSICAL EXAM, PATIENT WILL BE DISCHARGED HOME. DISCUSSED PLAN FOR DISCHARGE HOME WITH RX [AZITHROMYCIN AND 2% VISCOUS LIDOCAINE]. MEDICATION WARNINGS GIVEN. SHARED DECISION MAKING: PATIENT INSTRUCTED TO FOLLOW UP WITH PRIMARY CARE PROVIDER IN 1-2 DAYS FOR RE-EVALUATION OF SYMPTOMS. PATIENT VERBALIZES UNDERSTANDING TO RETURN TO ED FOR NEW OR WORSENING SYMPTOMS OR IF FOLLOW UP WITH PCP CANNOT BE OBTAINED. PATIENT FEELS COMFORTABLE GOING HOME AT THIS TIME. ALL QUESTIONS ADDRESSED AT TIME OF DISCHARGE. Time of 1ST Reevaluation: 13:06 Reevaluation 1ST: Improved Patient Education/Counseling: Diagnosis, Treatment, Need For Follow Up Family Education/Counseling: Diagnosis, Treatment, Need For Follow Up Medical Screening: No EMC Exist At This Time SEPSIS Sepsis Screen Date sepsis recognized/suspect: Apr 08, 2025 Time Sepsis recognized/suspect: 1145 Recent Procedure: No On Antibiotic Therapy: No Respiratory Rate >20: No Heart Rate >90: Yes Temp<36 C (96.8 F) or >38.3 C: No SBP <90 or MAP <65 mmHG: No New Acute Mental Status Change: No Is the patient on CPAP, BIPAP,: No Vital Signs Date Time Temp Pulse Resp B/P (MAP) Pulse Ox O2 Delivery O2 Flow Rate FiO2 04/08/25 12:59 97.7 91 18 121/86 (98) 99 97.7 04/08/25 12:59 92 16 99 Room Air 04/08/25 11:42 97.4 103 18 168/78 94 97.4 Departure 1 Departure Time of Disposition: 13:06 Impression: Primary Impression: Acute pharyngitis Qualified Codes: J02.9 - Acute pharyngitis, unspecified Disposition: HOME / SELF CARE / HOMELESS Condition: Stable Additional Instructions: FOLLOW-UP WITH PCP IN 1 TO 2 DAYS. TAKE MEDICATIONS PRESCRIBED. RETURN TO ED FOR ANY NEW OR WORSENING SYMPTOMS. e-Prescriptions Lidocaine HCl (Mouth-Throat) (Lidocaine HCl Viscous) 2 % Catrachita 5 ML MT TID, #100 ML Prov: ALAN HELM 04/08/25 Azithromycin (ZITHROMAX TABLET) 250 Mg Tb 250 MG PO DAILY, #6 TAB Prov: ALAN HELM 04/08/25 Discharged With: Self Critical Care Note Critical Care Time?: No Stability Stability form required: No I personally scribed for ALAN HELM ([email or web address]) on 04/08/25 at 13:01. Electronically submitted by Dudley Zhao ([email or web address]). ALAN HELM Apr 08, 2025 13:01
[2025-04-08] MEDS ORDERED: AZIT-185 PO (13:05)
[2025-04-08] MEDS ORDERED: LIDO2SOL26 MT (13:05)
== END 2025-04-08 13:11 | disposition home or self-care (01) ==
LOC: ER 11:40
DX: J02.9 Acute pharyngitis, unspecified (principal); F12.90 Cannabis use, unspecified, uncomplicated; F10.90 Alcohol use, unspecified, uncomplicated; F17.210 Nicotine dependence, cigarettes, uncomplicated; F32.A Depression, unspecified; Z79.899 Other long term (current) drug therapy; Y90.9 Presence of alcohol in blood, level not specified

== ENCOUNTER 2025-04-13 09:44 | Emergency (ER) | payer MEDICAID ==
[~2025-04-13] VITALS: Ht 172.7 cm; Wt 70.5 kg
[~2025-04-13 09:44] MED LIST changes: +AZIT-185 PO; +LIDO2SOL26 MT
[2025-04-13 10:16] VITALS: BP 133/86; PULSE 60; RESP 16; TEMP 98.4; O2SAT 97
--- NOTE | 2025-04-13 10:35 | ED.PDOC ---
HPI (NEURO) HPI Comments Dudley Govea is a 24-year-old male, with past medical history of seizures and depression. The patient came to the ED via EMS with chief complain of "imminent seizures" He said he has run out his medication "Keppra" since 2 weeks ago> the patient reports that he has auras before seizing consisting of: headache, lighheadness, anxiety or " fear". Today, he has been experimenting this auras, this prompted his visit to the ED. On further questioning, the reported he was admitted on 12/2024 in [facility] for seizure breakthrough, since then he has not have any seizure episode. On the ED BP: 130/95mmHg, HR: 74x'. The patient will be further assessed. Chief Complaint: Seizure Time Seen by MD: 10:07 Primary Care Provider: UNKNOWN Reviewed Notes: Nurses Notes, Medications (Keppra 1000 mg bid), Allergies Information Source: Patient Mode of Arrival: EMS Severity: Mild Headache Severity: Mild Timing: Minutes Duration: Since onset Seizure Quality: Tonic-clonic Headache Quality: Throbbing Headache Location: Parietal (biparietal ) Past Medical History PAST MEDICAL HISTORY: Depression, Seizures Surgical History: Denies all surgeries Family History Family History: Reviewed,noncontributory to illness Social History Smoker: Cigarettes, Less Than 1 Pack/Day Alcohol: Heavy Drugs: Marijuana Lives In: Home Constitutional: denies: chills, diaphoresis, fatigue, fever, malaise, sweats, weakness, others EENTM: reports: others (headache); denies: blurred vision, double vision, ear bleeding, ear discharge, ear drainage, ear pain, ear ringing, eye pain, eye redness, hearing loss, mouth pain, mouth swelling, nasal discharge, nose bleeding, nose congestion, nose pain, photophobia, tearing, throat pain, throat swelling, voice changes Respiratory: denies: cough, hemoptysis, orthopnea, SOB at rest, shortness of breath, SOB with excertion, stridor, wheezing, others Cardiovascular: denies: chest pain, dizzy spells, diaphoresis, Dyspnea on exertion, edema, irregular heart beat, left arm pain, lightheadedness, palpitations, PND, syncope, others Gastrointestinal: denies: abdomen distended, abdominal pain, blood streaked bowels, constipated, diarrhea, dysphagia, difficulty swallowing, hematemesis, melena, nausea, poor appetite, poor fluid intake, rectal bleeding, rectal pain, vomiting, others Genitourinary: denies: burning, dysuria, flank pain, frequency, hematuria, incontinence, penile discharge, penile sore, pain, testicle pain, testicle swelling, urgency, others Neurological: denies: dizziness, fainting, headache, left sided numbness, left sided weakness, numbness, paresthesia, pre-existing deficit, right sided numbness, right sided weakness, seizure, speech problems, tingling, tremors, weakness, others Musculoskeletal: denies: back pain, gout, joint pain, joint swelling, muscle pain, muscle stiffness, neck pain, others Integumetry: denies: bruises, change in color, change in hair/nails, dryness, laceration, lesions, lumps, rash, wounds, others Allergic/Immunocompromised: denies: Difficulty Healing, Frequent Infections, Hives, Itching, others Hematologic/Lymphatic: denies: anemia, blood clots, easy bleeding, easy bruising, swollen glands, others Endocrine: denies: excessive hunger, excessive sweating, excessive thirst, excessive urination, flushing, intolerance to cold, intolerance to heat, unexplained weight gain, unexplained weight loss, others Psychiatric: reports: anxiety; denies: bipolar disorder, depression, hopeless, panic disorder, schizophrenia, sleepless, suicidal, others Physical Exam Exam Comments Alert, oriented x3, not in acute distress General Appearance: No Apparent Distress, Normal HEENT: Normal ENT Inspection, Pharynx Normal, TMs Normal Neck: Full Range of Motion, Non-Tender, Normal, Normal Inspection Respiratory: Chest Non-Tender, Lungs Clear, No Accessory Muscle Use, No Respiratory Distress, Normal Breath Sounds Cardiovascular: No Edema, No JVD, No Murmur, No Gallop, Normal Peripheral Pulses, Regular Rate/Rhythm Breast Exam: Deferred Gastrointestinal: No Organomegaly, Non Tender, No Pulsatile Mass, Normal Bowel Sounds, Soft Genitalia: Deferred Pelvic: Deferred Rectal: Deferred Extremities: No calf tenderness, Normal capillary refill, Normal inspection, Normal range of motion, Non-tender, No pedal edema Musculoskeletal : Apperance: Normal Neurologic: Alert, behavioral health assistant II-XII nml as Tested, No Motor Deficits, Normal Affect, Normal Mood, No Sensory Deficits Cerebellar Function: Normal Reflexes: Normal Skin: Dry, Normal Color, Warm Lymphatic: No Adenopathy Was a procedure done? Was a procedure done?: No Differential Diagnosis (SZ) Seizure: Other (inminent seizure) General Weakness: N/A Headache: N/A X-Ray, Labs, Meds, VS Vital Signs Date Time Temp Pulse Resp B/P (MAP) Pulse Ox O2 Delivery O2 Flow Rate FiO2 04/13/25 10:17 Room Air* 0 21 04/13/25 10:16 98.4 60 16 133/86 (102) 97 98.4 04/13/25 09:52 98.6 74 25 130/95 98 98.6 Lab Test 04/13/25 10:53 Range/Units White Blood Count 4.6 4.4-10.8 10^3/uL Red Blood Count 4.20 L 4.5-5.90 10^6/uL Hemoglobin 13.7 13.5-17.5 g/dL Hematocrit 40.1 L 41.0-53.0 % Mean Corpuscular Volume 95.4 80.0-100.0 fL Mean Corpuscular Hemoglobin 32.7 H 28.0-32.0 pg Mean Corpuscular Hemoglobin Concent 34.3 32.0-36.0 g/dL Red Cell Distribution Width 13.3 11.8-14.3 % Platelet Count 162 140-450 10^3/uL Mean Platelet Volume 6.8 L 6.9-10.8 fL Neutrophils (%) (Auto) 65.3 37.0-80.0 % Lymphocytes (%) (Auto) 22.6 10.0-50.0 % Monocytes (%) (Auto) 10.6 0.0-12.0 % Eosinophils (%) (Auto) 1.1 0.0-7.0 % Basophils (%) (Auto) 0.4 0.0-2.0 % Neutrophils # (Auto) 3.0 1.6-8.6 10 ^3/uL Lymphocytes # (Auto) 1.0 0.4-5.4 10 ^3/uL Monocytes # (Auto) 0.5 0-1.3 10 ^3/uL Eosinophils # (Auto) 0.1 0-0.8 10 ^3/uL Basophils # (Auto) 0 0-0.2 10 ^3/uL Nucleated Red Blood Cells 0.0 % Sodium Level 144 136-145 mmol/L Potassium Level 3.6 3.5-5.1 mmol/L Chloride Level 106 98-107 mmol/L Carbon Dioxide Level 27 20-31 mmol/L Anion Gap 11 5-15 Blood Urea Nitrogen 7 L 9-23 mg/dL Creatinine 0.81 0.700-1.30 mg/dL Glomerular Filtration Rate Calc 125 >90 mL/min BUN/Creatinine Ratio 8.6 L 10.0-20.0 Serum Glucose 92 74-106 mg/dL Calcium Level 9.0 8.7-10.4 mg/dL Current Medications Medications (Trade) Dose Ordered Sig/Travon Route Start Time Stop Time Status Last Admin Levetiracetam (Keppra Tablet) 1,000 mg ONCE ONCE PO 04/13/25 10:45 04/13/25 10:46 DC 04/13/25 10:55 X-Ray, Labs, Meds, VS Comment 11:24 The patient has been reassessed. CBC: Hb: 13.7mg/dl WBC: 4.6x10e3/uL BMP: Na: 144, K: 3.6 Patient has not have a seizure during his time in the ED. The patient will be discharge home and f/u with pcp and neurologist Time of 1ST Reevaluation: 11:01 Reevaluation 1ST: Improved Patient Education/Counseling: Diagnosis, Treatment, Prognosis, Need For Follow Up Family Education/Counseling: Diagnosis, Treatment, Prognosis, Need For Follow Up Departure 1 Departure Time of Disposition: 11:30 Impression: Primary Impression: Seizure disorder Disposition: 01 HOME / SELF CARE / HOMELESS Condition: Good Additional Instructions: Please read all instructions provided in this packet carefully. You MUST follow-up with your primary care/family doctor in 1 to 2 days. If you are unable to see your primary care/family doctor, please return to our emergency room for re-assessment and re-evaluation in 1 to 2 days. Return to the emergency room here in our facility or to the nearest ER [facility] if your symptoms change or worsen. CONSULTATIONS: you MUST Follow-up for consultation as soon as possible with: -your specialist Neurlogist Dr. Jamey urbina in 1-2 days. You MUST call the consultants office yourself to make an appointment. You may need to arrange that through your insurance and/or your primary/family doctor. If you are unable to see the databases computer consultant in 1 to 2 days, you must return to our emergency room (or any other ER of your choice) for re-assessment and re- evaluation. Adequate fluid hydration. Continue with Keppra 1000 mg po BID. Although you have been discharged from the Emergency Department, this does not mean that you have a "clean bill of health". No definitive diagnosis for your symptoms has been made today. It is possible that you are in the process of developing a serious illness. This is why you must return to the ED without fail if any new or worsening symptoms develop. Discharged With: Self Comments Goals of care discussed with the patient > 35 min. Discussed plan of care with Dr. Gutierrez Code status: Full code PCP: No established, patient was advised to continue in the discharge clinic to establish care. Plan discussed with: Patient, the patient agrees with the plan. Critical Care Note Critical Care Time?: No Stability Stability form required: No Heart Score Heart Score: Heart Score Response (Comments) Value History N/A 0 EKG N/A 0 Age N/A 0 Risk Factors N/A 0 Troponin N/A 0 Total 0 ALICE LACEY RESIDENT Apr 13, 2025 10:35
[2025-04-13] MEDS: levETIRAcetam 500 MG TAB PO ONE (10:55)
[2025-04-13 11:07] LABS: Hematocrit 40.1 % (41.0-53.0); Hemoglobin 13.7 g/dL (13.5-17.5); Mean Corpuscular Hemoglobin 32.7 pg (28.0-32.0); Mean Corpuscular Volume 95.4 fL (80.0-100.0); Nucleated Red Blood Cells % 0.0 %
[2025-04-13 11:13] LABS: Chloride 106 mmol/L (98-107); Potassium 3.6 mmol/L (3.5-5.1); Sodium 144 mmol/L (136-145)
[2025-04-13 11:14] LABS: Anion Gap 11 (5-15); Calcium 9.0 mg/dL (8.7-10.4); Carbon Dioxide 27 mmol/L (20-31)
[2025-04-13 11:19] LABS: BUN/Creatinine Ratio 8.6 (10.0-20.0); Glucose 92 mg/dL (74-106)
[2025-04-13 11:22] LABS: Blood Urea Nitrogen 7 mg/dL (9-23)
[2025-04-13] MEDS ORDERED: KEP500T PO (12:33)
== END 2025-04-13 12:46 | disposition home or self-care (01) ==
LOC: EDBD 09:44 → ER 09:44
DX: G40.909 Epilepsy, unspecified, not intractable, without status epilepticus (principal); F17.210 Nicotine dependence, cigarettes, uncomplicated; F12.90 Cannabis use, unspecified, uncomplicated; Z79.899 Other long term (current) drug therapy
CPT/HCPCS: 36415; 80048; 85025